=== PATIENT | male | born 1940 | race Caucasian/White ===

== ENCOUNTER → 2016-07-21 | Day surgery (SDC) | payer OTHER ==
[2016-07-19 13:34] VITALS: BMI 29.0
[~2016-07-21] VITALS: Ht 172.7 cm; Wt 88.6 kg
[~2016-07-21] MED LIST: AMLO-110 PO; ASPCH81X PO; ATOR10TA88 PO; CANA1TAB PO; CANA1TAB3 PO; CHOL100041 PO; CLIN300C2 PO; CYAN100T PO; DILT180C48 PO; FISHOIL PO; GLIM4TAB PO; LCTX PO; LIDOCAINE HCL 2% 2 ML VIAL (20MG/ML) ONE; METF-384 PO; NATE120T PO; ONDANSETRON INJ 2 MG/ML 2 ML VIAL IV PRN; PANT40TA PO; PROPOFOL IV EMULSION 10 MG/ML 20 ML VIAL IV ONE; RXC5 PO
[2016-07-21 10:26] VITALS: Ht 172.7 cm; Wt 88.6 kg
--- NOTE | 2016-07-21 11:12 | Endo History and Physical ---
History & Physical Date of Service: Jul 21, 2016. Chief Complaint: SCREENING ONE YEAR FOLLOW-UP Referring Physician: DR. TODD FANG History of Present Illness Evaluation for colon polyps, no symptoms todya. Past Medical History Atrial Fibrillation, Diabetes, Arthritis, Male Genitourinary Prob., Reflux, Cancer, High Cholesterol, Sleep Apnea, Heart Disease, Hypertension Past Surgical History Hx Cardiac Surgery: Yes (HEART CATH, NO STENT 2012 - [facility]) Hx Internal Defibrillator: No Hx Pacemaker: No Hx Abdominal Surgery: Yes ([facility]) Hx Post-Op Nausea and Vomiting: No Hx Cancer Surgery: Yes (BCC AND MELANOMA CANCER REMOVAL FROM RT FOREARM AND FACE) Hx Thoracic Surgery: No Hx Orthopedic: No Hx Urinary Tract Surgery: No Family History None Social History Smoking Status: Never Smoker Hx Substance Use: No Hx Alcohol Use: Yes (OCCASIONAL) Allergies Coded Allergies: Lisinopril (Unverified Allergy, Severe, edema/airway, 07/21/16) Simvastatin (Unverified Allergy, Mild, MUSCLE PAIN, 07/21/16) Adhesives (Verified Adverse Reaction, Unknown, TAPE, 07/21/16) Current Medications Reported Home Medications Medications Dose Route/Sig Max Daily Dose Days Date Category Dose Instructions Invokana (Canagliflozin) 300 Mg Tab 0.5 Tab PO QAM 07/19/16 Reported Protonix (Pantoprazole Sodium) 40 Mg Tab 40 Mg PO QAM 07/10/15 Reported Vitamin B-12 (Cyanocobalamin) 100 Mcg Tab 100 Mcg PO QAM 07/10/15 Reported D 1000 (Cholecalciferol) 1,000 Unit Cap 1,000 Units PO HS 03/27/15 Reported Amaryl (Glimepiride) 4 Mg Tab 8 Mg PO QAM 03/27/15 Reported Take 8 mg by mouth daily with first main meal of day Dilt-Xr (Diltiazem Hcl) 180 Mg Cap 180 Mg PO QAM 03/27/15 Reported Starlix (Nateglinide) 120 Mg Tab 1 Tab PO UD 02/05/14 Reported Take 120 mg by mouth before supper and before bedtime. Lipitor (Atorvastatin Calcium) 10 Mg Tab 10 Mg PO 1-2X/WEEK 02/05/14 Reported [place]-3 (Fish Oil) Oil 2,000 Mg PO HS 05/10/12 Reported Aspirin Chewable (Aspirin) 81 Mg Chew 81 Mg PO HS 05/10/12 Reported Glucophage (Metformin Hcl) 1,000 Mg Tab 1,000 Mg PO HS 05/10/12 Reported Vital Signs Weight (Kilograms): 88.64 Height (Feet): 5 Height (Inches): 8 Date Time Temp Pulse Resp B/P Pulse Ox O2 Delivery O2 Flow Rate FiO2 07/21/16 10:53 36.7 70 20 126/72 95 Room Air Physical Exam General Appearance: no apparent distress Respiratory/Chest: Respiratory effort: no dyspnea Auscultation: breath sounds normal Cardiovascular: Heart Auscultation: RRR Abdomen: Inspection & Palpation: soft Assessment and Plan Colonoscoopy for colon cancer screening
--- NOTE | 2016-07-21 11:54 | Discharge Instructions ---
Endoscopy Patient Instructions Date / Procedure(s) Performed Jul 21, 2016. Colonoscopy Allergy Information Coded Allergies: Lisinopril (Unverified Allergy, Severe, edema/airway, 07/21/16) Simvastatin (Unverified Allergy, Mild, MUSCLE PAIN, 07/21/16) Adhesives (Verified Adverse Reaction, Unknown, TAPE, 07/21/16) Discharge Date / Findings Jul 21, 2016. Internal hemorrhoids Diverticulosis of the colon 3 colon polyps Medication Instructions Stopped Medication(s): TOLD TO STOP MEDICATIONS BUT COULDN'T REMEMBER SO STOPPED ALL TOOK CARDIZEM YESTERDAY Reported Home Medications Medications Dose Route/Sig Max Daily Dose Days Date Category Dose Instructions Invokana (Canagliflozin) 300 Mg Tab 0.5 Tab PO QAM 07/19/16 Reported Protonix (Pantoprazole Sodium) 40 Mg Tab 40 Mg PO QAM 07/10/15 Reported Vitamin B-12 (Cyanocobalamin) 100 Mcg Tab 100 Mcg PO QAM 07/10/15 Reported D 1000 (Cholecalciferol) 1,000 Unit Cap 1,000 Units PO HS 03/27/15 Reported Amaryl (Glimepiride) 4 Mg Tab 8 Mg PO QAM 03/27/15 Reported Take 8 mg by mouth daily with first main meal of day Dilt-Xr (Diltiazem Hcl) 180 Mg Cap 180 Mg PO QAM 03/27/15 Reported Starlix (Nateglinide) 120 Mg Tab 1 Tab PO UD 02/05/14 Reported Take 120 mg by mouth before supper and before bedtime. Lipitor (Atorvastatin Calcium) 10 Mg Tab 10 Mg PO 1-2X/WEEK 02/05/14 Reported [place]-3 (Fish Oil) Oil 2,000 Mg PO HS 05/10/12 Reported Aspirin Chewable (Aspirin) 81 Mg Chew 81 Mg PO HS 05/10/12 Reported Glucophage (Metformin Hcl) 1,000 Mg Tab 1,000 Mg PO HS 05/10/12 Reported Provider Instructions Activity Restrictions - No exercising or heavy lifting for 24 hours. - Do not drink alcohol the day of the procedure. - Do not drive a car or operate machinery until the day after the procedure. - Do not make any important decisions or sign important papers in 24 hours after the procedure. Following Day: - Return to full activity which may include returning to work/school. Diet Start your diet with liquids and light foods (jello, soup, juice, toast). Then eat your usual diet if not nauseated. Treatment For Common After Affects For mild abdominal pain, bloating, or excessive gas: - Rest - Eat lightly - Lie on right side Follow-Up Information Several colon polyps removed today (3) Repeat colonoscopy in 5 years depending on overall health at that time. Anesthesia Information What You Should Know You have had a procedure that required some medicine to reduce anxiety and discomfort. This treatment is called moderate sedation. After receiving the treatment, you may be sleepy, but you will be able to breathe on your own. The effects of the treatment may last for several hours. Follow these instructions along with Activity/Diet recommendations noted above: * Do NOT do anything where dizziness or clumsiness would be dangerous. * Rest quietly at home today, then you can be up and about tomorrow. * Have a responsible person stay with you the rest of today. * You may have had an I.V. today. If so, you may take the dressing off later today. Recommendations Call your doctor if: * Trouble breathing * Continuous vomiting for more than 24 hours * Temperature above 101 degrees * Severe abdominal pain or bloating * Pain not relieved by pain medicine ordered * There is increased drainage or redness from any incision * A large amount of rectal bleeding greater than 2-3 tablespoons. (If you had a polyp/s removed or have hemorrhoids, a small amount of blood - from the rectum is to be expected.) * You have any unanswered questions or concerns. IN THE EVENT OF A SERIOUS EMERGENCY, GO TO THE NEAREST EMERGENCY ROOM Your discharge instructions were prepared by provider Sallie Gardner. Patient Instructions Signature Page Higinio Mayers Patient (or Guardian) Signature/Date: I have read and understand the instructions given to me by my caregivers. Caregiver/RN/Doctor Signature/Date: The above-named patient and/or guardian has received patient instructions on this date. + Original Patient Signature Page (only) stays with chart. Please make copy for patient.
--- NOTE | 2016-07-21 12:01 | GI REPORT ---
Procedure Date: 07/21/2016 11:30 AM Procedure: Colonoscopy Indications: Screening for colorectal malignant neoplasm Medicines: Monitored Anesthesia Care Complications: No immediate complications. Estimated blood loss: Minimal. Estimated Blood Loss: Estimated blood loss was minimal. Procedure: Pre-Anesthesia Assessment: - Prior to the procedure, a History and Physical was performed, and patient medications, allergies and sensitivities were reviewed. The patient's tolerance of previous anesthesia was reviewed. - The risks and benefits of the procedure and the sedation options and risks were discussed with the patient. All questions were answered and informed consent was obtained. - Patient identification and proposed procedure were verified prior to the procedure by the physician, the nurse and the senior business development manager. The procedure was verified in the procedure room. - Pre-procedure physical examination revealed no contraindications to sedation. - ASA Grade Assessment: III - A patient with severe systemic disease. - After reviewing the risks and benefits, the patient was deemed in satisfactory condition to undergo the procedure. - The anesthesia plan was to use monitored anesthesia care (MAC). - Immediately prior to administration of medications, the patient was re-assessed for adequacy to receive sedatives. - The heart rate, respiratory rate, oxygen saturations, blood pressure, adequacy of pulmonary ventilation, and response to care were monitored throughout the procedure. - The physical status of the patient was re-assessed after the procedure. After I obtained informed consent, the scope was passed under direct vision. Throughout the procedure, the patient's blood pressure, pulse, and oxygen saturations were monitored continuously. The scope was introduced through the anus and advanced to the terminal ileum. The colonoscopy was performed without difficulty. The patient tolerated the procedure well. The quality of the bowel preparation was good. Findings: The perianal and digital rectal examinations were normal. Pertinent negatives include normal sphincter tone. The terminal ileum appeared normal. Three sessile polyps were found in the transverse colon. The polyps were 4 to 6 mm in size. These polyps were removed with a cold snare. Resection and retrieval were complete. Estimated blood loss was minimal. Multiple small and large-mouthed diverticula were found in the entire colon. Internal hemorrhoids were found during retroflexion. The hemorrhoids were moderate. The exam was otherwise without abnormality. Impression: - The examined portion of the ileum was normal. - Three 4 to 6 mm polyps in the transverse colon, removed with a cold snare. Resected and retrieved. - Moderate diverticulosis in the entire examined colon. - Internal hemorrhoids. - The examination was otherwise normal. Recommendation: - Discharge patient to home (ambulatory). - Advance diet as tolerated today. - Await pathology results. - Repeat colonoscopy in 5 years for surveillance based on pathology results. Sallie Gardner D.O. Sallie Gardner, 07/21/2016 11:59:57 AM This report has been signed electronically. Note Initiated On: 07/21/2016 11:30 AM I attest to the content of the Intraoperative Record and orders documented therein, exceptions below
[2016-07-21 12:26] VITALS: BP 151/89; PULSE 58; O2SAT 96
--- NOTE | 2016-07-21 12:35 | Anesthesiology Progress Note ---
Anesthesia Post Op Note Date & Time Jul 21, 2016 at 12:34 Vital Signs Pain Intensity: 0 Vital Signs Past 12 Hours Date Time Temp Pulse Resp B/P Pulse Ox O2 Delivery O2 Flow Rate FiO2 07/21/16 12:26 58 20 151/89 96 Room Air 07/21/16 12:07 56 20 140/70 95 Room Air 07/21/16 11:52 69 20 102/62 95 Room Air 07/21/16 10:53 36.7 70 20 126/72 95 Room Air Notes Mental Status: alert / awake / arousable Nausea / Vomiting: adequately controlled Pain: adequately controlled Airway Patency, RR, SpO2: stable & adequate BP & HR: stable & adequate Hydration State: stable & adequate Anesthetic Complications: no major complications apparent
== END | disposition home or self-care (01) ==
LOC: C.GI 10:02
PROVIDERS: ATTEND Internal Medicine Gastroenterology
DX: Z12.11 Encounter for screening for malignant neoplasm of colon (principal); D12.3 Benign neoplasm of transverse colon; K57.30 Diverticulosis of large intestine without perforation or abscess without bleeding; K64.8 Other hemorrhoids; I48.91 Unspecified atrial fibrillation; E11.9 Type 2 diabetes mellitus without complications; I10 Essential (primary) hypertension; K21.9 Gastro-esophageal reflux disease without esophagitis; E78.00 Pure hypercholesterolemia, unspecified; M19.90 Unspecified osteoarthritis, unspecified site; Z98.890 Other specified postprocedural states; Z90.49 Acquired absence of other specified parts of digestive tract

== ENCOUNTER 2016-08-23 17:04 | Inpatient (IN) | payer OTHER ==
[~2016-08-23] VITALS: Ht 172.7 cm; Wt 86.0 kg
[~2016-08-23 17:04] MED LIST changes: -AMLO-110 PO; +ATOR10TA82 PO; -ATOR10TA88 PO; -CANA1TAB PO; -CANA1TAB3 PO; -CLIN300C2 PO; -LCTX PO; -LIDOCAINE HCL 2% 2 ML VIAL (20MG/ML) ONE; -ONDANSETRON INJ 2 MG/ML 2 ML VIAL IV PRN; -PROPOFOL IV EMULSION 10 MG/ML 20 ML VIAL IV ONE; -RXC5 PO
[2016-08-23 17:31] LABS: BASO % 0.3 %; BASO ABS # 0.03 K/uL (0-0.2); COMPLETE YES; HEMATOCRIT 40.2 % (42-52); IG% 0.6 %; LYMPH % 30.1 %; MEAN CELL VOLUME 83.2 fL (80-100); MEAN CORPUSCULAR HEMOGLOBIN 29.2 pg (25-34); MEAN CORPUSCULAR HGB CONC 35.1 g/dl (32-36); MEAN PLATELET VOLUME 9.4 fL (7.4-10.4); MONO % 12.2 %; NEUT % 55.8 %; PLATELET COUNT 308 K/uL (130-400); RED BLOOD COUNT 4.83 M/uL (4.7-6.1); WHITE BLOOD COUNT 11.98 K/uL (4.8-10.8)
[2016-08-23 17:34] LABS: ISTAT CREATININE 0.9 mg/dl (0.6-1.3); ISTAT HEMOGLOBIN 13.9 g/dl (14.0-18.0); ISTAT IONIZED CALCIUM 1.18 mmol/l (1.12-1.32)
[2016-08-23 17:45] LABS: INR 0.9 (0.9-1.1); PROTHROMBIN TIME (PATIENT) 10.1 SECONDS (9.0-12.0)
--- NOTE | 2016-08-23 17:46 | DIAGNOSTIC IMAGING REPORT ---
CHEST ONE VIEW PORTABLE CLINICAL HISTORY: Shortness of breath. COMPARISON STUDY: Chest radiograph July 28, 2016. FINDINGS: Bibasilar opacities have developed. Lung volumes are diminished. Mild cardiomegaly is unchanged. There is no evidence of pulmonary edema. IMPRESSION: Interval development of bibasilar opacities. Pneumonia is favored although atelectasis could appear similar. Radiographic follow-up to ensure resolution is recommended. Electronically signed by: Duran Ferraro M.D. 08/23/2016 5:44 PM Dictated Date/Time: 08/23/2016 5:43 PM
[2016-08-23 17:49] LABS: ALT/SGPT 17 U/L (12-78); BLOOD UREA NITROGEN 19 mg/dl (7-18); BUN/CREATININE RATIO 15.8 (10-20); CALCIUM 8.6 mg/dl (8.5-10.1); CARBON DIOXIDE 25 mmol/L (21-32); CHLORIDE 105 mmol/L (98-107); GLUCOSE 193 mg/dl (70-99); POTASSIUM 3.8 mmol/L (3.5-5.1); SODIUM 140 mmol/L (136-145)
[2016-08-23 17:52] LABS: ALKALINE PHOSPHATASE 71 U/L (45-117); AST/SGOT 12 U/L (15-37)
--- NOTE | 2016-08-23 17:57 | DIAGNOSTIC IMAGING REPORT ---
CT OF THE HEAD WITHOUT CONTRAST CLINICAL HISTORY: Headache. Evaluate for bleed. COMPARISON STUDY: No previous studies for comparison. CT DOSE: 537.48 mGy.cm TECHNIQUE: Helical axial images of the head were obtained without IV contrast. Automated exposure control was utilized for the study. FINDINGS: No acute intracranial hemorrhage, midline shift or mass effect is present. Ventricular system is normal. Basilar cisterns are patent. There are no extra-axial collections. White matter hypodensities suggest moderate small vessel disease. There are no findings to suggest acute dural sinus thrombosis or acute territorial infarct. There are no significant calvarial abnormalities. Visualized portions of the sinuses and mastoid air cells are clear. IMPRESSION: No acute intracranial findings. Electronically signed by: Duran Ferraro M.D. 08/23/2016 5:55 PM Dictated Date/Time: 08/23/2016 5:53 PM
[2016-08-23] MEDS ORDERED: OPTIRAY 320 IV PRN (18:30)
--- NOTE | 2016-08-23 18:31 | DIAGNOSTIC IMAGING REPORT ---
CT ANGIOGRAPHY OF THE CHEST, PULMONARY EMBOLUS PROTOCOL CLINICAL HISTORY: Nausea, vomiting and shortness of breath. COMPARISON STUDY: Chest radiograph July 28, 2016 and August 23, 2016. TECHNIQUE: Following IV administration of 116 mL of [id number]-320, helical axial images of the chest were obtained utilizing the pulmonary embolus protocol. Maximal intensity projections and sagittal and coronal reformats were viewed on an independent 3D workstation. IV contrast was administered without complication. CT DOSE: 466.29 mGy.cm FINDINGS: No pulmonary emboli are identified although the lower lobe segmental and subsegmental vessels are suboptimally assessed due to respiratory motion. The heart is moderately enlarged. There is no pericardial effusion. There is no evidence of thoracic aortic dissection. There is no thoracic lymphadenopathy. Dependent airspace opacities within the lungs are noted. Central airways are patent. There is no pneumothorax or pleural effusion. Bony thorax is unremarkable. Colonic diverticulosis is noted. There is no evidence for acute diverticulitis within visualized portions of the colon. The gallbladder surgically absent. IMPRESSION: 1. No pulmonary emboli identified although the segmental and subsegmental pulmonary arteries within the lower lungs are suboptimally assessed due to respiratory motion. 2. Moderate cardiomegaly. 3. Dependent airspace opacities. Atelectasis is favored over pneumonia. Electronically signed by: Duran Ferraro M.D. 08/23/2016 6:30 PM Dictated Date/Time: 08/23/2016 6:24 PM
[2016-08-23 18:53] LABS: URINE APPEARANCE CLEAR (CLEAR); URINE BILIRUBIN NEG (NEG); URINE COLOR YELLOW; URINE EPITHELIAL CELL AUTO 0-5 /lpf (0-5); URINE NITRITE NEG (NEG); URINE SPECIFIC GRAVITY 1.024 (1.000-1.030); UROBILINOGEN NEG (NEG)
[2016-08-23] MEDS ORDERED: PIPERACILLIN/TAZOBACTAM 4.5 GM/100ML D5W IV STA (18:59)
[2016-08-23 19:02] LABS: MANUAL MICROSCOPIC REQUIRED? NO; REVIEW REQ? NO
[2016-08-23 19:10] LABS: BENZODIAZEPINE, URINE NEG (NEG); COCAINE,URINE NEG (NEG); PHENCYCLIDINE, URINE NEG (NEG)
[2016-08-23] MEDS ORDERED: CANA1TAB PO (19:37)
[2016-08-23] MEDS ORDERED: ACETAMINOPHEN 325 MG TAB PO PRN (19:45)
[2016-08-23] MEDS ORDERED: GLUCOSE 40% GEL 15 GM TUBE PO PRN (19:45)
[2016-08-23] MEDS ORDERED: DEXTROSE 50% 50 ML SYR IV PRN (19:45)
[2016-08-23] MEDS ORDERED: NITROGLYCERIN 0.4 MG SL PER TAB CHARGE SL PRN (19:45)
[2016-08-23] MEDS ORDERED: GLUCAGON FOR INJ 1 MG VIAL SQ PRN (19:45)
[2016-08-23] MEDS ORDERED: ONDANSETRON INJ 2 MG/ML 2 ML VIAL IV PRN (19:45)
[2016-08-23] MEDS ORDERED: GLUCOSE 10 TABS/TUBE PO PRN (19:45)
[2016-08-23] MEDS ORDERED: PHARMACY GLYCEMIC MGMT CONSULT PRN (19:49)
--- NOTE | 2016-08-23 20:09 | EMERGENCY ROOM VISIT NOTE ---
History Report prepared by Michael: Tamika Thompson Under the Supervision of: Dr. Xavier Duggan M.D. First contact with patient: 17:10 Chief Complaint: POISONING Stated Complaint: NAUSEA, VOMITING, POISONING History of Present Illness The patient is a 76 year old male who presents to the Emergency Room with complaints of multiple episodes of vomiting beginning just prior to arrival. The patient states that he was outside in his yard spraying Bullseye, which is a weed killer for about 15 minutes before he started to experience symptoms. The patient states that his symptoms began with blurred vision, nausea and vomiting. He also experienced mild chest pain that he described as tightness which has since resolved upon arrival to the ED. Currently the patient is experiencing a headache and fatigue. He is short of breath but notes that is typical for him. The patient denies a history of heat attacks, diaphoresis, urinary symptoms, numbness, weakness or abdominal pain. The patient does have an irregular heart beat which he takes a baby Aspirin for. He denies any other blood thinners. The patient is also a diabetic and has hypertension. He describes his headache as a muscular pain in the back of his head. Source of History: patient Onset: just [employer] Position: other (global) Symptom Intensity: multiple Quality: other (vomiting) Timing: other (episodes) Associated Symptoms: + SOB, + chest pain (mild tightness), + nausea, No abdominal pain, No diaphoresis, No numbness, No urinary symptoms, No weakness Note: The patient experienced blurred vision. Review of Systems See HPI for pertinent positives & negatives. A total of 10 systems reviewed and were otherwise negative. Past Medical & Surgical Medical Problems: (1) GRISELDA inhibitor-aggravated angioedema (2) CKD (chronic kidney disease), stage III (3) Diverticulosis of colon (4) DM type 2 (diabetes mellitus, type 2) (5) Dyslipidemia (6) GERD (gastroesophageal reflux disease) (7) GI bleed (8) H/O hemorrhoids (9) Hiatal hernia (10) History of basal cell carcinoma (11) History of Helicobacter pylori infection (12) History of right bundle branch block (RBBB) (13) Hypertension (14) Hypoxia (15) Iliac artery aneurysm (16) Paroxysmal atrial fibrillation (17) Pneumonia (18) Pneumonia Surgical Problems: (1) H/O arthroscopic knee surgery (2) H/O colonoscopy (3) H/O nasal polypectomy (4) S/p ERCP with stone removal (5) S/P laparoscopic cholecystectomy (6) S/P tonsillectomy (7) S/p upper endoscopy (8) Status post Mohs surgery Family History Cancer Diabetes mellitus Heart disease Hypertension Lung disease Social History Smoking Status: Never Smoker Alcohol Use: occasionally Drug Use: none Marital Status: single Occupation Status: retired Current/Historical Medications Scheduled Aspirin (Aspirin Chewable), 81 MG PO HS Atorvastatin (Lipitor), 10 MG PO 1-2X/WEEK Canagliflozin (Invokana), 50 MG PO DAILY Cholecalciferol (D 1000), 1,000 UNITS PO HS Cyanocobalamin (Vitamin B-12), 100 MCG PO QAM Diltiazem Hcl (Dilt-Xr), 180 MG PO QAM Glimepiride (Amaryl), 8 MG PO QAM Metformin Hcl (Glucophage), 1,000 MG PO HS Nateglinide (Starlix ), 1 TAB PO UD Pantoprazole (Protonix), 40 MG PO QAM Allergies Coded Allergies: Lisinopril (Verified Allergy, Severe, edema/airway, 08/23/16) Simvastatin (Verified Allergy, Mild, MUSCLE PAIN, 08/23/16) Adhesives (Verified Adverse Reaction, Unknown, RASH, 08/23/16) Mushroom (Verified Adverse Reaction, Unknown, NAUSEATED, 08/23/16) Physical Exam Vital Signs Date Time Temp Pulse Resp B/P Pulse Ox O2 Delivery O2 Flow Rate FiO2 08/23/16 19:35 74 21 168/90 94 Nasal Cannula 2.0 08/23/16 18:24 70 21 181/89 97 08/23/16 17:16 36.8 60 18 164/91 89 Room Air 08/23/16 17:16 65 08/23/16 17:10 62 20 164/91 90 Physical Exam Constitutional: Vital signs reviewed. Eyes: Pupils are equal round reactive to light. Conjunctiva are noninjected. ENT: Pharynx is clear without erythema or exudate. Mucous membranes are moist. Neck supple without meningeal signs. Respiratory: Clear to auscultation bilaterally. Breath sounds are equal bilaterally. Cardiovascular: Regular rate and rhythm. No rubs or gallops. GI: Soft, nondistended and nontender. Bowel sounds are present. Musculoskeletal: No peripheral edema. No lower extremity tenderness. Integumentary: No cyanosis. Neurological: The patient is awake and alert. Cranial nerves II-XII are intact. Motor is 5 out of 5 all extremities. Sensation is intact to light touch all extremities. Normal speech. No pronator drift. Psychiatric: Normal affect. Medical Decision & Procedures ER Provider Diagnostic Interpretation: Radiology results as stated below per my review and the radiologist's interpretation: CT OF THE HEAD WITHOUT CONTRAST CLINICAL HISTORY: Headache. Evaluate for bleed. COMPARISON STUDY: No previous studies for comparison. CT DOSE: 537.48 mGy.cm TECHNIQUE: Helical axial images of the head were obtained without IV contrast. Automated exposure control was utilized for the study. FINDINGS: No acute intracranial hemorrhage, midline shift or mass effect is present. Ventricular system is normal. Basilar cisterns are patent. There are no extra-axial collections. White matter hypodensities suggest moderate small vessel disease. There are no findings to suggest acute dural sinus thrombosis or acute territorial infarct. There are no significant calvarial abnormalities. Visualized portions of the sinuses and mastoid air cells are clear. IMPRESSION: No acute intracranial findings. Electronically signed by: Duran Ferraro M.D. 08/23/2016 5:55 PM Dictated Date/Time: 08/23/2016 5:53 PM CHEST ONE VIEW PORTABLE CLINICAL HISTORY: Shortness of breath. COMPARISON STUDY: Chest radiograph July 28, 2016. FINDINGS: Bibasilar opacities have developed. Lung volumes are diminished. Mild cardiomegaly is unchanged. There is no evidence of pulmonary edema. IMPRESSION: Interval development of bibasilar opacities. Pneumonia is favored although atelectasis could appear similar. Radiographic follow-up to ensure resolution is recommended. Electronically signed by: Duran Ferraro M.D. 08/23/2016 5:44 PM Dictated Date/Time: 08/23/2016 5:[address] ANGIOGRAPHY OF THE CHEST, PULMONARY EMBOLUS PROTOCOL CLINICAL HISTORY: Nausea, vomiting and shortness of breath. COMPARISON STUDY: Chest radiograph July 28, 2016 and August 23, 2016. TECHNIQUE: Following IV administration of 116 mL of [id number]-320, helical axial images of the chest were obtained utilizing the pulmonary embolus protocol. Maximal intensity projections and sagittal and coronal reformats were viewed on an independent 3D workstation. IV contrast was administered without complication. CT DOSE: 466.29 mGy.cm FINDINGS: No pulmonary emboli are identified although the lower lobe segmental and subsegmental vessels are suboptimally assessed due to respiratory motion. The heart is moderately enlarged. There is no pericardial effusion. There is no evidence of thoracic aortic dissection. There is no thoracic lymphadenopathy. Dependent airspace opacities within the lungs are noted. Central airways are patent. There is no pneumothorax or pleural effusion. Bony thorax is unremarkable. Colonic diverticulosis is noted. There is no evidence for acute diverticulitis within visualized portions of the colon. The gallbladder surgically absent. IMPRESSION: 1. No pulmonary emboli identified although the segmental and subsegmental pulmonary arteries within the lower lungs are suboptimally assessed due to respiratory motion. 2. Moderate cardiomegaly. 3. Dependent airspace opacities. Atelectasis is favored over pneumonia. Electronically signed by: Duran Ferraro M.D. 08/23/2016 6:30 PM Dictated Date/Time: 08/23/2016 6:24 PM Laboratory Results 08/23/16 16:32 Red Blood Count 4.83, Mean Corpuscular Volume 83.2, Mean Corpuscular Hemoglobin 29.2, Mean Corpuscular Hemoglobin Concent 35.1, Mean Platelet Volume 9.4, Neutrophils (%) (Auto) 55.8, Lymphocytes (%) (Auto) 30.1, Monocytes (%) (Auto) 12.2, Eosinophils (%) (Auto) 1.0, Basophils (%) (Auto) 0.3, Neutrophils # (Auto ) 6.70, Lymphocytes # (Auto) 3.60, Monocytes # (Auto) 1.46, Eosinophils # (Auto ) 0.12, Basophils # (Auto) 0.03 08/23/16 16:32 Test 08/23/16 16:32 08/23/16 17:22 08/23/16 18:38 White Blood Count 11.98 K/uL (4.8-10.8) Red Blood Count 4.83 M/uL (4.7-6.1) Hemoglobin 14.1 g/dL (14.0-18.0) Hematocrit 40.2 % (42-52) Mean Corpuscular Volume 83.2 fL (80-100) Mean Corpuscular Hemoglobin 29.2 pg (25-34) Mean Corpuscular Hemoglobin Concent 35.1 g/dl (32-36) Platelet Count 308 K/uL (130-400) Mean Platelet Volume 9.4 fL (7.4-10.4) Neutrophils (%) (Auto) 55.8 % Lymphocytes (%) (Auto) 30.1 % Monocytes (%) (Auto) 12.2 % Eosinophils (%) (Auto) 1.0 % Basophils (%) (Auto) 0.3 % Neutrophils # (Auto) 6.70 K/uL (1.4-6.5) Lymphocytes # (Auto) 3.60 K/uL (1.2-3.4) Monocytes # (Auto) 1.46 K/uL (0.11-0.59) Eosinophils # (Auto) 0.12 K/uL (0-0.5) Basophils # (Auto) 0.03 K/uL (0-0.2) RDW Standard Deviation 44.8 fL (36.4-46.3) RDW Coefficient of Variation 14.6 % (11.5-14.5) Immature Granulocyte % (Auto) 0.6 % Immature Granulocyte # (Auto) 0.07 K/uL (0.00-0.02) Prothrombin Time 10.1 SECONDS (9.0-12.0) Prothromb Time International Ratio 0.9 (0.9-1.1) Activated Partial Thromboplast Time 25.8 SECONDS (21.0-31.0) Partial Thromboplastin Ratio 1.0 Est Creatinine Clear Calc Drug Dose 55.4 ml/min Estimated GFR () 66.7 Estimated GFR (Non- 57.6 BUN/Creatinine Ratio 15.8 (10-20) Calcium Level 8.6 mg/dl (8.5-10.1) Magnesium Level 1.6 mg/dl (1.8-2.4) Total Bilirubin 0.4 mg/dl (0.2-1) Direct Bilirubin < 0.1 mg/dl (0-0.2) Aspartate Amino Transf (AST/SGOT) 12 U/L (15-37) Alanine Aminotransferase (ALT/SGPT) 17 U/L (12-78) Alkaline Phosphatase 71 U/L (45-117) Total Protein 7.8 gm/dl (6.4-8.2) Albumin 3.7 gm/dl (3.4-5.0) Lipase 201 U/L (73-393) Bedside Hemoglobin 13.9 g/dl (14.0-18.0) Bedside Hematocrit 41 % (42-52) Bedside Sodium 141 mEq/L (135-144) Bedside Potassium 3.8 mEq/L (3.3-5.0) Bedside Chloride 102 mEq/L (101-112) Bedside Total CO2 24 mEq/l (24-31) Anion Gap 20.0 mmol/L (16-25) Bedside Blood Urea Nitrogen 19 mg/dl (7-18) Bedside Creatinine 0.9 mg/dl (0.6-1.3) Bedside Glucose (other) 195 mg/dl (70-99) Bedside Ionized Calcium (Lesley) 1.18 mmol/l (1.12-1.32) Bedside Troponin I 0.000 ng/ml (0-0.045) Urine Color YELLOW Urine Appearance CLEAR (CLEAR) Urine pH 5.0 (4.5-7.5) Urine Specific [place] 1.024 (1.000-1.030) Urine Protein 2+ (NEG) Urine Glucose (UA) 1+ (NEG) Urine Ketones NEG (NEG) Urine Occult Blood NEG (NEG) Urine Nitrite NEG (NEG) Urine Bilirubin NEG (NEG) Urine Urobilinogen NEG (NEG) Urine Leukocyte Esterase NEG (NEG) Urine WBC (Auto) 1-5 /hpf (0-5) Urine RBC (Auto) 0-4 /hpf (0-4) Urine Hyaline Casts (Auto) 1-5 /lpf (0-5) Urine Epithelial Cells (Auto) 0-5 /lpf (0-5) Urine Bacteria (Auto) NEG (NEG) Urine Opiates Screen NEG (NEG) Urine Methadone, Qualitative NEG (NEG) Urine Barbiturates NEG (NEG) Urine Phencyclidine (PCP) Level NEG (NEG) Ur Amphetamine/Methamphetamine NEG (NEG) MDMA (Ecstasy) Screen NEG (NEG) Urine Benzodiazepines Screen NEG (NEG) Urine Cocaine Metabolite NEG (NEG) Urine Marijuana (THC) NEG (NEG) Laboratory results as reviewed by me. Medications Administered Medications (Trade) Dose Ordered Sig/Emmie Route Start Time Stop Time Status Last Admin Dose Admin Piperacillin Sod/ Tazobactam Sod (Zosyn Iv) 4.5 gm NOW STAT IV 08/23/16 18:59 08/23/16 19:00 DC 08/23/16 19:31 4.5 GM ECG Indication: vomiting Rate (beats per minute): 62 Rhythm: sinus with SA Findings: 1st degree AV block, RBBB Comparison ECG Date: RBBB present 03/27/15 ED Course 171: The patient was evaluated in room A2. A complete history and physical exam was performed. 1800: Patient feels tired at the moment. He complains of an occasional musculoskeletal headache on the right side. I informed him he will have a CT scan done. 1805: I spoke with Poison Control. They feel the spraying of the weed killer is not likely the cause of the patient's symptoms. Ogseye is not an organic phosphate. 1858: Zosyn IV 4.5 gm IV. 1902: I spoke with the patient and his family about the test results. 1908: I spoke with CARLOS Hernandez of [employer]. We discussed the patient and his results. The patient will be further evaluated by Alan Hernandez. Medical Decision This is a 76-year-old male who presents with chest pain, shortness of breath, headache and vomiting. Differential diagnosis includes intracranial hemorrhage , intracranial mass, CVA, metabolic derangement, [place], pneumonia. I did perform a limited focused review of portions of the patient's old chart on the electronic medical record. The patient had a colonoscopy last month that showed polyps in his colon. I did provide prehospital medical command from patient. I did speak to the Poison Control Center at [place] who stated that the weed killer was not likely to have given him his symptoms. I did evaluate the patient as noted above. The patient was placed on a continuous laboratory monitor. I did order and personally review the patient's 12-lead EKG and chest x-ray as described above. His chest x-ray demonstrates bibasilar infiltrates. I did order and review the patient's blood work as noted in the electronic medical record. Because of his headache and was concerned about intracranial hemorrhage. Because of his hypoxia I was concerned about possible PE. I did order a CT of the head and chest. I did review the images myself as well as the radiology report as described above. There is no evidence of bleed or pulmonary embolism. He does have bibasilar infiltrates on CT scan. I did reassess the patient multiple times. He is satting 96% on 2 L oxygen. I did treat the patient with Zosyn IV. I did discuss the test results with the patient and his family. I did recommend hospitalization and discuss case with the hospitalist and case management manager. Consults Time Called: 1803 Consulting Physician: Poison Control Returned Call: 1805 I spoke with Poison Control. They feel the spraying of the weed killer is not likely the cause of the patient's symptoms. Ogseye is not an organic phosphate. Additional Consults: Time Called: 1906 Consulted Physician: Alan Hernandez Returned Call: 1908 Additional Comments: I spoke with CARLOS Hernandez of [employer]. We discussed the patient and his results. The patient will be further evaluated by Alan Hernandez. Impression Primary Impression: Bilateral pneumonia Additional Impressions: Headache Hypoxia Departure Information Dispostion Home / Self-Care Referrals Aiyana Albarran DBelaOBela (PCP) Problem Qualifiers Primary Impression: Bilateral pneumonia Pneumonia type: due to unspecified organism Lung location: lower lobe of lung Qualified Codes: J18.9 - Pneumonia, unspecified organism Additional Impressions: Headache Headache type: unspecified Headache chronicity pattern: acute headache
--- NOTE | 2016-08-23 20:12 | History and Physical ---
History & Physical Date & Time of Service: Aug 23, 2016 at 19:39 Chief Complaint: Nausea, Vomiting, Poisoning Primary Care Physician: Aiyana Albarran D.O. History of Present Illness Source: patient, family, clinic records, hospital records Patient seen and examined. 76 year old male presents to the ED complaining of acute onset of dizziness, nausea, and chest tightness prior to arrival. Patient reports he was spraying a weed killer (roundup) when he acutely felt dizzy and like his vision was blurry. He states he also had some chest tightness at this time and had severe nausea. His family reports that he seemed wobbly on his feet so he came to the ED for further evaluation. Prior to working in the yard the patient states he was feeling well. He denies fevers, chills, URI symptoms, cough, sputum production, SOB, vomiting, diarrhea, dysuria, calf pain and edema. He denies history of COPD/Asthma. In the ED patient is hypoxic on RA, WBC count is 11K, CT is negative for PE but shows BL infiltrates. CT head was negative. Patient was placed on supplemental oxygen and received Zosyn for possible pneumonia. ED spoke with poison control who did not think symptoms were secondary to [place] use. When he walked to bathroom in the ED the patient was still wobbly per family. He will be admitted for further workup and treatment. Past Medical/Surgical History Medical Problems: (1) GRISELDA inhibitor-aggravated angioedema Status: Chronic (2) CKD (chronic kidney disease), stage III Status: Chronic (3) Diverticulosis of colon Status: Chronic (4) DM type 2 (diabetes mellitus, type 2) Status: Chronic (5) Dyslipidemia Status: Chronic (6) GERD (gastroesophageal reflux disease) Status: Chronic (7) H/O hemorrhoids Status: Chronic (8) Hiatal hernia Status: Chronic (9) History of basal cell carcinoma Status: Chronic (10) History of Helicobacter pylori infection Status: Chronic (11) History of right bundle branch block (RBBB) Status: Chronic (12) Hypertension Status: Chronic (13) Iliac artery aneurysm Status: Chronic (14) Paroxysmal atrial fibrillation Status: Chronic (15) Pneumonia Status: Resolved Surgical Problems: (1) H/O arthroscopic knee surgery Status: Chronic (2) H/O colonoscopy Permanent Comment: 04/2005-diverticulae Status: Chronic (3) H/O nasal polypectomy Status: Chronic (4) S/p ERCP with stone removal Permanent Comment: 05/12/2012 Status: Chronic (5) S/P laparoscopic cholecystectomy Status: Chronic (6) S/P tonsillectomy Status: Chronic (7) S/p upper endoscopy Permanent Comment: 04/2005- mild antritis, positive H pylori Status: Chronic (8) Status post Mohs surgery Status: Chronic Family History Cancer Diabetes mellitus Heart disease Hypertension Lung disease Social History Smoking Status: Never Smoker Drug Use: none Marital Status: single Housing status: lives with significant other Occupational Status: retired Immunizations History of Influenza Vaccine: Yes History of Tetanus Vaccine?: Yes History of Pneumococcal: Yes History of Hepatitis B Vaccine: No Multi-Drug Resistant Organisms History of MDRO: No Allergies Coded Allergies: Lisinopril (Verified Allergy, Severe, edema/airway, 08/23/16) Simvastatin (Verified Allergy, Mild, MUSCLE PAIN, 08/23/16) Adhesives (Verified Adverse Reaction, Unknown, RASH, 08/23/16) Mushroom (Verified Adverse Reaction, Unknown, NAUSEATED, 08/23/16) Home Medications Scheduled Aspirin (Aspirin Chewable), 81 MG PO HS Atorvastatin (Lipitor), 10 MG PO 1-2X/WEEK Canagliflozin (Invokana), 50 MG PO DAILY Cholecalciferol (D 1000), 1,000 UNITS PO HS Cyanocobalamin (Vitamin B-12), 100 MCG PO QAM Diltiazem Hcl (Dilt-Xr), 180 MG PO QAM Glimepiride (Amaryl), 8 MG PO QAM Metformin Hcl (Glucophage), 1,000 MG PO HS Nateglinide (Starlix ), 1 TAB PO UD Pantoprazole (Protonix), 40 MG PO QAM Review of Systems See above for pertinent positives & negatives. A total of 10 systems reviewed and were otherwise negative. Physical Exam Vital Signs Date Time Temp Pulse Resp B/P Pulse Ox O2 Delivery O2 Flow Rate FiO2 08/23/16 19:35 74 21 168/90 94 Nasal Cannula 2.0 08/23/16 18:24 70 21 181/89 97 08/23/16 17:16 36.8 60 18 164/91 89 Room Air 08/23/16 17:16 65 08/23/16 17:10 62 20 164/91 90 General Appearance: + pertinent finding (WD/WN 76 year old male lying in bed in NAD with family at bedside ) Head: normocephalic, atraumatic Eyes: PERRL, EOMI, sclerae normal ENT: hearing grossly normal, pharynx normal Neck: supple, no JVD Respiratory/Chest: chest non-tender, lungs clear, normal breath sounds, no respiratory distress, no accessory muscle use Cardiovascular: regular rate, rhythm, no edema, no gallop, no JVD, no murmur, normal peripheral pulses Abdomen/GI: normal bowel sounds, non tender, soft Back: normal inspection, no muscle spasm Extremities/Musculoskelatal: no calf tenderness, normal capillary refill, no pedal edema Neurologic/Psych: alert, oriented x 3, + pertinent finding (No focal deficits ) Skin: normal color, warm/dry, no rash Lymphatic: no adenopathy Diagnostics Laboratory Results Results Past 24 Hours Test 08/23/16 16:32 08/23/16 17:22 08/23/16 18:38 Range/Units White Blood Count 11.98 4.8-10.8 K/uL Red Blood Count 4.83 4.7-6.1 M/uL Hemoglobin 14.1 14.0-18.0 g/dL Hematocrit 40.2 42-52 % Mean Corpuscular Volume 83.2 80-100 fL Mean Corpuscular Hemoglobin 29.2 25-34 pg Mean Corpuscular Hemoglobin Concent 35.1 32-36 g/dl Platelet Count 308 130-400 K/uL Mean Platelet Volume 9.4 7.4-10.4 fL Neutrophils (%) (Auto) 55.8 % Lymphocytes (%) (Auto) 30.1 % Monocytes (%) (Auto) 12.2 % Eosinophils (%) (Auto) 1.0 % Basophils (%) (Auto) 0.3 % Neutrophils # (Auto) 6.70 1.4-6.5 K/uL Lymphocytes # (Auto) 3.60 1.2-3.4 K/uL Monocytes # (Auto) 1.46 0.11-0.59 K/uL Eosinophils # (Auto) 0.12 0-0.5 K/uL Basophils # (Auto) 0.03 0-0.2 K/uL RDW Standard Deviation 44.8 36.4-46.3 fL RDW Coefficient of Variation 14.6 11.5-14.5 % Immature Granulocyte % (Auto) 0.6 % Immature Granulocyte # (Auto) 0.07 0.00-0.02 K/uL Prothrombin Time 10.1 9.0-12.0 SECONDS Prothromb Time International Ratio 0.9 0.9-1.1 Activated Partial Thromboplast Time 25.8 21.0-31.0 SECONDS Partial Thromboplastin Ratio 1.0 Sodium Level 140 136-145 mmol/L Potassium Level 3.8 3.5-5.1 mmol/L Chloride Level 105 98-107 mmol/L Carbon Dioxide Level 25 21-32 mmol/L Anion Gap 10.0 20.0 16-25 mmol/L Blood Urea Nitrogen 19 7-18 mg/dl Creatinine 1.20 0.60-1.40 mg/dl Est Creatinine Clear Calc Drug Dose 55.4 ml/min Estimated GFR () 66.7 Estimated GFR (Non- 57.6 BUN/Creatinine Ratio 15.8 10-20 Random Glucose 193 70-99 mg/dl Calcium Level 8.6 8.5-10.1 mg/dl Total Bilirubin 0.4 0.2-1 mg/dl Direct Bilirubin < 0.1 0-0.2 mg/dl Aspartate Amino Transf (AST/SGOT) 12 15-37 U/L Alanine Aminotransferase (ALT/SGPT) 17 12-78 U/L Alkaline Phosphatase 71 45-117 U/L Total Protein 7.8 6.4-8.2 gm/dl Albumin 3.7 3.4-5.0 gm/dl Lipase 201 73-393 U/L Bedside Hemoglobin 13.9 14.0-18.0 g/dl Bedside Hematocrit 41 42-52 % Bedside Sodium 141 135-144 mEq/L Bedside Potassium 3.8 3.3-5.0 mEq/L Bedside Chloride 102 101-112 mEq/L Bedside Total CO2 24 24-31 mEq/l Bedside Blood Urea Nitrogen 19 7-18 mg/dl Bedside Creatinine 0.9 0.6-1.3 mg/dl Bedside Glucose (other) 195 70-99 mg/dl Bedside Ionized Calcium (Lesley) 1.18 1.12-1.32 mmol/l Bedside Troponin I 0.000 0-0.045 ng/ml Urine Color YELLOW Urine Appearance CLEAR CLEAR Urine pH 5.0 4.5-7.5 Urine Specific [place] 1.024 1.000-1.030 Urine Protein 2+ NEG Urine Glucose (UA) 1+ NEG Urine Ketones NEG NEG Urine Occult Blood NEG NEG Urine Nitrite NEG NEG Urine Bilirubin NEG NEG Urine Urobilinogen NEG NEG Urine Leukocyte Esterase NEG NEG Urine WBC (Auto) 1-5 0-5 /hpf Urine RBC (Auto) 0-4 0-4 /hpf Urine Hyaline Casts (Auto) 1-5 0-5 /lpf Urine Epithelial Cells (Auto) 0-5 0-5 /lpf Urine Bacteria (Auto) NEG NEG Urine Opiates Screen NEG NEG Urine Methadone, Qualitative NEG NEG Urine Barbiturates NEG NEG Urine Phencyclidine (PCP) Level NEG NEG Ur Amphetamine/Methamphetamine NEG NEG MDMA (Ecstasy) Screen NEG NEG Urine Benzodiazepines Screen NEG NEG Urine Cocaine Metabolite NEG NEG Urine Marijuana (THC) NEG NEG Diagnostic Radiology CT A/P Per radiologist read: IMPRESSION: 1. No pulmonary emboli identified although the segmental and subsegmental pulmonary arteries within the lower lungs are suboptimally assessed due to respiratory motion. 2. Moderate cardiomegaly. 3. Dependent airspace opacities. Atelectasis is favored over pneumonia. CXR Per radiologist read: IMPRESSION: Interval development of bibasilar opacities. Pneumonia is favored although atelectasis could appear similar. Radiographic follow-up to ensure resolution is recommended. CT HEAD Per radiologist read: IMPRESSION: No acute intracranial findings. 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 Workup reveals, hypoxia, possible pneumonia ACUTE HYPOXIA -admit to tele -? cause, CTA chest negative for PE, does show significant atelectasis versus pneumonia -no history of lung disease -empirically treat for infection with clindamycin -continue supplemental oxygen prn -r/o ACS as outlined below -CBC, PRP, Mg in AM LEUKOCYTOSIS -? underlying pneumonia, CT with atelectasis versus pneumonia possible aspiration -will empirically treat with clindamycin -repeat CXR in AM -incentive Spirometry Speech therapy consult CHEST TIGHTNESS/DIZZINESS/NAUSEA -acutely while using pesticides -? cause, Poison Control does not believe symptoms are related to pesticides use -CVA ruled out by CT head -PE ruled out by CT chest -consider afib with RVR, ACS, Hypertensive urgency and other causes -monitor in tele for arrhythmia -serial Juice, EKGs -update Echo -continue Aspirin, Statin, Diltiazem HYPERTENSION- uncontrolled -systolically >160 -add amlodipine prn -monitor in tele PAROXYSMAL ATRIAL FIBRILLATION -in Sinus Rhythm -continue Diltiazem -continue Aspirin -monitor in tele DM2 -hold po meds -SSI coverage -update A1c -BSG AC HS -consistent carb diet HLD -takes statin only 2-3 times a week CKD STAGE 3 -crea stable -follow PRP -avoid nephrotoxic agents as able GERD -continue PPI DVT PROPHYLAXIS: SCDs RE: h/o GI bleed CODE STATUS: FULL CODE DISPO:In my clinical judgment this beneficiary meets acute admission criteria, established by [facility], that includes being hospitalized through two midnights. Patient seen in collaboration with Dr. Arambula ATTENDING ADDENDUM care coordinated with CARLOS Lundberg please refer to her notes for full details, I agree with her notes patient seen and examined, records reviewed by myself as well on exam, patient seen resting in bed, alert, pleasant states he is starting to feel better while spraying weed, had sudden onset of blurred vision dizziness, then when he went home had nausea, vomiting, left sided chest tightness at the time of my exam, no symptoms except being tired admits dysphagia, coughing while eating occasionally no other symptoms VS noted and reviewed oriented x 3 , not in distress, speaks in sentences with no effort nor accessory muscle use normal rate, regular rhythm, no murmurs clear breath sounds bilaterally non distended, soft, nontender no bipedal edema, erythema, warmth no neuro deficits WBC 11.[address] angio: no PE, possible dependent atelectasis vs/ pneumonia ASSESSMENT/PLAN> CHEST DISCOMFORT r/o ACS - associated with nausea/vomiting, dizziness, blurred vision - cardiac markers x 3 echo HYPOXIA - possible Aspiration pneumonia vs. Atelectasis - Clindamycin IV Incentive Spirometry - Speech therapy ELEVATED BP no HTN in the past monitor BP patient also has been working at the [employer] for the past few weeks not getting enough sleep, confirms patient seems to be getting tired lately symptoms may ultimately be related to exhaustion other diagnoses and plan of care as per CARLOS Arambula MD VTE Prophylaxis VTE Risk Assessment Done? Y/N: Yes Risk Level: Low
[2016-08-23] MEDS ORDERED: AMLODIPINE BESYLATE 5 MG TAB PO PRN (20:15)
[2016-08-23] MEDS ORDERED: SODIUM CHLORIDE 0.9% 1000ML 1,000 ML IV ONE (20:15)
--- NOTE | 2016-08-23 20:22 | Pharmacy Progress Note ---
Glycemic Control Intl Consult Date of Service Aug 23, 2016. Scope Glycemic Pharmacist consulted by Emelia Lundberg PA-C on 08/23/16 for glycemic control and to write orders per [facility] inpatient glycemic control protocol Objective Weight (Kilograms): 90.300 Accuchecks BSG (last 24hrs): Test 08/23/16 16:32 Random Glucose 193 mg/dl (70-99) HbA1c Item Value Date Time Hemoglobin A1c 7.6 % H 05/29/15 0530 Recent Pertinent Medications Outpatient Anti-diabetic Regimen: * Invokana 50mg PO daily * Amaryl 8mg PO QAM * Metformin 1,000mg PO HS * Starlix 120mg OP daily with dinner and at bedtime The patient is currently receiving: * Basal insulin: None ordered * Correctional Insulin: Novolog Correction per scale ACHS Goal Range: Low 110 mg/dL - High 140 mg/dL Correction Factor: 50 mg/dL/unit * Prandial insulin: Per carb ratio of 1 unit per 25 grams CHO consumed * Oral Agents: On hold for admission Risk Factors for Insulin Resistance: * Infection * Diet Assessment & Plan ASSESSMENT: * 76yo T2DM male with adequately controlled diabetes per recent A1c * Pt is maintained on oral antidiabetic agents as an outpatient * Oral agents are not recommended for inpatient use d/t drug interactions, changing PO intake, and difficulty titrating for acute hyper/hypoglycemia. ADA recommends re-initiating outpatient oral agents 1-2 days prior to discharge if/ when appropriate if they were held on admission. * Will hold oral agents for admission and utilize SQ basal bolus insulin regimen which is the recommended regimen for inpatient glycemic control. * Will initiate weight based insulin dosing for insulin evans patient and titrate based on BSG trends. * Start basal insulin for sustained hyperglycemia (BSG > 180). Basal insulin needs not determined as pt is not on insulin as an outpatient. Will use range based dosing per BSG to prevent under/over dosing Lantus * Current orders are conservative (not adjusted for stress), will tighten bolus insulin parameters but keep low end of goal range high to help subtract off CHO coverage if BSG below goal range * ADA & AACE recommend a goal blood sugar range 140-180 mg/dl for the majority of critically ill & non-critically ill patients. However, more stringent targets may be selected in individual cases. PLAN FOR INPATIENT GLYCEMIC CONTROL: * Hold outpatient oral diabetes medications - may resume at discharge per recent A1c and well controlled diabetes * Start basal insulin with Lantus SQ BID if BSG > 180mg/dl * If BSG < 180mg/dl --> Do not give Lantus * If BSG 181-249mg/dl --> Give Lantus 10 units * If BSG 250mg/dl + --> Give Lantus 15 units * Tighten NOVOLOG per scale ACHS or Q6hrs while NPO * Goal Range: Low 110 mg/dL - High 140 mg/dL * Correction Factor: 30 mg/dL/unit * Nutritional / Prandial insulin per carb ratio of 1 unit per 10 grams CHO consumed * Please note that the plan above was derived based on current level of insulin resistance and hospital stress. These recommendations are appropriate for inpatient admission only. Plan of care upon discharge will need to be reassessed to avoid potential outpatient hypo/hyperglycemia. Thank you.
[2016-08-23 20:30] VITALS: BP 163/80; PULSE 61; TEMP 36.7; O2SAT 92; BMI 30.3
[2016-08-23] MEDS ORDERED: MAGNESIUM SULFATE 1GM / D5W 1 GM in PREMIXED IN D5W 100 ML IV ONE (21:00)
[2016-08-23] MEDS ORDERED: DOXYCYCLINE HYCLATE 100 MG CAP PO SCH (21:00)
[2016-08-23] MEDS ORDERED: INSULIN GLARGINE SOLOSTAR 100 UNITS/ML 3 ML PEN SC SCH (21:00)
[2016-08-23] MEDS: CLINDAMYCIN IV 600 MG in DEXTROSE 5% ADD-VANTAGE 50ML 50 ML IV SCH (21:25)
[2016-08-23] MEDS: INSULIN ASPART 100 UNITS/ML 3 ML PEN SC SCH (21:43)
[2016-08-23] MEDS: ASPIRIN 81 MG CHEW PO SCH (21:48)
[2016-08-23] MEDS: CHOLECALCIFEROL 1000 INTER.UNIT TAB PO SCH (21:48)
[2016-08-23 22:33] LABS: CKMB/CK RATIO 2.3 (0-3.0)
[2016-08-23 23:50] VITALS: BP 134/64; PULSE 74; TEMP 36.7; O2SAT 93
[2016-08-24] VITALS (9 sets, daily range): BP systolic 139–163; BP diastolic 71–85; PULSE 51–70; TEMP 36.6–37.1; O2SAT 91–93; Ht 172.7 cm; Wt 86.0 kg
[2016-08-24 04:27] LABS: HEMATOCRIT 36.9 % (42-52); MEAN CELL VOLUME 83.1 fL (80-100); MEAN CORPUSCULAR HEMOGLOBIN 28.8 pg (25-34); MEAN CORPUSCULAR HGB CONC 34.7 g/dl (32-36); MEAN PLATELET VOLUME 8.8 fL (7.4-10.4); PLATELET COUNT 257 K/uL (130-400); RED BLOOD COUNT 4.44 M/uL (4.7-6.1); WHITE BLOOD COUNT 12.24 K/uL (4.8-10.8)
[2016-08-24 04:46] LABS: BLOOD UREA NITROGEN 16 mg/dl (7-18); BUN/CREATININE RATIO 15.6 (10-20); CALCIUM 8.3 mg/dl (8.5-10.1); CARBON DIOXIDE 30 mmol/L (21-32); CHLORIDE 105 mmol/L (98-107); GLUCOSE 127 mg/dl (70-99); POTASSIUM 3.7 mmol/L (3.5-5.1); SODIUM 141 mmol/L (136-145)
[2016-08-24 04:51] LABS: CHOLESTEROL 144 mg/dl (0-200); CHOLESTEROL/HDL RATIO 3.8; HDL CHOLESTEROL 38 mg/dl; LDL CHOLESTEROL CALCULATED 83 mg/dl; TRIGLYCERIDES 117 mg/dl (0-150); VERY LOW DENSITY LIPOPROT CALC 23 mg/dl
[2016-08-24] MEDS: CLINDAMYCIN IV 600 MG in DEXTROSE 5% ADD-VANTAGE 50ML 50 ML IV SCH ×3 (05:21→21:23)
[2016-08-24 05:51] LABS: ESTIMATED AVERAGE GLUCOSE 197 mg/dl; HA1C FLAG Normal (Normal)
[2016-08-24] MEDS: CYANOCOBALAMIN 100 MCG TAB (VIT B-12) PO SCH (08:26)
[2016-08-24] MEDS: ATORVASTATIN 10 MG TAB PO SCH (08:26)
[2016-08-24] MEDS: DILTIAZEM HCL 180 MG ER CAP PO SCH (08:26)
[2016-08-24] MEDS: PANTOprazole SOD 40 MG TAB PO SCH (08:26)
[2016-08-24] MEDS: INSULIN ASPART 100 UNITS/ML 3 ML PEN SC SCH ×4 (08:31→21:33)
[2016-08-24] MEDS: INSULIN GLARGINE SOLOSTAR 100 UNITS/ML 3 ML PEN SC SCH ×2 (08:32→21:26)
--- NOTE | 2016-08-24 10:36 | Pharmacy Progress Note ---
Glycemic Control: Progress Nt Date of Service Aug 24, 2016. Scope Glycemic Pharmacist consulted by Emelia Lundberg PA-C on 08/23/16 for glycemic control and to write orders per [facility] inpatient glycemic control protocol. Objective Accuchecks BSG (last 24hrs): Test 08/23/16 16:32 08/23/16 21:38 08/24/16 04:20 08/24/16 07:45 Random Glucose 193 mg/dl (70-99) 127 mg/dl (70-99) Bedside Glucose 190 mg/dl (70-99) 128 mg/dl (70-99) HbA1c: Test 08/24/16 04:20 Hemoglobin A1c 8.5 % (4.5-5.6) H Recent Pertinent Medications Outpatient Anti-diabetic Regimen: * Invokana 50mg PO daily * Amaryl 8mg PO QAM * Metformin 1,000mg PO HS * Starlix 120mg OP daily with dinner and at bedtime The patient is currently receiving: * Basal insulin: Lantus SQ BID - dosing based on BSG for insulin naive patient If BSG < 180 --> Do not give Lantus BSG 181-249 --> Give 10 units Lantus BSG 250+ --> Give Lantus 15 units * Correctional Insulin: Novolog Correction per scale ACHS Goal Range: Low 110 mg/dL - High 140 mg/dL Correction Factor: 50 mg/dL/unit * Prandial insulin: Per carb ratio of 1 unit per 25 grams CHO consumed * Oral Agents: On hold for admission Risk Factors for Insulin Resistance: * Infection * Diet Assessment & Plan ASSESSMENT: * 76yo T2DM male with deteriorating glycemic control over the past year * A1c 7.6% (05/29/2015) --> 8.5% (08/24/16) * Pt may need adjustment in outpatient regimen at discharge as he is on multiple oral agents. * Pt is maintained on oral antidiabetic agents as an outpatient * Oral agents held on admission and pt ordered SQ basal bolus insulin regimen which is the recommended regimen for inpatient glycemic control. * Weight based dosing for insulin evans patient initiated. Will continue to titrate based on BSG trends. * Basal insulin started for for sustained hyperglycemia (BSG > 180). * Patient has received Lantus 10 units SQ BID x 2 doses, will continue this dosing. * BSGs ranging 127-195mg/dl over the past 24hr --> No changes needed to regimen at this time. * ADA & AACE recommend a goal blood sugar range 140-180 mg/dl for the majority of critically ill & non-critically ill patients. However, more stringent targets may be selected in individual cases. Will utilize more stringent goal of 110-140mg/dl to facilitate wound/infection healing. PLAN FOR INPATIENT GLYCEMIC CONTROL: * Hold outpatient oral diabetes medications * Change basal insulin with Lantus to fixed dosing --> Lantus 10 units SQ BID * HOLD if BSG < 110mg/dl for insulin naive patient * Continue NOVOLOG per scale ACHS or Q6hrs while NPO * Goal Range: Low 110 mg/dL - High 140 mg/dL * Correction Factor: 30 mg/dL/unit * Nutritional / Prandial insulin per carb ratio of 1 unit per 10 grams CHO consumed * Please note that the plan above was derived based on current level of insulin resistance and hospital stress. These recommendations are appropriate for inpatient admission only. Plan of care upon discharge will need to be reassessed to avoid potential outpatient hypo/hyperglycemia. Thank you.
[2016-08-24 15:04] LABS: HEMATOCRIT 36.8 % (42-52); MEAN CELL VOLUME 82.9 fL (80-100); MEAN CORPUSCULAR HEMOGLOBIN 29.1 pg (25-34); MEAN CORPUSCULAR HGB CONC 35.1 g/dl (32-36); MEAN PLATELET VOLUME 8.8 fL (7.4-10.4); PLATELET COUNT 265 K/uL (130-400); RED BLOOD COUNT 4.44 M/uL (4.7-6.1); WHITE BLOOD COUNT 10.33 K/uL (4.8-10.8)
--- NOTE | 2016-08-24 15:17 | DIAGNOSTIC IMAGING REPORT ---
CHEST 2 VIEWS ROUTINE HISTORY: f/u atelectasis versus pneumonia COMPARISON: Chest 08/23/2016. FINDINGS: No pneumothorax. Cardiac silhouette remains top normal in size. There are low lung volumes. Cholecystectomy. Bibasilar linear densities persist. The upper lung zones are clear. No pleural effusions. IMPRESSION: No change in the low lung volumes and bibasilar linear densities which favor subsegmental atelectasis. Electronically signed by: Andrew Hillman M.D. 08/24/2016 3:16 PM Dictated Date/Time: 08/24/2016 3:15 PM
--- NOTE | 2016-08-24 16:36 | ECHOCARDIOGRAM REPORT ---
*NOTICE TO RECEIVING REPUBLICAN AGENCY This information is strictly Confidential and protected under [place] law. [place] law prohibits you from making any further disclosure of this information unless further disclosure is expressly permitted by the written consent of the person to whom it pertains or is authorized by law. A general authorization for the release of medical or other information is not sufficient for this purpose. Hospital accepts no responsibility if the information is made available to any other person, INCLUDING THE PATIENT. Interpretation Summary * The study was technically adequate. * Compared to prior study, there is no significant change. * -- Conclusions -- * Left ventricular systolic function is normal. * Ejection Fraction = 55-60%. * The left ventricular wall motion is normal. * Grade I diastolic dysfunction, (abnormal relaxation pattern). * Mild aortic regurgitation. * There is mild mitral regurgitation. Procedure Details * A complete two-dimensional transthoracic echocardiogram was performed (2D, M-mode, Doppler and color flow Doppler). Left Ventricle * The left ventricle is normal in size. * There is no thrombus. * There is normal left ventricular wall thickness. * Ejection Fraction = 55-60%. * Left ventricular systolic function is normal. * The left ventricular wall motion is normal. Right Ventricle * The right ventricle is normal size. * The right ventricular systolic function is normal as assessed by tricuspid annular plane systolic excursion (TAPSE) (normal >1.5 cm). Atria * The left atrium is mildly dilated. * Right atrial size is normal. * There is no evidence of atrial septal defect, but resolution does not allow assessment for a patent foramen ovale. Mitral Valve * The mitral valve is normal. * There is no mitral valve stenosis. * There is mild mitral regurgitation. Tricuspid Valve * The tricuspid valve is normal. * There is no tricuspid stenosis. * Significant tricuspid regurgitation is absent. Aortic Valve * The aortic valve is trileaflet. * Aortic stenosis is absent. * Mild aortic regurgitation. Pulmonic Valve * The pulmonary valve is not well seen, but the Doppler examination is normal without significant regurgitation or stenosis. * There is no pulmonic valvular stenosis. * Mild pulmonic valvular regurgitation. Great Vessels * The aortic root and proximal ascending aorta are normal sized. Pericardium/Pleural * There is no pericardial effusion. Great Vessels * Normal inferior vena cava diameter and respiratory variation suggests normal central venous pressure. Left Ventricular Diastolic Function * Grade I diastolic dysfunction, (abnormal relaxation pattern). MMode 2D Measurements and Calculations IVSd 10 cm IVSs 1.3 cm LVIDd 5.0 cm LVIDs 3.6 cm LVPWd 1.0 cm LVPWs 1.4 cm IVS/LVPW 0.95 FS 27.8 % EDV(Teich) 120.6 ml ESV(Teich) 55.9 ml EF(Teich) 53.7 % EDV(cubed) 128.2 ml ESV(cubed) 48.2 ml EF(cubed) 62.4 % % IVS thick 31.1 % % LVPW thick 28.9 % LV mass(C)d 190.3 grams LV mass(C)dI 93.3 grams/m\S\2 LV mass(C)s 168.4 grams LV mass(C)sI 82.6 grams/m\S\2 CO(Teich) 3.4 l/min CI(Teich) 1.6 l/min/m\S\2 SV(Teich) 64.7 ml SI(Teich) 31.7 ml/m\S\2 CO(cubed) 4.2 l/min CI(cubed) 2.0 l/min/m\S\2 SV(cubed) 80.0 ml SI(cubed) 39.2 ml/m\S\2 Ao root diam 3.8 cm Ao root area 11.5 cm\S\2 ACS 2.2 cm LA dimension 4.5 cm LA/Ao 1.2 LVAd ap4 45.3 cm\S\2 LVLd ap4 9.7 cm EDV(MOD-sp4) 177.0 ml LVAs ap4 26.1 cm\S\2 LVLs ap4 7.6 cm ESV(MOD-sp4) 78.6 ml EF(MOD-sp4) 55.6 % LVAd ap2 40.9 cm\S\2 LVLd ap2 9.7 cm EDV(MOD-sp2) 145.0 ml LVAs ap2 23.9 cm\S\2 LVLs ap2 7.9 cm ESV(MOD-sp2) 63.0 ml EF(MOD-sp2) 56.6 % CO(MOD-sp4) 5.1 l/min CI(MOD-sp4) 2.5 l/min/m\S\2 SV(MOD-sp4) 98.4 ml SI(MOD-sp4) 48.2 ml/m\S\2 CO(MOD-sp2) 4.3 l/min CI(MOD-sp2) 2.1 l/min/m\S\2 SV(MOD-sp2) 82.0 ml SI(MOD-sp2) 40.2 ml/m\S\2 Doppler Measurements and Calculations MV E max sheri 67.1 cm/sec MV A max sheri 70.2 cm/sec MV E/A 0.96 MV P1/2t max sheri 72.4 cm/sec MV P1/2t 76.7 msec MVA(P1/2t) 2.9 cm\S\2 MV dec slope 276.4 cm/sec\S\2 MV dec time 0.23 sec Ao V2 max 135.1 cm/sec Ao max PG 7.3 mmHg Ao max PG (full) 3.7 mmHg AI max sheri 397.4 cm/sec AI max PG 63.2 mmHg AI dec slope 161.8 cm/sec\S\2 AI P1/2t 719.4 msec LV V1 max PG 3.7 mmHg LV V1 max 95.6 cm/sec PA V2 max 81.9 cm/sec PA max PG 2.7 mmHg PI max sheri 173.6 cm/sec PI max PG 12.1 mmHg PI dec slope 61.9 cm/sec\S\2 PI P1/2t 821.0 msec TR max sheri 260.6 cm/sec
[2016-08-24] MEDS: ASPIRIN 81 MG CHEW PO SCH (21:23)
[2016-08-24] MEDS: CHOLECALCIFEROL 1000 INTER.UNIT TAB PO SCH (21:23)
[2016-08-25] VITALS (12 sets, daily range): BP systolic 136–201; BP diastolic 72–88; PULSE 56–64; TEMP 36.6–37; O2SAT 90–94
[2016-08-25] MEDS: CLINDAMYCIN IV 600 MG in DEXTROSE 5% ADD-VANTAGE 50ML 50 ML IV SCH ×2 (04:44→13:04)
[2016-08-25 07:44] LABS: BUN/CREATININE RATIO 16.8 (10-20); CALCIUM 8.3 mg/dl (8.5-10.1); CREATININE 1.1 mg/dl (0.60-1.40); MAGNESIUM 1.9 mg/dl (1.8-2.4); PHOSPHORUS 2.8 mg/dl (2.5-4.9); POTASSIUM 3.9 mmol/L (3.5-5.1)
--- NOTE | 2016-08-25 08:21 | Progress Note ---
Internal Med Progress Note Date of Service: Aug 25, 2016. Provider Documentation: This is a bill for 08/24/16 SUBJECTIVE: The patient was seen and examined A little better today Chest tightness is better OBJECTIVE: Vital Signs-as noted below Exam: General-No acute distress at rest Eyes-Normal ENT-normal Neck-supple Lungs-Decreased breath sound bilaterally Heart-Regular,no murmur appreciated Abdomen-Benign,no masses Extremities-No edema Neuro-AAOx3 Lab data as noted below. ASSESSMENT & PLAN: ACUTE HYPOXIA -improved -CTA chest negative for PE, does show significant atelectasis versus pneumonia -empirically treat for infection with clindamycin -continue supplemental oxygen prn CHEST TIGHTNESS with Dizziness -acutely while using pesticides - Poison Control does not believe symptoms are related to pesticides use -CVA ruled out by CT head -PE ruled out by CT chest -no arrhythmia -serial Juice, EKGs-negative for any ACS -update Echo -continue Aspirin, Statin, Diltiazem LEUKOCYTOSIS -underlying pneumonia, CT with atelectasis versus pneumonia- - possible aspiration -will empirically treat with clindamycin HYPERTENSION- uncontrolled -systolically >160 -add amlodipine prn -monitor in tele PAROXYSMAL ATRIAL FIBRILLATION -in Sinus Rhythm -continue Diltiazem -continue Aspirin -monitor in tele DM2 -hold po meds -SSI coverage -update A1c -BSG AC HS -consistent carb diet CKD STAGE 3 -crea stable -follow PRP -avoid nephrotoxic agents as able GERD -continue PPI DVT PROPHYLAXIS: SCDs RE: h/o GI bleed CODE STATUS: FULL CODE DISPO Awaited Vital Signs: Date Time Temp Pulse Resp B/P Pulse Ox O2 Delivery O2 Flow Rate FiO2 08/25/16 07:15 36.7 61 18 158/87 91 Room Air 08/25/16 04:28 36.8 64 18 152/76 92 Room Air 08/25/16 04:00 Room Air 08/25/16 04:00 Room Air 08/25/16 00:01 92 Room Air 08/24/16 23:07 36.8 57 16 149/80 91 Room Air 08/24/16 20:00 92 Room Air 2.0 Nasal Cannula 08/24/16 19:14 36.6 57 18 154/71 92 Room Air 57 08/24/16 16:00 92 Room Air 2.0 Nasal Cannula 08/24/16 14:56 36.6 51 18 139/75 92 Room Air 08/24/16 12:00 Nasal Cannula 2.0 08/24/16 11:22 36.7 56 18 144/85 91 Room Air Lab Results: Results Past 24 Hours Test 08/24/16 11:31 08/24/16 14:55 08/24/16 16:26 08/24/16 20:03 Range/Units Bedside Glucose 153 109 153 70-99 mg/dl White Blood Count 10.33 4.8-10.8 K/uL Red Blood Count 4.44 4.7-6.1 M/uL Hemoglobin 12.9 14.0-18.0 g/dL Hematocrit 36.8 42-52 % Mean Corpuscular Volume 82.9 80-100 fL Mean Corpuscular Hemoglobin 29.1 25-34 pg Mean Corpuscular Hemoglobin Concent 35.1 32-36 g/dl RDW Standard Deviation 44.2 36.4-46.3 fL RDW Coefficient of Variation 14.5 11.5-14.5 % Platelet Count 265 130-400 K/uL Mean Platelet Volume 8.8 7.4-10.4 fL Test 08/25/16 06:55 08/25/16 07:13 Range/Units Sodium Level 139 136-145 mmol/L Potassium Level 3.9 3.5-5.1 mmol/L Chloride Level 105 98-107 mmol/L Carbon Dioxide Level 27 21-32 mmol/L Anion Gap 7.0 3-11 mmol/L Blood Urea Nitrogen 19 7-18 mg/dl Creatinine 1.10 0.60-1.40 mg/dl Est Creatinine Clear Calc Drug Dose 59.5 ml/min Estimated GFR () 74.1 Estimated GFR (Non- 64.0 BUN/Creatinine Ratio 16.8 10-20 Random Glucose 141 70-99 mg/dl Calcium Level 8.3 8.5-10.1 mg/dl Phosphorus Level 2.8 2.5-4.9 mg/dl Magnesium Level 1.9 1.8-2.4 mg/dl Bedside Glucose 136 70-99 mg/dl
[2016-08-25] MEDS: INSULIN GLARGINE SOLOSTAR 100 UNITS/ML 3 ML PEN SC SCH ×2 (09:51→21:04)
[2016-08-25] MEDS: INSULIN ASPART 100 UNITS/ML 3 ML PEN SC SCH ×4 (09:51→21:05)
[2016-08-25] MEDS: CYANOCOBALAMIN 100 MCG TAB (VIT B-12) PO SCH (09:52)
[2016-08-25] MEDS: DILTIAZEM HCL 180 MG ER CAP PO SCH (09:52)
[2016-08-25] MEDS: PANTOprazole SOD 40 MG TAB PO SCH (09:53)
[2016-08-25] MEDS: ATORVASTATIN 10 MG TAB PO SCH (09:53)
--- NOTE | 2016-08-25 10:59 | Clinical Documentation Query ---
[facility] CLINICAL DOCUMENT[facility] QUERY Patient is a 76 year old male admitted for evaluation and treatment of acute hypoxia. H&P attending documentation included: "HYPOXIA - possible Aspiration pneumonia vs. Atelectasis - Clindamycin IV Incentive Spirometry - Speech therapy" Subsequent documentation has included: "ACUTE HYPOXIA -improved -CTA chest negative for PE, does show significant atelectasis versus pneumonia -empirically treat for infection with clindamycin -continue supplemental oxygen prn" Patient maintained on Clindamycin, speech therapist recommended aspiration precautions. In your clinical opinion is this patient being managed for: ( ) Possible aspiration pneumonia ( + ) Possible pneumonia, aspiration component ruled out. ( ) Other explanation of clinical findings (Please Explain) ( ) Unable to determine (Please Define) ( ) Need to Discuss ( ) Not Agree The medical record reflects the following clinical findings, treatment, and risk factors. Clinical Indicators: As above Treatment: Clindamycin, speech evaluation Risk Factors: Age, GERD Please clarify and document your clinical opinion in the progress notes and discharge summary. Terms such as "probable", "suspected", "likely", "questionable", "possible", or "still to be ruled out" are acceptable. IF IN AGREEMENT, YOU MUST DOCUMENT ABOVE DIAGNOSTIC STATEMENT IN DAILY PROGRESS NOTES AND DISCHARGE SUMMARY. This document is not part of the patient's record. Thank You, Keith Lamar, CAMERON [phone]
--- NOTE | 2016-08-25 11:51 | Pharmacy Progress Note ---
Glycemic Control: Progress Nt Date of Service Aug 25, 2016. Scope Glycemic Pharmacist consulted by Emelia Lundberg PA-C on 08/23/16 for glycemic control and to write orders per [facility] inpatient glycemic control protocol. Objective Accuchecks BSG (last 24hrs): Test 08/24/16 16:26 08/24/16 20:03 08/25/16 06:55 08/25/16 07:13 Bedside Glucose 109 mg/dl (70-99) 153 mg/dl (70-99) 136 mg/dl (70-99) Random Glucose 141 mg/dl (70-99) Test 08/25/16 11:17 Bedside Glucose 85 mg/dl (70-99) Laboratory Data (last 24hrs) HbA1c: Test 08/24/16 04:20 Hemoglobin A1c 8.5 % (4.5-5.6) H Recent Pertinent Medications Outpatient Anti-diabetic Regimen: * Invokana 50mg PO daily * Amaryl 8mg PO QAM * Metformin 1,000mg PO HS * Starlix 120mg OP daily with dinner and at bedtime The patient is currently receiving: * Basal insulin: Lantus 10 units SQ BID * Correctional Insulin: Novolog Correction per scale ACHS Goal Range: Low 110 mg/dL - High 140 mg/dL Correction Factor: 30 mg/dL/unit * Prandial insulin: Per carb ratio of 1 unit per 10 grams CHO consumed * Oral Agents: On hold for admission Risk Factors for Insulin Resistance: * Infection * Diet Assessment & Plan ASSESSMENT: * 76yo T2DM male with deteriorating glycemic control over the past year * A1c 7.6% (05/29/2015) --> 8.5% (08/24/16) * Pt may need adjustment in outpatient regimen at discharge as he is on multiple oral agents. * Pt is maintained on oral antidiabetic agents as an outpatient * Oral agents held on admission and pt ordered SQ basal bolus insulin regimen which is the recommended regimen for inpatient glycemic control. * Weight based dosing for insulin evans patient initiated. Will continue to titrate based on BSG trends. * Basal insulin started for for sustained hyperglycemia (BSG > 180) * Patient has been receiving Lantus 10 units SQ BID --> AM fasting BSGs are in range and not trending downwards to indicate possible hypo in the next day or so (128, 136mg/dl today). No change needed at this time. * Pre-lunch BSG is slightly below goal range today after receiving relatively large NovoLog bolus for breakfast coverage * CR may be too aggressive. Will slightly loosen bolus insulin parameters. * ADA & AACE recommend a goal blood sugar range 140-180 mg/dl for the majority of critically ill & non-critically ill patients. However, more stringent targets may be selected in individual cases. Will utilize more stringent goal of 110-140mg/dl to facilitate wound/infection healing. PLAN FOR INPATIENT GLYCEMIC CONTROL: * Continue to hold outpatient oral diabetes medications * Continue Lantus 10 units SQ BID * HOLD if BSG < 110mg/dl for insulin naive patient * Loosen NOVOLOG per scale ACHS or Q6hrs while NPO * Goal Range: Low 110 mg/dL - High 140 mg/dL * Correction Factor: 40 mg/dL/unit (was 30) * Nutritional / Prandial insulin per carb ratio of 1 unit per 13 grams CHO consumed (was 10) * Please note that the plan above was derived based on current level of insulin resistance and hospital stress. These recommendations are appropriate for inpatient admission only. Plan of care upon discharge will need to be reassessed to avoid potential outpatient hypo/hyperglycemia. Thank you.
--- NOTE | 2016-08-25 13:26 | Progress Note ---
Internal Med Progress Note Date of Service: Aug 25, 2016. Provider Documentation: SUBJECTIVE: The patient was seen and examined A little better today Chest tightness is better Complains of Neck pain going up to the occipital area Denies any numbness and or tingling OBJECTIVE: Vital Signs-as noted below Exam: General-No acute distress at rest Eyes-Normal ENT-normal Neck-supple Lungs-Decreased breath sound bilaterally No whezing and or crackles Heart-Regular,no murmur appreciated Abdomen-Benign,no masses Extremities-No edema Neuro-AAOx3 Lab data as noted below. ASSESSMENT & PLAN: Acute Neck Pain Likely secondary to Arthritis Will get Cervical X-rays ACUTE HYPOXIA -improved -Possible pneumonia, aspiration component ruled out. -CTA chest negative for PE, does show significant atelectasis versus pneumonia -empirically treat for infection with clindamycin -continue supplemental oxygen prn -clinically better but not yet ready to be discharged CHEST TIGHTNESS with Dizziness -acutely while using pesticides - Poison Control does not believe symptoms are related to pesticides use -CVA ruled out by CT head -PE ruled out by CT chest -no arrhythmia -serial Juice, EKGs-negative for any ACS -ECHO:: * Left ventricular systolic function is normal. * Ejection Fraction = 55-60%. * The left ventricular wall motion is normal. * Grade I diastolic dysfunction, (abnormal relaxation pattern). * Mild aortic regurgitation. * There is mild mitral regurgitation. -continue Aspirin, Statin, Diltiazem LEUKOCYTOSIS -underlying pneumonia, CT with atelectasis versus pneumonia- - possible aspiration -will empirically treat with clindamycin -Resolved HYPERTENSION- uncontrolled -systolically >160 -add amlodipine prn -monitor in tele PAROXYSMAL ATRIAL FIBRILLATION -in Sinus Rhythm -continue Diltiazem -continue Aspirin -monitor in tele DM2 -hold po meds -SSI coverage -update A1c-8.5 -BSG AC HS -consistent carb diet CKD STAGE 3 -crea stable -follow PRP -avoid nephrotoxic agents as able GERD -continue PPI DVT PROPHYLAXIS: SCDs RE: h/o GI bleed CODE STATUS: FULL CODE DISPO Awaited Vital Signs: Date Time Temp Pulse Resp B/P Pulse Ox O2 Delivery O2 Flow Rate FiO2 08/25/16 12:00 Room Air 2.0 Nasal Cannula 08/25/16 11:31 36.6 59 18 141/80 92 Room Air 08/25/16 08:00 91 Room Air 2.0 Nasal Cannula 08/25/16 07:15 36.7 61 18 158/87 91 Room Air 08/25/16 04:28 36.8 64 18 152/76 92 Room Air 08/25/16 04:00 Room Air 08/25/16 04:00 Room Air 08/25/16 00:01 92 Room Air 08/24/16 23:07 36.8 57 16 149/80 91 Room Air 08/24/16 20:00 92 Room Air 2.0 Nasal Cannula 08/24/16 19:14 36.6 57 18 154/71 92 Room Air 57 08/24/16 16:00 92 Room Air 2.0 Nasal Cannula 08/24/16 14:56 36.6 51 18 139/75 92 Room Air Lab Results: Results Past 24 Hours Test 08/24/16 14:55 08/24/16 16:26 08/24/16 20:03 08/25/16 06:55 Range/Units White Blood Count 10.33 4.8-10.8 K/uL Red Blood Count 4.44 4.7-6.1 M/uL Hemoglobin 12.9 14.0-18.0 g/dL Hematocrit 36.8 42-52 % Mean Corpuscular Volume 82.9 80-100 fL Mean Corpuscular Hemoglobin 29.1 25-34 pg Mean Corpuscular Hemoglobin Concent 35.1 32-36 g/dl RDW Standard Deviation 44.2 36.4-46.3 fL RDW Coefficient of Variation 14.5 11.5-14.5 % Platelet Count 265 130-400 K/uL Mean Platelet Volume 8.8 7.4-10.4 fL Bedside Glucose 109 153 70-99 mg/dl Sodium Level 139 136-145 mmol/L Potassium Level 3.9 3.5-5.1 mmol/L Chloride Level 105 98-107 mmol/L Carbon Dioxide Level 27 21-32 mmol/L Anion Gap 7.0 3-11 mmol/L Blood Urea Nitrogen 19 7-18 mg/dl Creatinine 1.10 0.60-1.40 mg/dl Est Creatinine Clear Calc Drug Dose 59.5 ml/min Estimated GFR () 74.1 Estimated GFR (Non- 64.0 BUN/Creatinine Ratio 16.8 10-20 Random Glucose 141 70-99 mg/dl Calcium Level 8.3 8.5-10.1 mg/dl Phosphorus Level 2.8 2.5-4.9 mg/dl Magnesium Level 1.9 1.8-2.4 mg/dl Test 08/25/16 07:13 08/25/16 11:17 Range/Units Bedside Glucose 136 85 70-99 mg/dl
[2016-08-25] MEDS: CLINDAMYCIN HCL 150 MG CAP PO SCH ×2 (17:48→23:27)
[2016-08-25] MEDS ORDERED: HydrALAZINE HCL 20 MG/ML VIAL IV. STA (20:51)
[2016-08-25] MEDS: CHOLECALCIFEROL 1000 INTER.UNIT TAB PO SCH (21:01)
[2016-08-25] MEDS: ASPIRIN 81 MG CHEW PO SCH (21:02)
[2016-08-26 04:08] VITALS: BP 152/81; PULSE 76; TEMP 37; O2SAT 93
[2016-08-26] MEDS: CLINDAMYCIN HCL 150 MG CAP PO SCH ×2 (05:34→12:05)
[2016-08-26 07:33] VITALS: BP 150/76; PULSE 67; TEMP 36.9; O2SAT 93
[2016-08-26] MEDS: CYANOCOBALAMIN 100 MCG TAB (VIT B-12) PO SCH (08:03)
[2016-08-26] MEDS: ATORVASTATIN 10 MG TAB PO SCH (08:03)
[2016-08-26] MEDS: PANTOprazole SOD 40 MG TAB PO SCH (08:03)
[2016-08-26] MEDS: DILTIAZEM HCL 180 MG ER CAP PO SCH (08:04)
[2016-08-26] MEDS: INSULIN ASPART 100 UNITS/ML 3 ML PEN SC SCH ×2 (08:11→12:05)
--- NOTE | 2016-08-26 08:54 | DIAGNOSTIC IMAGING REPORT ---
CERVICAL SPINE 5 VIEWS HISTORY: Cervicalgia,Neck pain COMPARISON: None. FINDINGS: The cervical spine is visualized from C1 through the superior endplate of T1. There is no fracture. No subluxation. Disc spaces are preserved. Prevertebral soft tissues and the atlantodens interval are intact. IMPRESSION: No fracture or subluxation within the cervical spine. Electronically signed by: Mitch Kwon M.D. 08/26/2016 8:52 AM Dictated Date/Time: 08/26/2016 8:51 AM
[2016-08-26] MEDS: INSULIN GLARGINE SOLOSTAR 100 UNITS/ML 3 ML PEN SC SCH (09:08)
--- NOTE | 2016-08-26 11:00 | Progress Note ---
Internal Med Progress Note Date of Service: Aug 26, 2016. Provider Documentation: SUBJECTIVE: The patient was seen and examined Neck pain is better today Denies any SOB ,cough or chest pain OBJECTIVE: Vital Signs-as noted below Exam: General-No acute distress at rest Eyes-Normal ENT-normal Neck-supple,minimal tenderness right lower occipital area Neck movement is not painful Lungs-Decreased breath sound bilaterally No wheezing and or crackles Heart-Regular,no murmur appreciated Abdomen-Benign,no masses Extremities-No edema Neuro-AAOx3 Lab data as noted below. ASSESSMENT & PLAN: Acute Neck Pain Likely secondary to Arthritis Will get Cervical [id number] Pain is much improved ACUTE HYPOXIA -improved -Possible pneumonia, aspiration component ruled out. -CTA chest negative for PE, does show significant atelectasis versus pneumonia -empirically treat for infection with clindamycin -continue supplemental oxygen prn -clinically better and ready to be discharged today CHEST TIGHTNESS with Dizziness -acutely while using pesticides - Poison Control does not believe symptoms are related to pesticides use -CVA ruled out by CT head -PE ruled out by CT chest -no arrhythmia -serial Juice, EKGs-negative for any ACS -ECHO:: * Left ventricular systolic function is normal. * Ejection Fraction = 55-60%. * The left ventricular wall motion is normal. * Grade I diastolic dysfunction, (abnormal relaxation pattern). * Mild aortic regurgitation. * There is mild mitral regurgitation. -continue Aspirin, Statin, Diltiazem -no more episode LEUKOCYTOSIS -underlying pneumonia, CT with atelectasis versus pneumonia- - possible aspiration -will empirically treat with clindamycin -Resolved HYPERTENSION- uncontrolled -systolically >160 -add amlodipine prn -monitor in tele PAROXYSMAL ATRIAL FIBRILLATION -in Sinus Rhythm -continue Diltiazem -continue Aspirin -monitor in tele DM2 -hold po meds -SSI coverage -update A1c-8.5 -BSG AC HS -consistent carb diet CKD STAGE 3 -crea stable -follow PRP -avoid nephrotoxic agents as able GERD -continue PPI DVT PROPHYLAXIS: SCDs RE: h/o GI bleed CODE STATUS: FULL CODE DISPO Discharge home today Vital Signs: Date Time Temp Pulse Resp B/P Pulse Ox O2 Delivery O2 Flow Rate FiO2 08/26/16 08:00 Room Air 08/26/16 07:33 36.9 67 16 150/76 93 Room Air 67 08/26/16 04:08 37.0 76 18 152/81 93 Room Air 08/26/16 04:00 Room Air 08/26/16 00:00 Room Air 08/25/16 23:43 36.6 57 18 161/72 92 Room Air 08/25/16 21:57 152/75 08/25/16 20:50 189/88 08/25/16 20:50 201/85 08/25/16 20:00 Room Air 08/25/16 19:58 171/79 08/25/16 19:16 36.9 56 18 94 Room Air 08/25/16 19:06 163/75 08/25/16 16:00 Room Air 08/25/16 15:25 37.0 59 18 136/74 90 Room Air 08/25/16 12:00 Room Air 2.0 Nasal Cannula 08/25/16 11:31 36.6 59 18 141/80 92 Room Air Lab Results: Results Past 24 Hours Test 08/25/16 11:17 08/25/16 15:59 08/25/16 16:57 08/25/16 20:12 Range/Units Bedside Glucose 85 116 140 162 70-99 mg/dl Test 08/26/16 07:34 Range/Units Bedside Glucose 130 70-99 mg/dl
[2016-08-26] MEDS ORDERED: CLIN300C2 PO (11:04)
[2016-08-26] MEDS ORDERED: LCTX PO (11:04)
[2016-08-26] MEDS ORDERED: AMLO-110 PO (11:10)
--- NOTE | 2016-08-26 11:11 | Discharge Instructions ---
Discharge Instructions Date of Service Aug 26, 2016. Admission Reason for Admission: Hypoxia, Pneumonia Discharge Discharge Diagnosis / Problem: Acute Hypoxemia-resolved,Possible Aspiration-no pneumonia Discharge Goals Goal(s): Prevent Disease Progression Activity Recommendations Activity Limitations: resume your previous activity . Instructions / Follow-Up Instructions / Follow-Up Dr Albarran on 08/31/16 at 12:45PM Current Hospital Diet Patient's current hospital diet: Diabetes Type 2 Diet, AHA Diet (Heart Healthy) Discharge Diet Recommended Diet: Regular Diet, Low Sodium Diet (2gm Na) Pending Studies Studies pending at discharge: no Laboratory Results Hemoglobin A1c Test 08/24/16 04:20 Range/Units Estimated Average Glucose 197 mg/dl Hemoglobin A1c 8.5 H 4.5-5.6 % Lipid Panel Test 08/24/16 04:20 Range/Units Triglycerides Level 117 0-150 mg/dl Cholesterol Level 144 0-200 mg/dl HDL Cholesterol 38 mg/dl Cholesterol/HDL Ratio 3.8 LDL Cholesterol, Calculated 83 mg/dl Medical Emergencies . Who to Call and When: Medical Emergencies: If at any time you feel your situation is an emergency, please call 911 immediately. . Non-Emergent Contact Non-Emergency issues call your: Primary Care Provider . Past History Medical & Surgical History: (1) Hypoxia (2) Hypothyroid (3) DM type 2 (diabetes mellitus, type 2) (4) Paroxysmal atrial fibrillation (5) Dyslipidemia (6) History of right bundle branch block (RBBB) (7) Hypertension (8) S/P laparoscopic cholecystectomy (9) S/P tonsillectomy (10) S/p ERCP with stone removal (11) H/O arthroscopic knee surgery (12) H/O nasal polypectomy (13) Status post Mohs surgery (14) S/p upper endoscopy (15) H/O colonoscopy . "Provider Documentation" section prepared by Fito Garcia. VTE Core Measure Inpt VTE Proph given/why not?: SCD's
[2016-08-26 11:13] VITALS: BP 150/76; PULSE 67; TEMP 36.9; O2SAT 93
[2016-08-26 11:36] VITALS: BP 159/85; PULSE 75; TEMP 36.5; O2SAT 92
--- NOTE | 2016-09-07 09:13 | Discharge Summary ---
Discharge Summary Date of Service Sep 07, 2016. Discharge Summary Admission Date: Aug 23, 2016 at 19:35 Discharge Date: Aug 26, 2016 Discharge Disposition: Home Principal Diagnosis: Acute Hypoxemia-resolved,Possible Aspiration-no pneumonia Secondary Diagnoses/Problems: Please see H&P and Hospital Progress note Medication Reconciliation New Medications: Amlodipine (Norvasc) 5 Mg Tab 2.5 MG PO DAILY, #30 TAB Continued Medications: Aspirin (Aspirin Chewable) 81 Mg Chew 81 MG PO HS, TAB Atorvastatin (Lipitor) 10 Mg Tab 10 MG PO 1-2X/WEEK, TAB USUALLY TAKES AT NIGHT TIME Canagliflozin (Invokana) 100 Mg Tab 50 MG PO DAILY Cholecalciferol (D 1000) 1,000 Unit Cap 1000 UNITS PO HS Cyanocobalamin (Vitamin B-12) 100 Mcg Tab 100 MCG PO QAM, TAB Diltiazem Hcl (Dilt-Xr) 180 Mg Cap 180 MG PO QAM Glimepiride (Amaryl) 4 Mg Tab 8 MG PO QAM Take 8 mg by mouth daily with first main meal of day Metformin Hcl (Glucophage) 1,000 Mg Tab 1000 MG PO HS, TAB Nateglinide (Starlix ) 120 Mg Tab 1 TAB PO UD, TAB Take 120 mg by mouth before supper and before bedtime. Pantoprazole (Protonix) 40 Mg Tab 40 MG PO QAM, TAB Admission Information HPI (per Admitting provider): Patient seen and examined. 76 year old male presents to the ED complaining of acute onset of dizziness, nausea, and chest tightness prior to arrival. Patient reports he was spraying a weed killer (roundup) when he acutely felt dizzy and like his vision was blurry. He states he also had some chest tightness at this time and had severe nausea. His family reports that he seemed wobbly on his feet so he came to the ED for further evaluation. Prior to working in the yard the patient states he was feeling well. He denies fevers, chills, URI symptoms, cough, sputum production, SOB, vomiting, diarrhea, dysuria, calf pain and edema. He denies history of COPD/Asthma. In the ED patient is hypoxic on RA, WBC count is 11K, CT is negative for PE but shows BL infiltrates. CT head was negative. Patient was placed on supplemental oxygen and received Zosyn for possible pneumonia. ED spoke with poison control who did not think symptoms were secondary to [place] use. When he walked to bathroom in the ED the patient was still wobbly per family. He will be admitted for further workup and treatment. Past Medical/Surgical History Medical Problems: (1) GRISELDA inhibitor-aggravated angioedema Status: Chronic (2) CKD (chronic kidney disease), stage III Status: Chronic (3) Diverticulosis of colon Status: Chronic (4) DM type 2 (diabetes mellitus, type 2) Status: Chronic (5) Dyslipidemia Status: Chronic (6) GERD (gastroesophageal reflux disease) Status: Chronic (7) H/O hemorrhoids Status: Chronic (8) Hiatal hernia Status: Chronic (9) History of basal cell carcinoma Status: Chronic (10) History of Helicobacter pylori infection Status: Chronic (11) History of right bundle branch block (RBBB) Status: Chronic (12) Hypertension Status: Chronic (13) Iliac artery aneurysm Status: Chronic (14) Paroxysmal atrial fibrillation Status: Chronic (15) Pneumonia Status: Resolved Surgical Problems: (1) H/O arthroscopic knee surgery Status: Chronic (2) H/O colonoscopy Permanent Comment: 04/2005-diverticulae Status: Chronic (3) H/O nasal polypectomy Status: Chronic (4) S/p ERCP with stone removal Permanent Comment: 05/12/2012 Status: Chronic (5) S/P laparoscopic cholecystectomy Status: Chronic (6) S/P tonsillectomy Status: Chronic (7) S/p upper endoscopy Permanent Comment: 04/2005- mild antritis, positive H pylori Status: Chronic (8) Status post Mohs surgery Status: Chronic Family History Cancer Diabetes mellitus Heart disease Hypertension Lung disease Social History Smoking Status: Never Smoker Drug Use: none Marital Status: single Housing status: lives with significant other Occupational Status: retired Immunizations History of Influenza Vaccine: Yes History of Tetanus Vaccine?: Yes History of Pneumococcal: Yes History of Hepatitis B Vaccine: No Multi-Drug Resistant Organisms History of MDRO: No Allergies Coded Allergies: Lisinopril (Verified Allergy, Severe, edema/airway, 08/23/16) Simvastatin (Verified Allergy, Mild, MUSCLE PAIN, 08/23/16) Adhesives (Verified Adverse Reaction, Unknown, RASH, 08/23/16) Mushroom (Verified Adverse Reaction, Unknown, NAUSEATED, 08/23/16) Home Medications Scheduled Aspirin (Aspirin Chewable), 81 MG PO HS Atorvastatin (Lipitor), 10 MG PO 1-2X/WEEK Canagliflozin (Invokana), 50 MG PO DAILY Cholecalciferol (D 1000), 1,000 UNITS PO HS Cyanocobalamin (Vitamin B-12), 100 MCG PO QAM Diltiazem Hcl (Dilt-Xr), 180 MG PO QAM Glimepiride (Amaryl), 8 MG PO QAM Metformin Hcl (Glucophage), 1,000 MG PO HS Nateglinide (Starlix ), 1 TAB PO UD Pantoprazole (Protonix), 40 MG PO QAM Review of Systems See above for pertinent positives & negatives. A total of 10 systems reviewed and were otherwise negative. Physical Exam Vital Signs Date Time Temp Pulse Resp B/P Pulse Ox O2 Delivery O2 Flow Rate FiO2 08/23/16 19:35 74 21 168/90 94 Nasal Cannula 2.0 08/23/16 18:24 70 21 181/89 97 08/23/16 17:16 36.8 60 18 164/91 89 Room Air 08/23/16 17:16 65 08/23/16 17:10 62 20 164/91 90 General Appearance: + pertinent finding (WD/WN 76 year old male lying in bed in NAD with family at bedside ) Head: normocephalic, atraumatic Eyes: PERRL, EOMI, sclerae normal ENT: hearing grossly normal, pharynx normal Neck: supple, no JVD Respiratory/Chest: chest non-tender, lungs clear, normal breath sounds, no respiratory distress, no accessory muscle use Cardiovascular: regular rate, rhythm, no edema, no gallop, no JVD, no murmur, normal peripheral pulses Abdomen/GI: normal bowel sounds, non tender, soft Back: normal inspection, no muscle spasm Extremities/Musculoskelatal: no calf tenderness, normal capillary refill, no pedal edema Neurologic/Psych: alert, oriented x 3, + pertinent finding (No focal deficits ) Skin: normal color, warm/dry, no rash Lymphatic: no adenopathy Diagnostics Laboratory Results Results Past 24 Hours Test 08/23/16 16:32 08/23/16 17:22 08/23/16 18:38 Range/Units White Blood Count 11.98 4.8-10.8 K/uL Red Blood Count 4.83 4.7-6.1 M/uL Hemoglobin 14.1 14.0-18.0 g/dL Hematocrit 40.2 42-52 % Mean Corpuscular Volume 83.2 80-100 fL Mean Corpuscular Hemoglobin 29.2 25-34 pg Mean Corpuscular Hemoglobin Concent 35.1 32-36 g/dl Platelet Count 308 130-400 K/uL Mean Platelet Volume 9.4 7.4-10.4 fL Neutrophils (%) (Auto) 55.8 % Lymphocytes (%) (Auto) 30.1 % Monocytes (%) (Auto) 12.2 % Eosinophils (%) (Auto) 1.0 % Basophils (%) (Auto) 0.3 % Neutrophils # (Auto) 6.70 1.4-6.5 K/uL Lymphocytes # (Auto) 3.60 1.2-3.4 K/uL Monocytes # (Auto) 1.46 0.11-0.59 K/uL Eosinophils # (Auto) 0.12 0-0.5 K/uL Basophils # (Auto) 0.03 0-0.2 K/uL RDW Standard Deviation 44.8 36.4-46.3 fL RDW Coefficient of Variation 14.6 11.5-14.5 % Immature Granulocyte % (Auto) 0.6 % Immature Granulocyte # (Auto) 0.07 0.00-0.02 K/uL Prothrombin Time 10.1 9.0-12.0 SECONDS Prothromb Time International Ratio 0.9 0.9-1.1 Activated Partial Thromboplast Time 25.8 21.0-31.0 SECONDS Partial Thromboplastin Ratio 1.0 Sodium Level 140 136-145 mmol/L Potassium Level 3.8 3.5-5.1 mmol/L Chloride Level 105 98-107 mmol/L Carbon Dioxide Level 25 21-32 mmol/L Anion Gap 10.0 20.0 16-25 mmol/L Blood Urea Nitrogen 19 7-18 mg/dl Creatinine 1.20 0.60-1.40 mg/dl Est Creatinine Clear Calc Drug Dose 55.4 ml/min Estimated GFR () 66.7 Estimated GFR (Non- 57.6 BUN/Creatinine Ratio 15.8 10-20 Random Glucose 193 70-99 mg/dl Calcium Level 8.6 8.5-10.1 mg/dl Total Bilirubin 0.4 0.2-1 mg/dl Direct Bilirubin < 0.1 0-0.2 mg/dl Aspartate Amino Transf (AST/SGOT) 12 15-37 U/L Alanine Aminotransferase (ALT/SGPT) 17 12-78 U/L Alkaline Phosphatase 71 45-117 U/L Total Protein 7.8 6.4-8.2 gm/dl Albumin 3.7 3.4-5.0 gm/dl Lipase 201 73-393 U/L Bedside Hemoglobin 13.9 14.0-18.0 g/dl Bedside Hematocrit 41 42-52 % Bedside Sodium 141 135-144 mEq/L Bedside Potassium 3.8 3.3-5.0 mEq/L Bedside Chloride 102 101-112 mEq/L Bedside Total CO2 24 24-31 mEq/l Bedside Blood Urea Nitrogen 19 7-18 mg/dl Bedside Creatinine 0.9 0.6-1.3 mg/dl Bedside Glucose (other) 195 70-99 mg/dl Bedside Ionized Calcium (Lesley) 1.18 1.12-1.32 mmol/l Bedside Troponin I 0.000 0-0.045 ng/ml Urine Color YELLOW Urine Appearance CLEAR CLEAR Urine pH 5.0 4.5-7.5 Urine Specific [place] 1.024 1.000-1.030 Urine Protein 2+ NEG Urine Glucose (UA) 1+ NEG Urine Ketones NEG NEG Urine Occult Blood NEG NEG Urine Nitrite NEG NEG Urine Bilirubin NEG NEG Urine Urobilinogen NEG NEG Urine Leukocyte Esterase NEG NEG Urine WBC (Auto) 1-5 0-5 /hpf Urine RBC (Auto) 0-4 0-4 /hpf Urine Hyaline Casts (Auto) 1-5 0-5 /lpf Urine Epithelial Cells (Auto) 0-5 0-5 /lpf Urine Bacteria (Auto) NEG NEG Urine Opiates Screen NEG NEG Urine Methadone, Qualitative NEG NEG Urine Barbiturates NEG NEG Urine Phencyclidine (PCP) Level NEG NEG Ur Amphetamine/Methamphetamine NEG NEG MDMA (Ecstasy) Screen NEG NEG Urine Benzodiazepines Screen NEG NEG Urine Cocaine Metabolite NEG NEG Urine Marijuana (THC) NEG NEG Diagnostic Radiology CT A/P Per radiologist read: IMPRESSION: 1. No pulmonary emboli identified although the segmental and subsegmental pulmonary arteries within the lower lungs are suboptimally assessed due to respiratory motion. 2. Moderate cardiomegaly. 3. Dependent airspace opacities. Atelectasis is favored over pneumonia. CXR Per radiologist read: IMPRESSION: Interval development of bibasilar opacities. Pneumonia is favored although atelectasis could appear similar. Radiographic follow-up to ensure resolution is recommended. CT HEAD Per radiologist read: IMPRESSION: No acute intracranial findings. 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 Workup reveals, hypoxia, possible pneumonia ACUTE HYPOXIA -admit to tele -? cause, CTA chest negative for PE, does show significant atelectasis versus pneumonia -no history of lung disease -empirically treat for infection with clindamycin -continue supplemental oxygen prn -r/o ACS as outlined below -CBC, PRP, Mg in AM LEUKOCYTOSIS -? underlying pneumonia, CT with atelectasis versus pneumonia possible aspiration -will empirically treat with clindamycin -repeat CXR in AM -incentive Spirometry Speech therapy consult CHEST TIGHTNESS/DIZZINESS/NAUSEA -acutely while using pesticides -? cause, Poison Control does not believe symptoms are related to pesticides use -CVA ruled out by CT head -PE ruled out by CT chest -consider afib with RVR, ACS, Hypertensive urgency and other causes -monitor in tele for arrhythmia -serial Juice, EKGs -update Echo -continue Aspirin, Statin, Diltiazem HYPERTENSION- uncontrolled -systolically >160 -add amlodipine prn -monitor in tele PAROXYSMAL ATRIAL FIBRILLATION -in Sinus Rhythm -continue Diltiazem -continue Aspirin -monitor in tele DM2 -hold po meds -SSI coverage -update A1c -BSG AC HS -consistent carb diet HLD -takes statin only 2-3 times a week CKD STAGE 3 -crea stable -follow PRP -avoid nephrotoxic agents as able GERD -continue PPI DVT PROPHYLAXIS: SCDs RE: h/o GI bleed CODE STATUS: FULL CODE DISPO:In my clinical judgment this beneficiary meets acute admission criteria, established by CMS, that includes being hospitalized through two midnights. Patient seen in collaboration with Dr. Arambula ATTENDING ADDENDUM care coordinated with CARLOS Lundberg please refer to her notes for full details, I agree with her notes patient seen and examined, records reviewed by myself as well on exam, patient seen resting in bed, alert, pleasant states he is starting to feel better while spraying weed, had sudden onset of blurred vision dizziness, then when he went home had nausea, vomiting, left sided chest tightness at the time of my exam, no symptoms except being tired admits dysphagia, coughing while eating occasionally no other symptoms VS noted and reviewed oriented x 3 , not in distress, speaks in sentences with no effort nor accessory muscle use normal rate, regular rhythm, no murmurs clear breath sounds bilaterally non distended, soft, nontender no bipedal edema, erythema, warmth no neuro deficits WBC 11.[address] angio: no PE, possible dependent atelectasis vs/ pneumonia ASSESSMENT/PLAN> CHEST DISCOMFORT r/o ACS - associated with nausea/vomiting, dizziness, blurred vision - cardiac markers x 3 echo HYPOXIA - possible Aspiration pneumonia vs. Atelectasis - Clindamycin IV Incentive Spirometry - Speech therapy ELEVATED BP no HTN in the past monitor BP patient also has been working at the [email or web address] for the past few weeks not getting enough sleep, confirms patient seems to be getting tired lately symptoms may ultimately be related to exhaustion other diagnoses and plan of care as per CARLOS Arambula MD VTE Prophylaxis VTE Risk Assessment Done? Y/N: Yes Risk Level: Low Physical Exam (per Admitting): General Appearance: + pertinent finding (WD/WN 76 year old male lying in bed in NAD with family at bedside ) Head: normocephalic, atraumatic Eyes: PERRL, EOMI, sclerae normal ENT: hearing grossly normal, pharynx normal Neck: supple, no JVD Respiratory/Chest: chest non-tender, lungs clear, normal breath sounds, no respiratory distress, no accessory muscle use Cardiovascular: regular rate, rhythm, no edema, no gallop, no JVD, no murmur , normal peripheral pulses Abdomen/GI: normal bowel sounds, non tender, soft Back: normal inspection, no muscle spasm Extremities/Musculoskelatal: no calf tenderness, normal capillary refill, no pedal edema Neurologic/Psych: alert, oriented x 3, + pertinent finding (No focal deficits ) Skin: normal color, warm/dry, no rash Lymphatic: no adenopathy Hospital Course Acute Neck Pain Likely secondary to Arthritis Will get Cervical [id number] Pain is much improved ACUTE HYPOXIA -improved -Possible pneumonia, aspiration component ruled out. -CTA chest negative for PE, does show significant atelectasis versus pneumonia -empirically treat for infection with clindamycin -continue supplemental oxygen prn -clinically better and ready to be discharged today CHEST TIGHTNESS with Dizziness -acutely while using pesticides - Poison Control does not believe symptoms are related to pesticides use -CVA ruled out by CT head -PE ruled out by CT chest -no arrhythmia -serial Juice, EKGs-negative for any ACS -ECHO:: * Left ventricular systolic function is normal. * Ejection Fraction = 55-60%. * The left ventricular wall motion is normal. * Grade I diastolic dysfunction, (abnormal relaxation pattern). * Mild aortic regurgitation. * There is mild mitral regurgitation. -continue Aspirin, Statin, Diltiazem -no more episode LEUKOCYTOSIS -underlying pneumonia, CT with atelectasis versus pneumonia- - possible aspiration -will empirically treat with clindamycin -Resolved HYPERTENSION- uncontrolled -systolically >160 -add amlodipine prn -monitor in tele PAROXYSMAL ATRIAL FIBRILLATION -in Sinus Rhythm -continue Diltiazem -continue Aspirin -monitor in tele DM2 -hold po meds -SSI coverage -update A1c-8.5 -BSG AC HS -consistent carb diet CKD STAGE 3 -crea stable -follow PRP -avoid nephrotoxic agents as able GERD -continue PPI DVT PROPHYLAXIS: SCDs RE: h/o GI bleed CODE STATUS: FULL CODE DISPO Discharge home today Total time spent on discharge = 35 minutes This includes examination of the patient, discharge planning, medication reconciliation, and communication with other providers. Discharge Instructions Date of Service Aug 26, 2016. Admission Reason for Admission: Hypoxia, Pneumonia Discharge Discharge Diagnosis / Problem: Acute Hypoxemia-resolved,Possible Aspiration-no pneumonia Discharge Goals Goal(s): Prevent Disease Progression Activity Recommendations Activity Limitations: resume your previous activity . Instructions / Follow-Up Instructions / Follow-Up Dr Albarran on 08/31/16 at 12:45PM Current Hospital Diet Patient's current hospital diet: Diabetes Type 2 Diet, AHA Diet (Heart Healthy) Discharge Diet Recommended Diet: Regular Diet, Low Sodium Diet (2gm Na) Pending Studies Studies pending at discharge: no Laboratory Results Hemoglobin A1c Test 08/24/16 04:20 Range/Units Estimated Average Glucose 197 mg/dl Hemoglobin A1c 8.5 H 4.5-5.6 % Lipid Panel Test 08/24/16 04:20 Range/Units Triglycerides Level 117 0-150 mg/dl Cholesterol Level 144 0-200 mg/dl HDL Cholesterol 38 mg/dl Cholesterol/HDL Ratio 3.8 LDL Cholesterol, Calculated 83 mg/dl Medical Emergencies . Who to Call and When: Medical Emergencies: If at any time you feel your situation is an emergency, please call 911 immediately. . Non-Emergent Contact Non-Emergency issues call your: Primary Care Provider . Past History Medical & Surgical History: (1) Hypoxia (2) Hypothyroid (3) DM type 2 (diabetes mellitus, type 2) (4) Paroxysmal atrial fibrillation (5) Dyslipidemia (6) History of right bundle branch block (RBBB) (7) Hypertension (8) S/P laparoscopic cholecystectomy (9) S/P tonsillectomy (10) S/p ERCP with stone removal (11) H/O arthroscopic knee surgery (12) H/O nasal polypectomy (13) Status post Mohs surgery (14) S/p upper endoscopy (15) H/O colonoscopy . "Provider Documentation" section prepared by Fito Garcia. VTE Core Measure Inpt VTE Proph given/why not?: SCD's Additional Copies To Aiyana Albarran D.O.
[2016-11-07] MEDS ORDERED: RXC5 PO (08:30)
== END 2016-08-26 12:28 | disposition home or self-care (01) | DRG 195 ==
LOC: ENRESERVDT → ENRESERVTM → EDBD 17:04 → C.EDA 17:05 → C.MED 19:35
PROVIDERS: ADMIT Internal Medicine; ATTEND Internal Medicine
DX: J18.9 Pneumonia, unspecified organism (principal); M54.2 Cervicalgia; R09.02 Hypoxemia; R07.9 Chest pain, unspecified; R42 Dizziness and giddiness; R11.0 Nausea; I12.9 Hypertensive chronic kidney disease with stage 1 through stage 4 chronic kidney disease, or unspecified chronic kidney disease; E11.22 Type 2 diabetes mellitus with diabetic chronic kidney disease; N18.3 Chronic kidney disease, stage 3 (moderate); I48.0 Paroxysmal atrial fibrillation; I34.0 Nonrheumatic mitral (valve) insufficiency; E78.5 Hyperlipidemia, unspecified; K21.9 Gastro-esophageal reflux disease without esophagitis; Z79.82 Long term (current) use of aspirin; Z79.84 Long term (current) use of oral hypoglycemic drugs

== ENCOUNTER 2016-11-05 05:08 | Inpatient (IN) | payer OTHER ==
--- NOTE | 2016-07-28 12:04 | PAT Medication Instructions ---
Service Date Jul 28, 2016. Current Home Medication List Aspirin (Aspirin Chewable), 81 MG PO HS Atorvastatin (Lipitor), 10 MG PO 1-2X/WEEK Cholecalciferol (D 1000), 1,000 UNITS PO HS Cyanocobalamin (Vitamin B-12), 100 MCG PO QAM Diltiazem Hcl (Dilt-Xr), 180 MG PO QAM Fish Oil ([place]-3), 2,000 MG PO HS Glimepiride (Amaryl), 8 MG PO QAM Metformin Hcl (Glucophage), 1,000 MG PO HS Nateglinide (Starlix ), 1 TAB PO UD Pantoprazole (Protonix), 40 MG PO QAM Medication Instructions For Your Scheduled Surgery - Hold the following medications 2 weeks prior to surgery: Fish Oil ([place]-3), 2,000 MG PO HS - Hold the following medications 48 hours prior to surgery: Metformin Hcl (Glucophage), 1,000 MG PO HS - Hold the following medications the morning of surgery: Glimepiride (Amaryl), 8 MG PO QAM Nateglinide (Starlix ), 1 TAB PO UD Cyanocobalamin (Vitamin B-12), 100 MCG PO QAM - Take the following medications the morning of surgery with a sip of water: Pantoprazole (Protonix), 40 MG PO QAM Diltiazem Hcl (Dilt-Xr), 180 MG PO QAM Atorvastatin (Lipitor), 10 MG PO 1-2X/WEEK - Take the following medications as scheduled the night before surgery: Cholecalciferol (D 1000), 1,000 UNITS PO HS Aspirin (Aspirin Chewable), 81 MG PO HS If you have any questions please call us at [phone] (Sulma Poe PA-C) or [phone] or [phone]
--- NOTE | 2016-07-28 12:45 | DIAGNOSTIC IMAGING REPORT ---
CHEST 2 VIEWS ROUTINE CLINICAL HISTORY: Preoperative chest COMPARISON STUDY: 03/27/2015 FINDINGS: The heart is borderline enlarged. There is no failure. There is no focal pulmonary consolidation. No pleural effusions are visualized. There is a linear area of atelectasis/scarring within left midlung zone.[ IMPRESSION: No active disease in the chest. Electronically signed by: Gerald Florence M.D. 07/28/2016 12:44 PM Dictated Date/Time: 07/28/2016 12:43 PM
[2016-07-28 12:47] LABS: URINE APPEARANCE CLEAR (CLEAR); URINE BILIRUBIN NEG (NEG); URINE COLOR YELLOW; URINE EPITHELIAL CELL AUTO 0-5 /lpf (0-5); URINE NITRITE NEG (NEG); UROBILINOGEN NEG (NEG)
[2016-07-28 12:52] LABS: MANUAL MICROSCOPIC REQUIRED? NO; REVIEW REQ? NO
[2016-07-28 12:54] LABS: PARTIAL THROMBOPLASTIN RATIO 1.1; PROTHROMBIN TIME (PATIENT) 10.4 SECONDS (9.0-12.0)
--- NOTE | 2016-11-04 14:02 | HISTORY & PHYSICAL EXAMINATION ---
DATE OF ADMISSION: 11/05/2016 CHIEF COMPLAINT: Primary osteoarthritis of the right knee. HISTORY OF PRESENT ILLNESS: Higinio is a pleasant 76-year-old male who has been having bilateral knee pain, right greater than left for several years. X-rays and clinical examination have been diagnostic for osteoarthritis of the knees. After failing extensive conservative treatment including multiple injections, he has elected to proceed with a right total knee arthroplasty. PAST MEDICAL HISTORY: Significant for heart disease, dij-nwlseab-ywngyhqey diabetes, hyperlipidemia, hypertension, skin cancer. PAST SURGICAL HISTORY: Significant for cholecystectomy and cataract. ALLERGIES: LISINOPRIL AND ANY GRISELDA INHIBITORS. MEDICATIONS: Protonix 40 mg daily, Amaryl 4 mg 2 tabs with first meal of the day, Glucophage 1000 mg twice a day, Starlix 120 mg 1 before supper and 1 before bed, Lipitor 10 mg daily, prednisone 40 mg at onset of swelling and aspirin 81 mg daily. FAMILY HISTORY: Noncontributory. SOCIAL HISTORY: He is . He has a domestic partner. He has 1-2 drinks a week and does use chewing tobacco. He remains active. REVIEW OF SYSTEMS: He complains of bilateral knee pain, right worse than left. All other pertinent review of systems is negative. PHYSICAL EXAMINATION: GENERAL: He is awake, alert and oriented x3. He is in no apparent distress. He is very pleasant. HEENT: Pupils equal and reactive to light. Extraocular motions intact. Oral mucosa is pink, moist. HEART: Regular rate per radial pulse. LUNGS: Harper symmetrically bilaterally with no audible breath sounds. ABDOMEN: Soft, nontender, nondistended. MUSCULOSKELETAL: On physical examination of his right knee, he ambulates independently. He does have a slight varus alignment. He has range of motion from 0-125 degrees. No swelling or effusion. He does have significant tenderness to palpation over the medial joint line and over the distal medial femoral condyle. IMAGING DATA: X-rays of the knee does show advanced osteoarthritis mostly involving the medial compartment. There is joint space collapse and osteophyte formation. IMPRESSION: Primary osteoarthritis of the right knee. PLAN: Will proceed with a [employer] V[employer] right total knee arthroplasty. Postoperatively, he will be started on aspirin for DVT prophylaxis and kept in the hospital likely for 2 midnights for postoperative medical management.
[2016-11-05] VITALS (9 sets, daily range): BP systolic 108–178; BP diastolic 61–87; PULSE 52–63; TEMP 34.6–36.6; O2SAT 92–97; Ht 172.7 cm; Wt 89.9 kg
[~2016-11-05] VITALS: Ht 172.7 cm; Wt 89.9 kg
[~2016-11-05 05:08] MED LIST changes: +ACETAMINOPHEN 500 MG TAB PO SCH; +AMLO-110 PO; +CANA1TAB PO; +CEFAZOLIN 2000 MG/60 ML D5W 60 ML IV SCH; +FAMOTIDINE 20 MG TAB PO SCH; -FISHOIL PO; +GABAPENTIN 300 MG CAP PO SCH; +LACTATED RINGER'S 1000ML 1,000 ML IV SCH; +LACTATED RINGER'S 1000ML 500 ML IV ONE; +LACTATED RINGER'S 1000ML IV SCH; +ROPIVACAINE 5MG/ML 30 ML 150 MG, BUPIVACAINE/EPINEPHR 0.5% MPF 30 ML, KETOROLAC TROMETH... INFIL SCH
[2016-11-05] MEDS ORDERED: CEFAZOLIN 2000 MG/60 ML D5W 60 ML IV SCH (06:00)
[2016-11-05] MEDS ORDERED: FAMOTIDINE 20 MG TAB PO SCH (06:00)
[2016-11-05] MEDS ORDERED: LACTATED RINGER'S 1000ML 500 ML IV ONE (06:00)
[2016-11-05] MEDS ORDERED: ACETAMINOPHEN 500 MG TAB PO SCH (06:00)
[2016-11-05] MEDS ORDERED: GABAPENTIN 300 MG CAP PO SCH (06:00)
[2016-11-05] MEDS ORDERED: LACTATED RINGER'S 1000ML 1,000 ML IV SCH ×2 (06:00→16:00)
[2016-11-05] MEDS ORDERED: ROPIVACAINE 5MG/ML 30 ML 150 MG, BUPIVACAINE/EPINEPHR 0.5% MPF 30 ML, KETOROLAC TROMETH... INFIL SCH ×7 (06:00)
[2016-11-05] MEDS ORDERED: BUPIVACAINE 0.25% 30 ML VIAL ONE (06:32)
[2016-11-05] MEDS ORDERED: BUPIVACAINE 0.5 % 5 MG/1 ML PF 10ML VIAL ONE (06:32)
--- NOTE | 2016-11-05 06:35 | History & Physical Bridge Note ---
H&P Re-Evaluation Bridge Note: I have examined the patient, reviewed the History & Physical and in the interval since the performance of the History & Physical I have noted the following changes of clinical significance: No changes noted
[2016-11-05] MEDS ORDERED: MIDAZOLAM HCL 1 MG/ML 2ML VIAL ONE (06:43)
[2016-11-05] MEDS ORDERED: ONDANSETRON INJ 2 MG/ML 2 ML VIAL ONE (06:43)
[2016-11-05] MEDS ORDERED: FENTANYL CITRATE INJ 50 MCG/1 ML 2 ML VIAL ONE (06:43)
[2016-11-05] MEDS ORDERED: PROPOFOL IV EMULSION 10 MG/ML 20 ML VIAL IV ONE (06:43)
[2016-11-05] MEDS ORDERED: DEXAMETHASONE SOD INJ 4 MG/ML VIAL ONE (06:43)
[2016-11-05] MEDS ORDERED: LIDOCAINE HCL 2% 2 ML VIAL (20MG/ML) ONE (06:43)
[2016-11-05] MEDS ORDERED: ORTHO JOINT ANESTHETIC ONE (06:50)
[2016-11-05] MEDS ORDERED: BACITRACIN 50000 UNIT VIAL ONE (06:51)
[2016-11-05] MEDS ORDERED: NURSING VERBAL MED ORDER ONE (07:30)
[2016-11-05] MEDS ORDERED: EpHEDrine SULFATE INJ 50 MG/ML AMP IV PRN (07:45)
[2016-11-05] MEDS ORDERED: ONDANSETRON INJ 2 MG/ML 2 ML VIAL IV PRN ×2 (07:45→08:45)
[2016-11-05] MEDS ORDERED: ATROPINE SULFATE 0.1 MG/ML 5ML SYR IV PRN (07:45)
[2016-11-05] MEDS ORDERED: FENTANYL CITRATE INJ 50 MCG/1 ML 2 ML VIAL IV PRN (07:45)
[2016-11-05] MEDS: TRANEXAMIC ACID AMP 1,000 MG in NSS 100ML IV SCH ×2 (08:15→08:45)
[2016-11-05] MEDS: SODIUM CHLORIDE 0.9% 1000ML 1,000 ML IV SCH ×3 (08:37→17:27)
--- NOTE | 2016-11-05 08:37 | [facility] Post Operative Brief Note ---
Immediate Operative Summary Operative Date Nov 05, 2016. Pre-Operative Diagnosis Primary Osteoarthritis of Right Knee Post-Operative Diagnosis Primary Osteoarthritis of Right Knee Procedure(s) Performed Right Total Knee Arthroplasty Surgeon Dr. Keith Mitchell Pit Hoist Operator Surgeon(s) Josué Mcallister PA-C Estimated Blood Loss 20ml Findings as above Specimens A. Right Knee Bone and Tissue Complication(s) None Disposition Recovery Room / PACU
[2016-11-05] MEDS ORDERED: METOCLOPRAMIDE HCL INJ 5 MG/ML 2 ML VIAL IV PRN (08:45)
[2016-11-05] MEDS ORDERED: MAGNESIUM HYDROXIDE SUSP 30 ML UDC PO PRN (08:45)
[2016-11-05] MEDS ORDERED: MoRPHine SULFATE 2 MG/ML CARP IV PRN (08:45)
[2016-11-05] MEDS ORDERED: GLUCOSE 10 TABS/TUBE PO PRN (08:45)
[2016-11-05] MEDS ORDERED: DEXTROSE 50% 50 ML SYR IV PRN (08:45)
[2016-11-05] MEDS ORDERED: SILVER SULFADIAZINE 1% CR 50 GM JAR EXT PRN (08:45)
[2016-11-05] MEDS ORDERED: SOD PHOSPHATE/SOD BIPHOSPHATE ENEMA 132 ML BTL PR PRN (08:45)
[2016-11-05] MEDS ORDERED: GLUCOSE 40% GEL 15 GM TUBE PO PRN (08:45)
[2016-11-05] MEDS ORDERED: GLUCAGON FOR INJ 1 MG VIAL SQ PRN (08:45)
[2016-11-05] MEDS ORDERED: BISACODYL 10 MG SUPP PR PRN (08:45)
[2016-11-05] MEDS: DILTIAZEM HCL 180 MG ER CAP PO SCH (09:00)
[2016-11-05] MEDS: PANTOprazole SOD 40 MG TAB PO SCH (09:00)
[2016-11-05] MEDS ORDERED: PANTOprazole SOD 40 MG TAB PO SCH (09:00)
[2016-11-05] MEDS: ASPIRIN 325 MG ECTAB PO SCH ×2 (09:00→21:43)
--- NOTE | 2016-11-05 09:06 | OPERATIVE REPORT ---
DATE OF OPERATION: 11/05/2016 PREOPERATIVE DIAGNOSIS: Primary osteoarthritis of the right knee. POSTOPERATIVE DIAGNOSIS: Same. PROCEDURE: Right total knee arthroplasty. SURGEON: Dr. Keith Mitchell. PUBLIC SERVICE DIRECTOR: Deshawn Mcallister PA-C, whose assistance was necessary for positioning of the leg and helping with instrumentation. ANESTHESIA: Spinal with a right adductor nerve block. COMPLICATIONS: None. CONDITION: Stable to PACU. IMPLANTS USED: I used a [employer]omet Vanguard right total knee arthroplasty with a 67.5 right femur, 79 tibia, 31 x 8 patella, and a size 12 posterior stabilized bearing. All complements were cemented with Palacos-G cement. INDICATIONS: Higinio is a pleasant 76-year-old male who presented to my office with chronic bilateral knee pain, right worse than left. X-rays and clinical examination were diagnostic for primary osteoarthritis of the knee. After failing extensive conservative treatment, he elected to undergo a right total knee arthroplasty. DESCRIPTION OF PROCEDURE: On 11/05/2016, he arrived at [facility] for the above procedure. He was seen in the preoperative holding area and the operative extremity was identified and signed. He was given a preoperative antibiotic and a spinal anesthetic and a right adductor nerve block. He was taken back to the operating room, laid on the table in supine position and put under basic sedation. The right knee was then prepped and draped in sterile fashion. Time-out was done and the patient and operative extremity was properly identified. A longitudinal incision was made directly over the patella. Dissection was taken down to the extensor mechanism and a medial parapatellar approach was used. The fat pad was removed and the medial retinaculum was released and the knee was then flexed. A drill was sent down the center of the femoral canal. This was followed by an intramedullary almita. Off that almita, a distal femoral cutting block was placed and 12 mm was resected off the distal femur at 5 degrees of valgus. A posterior referencing guide was used to measure the size of the femur and it measured to be a size 67.5. Two drill holes were placed in 3 degrees of external rotation and 3-in-1 cutting block was impacted into place. The anterior, posterior and chamfer cuts were then made. A 3-in-1 cutting block was then impacted into place and the box was resected for the posterior stabilizing component. The proximal tibia was then exposed. A drill was sent down the center of the tibial canal followed by an intramedullary almita. Off that almita, a proximal tibial resection guide was placed. A 2 mm was resected off the low tibial side. The tibia measured to be a size 79. A tibial plate was set in the appropriate rotation and the tibia was then drilled and punched. Time was then spent removing any remnants of soft tissue from the posterior aspect of the femur. Trial components were placed. The knee was brought through a full range of motion and felt to be stable. The patella was then everted and 8 mm was resected off the posterior aspect of the patella. The patella measured to be a size 31 and 3 peg holes were then drilled. Trials were then removed. The knee was then irrigated with pulse lavage. The surrounding soft tissues were injected with 100 mL of orthopedic pain control cocktail. The complements were then cemented in place with Palacos-G cement. Once cement had hardened, several different polyethylene trials were used and a size 12 seemed to be the best fit. The final size 12 polyethylene insert was then snapped into place and the anterior bar was locked. The knee was then irrigated with 3 liters of normal saline solution with pulse lavage. Two drains were placed. The extensor mechanism was closed with FiberWire suture in the superior medial aspect and then #1 Vicryl suture for the remainder. Skin was closed with 2-0 Vicryl, V-Loc suture and caroline. He was then placed in a soft dressing and taken to the postanesthesia care unit in stable condition. He tolerated the procedure well. I attest to the content of the Intraoperative Record and any orders documented therein. Any exception s are noted below.
--- NOTE | 2016-11-05 09:22 | Anesthesiology Progress Note ---
Anesthesia Post Op Note Date & Time Nov 05, 2016 at 09:20 Vital Signs Pain Intensity: 0 Vital Signs Past 12 Hours Date Time Temp Pulse Resp B/P (MAP) Pulse Ox O2 Delivery O2 Flow Rate FiO2 11/05/16 09:12 53 18 11/05/16 09:12 56 18 96 11/05/16 09:11 121/63 11/05/16 09:07 63 21 95 11/05/16 09:07 61 21 11/05/16 09:06 120/59 11/05/16 09:02 60 16 97 11/05/16 09:02 59 16 11/05/16 09:01 123/68 11/05/16 08:58 117/64 11/05/16 08:57 61 17 92 11/05/16 08:57 36.5 62 20 117/64 97 Mask 10 11/05/16 08:57 61 17 11/05/16 05:42 36.6 60 20 178/87 96 Room Air Notes Mental Status: alert / awake / arousable, participated in evaluation Pt Amnestic to Procedure: Yes Nausea / Vomiting: adequately controlled Pain: adequately controlled Airway Patency, RR, SpO2: stable & adequate BP & HR: stable & adequate Hydration State: stable & adequate Neuraxial Anesthesia: was administered, sensory block is resolving Anesthetic Complications: no major complications apparent Not mild pupil asymmetry on exam but patient stated he has had eye surgery on both eyes and pupils normally asymmetric. No other facial asymmetry noted and patient has b/l intact UE strength. He is awake and conversant without issue. Ok for transfer to floor.
[2016-11-05] MEDS ORDERED: PHARMACY GLYCEMIC MGMT CONSULT PRN (09:23)
--- NOTE | 2016-11-05 10:44 | Pharmacy Progress Note ---
Glycemic Control Intl Consult Date of Service Nov 05, 2016. Scope Glycemic Pharmacist consulted by Dr Mitchell on 11/05/16 for glycemic control and to write orders per [facility] inpatient glycemic control protocol Objective Weight (Kilograms): 89.90 Accuchecks BSG (last 24hrs): Test 11/05/16 05:31 11/05/16 09:01 Bedside Glucose 190 mg/dl (70-99) 187 mg/dl (70-99) Recent Pertinent Medications Outpatient Anti-diabetic Regimen: * Amaryl 8 mg PO daily + metformin 1 gm PO HS * A1c = 8.5 % 08/24/2016 Risk Factors for Insulin Resistance: * Steroids: dexamethasone 4 mg IV intraoperatively and dexamethasone 4 mg topically * Recent Surgery: R TKA POD 0 * Diet: type 2 diabetic diet Assessment & Plan ASSESSMENT: * ADA & AACE recommend a goal blood sugar range 140-180 mg/dl for the majority of critically ill & non-critically ill patients. However, more stringent targets may be selected in individual cases. Will utilize more stringent goal of 110-140mg/dl based on patient age & comorbidities. Additionally, tighter glycemic control is warranted to facilitate wound/infection healing. * Mr Mayers is a 76 y/o M admitted 11/05/16 for a R TKA. He has a PMH of HTN, hyperlipidemia, and skin CA. He is on oral medications with an A1C of 8.5% whihc is uncontrolled. * He received steroids while intraop so he will have some insulin resistance. I have scheduled a dose of Lantus that is between weight based stress of 2 and 3 for today due to the steroids use. To ensure adequate 24 hour coverage overnight accuchecks will be utilized for the first night. He does not have ongoing steroids so I utilized weight based stress of 2 dosing for POD1. I will also restart his metformin POD1 to ensure quick discharge. PLAN FOR INPATIENT GLYCEMIC CONTROL: * Holding outpatient oral diabetes medications until POD 1 * Basal insulin with LANTUS 20 units SQ x 1 then 15 units twice daily * Correctional Insulin with NOVOLOG per scale ACHS * Goal Range: Low 110 mg/dL - High 140 mg/dL * Correction Factor: 25 mg/dL/unit * Nutritional / Prandial insulin per carb ratio of 1 unit per 9 grams CHO consumed PLANS FOR DISCHARGE * Mr Maeyrs's A1C is elevated above his goal range (6.6-7.5). Since he is already on three oral medications, it may be frazier to add Lantus. I would then recommend discontinuing the Amaryl as it may cause hypoglycemia with insulin. * Please note that the plan above was derived based on current level of insulin resistance and hospital stress. These recommendations are appropriate for inpatient admission only. Plan of care upon discharge will need to be reassessed to avoid potential outpatient hypo/hyperglycemia. Thank you.
--- NOTE | 2016-11-05 10:55 | DIAGNOSTIC IMAGING REPORT ---
RIGHT KNEE 1 OR 2 VIEWS ROUTINE CLINICAL HISTORY: AP/LATERAL IN PACU RIGHT KNEE Right joint replacement COMPARISON: None. DISCUSSION: Total right knee arthroplasty. Good contact between prosthetic and underlying bone. Surgical drains are in position. Expected soft tissue postoperative change IMPRESSION: Anatomic alignment status post right knee arthroplasty. Electronically signed by: Mitch Kwon M.D. 11/05/2016 10:53 AM Dictated Date/Time: 11/05/2016 10:53 AM
[2016-11-05] MEDS: CYANOCOBALAMIN 100 MCG TAB (VIT B-12) PO SCH (11:31)
[2016-11-05] MEDS: DOCUSATE SODIUM 100 MG CAP PO SCH ×2 (11:31→21:43)
[2016-11-05] MEDS: AMLODIPINE BESYLATE 5 MG TAB PO SCH (11:31)
[2016-11-05] MEDS: MULTIVITAMIN TAB PO SCH (11:31)
[2016-11-05] MEDS: KETOROLAC TROMETHAMINE 15 MG/ML VIAL IV. SCH ×2 (11:38→17:27)
[2016-11-05] MEDS: INSULIN ASPART 100 UNITS/ML 3 ML PEN SC SCH ×3 (13:34→21:54)
[2016-11-05] MEDS: CEFAZOLIN IV 2,000 MG in DEXTROSE 5% 50ML 50 ML IV SCH ×2 (13:38→21:44)
[2016-11-05] MEDS: ACETAMINOPHEN IV 1,000 MG in EMPTY BAG 0 ML IV SCH ×2 (15:08→21:58)
[2016-11-05] MEDS ORDERED: INSULIN GLARGINE SOLOSTAR 100 UNITS/ML 3 ML PEN SC ONE (17:00)
[2016-11-05] MEDS: SENNA 8.6 MG TAB PO SCH (21:43)
[2016-11-05] MEDS: CHOLECALCIFEROL 1000 INTER.UNIT TAB PO SCH (21:44)
[2016-11-05] MEDS: OXYCODONE HCL IR 5 MG TAB (IMMEDIATE RELEASE) PO PRN (23:02)
[2016-11-06] VITALS (7 sets, daily range): BP systolic 110–147; BP diastolic 58–74; PULSE 55–62; TEMP 36.6–39.7; O2SAT 91–95
[2016-11-06] MEDS: KETOROLAC TROMETHAMINE 15 MG/ML VIAL IV. SCH ×5 (00:06→23:22)
[2016-11-06] MEDS: INSULIN ASPART 100 UNITS/ML 3 ML PEN SC SCH ×6 (00:11→21:31)
[2016-11-06] MEDS: SODIUM CHLORIDE 0.9% 1000ML 1,000 ML IV SCH (04:04)
[2016-11-06] MEDS: ACETAMINOPHEN IV 1,000 MG in EMPTY BAG 0 ML IV SCH ×3 (05:35→21:36)
[2016-11-06 05:36] LABS: HEMATOCRIT 32.1 % (42-52); MEAN CELL VOLUME 82.9 fL (80-100); MEAN CORPUSCULAR HEMOGLOBIN 27.6 pg (25-34); MEAN CORPUSCULAR HGB CONC 33.3 g/dl (32-36); MEAN PLATELET VOLUME 9.1 fL (7.4-10.4); PLATELET COUNT 218 K/uL (130-400); RED BLOOD COUNT 3.87 M/uL (4.7-6.1); WHITE BLOOD COUNT 16.88 K/uL (4.8-10.8)
[2016-11-06 06:09] LABS: BUN/CREATININE RATIO 19.5 (10-20); CALCIUM 7.4 mg/dl (8.5-10.1); CREATININE 1.3 mg/dl (0.60-1.40); POTASSIUM 4.3 mmol/L (3.5-5.1)
--- NOTE | 2016-11-06 06:23 | PROGRESS NOTE ---
DATE: 11/06/2016 CHIEF COMPLAINT: Status post right total knee arthroplasty postop day #1. PROGRESS: Higinio was seen and examined at bedside today. Overall, he is doing very well. He says he has very little pain in his right knee. He has been up and ambulating out near the nurses' station. He has no complaints. PHYSICAL EXAMINATION: RIGHT KNEE: The dressing is clean and dry and the drain is to suction. His knee is out in full extension. He has active dorsiflexion and plantarflexion of his right ankle. Sensation is intact throughout. LABORATORY DATA: He has an H&H of 10.7 and 32.1. His glucose is 184. His vital signs are stable on room air. He is voiding on his own and Hemovac put out 225. IMAGING DATA: X-rays postoperatively of the knee showed the prosthesis to be in anatomic alignment without any complication. IMPRESSION: Status post right total knee arthroplasty postop day #1. PLAN: At this point, he is doing as well as expected. He is on aspirin 325 mg twice a day for DVT prophylaxis. He will be seen by physical therapy today. Tomorrow morning, the nursing staff can change the dressing and pull the drain and likely discharge him to home with [facility].
[2016-11-06] MEDS ORDERED: INSULIN GLARGINE SOLOSTAR 100 UNITS/ML 3 ML PEN SC SCH ×3 (09:00→21:00)
[2016-11-06] MEDS: DILTIAZEM HCL 180 MG ER CAP PO SCH (09:34)
[2016-11-06] MEDS: PANTOprazole SOD 40 MG TAB PO SCH (09:34)
[2016-11-06] MEDS: ASPIRIN 325 MG ECTAB PO SCH ×2 (09:34→21:27)
[2016-11-06] MEDS: MULTIVITAMIN TAB PO SCH (09:35)
[2016-11-06] MEDS: DOCUSATE SODIUM 100 MG CAP PO SCH ×2 (09:35→21:27)
[2016-11-06] MEDS: CYANOCOBALAMIN 100 MCG TAB (VIT B-12) PO SCH (09:35)
[2016-11-06] MEDS: AMLODIPINE BESYLATE 5 MG TAB PO SCH (09:36)
[2016-11-06] MEDS: OXYCODONE HCL IR 5 MG TAB (IMMEDIATE RELEASE) PO PRN (13:12)
--- NOTE | 2016-11-06 14:19 | Pharmacy Progress Note ---
Glycemic Control: Progress Nt Date of Service Nov 06, 2016. Scope Glycemic Pharmacist consulted by Dr Bela Mitchell on 11/05/16 for glycemic control and to write orders per [facility] inpatient glycemic control protocol. Objective Accuchecks BSG (last 24hrs): Test 11/05/16 17:11 11/05/16 20:40 11/06/16 00:01 11/06/16 04:04 Bedside Glucose 253 mg/dl (70-99) 280 mg/dl (70-99) 216 mg/dl (70-99) 184 mg/dl (70-99) Test 11/06/16 05:20 11/06/16 08:06 11/06/16 12:03 Random Glucose 186 mg/dl (70-99) Bedside Glucose 190 mg/dl (70-99) 177 mg/dl (70-99) Laboratory Data (last 24hrs) Test 11/06/16 05:20 Anion Gap 9.0 mmol/L BUN/Creatinine Ratio 19.5 Blood Urea Nitrogen 25 mg/dl Creatinine 1.30 mg/dl Potassium Level 4.3 mmol/L Sodium Level 140 mmol/L White Blood Count 16.88 K/uL Recent Pertinent Medications Outpatient Anti-diabetic Regimen: * Amaryl 8 mg PO daily + metformin 1 gm PO HS * A1c = 8.5 % 08/24/2016 Risk Factors for Insulin Resistance: * Steroids: dexamethasone 4 mg IV intraoperatively and dexamethasone 4 mg topically * Recent Surgery: R TKA POD 1 * Diet: type 2 diabetic diet Assessment & Plan ASSESSMENT: * ADA & AACE recommend a goal blood sugar range 140-180 mg/dl for the majority of critically ill & non-critically ill patients. However, more stringent targets may be selected in individual cases. * BSGs ranging 177 - 280 mg/dl during the past 24 hours indicating improved glycemic control is needed. * Steroid effect should be weaning from yesterday. * Novolog parameters tightened for improved prandial control. Will consider loosening parameters tomorrow after start of Metformin. * Restart Metformin tonight. * Continue Lantus, however, will decrease dose slightly since steroid effect will be decreasing and Metformin will be resumed. * Add an 02 Novolog check for improved control overnight. PLAN FOR INPATIENT GLYCEMIC CONTROL: * Decrease Lantus 10 units SQ BID * Novolog ACHS + 02 * Tighten correction factor to 20 mg/dl/unit * Tighten carb ratio to 1 unit per 6 grams CHO consumed * Continue goal range Low 110 mg/dL - High 140 mg/dL RECOMMENDATIONS FOR DISCHARGE: * * Please note that the plan above was derived based on current level of insulin resistance and hospital stress. These recommendations are appropriate for inpatient admission only. Plan of care upon discharge will need to be reassessed to avoid potential outpatient hypo/hyperglycemia. Thank you.
[2016-11-06] MEDS ORDERED: METFORMIN HCL 500 MG TAB PO SCH (21:00)
[2016-11-06] MEDS: SENNA 8.6 MG TAB PO SCH (21:28)
[2016-11-06] MEDS: CHOLECALCIFEROL 1000 INTER.UNIT TAB PO SCH (21:28)
[2016-11-07] MEDS ORDERED: INSULIN ASPART 100 UNITS/ML 3 ML PEN SC ONE (02:00)
[2016-11-07] MEDS: KETOROLAC TROMETHAMINE 15 MG/ML VIAL IV. SCH (05:20)
[2016-11-07] MEDS: ACETAMINOPHEN IV 1,000 MG in EMPTY BAG 0 ML IV SCH (05:21)
[2016-11-07 07:46] VITALS: BP 153/75; PULSE 59; TEMP 36.7; O2SAT 94
[2016-11-07] MEDS ORDERED: INSULIN ASPART 100 UNITS/ML 3 ML PEN SC SCH (08:00)
[2016-11-07] MEDS ORDERED: RXC5 PO (08:30)
--- NOTE | 2016-11-07 08:31 | Discharge Instructions ---
Discharge Instructions Date of Service Nov 07, 2016. Admission Reason for Admission: Right Knee Osteoarthritis Discharge Discharge Diagnosis / Problem: Right Total Knee Discharge Goals Goal(s): Decrease discomfort, Improve function Activity Recommendations Activity Limitations: as noted below . Instructions / Follow-Up Instructions / Follow-Up Activity and Therapy Recommendations: * If you are using [facility] then Physical Therapy will be provided until they feel you are ready to start Outpatient Physical Therapy. If you are not using a Home Health agency then Outpatient Physical Therapy should start about 3-5 days from your day of surgery. Therapy will last about 6-10 weeks * It is important not to put a pillow under your knee when you are relaxing or sleeping. It is just as important to make sure you are getting your knee perfectly straight as it is to regain your knee bend. * You were shown a series of exercises in the hospital. Do these exercises three times each day including the exercises you were shown in physical therapy. * Get up and walk several times each day. For the first four weeks, try not to stand or walk for more than one hour at a time. If you do stand or walk for more than one hour, you will not hurt anything, but your leg will likely swell. * As you feel comfortable, you may change from the walker or crutches to a cane and then to independent walking. Medications: * Narcotic You will likely be sent home from the hospital with a prescription for the narcotic pain medication that worked best throughout your stay. * Aspirin Most patients will be required to take Aspirin 325mg twice a day for 6 weeks after surgery. This is obtained [id number] and a prescription is not necessary. * Other medications may be prescribed for specific circumstances. If you have any questions, please call the office at . * Resume previous home medications unless otherwise instructed TEDs/Elastic Stockings: The white elastic stockings help limit swelling and prevent blood clots from forming in your legs.~ The more you wear them, the more they work. Wear them for six weeks. Dressing Care: You will likely have a Prineo dressing covering your incision. This looks like a glued on clear mesh dressing. Do not remove this dressing until you follow- up in my office in 2-3 weeks. Its pretty hard to peel it off. You may leave the Prineo dressing uncovered or cover it if it is draining a little bit. No further dressing care is required Showering: You may shower 3 days from the day of surgery. Leave the Prineo dressing intact and let the soapy shower water run over it. Do not scrub or soak the dressing or the incision. Things To Watch For: * Drainage from the incision site that occurs more than one week after your surgery. * Increased redness at the incision site. * Fever above 102 degrees Fahrenheit. * Unusual chest pain or shortness of breath. * Call [facility] at with any of the above problems Follow-Up Visit: Follow-up with Dr. Mitchell 2-3 weeks after your day of surgery. An appointment was probably scheduled when you signed-up for surgery in the office. If you have any questions call Office Instructions: More detailed instructions as well as Frequently Asked Questions were provided in a folder by our office when you signed-up for surgery. Please review these instructions when you get home. If you have any further questions or concerns, please feel free to call the office at [phone] Current Hospital Diet Patient's current hospital diet: Diabetes Type 2 Diet Discharge Diet Recommended Diet: Diabetes Type 2 Diet Procedures Procedures Performed: Right Total Knee Arthroplasty Pending Studies Studies pending at discharge: no Laboratory Results Hemoglobin A1c Test 08/24/16 04:20 Range/Units Estimated Average Glucose 197 mg/dl Hemoglobin A1c 8.5 H 4.5-5.6 % Lipid Panel Test 08/24/16 04:20 Range/Units Triglycerides Level 117 0-150 mg/dl Cholesterol Level 144 0-200 mg/dl HDL Cholesterol 38 mg/dl Cholesterol/HDL Ratio 3.8 LDL Cholesterol, Calculated 83 mg/dl Medical Emergencies . Who to Call and When: Medical Emergencies: If at any time you feel your situation is an emergency, please call [phone] immediately. . Non-Emergent Contact Non-Emergency issues call your: Surgeon Call Non-Emergent contact if: wound has increased drainage, wound has increased redness . "Provider Documentation" section prepared by Keith Mitchell. . VTE Core Measure Inpt VTE Proph given/why not?: Other Anticoagulation (Aspirin 325 twice a day for 6 weeks)
[2016-11-07] MEDS: ASPIRIN 325 MG ECTAB PO SCH (08:47)
[2016-11-07] MEDS: DOCUSATE SODIUM 100 MG CAP PO SCH (08:47)
[2016-11-07] MEDS: CYANOCOBALAMIN 100 MCG TAB (VIT B-12) PO SCH (08:48)
[2016-11-07] MEDS: AMLODIPINE BESYLATE 5 MG TAB PO SCH (08:48)
[2016-11-07] MEDS: MULTIVITAMIN TAB PO SCH (08:48)
[2016-11-07] MEDS: DILTIAZEM HCL 180 MG ER CAP PO SCH (08:48)
[2016-11-07] MEDS: OXYCODONE HCL IR 5 MG TAB (IMMEDIATE RELEASE) PO PRN (08:56)
[2016-11-07] MEDS ORDERED: INSULIN GLARGINE SOLOSTAR 100 UNITS/ML 3 ML PEN SC SCH (09:00)
[2016-11-07 09:01] VITALS: PULSE 67
[2016-11-07 10:01] VITALS: BP 153/75; PULSE 67; TEMP 36.7; O2SAT 94
[2016-11-07] MEDS: PANTOprazole SOD 40 MG TAB PO SCH (10:28)
--- NOTE | 2016-11-07 10:46 | PROGRESS NOTE ---
DATE: 11/07/2016 CHIEF COMPLAINT: Status post right total knee arthroplasty postop day #2. PROGRESS: Higinio was seen and examined at bedside today. Overall, he is doing very well. He has been up and ambulating. His knee is sore, but it is not too painful. He has no complaints. PHYSICAL EXAMINATION: Of the right knee, the dressing has been changed, the drain has been pulled. There is no excessive drainage. He is neurovascularly intact. IMPRESSION: Status post right total knee arthroplasty postop day #2. PLAN: At this point, he is doing very well. We will give him some oxycodone to go home with. He will be seen by physical therapy today and likely discharged to home later this morning.
--- NOTE | 2016-11-07 18:57 | DISCHARGE SUMMARY ---
DISCHARGE DIAGNOSIS: Primary osteoarthritis of the right knee. PROCEDURE: Right total knee arthroplasty on 11/05/[address] Keith Mitchell. DISCHARGE INSTRUCTIONS: 1. Oxycodone 5 mg every four hours as needed for pain. 2. Aspirin 325 mg twice a day for deep venous thrombosis prophylaxis for six weeks. 3. Norvasc 2.5 mg daily. 4. Lipitor 10 mg one to two times a week. 5. Vitamin B12 100 mcg daily. 6. Diltiazem 180 mg daily. 7. Amaryl 8 mg daily. 8. Glucophage 1000 mg at night. 9. Starlix 120 mg every other day. 10. Protonix 40 mg daily. 11. Weightbear as tolerated. 12. Follow up with Dr. Mitchell in two weeks. 13. Call the office of Dr. Mitchell with any questions or concerns. HOSPITAL COURSE: Higinio is a pleasant 76-year-old male, who presented to my office with complaints of chronic right knee pain. X-rays and clinical examination were diagnostic for primary osteoarthritis of the right knee. After failing extensive conservative treatment, he elected to undergo a right total knee arthroplasty. On 11/05/2016, he arrived at [facility] and underwent a right knee replacement without complications. He had a spinal anesthetic and a right adductor nerve block. Postoperatively, he was discharged to general orthopedic floor. His hospital course was uneventful. On postoperative day #1, his H&H was stable at 10.7 and 32.1. He was able to ambulate well with physical therapy and his pain was well-controlled. On postoperative day #2, the dressing was changed and the drain was pulled. He continued to do well and was subsequently discharged to home on oral pain medications and the above instructions.
== END 2016-11-07 11:34 | disposition home health service (06) | DRG 470 ==
LOC: C.ACU 05:08 → C.3E 06:30 → ENRESERV 09:24
PROVIDERS: ADMIT Orthopaedic Surgery; ATTEND Orthopaedic Surgery
PROC: 0SRC0J9 Replacement of Right Knee Joint with Synthetic Substitute, Cemented, Open Approach (ICD-10-PCS; principal; 2016-11-05 07:00)
DX: M17.11 Unilateral primary osteoarthritis, right knee (principal); M21.161 Varus deformity, not elsewhere classified, right knee; I45.10 Unspecified right bundle-branch block; I48.0 Paroxysmal atrial fibrillation; I12.9 Hypertensive chronic kidney disease with stage 1 through stage 4 chronic kidney disease, or unspecified chronic kidney disease; E11.22 Type 2 diabetes mellitus with diabetic chronic kidney disease; N18.3 Chronic kidney disease, stage 3 (moderate); K21.9 Gastro-esophageal reflux disease without esophagitis; E78.5 Hyperlipidemia, unspecified; D64.9 Anemia, unspecified; N40.0 Benign prostatic hyperplasia without lower urinary tract symptoms; G47.33 Obstructive sleep apnea (adult) (pediatric); Z72.0 Tobacco use; Z79.82 Long term (current) use of aspirin; Z79.84 Long term (current) use of oral hypoglycemic drugs; Z79.899 Other long term (current) drug therapy

== ENCOUNTER 2020-10-12 14:31 | Observation (INO) ==
[2020-10-12] MEDS ORDERED: SODIUM CHLORIDE 0.9% 1000ML 1,000 ML IV SCH (15:30)
[2020-10-12 15:42] LABS: Basophils # (auto) 0.04 K/uL (0-0.2); Basophils % (auto) 0.4 %; Eosinophils # (auto) 0.08 K/uL (0-0.5); Eosinophils % (auto) 0.7 %; Hematocrit (blood only) 36.3 % (42-52); Hemoglobin 12.5 g/dL (14.0-18.0); Immature Granulocytes # (auto) 0.11 K/uL (0.00-0.02); Lymphocytes # (auto) 1.25 K/uL (1.2-3.4); Lymphocytes % (auto) 11.2 %; Mean Corpuscular Hemoglobin 28.8 pg (25-34); Mean Corpuscular Hgb Conc 34.4 g/dL (32-36); Mean Corpuscular Volume 83.6 fL (80-100); Mean Platelet Volume 8.9 fL (7.4-10.4); Monocytes # (auto) 1.17 K/uL (0.11-0.59); Monocytes % (auto) 10.4 %; Neutrophils # (auto) 8.55 K/uL (1.4-6.5); Neutrophils % (auto) 76.3 %; Platelet Count 262 K/uL (130-400); RDW Coefficient of Variation 15.2 % (11.5-14.5); RDW Standard Deviation 46.8 fL (36.4-46.3); Red Blood Count 4.34 M/uL (4.7-6.1)
[2020-10-12 15:50] LABS: Partial Thromboplastin Time 26.3 Seconds (21.0-31.0); Prothrombin Time 10.2 Seconds (9.0-12.0)
[2020-10-12 15:59] LABS: Alanine Aminotransferase 14 U/L (12-78); Albumin Level 3.3 gm/dl (3.4-5.0); Aspartate Aminotransferase 11 U/L (15-37); BUN Creatinine Ratio 17.2 (10-20); Blood Urea Nitrogen 28 mg/dl (7-18); Calcium 8.9 mg/dl (8.5-10.1); Carbon Dioxide 20 mmol/L (21-32); Chloride 108 mmol/L (98-107); Creatinine Clr Calc Pharmacy 37.3 ml/min; Est GFR (African American) 45.5 ml/min; Est GFR (Non-African American) 39.2 ml/min; Glucose 117 mg/dl (70-99); Magnesium 1.6 mg/dl (1.8-2.4); Sodium 138 mmol/L (136-145)
[2020-10-12 16:03] LABS: Albumin Globulin Ratio 0.8 (0.9-2); Alkaline Phosphatase 53 U/L (45-117); Bilirubin,Total 0.7 mg/dl (0.2-1); Total Protein 7.3 gm/dl (6.4-8.2); Troponin I < 0.015 ng/ml (0-0.045)
[2020-10-12] MEDS ORDERED: OPTIRAY 350 500ml IV ONE (16:14)
[2020-10-12] MEDS ORDERED: SODIUM CHLORIDE 0.9% 1000ML 500 ML IV ONE (17:12)
--- NOTE | 2020-10-12 17:17 | CT Scan Report ---
HEAD & NECK CTA HISTORY: Stroke symptoms. TECHNIQUE: Multiaxial CT images of the head were performed both before and after the intravenous admi nistration of contrast to evaluate the major cerebral vessels. Multiaxial CT images of the neck were also performed following the intravenous administration of contrast to evaluate the major cervical ve ssels. Maximum intensity projection images were also obtained. A dose lowering technique was utilized adhering to the principles of ALARA. COMPARISON: Head CT 12/28/2018. FINDINGS: There is no mass, hematoma, midline shift, or acute infarct. Visualized distal vertebral arteries and basilar artery are widely patent. There is no significant stenosis, occlusion, or aneurysm seen with in the bilateral ACAs,, trimming press operator, or right MCA. The paranasal sinuses and mastoid air cells are clear. Th e calvarium and skull base are intact. 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 Mild atrophy and microvascular ischemic changes are noted. Moderate calcified plaque within th e bilateral carotid siphons. This results in up to 50% stenosis within the bilateral supraclinoid ICA s. There is a 3 mm segment of stenosis within the mid left M1 segment best seen on image 113. This de monstrates up to 50% stenosis. The major dural venous sinuses appear patent. The aortic arch and proximal great vessels are widely patent. There is no significant stenosis, occ lusion, or dissection identified within the bilateral common carotid, internal carotid, or vertebral arteries. Mild calcified plaque within the bilateral carotid bifurcations. There appears to be a 2 mm saccular aneurysm extending from the distal left vertebral artery at the level of C2. This is best s een on image 257. IMPRESSION: 1. No acute intracranial abnormality. 2. 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 No evidence for occlusion within the cerebral arteries. 3. 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 4. No significant stenosis, occlusion, or dissection identified within the carotid or vertebral arter ies. ACT 112: Negative or not required by law. Electronically signed by: Andrew Hillman M.D. 10/12/2020 5:15 PM
[2020-10-12] MEDS: MAGNESIUM SULFATE / D5W 1 GM/100 ML BAG IV SCH ×2 (17:37→18:41)
[2020-10-12 17:42] LABS: Appearance Urine Clear (Clear); Bacteria Urine Automated Negative (Negative); Bilirubin Urine Negative (Negative); Blood Urine Negative (Negative); Color Urine Yellow; Glucose Urine UA Negative (Negative); Ketones Urine Negative (Negative); Leukocyte Esterase Urine Negative (Negative); Nitrite Urine Negative (Negative); Protein Urine 2+ (Negative); RBC Urine Automated 0-4 /hpf (0-4); Specific Gravity Urine > 1.045 (1.000-1.030); Urobilinogen Urine Negative (Negative)
--- NOTE | 2020-10-12 19:58 | History & Physical Report ---
Date of Service October 12, 2020 Assessment & Plan (1) Lower extremity weakness: Acute lower extremity weakness, with confusion Most likely secondary to heat exhaustion Rule out TIA versus acute CVA History of CVA with residual left-sided weakness CT head no acute CVA Check brain MRI Echocardiogram Increase aspirin 262 mg p.o. twice daily Continue Plavix Increase Crestor to 10 mg p.o. daily Stroke protocol Neurology consultation DM type II consult pharmacy for symptom control Hypertension Hold losartan and Imdur for tonight In light of possible acute CVA Paroxysmal atrial tachycardia Continue diltiazem Acute kidney injury on CKD stage III likely secondary to dehydration creatinine 1.6 IV NSS DVT prophylaxis SCDs for now CODE STATUS full code per patient Disposition PT and OT evaluation Anticipated discharge home medically stable plan of care discussed with patient and his in detail and at length all questions answered They are understanding, agreeable, comfortable with the plan of care History of Present Illness 80-year-old male with history of diabetes, hypertension, CVA with left-sided weakness, other problems noted below presenting with generalized weakness and confusional episode this afternoon. Patient was working in the garden under the sun for about 2 hours, when patient son noticed that he was getting weak to the point of not being able to walk properly. When he tried to talk to his father, the patient was noted to be somewhat confused and with slurred speech. Then brought to the car, given water, and after a few minutes, the patient seemed to have returned back to his baseline. Patient brought to the ER. CAT scan did not show signs of any acute CVA. Hospice consulted for possible heat exhaustion versus TIA. On exam patient is seen sitting up in bed, just had dinner, at the bedside, states patient is back to his baseline. Patient denies having any active symptoms, including focal neurologic deficits. Denies headache, dizziness, chest pain, shortness of breath abdominal pain, fevers or chills. No other symptoms Primary Care Provider: Jimena Aguirre DO Allergies Allergy/AdvReac Type Severity Reaction Status Date / Time lisinopril Allergy Severe edema/airwa Verified 10/12/20 15:59 y simvastatin Allergy Mild MUSCLE PAIN Verified 10/12/20 15:59 canagliflozin Allergy Unknown vertigo Verified 10/12/20 15:59 adhesive AdvReac Unknown RASH Verified 10/12/20 15:59 mushroom AdvReac Unknown NAUSEATED Verified 10/12/20 15:59 Home Medications Medication Instructions Recorded Confirmed Type aspirin 81 mg PO QAM 12/28/18 10/12/20 History cholecalciferol (vitamin D3) 1,000 unit PO PM 12/28/18 10/12/20 History clopidogrel 75 mg PO QAM 12/28/18 10/12/20 History coenzyme Q10 [Co Q-10] 100 mg PO PM 12/28/18 10/12/20 History cyanocobalamin (vitamin B-12) 1,000 mcg PO QAM 12/28/18 10/12/20 History [Vitamin B-12] diltiazem HCl 180 mg PO PM 12/28/18 10/12/20 History epinephrine [EpiPen] 0.3 mg IM UD PRN 12/28/18 10/12/20 History insulin glargine [Basaglar KwikPen 50 unit SUBCUT QAM 12/28/18 10/12/20 History U-100 Insulin] losartan 25 mg PO QAM 12/28/18 10/12/20 History metformin 1,000 mg PO BID 12/28/18 10/12/20 History omega 1-mhf-rpn-fish oil [Fish Oil] 1 cap PO PM 12/28/18 10/12/20 History pantoprazole 40 mg PO QAM 12/28/18 10/12/20 History solifenacin [Vesicare] 5 mg PO QAM 12/28/18 10/12/20 History tamsulosin 0.4 mg PO PM 12/28/18 10/12/20 History rosuvastatin 5 mg PO 2XWK 10/12/20 10/12/20 History semaglutide [Ozempic] 0.25 mg SUBCUT WK 10/12/20 10/12/20 History Past Med/Surg History Medical History GRISELDA inhibitor-aggravated angioedema PAUL (acute kidney injury) CKD (chronic kidney disease), stage III Diverticulosis of colon DM type 2 (diabetes mellitus, type 2) Dyslipidemia GERD (gastroesophageal reflux disease) GI bleed H/O hemorrhoids Hiatal hernia History of basal cell carcinoma History of Helicobacter pylori infection History of right bundle branch block (RBBB) Hypertension Hypothyroid Hypoxia Iliac artery aneurysm Localized osteoarthritis of right knee Paroxysmal atrial fibrillation Pharyngeal edema Pneumonia Pneumonia Surgical History H/O arthroscopic knee surgery H/O colonoscopy "04/2005-diverticulae" H/O nasal polypectomy S/P laparoscopic cholecystectomy S/P tonsillectomy Status post Mohs surgery Family History Other Family history non-contributory Social History Smoking Status: Never smoker Feels Safe at Home: Yes Review of Systems Review of Systems: All systems reviewed & are unremarkable except as noted in Subjective Physical Exam Physical Exam: General- oriented x 3, not in distress, speaks in sentences with no effort or accessory muscle use Head- atraumatic Eyes- PERRL, EOMI, anicteric ENT- oropharynx clear Neck- supple, no JVD, no adenopathy, no thyromegaly; carotids +2/2, no bruits appreciated Lungs- clear to auscultation bilaterally, no rales/wheezes Heart- normal rate, regular rhythm; no murmur, no gallop, no rub appreciated Abdomen- normal bowel sounds, nondistended, soft, nontender, no masses or hepatosplenomegaly Extremities- no pretibial edema, no calf tenderness; peripheral pulses intact Neuro- alert, oriented x 3; CN 2-12 grossly intact except for mild left facial droop which is chronic; motor 5/5 bilaterally except for mild left sided weakness;sensation 100% on all extremities; no other gross focal neurologic deficits Skin- warm & dry Results & Data Results & Data ([facility]) Vital Signs (Past 12 Hours) Vital Signs Temp Pulse Resp BP Pulse Ox 10/12/20 18:31 71 24 165/81 H 10/12/20 18:30 68 19 10/12/20 18:01 61 22 96 10/12/20 18:00 63 17 161/84 H 97 10/12/20 17:41 58 L 24 155/74 H 96 10/12/20 17:33 63 18 10/12/20 17:01 64 19 95 10/12/20 17:00 63 22 156/86 H 95 10/12/20 16:30 65 25 H 146/79 H 95 10/12/20 16:01 67 19 95 10/12/20 16:00 67 23 138/87 95 10/12/20 15:43 94 H 22 115/73 10/12/20 15:40 69 24 139/83 94 10/12/20 15:39 74 22 149/71 H 93 10/12/20 15:30 70 18 132/83 10/12/20 15:12 72 20 10/12/20 15:07 70 22 124/72 10/12/20 14:49 36.5 C 78 20 113/69 95 all noted and reviewed including below Laboratory Results Laboratory Results - last 24 hr 10/12/20 10/12/20 10/12/20 15:15 15:15 15:15 WBC 11.20 H RBC 4.34 L Hgb 12.5 L Hct 36.3 L MCV 83.6 MCH 28.8 MCHC 34.4 RDW Std Deviation 46.8 H RDW Coeff of Mariya 15.2 H Plt Count 262 MPV 8.9 Immature Gran % (Auto) 1.0 Neut % (Auto) 76.3 Lymph % (Auto) 11.2 [place] % (Auto) 10.4 Eos % (Auto) 0.7 Baso % (Auto) 0.4 Neut # (Auto) 8.55 H Lymph # (Auto) 1.25 [place] # (Auto) 1.17 H Eos # (Auto) 0.08 Baso # (Auto) 0.04 Immature Gran # (Auto) 0.11 H PT 10.2 INR 1.0 APTT 26.3 PTT Ratio 1.0 Sodium 138 Potassium 4.0 Chloride 108 H Carbon Dioxide 20 L Anion Gap 10.0 BUN 28 H Creatinine 1.61 H Est Cr Clr Drug Dosing 37.3 Est GFR ( Amer) 45.5 Est GFR (Non-Af Amer) 39.2 BUN/Creatinine Ratio 17.2 Glucose 117 H Estimat Average Glucose Hemoglobin A1c Calcium 8.9 Magnesium 1.6 L Total Bilirubin 0.7 AST 11 L ALT 14 Alkaline Phosphatase 53 Troponin I < 0.015 Total Protein 7.3 Albumin 3.3 L Globulin 4.0 Albumin/Globulin Ratio 0.8 L Urine Color Urine Appearance Urine pH Ur Specific [place] Urine Protein Urine Glucose (UA) Urine Ketones Urine Blood Urine Nitrite Urine Bilirubin Urine Urobilinogen Ur Leukocyte Esterase Urine WBC (Auto) Urine RBC (Auto) U Hyaline Cast (Auto) U Epithel Cells (Auto) Urine Bacteria (Auto) COVID-19 Eval Order SARS-CoV-2 (PCR) Blood Type Antibody Screen 10/12/20 10/12/20 10/12/20 15:15 15:51 15:59 WBC RBC Hgb Hct MCV MCH MCHC RDW Std Deviation RDW Coeff of Mariya Plt Count MPV Immature Gran % (Auto) Neut % (Auto) Lymph % (Auto) [place] % (Auto) Eos % (Auto) Baso % (Auto) Neut # (Auto) Lymph # (Auto) [place] # (Auto) Eos # (Auto) Baso # (Auto) Immature Gran # (Auto) PT INR APTT PTT Ratio Sodium Potassium Chloride Carbon Dioxide Anion Gap BUN Creatinine Est Cr Clr Drug Dosing Est GFR ( Amer) Est GFR (Non-Af Amer) BUN/Creatinine Ratio Glucose Estimat Average Glucose Pending Hemoglobin A1c Pending Calcium Magnesium Total Bilirubin AST ALT Alkaline Phosphatase Troponin I Total Protein Albumin Globulin Albumin/Globulin Ratio Urine Color Urine Appearance Urine pH Ur Specific [place] Urine Protein Urine Glucose (UA) Urine Ketones Urine Blood Urine Nitrite Urine Bilirubin Urine Urobilinogen Ur Leukocyte Esterase Urine WBC (Auto) Urine RBC (Auto) U Hyaline Cast (Auto) U Epithel Cells (Auto) Urine Bacteria (Auto) COVID-19 Eval Order Covid[address] [facility] SARS-CoV-2 (PCR) Blood Type A Positive Antibody Screen NEGATIVE 10/12/20 10/12/20 15:59 17:30 WBC RBC Hgb Hct MCV MCH MCHC RDW Std Deviation RDW Coeff of Mariya Plt Count MPV Immature Gran % (Auto) Neut % (Auto) Lymph % (Auto) [place] % (Auto) Eos % (Auto) Baso % (Auto) Neut # (Auto) Lymph # (Auto) [place] # (Auto) Eos # (Auto) Baso # (Auto) Immature Gran # (Auto) PT INR APTT PTT Ratio Sodium Potassium Chloride Carbon Dioxide Anion Gap BUN Creatinine Est Cr Clr Drug Dosing Est GFR ( Amer) Est GFR (Non-Af Amer) BUN/Creatinine Ratio Glucose Estimat Average Glucose Hemoglobin A1c Calcium Magnesium Total Bilirubin AST ALT Alkaline Phosphatase Troponin I Total Protein Albumin Globulin Albumin/Globulin Ratio Urine Color Yellow Urine Appearance Clear Urine pH 5.0 Ur Specific [place] > 1.045 H Urine Protein 2+ H Urine Glucose (UA) Negative Urine Ketones Negative Urine Blood Negative Urine Nitrite Negative Urine Bilirubin Negative Urine Urobilinogen Negative Ur Leukocyte Esterase Negative Urine WBC (Auto) 1-5 Urine RBC (Auto) 0-4 U Hyaline Cast (Auto) 1-5 U Epithel Cells (Auto) 5-10 H Urine Bacteria (Auto) Negative COVID-19 Eval Order SARS-CoV-2 (PCR) NEGATIVE Blood Type Antibody Screen Code Status & VTE Plan VTE Prophylaxis Plan VTE Prophylaxis will be ordered: Yes
--- NOTE | 2020-10-12 20:17 | Emergency Department Note ---
History of Present Illness General Chief complaint: Dizziness Stated complaint: WAS IN THE HEAT/COULD NOT MOVE/TALK Source: patient and RN notes reviewed Mode of arrival: ambulatory Limitations: no limitations History of Present Illness Provider complaint: Episode of confusion, unable to speak Maximum Pain Intensity: 6 This patient is an 80-year-old male who was gardening today out in the heat when his grandson noticed him to be confused. The patient was not able to respond appropriately upon further questioning. Grandson noticed that his words "did not come out right." He states the patient could not walk and he had to carry him to the truck. He had the patient sit in the air conditioning to cool down. He was able to take several sips of water and after 10 minutes or so began to speak. Patient does have a history several years ago of a stroke and was hospitalized at that time. He states he has not been doing much and is fairly inactive. Patient states he is "worn out." Patient states he had a very small breakfast and has not had much to eat or drink today. His blood sugar was 179 this morning but it has not been checked since this occurred. He denies any recent fevers, chills, chest pain or shortness of breath. He denies any vomiting or diarrhea. He states he does have at least 1 loose stool daily due to his Metformin. He denies any blood in his stools. Home Medications Medication Instructions Recorded Confirmed Type aspirin 81 mg PO QAM 12/28/18 10/12/20 History cholecalciferol (vitamin D3) 1,000 unit PO PM 12/28/18 10/12/20 History clopidogrel 75 mg PO QAM 12/28/18 10/12/20 History coenzyme Q10 [Co Q-10] 100 mg PO PM 12/28/18 10/12/20 History cyanocobalamin (vitamin B-12) 1,000 mcg PO QAM 12/28/18 10/12/20 History [Vitamin B-12] diltiazem HCl 180 mg PO PM 12/28/18 10/12/20 History epinephrine [EpiPen] 0.3 mg IM UD PRN 12/28/18 10/12/20 History insulin glargine [Basaglar KwikPen 50 unit SUBCUT QAM 12/28/18 10/12/20 History U-100 Insulin] losartan 25 mg PO QAM 12/28/18 10/12/20 History metformin 1,000 mg PO BID 12/28/18 10/12/20 History omega 9-nny-idc-fish oil [Fish Oil] 1 cap PO PM 12/28/18 10/12/20 History pantoprazole 40 mg PO QAM 12/28/18 10/12/20 History solifenacin [Vesicare] 5 mg PO QAM 12/28/18 10/12/20 History tamsulosin 0.4 mg PO PM 12/28/18 10/12/20 History rosuvastatin 5 mg PO 2XWK 10/12/20 10/12/20 History semaglutide [Ozempic] 0.25 mg SUBCUT WK 10/12/20 10/12/20 History Allergies Allergy/AdvReac Type Severity Reaction Status Date / Time lisinopril Allergy Severe edema/airwa Verified 10/12/20 15:59 y simvastatin Allergy Mild MUSCLE PAIN Verified 10/12/20 15:59 canagliflozin Allergy Unknown vertigo Verified 10/12/20 15:59 adhesive AdvReac Unknown RASH Verified 10/12/20 15:59 mushroom AdvReac Unknown NAUSEATED Verified 10/12/20 15:59 Past Med/Surg History Medical History (Updated 10/12/20 @ 21:32 by Katherine Connolly MD) GRISELDA inhibitor-aggravated angioedema PAUL (acute kidney injury) CKD (chronic kidney disease), stage III Diverticulosis of colon DM type 2 (diabetes mellitus, type 2) Dyslipidemia GERD (gastroesophageal reflux disease) GI bleed H/O hemorrhoids Hiatal hernia History of basal cell carcinoma History of Helicobacter pylori infection History of right bundle branch block (RBBB) Hypertension Hypothyroid Hypoxia Iliac artery aneurysm Localized osteoarthritis of right knee Paroxysmal atrial fibrillation Pharyngeal edema Pneumonia Pneumonia Surgical History H/O arthroscopic knee surgery H/O colonoscopy "04/2005-diverticulae" H/O nasal polypectomy S/P laparoscopic cholecystectomy S/P tonsillectomy Status post Mohs surgery Family History Other Family history non-contributory Social History Smoking Status: Never smoker Feels Safe at Home: Yes Review of Systems See HPI for pertinent positives & negatives. and A total of 10 systems reviewed and were otherwise negative Physical Exam Vital Signs Vital Signs - 24 hr 10/12/20 14:49 10/12/20 15:07 10/12/20 15:12 Temperature 36.5 C Temperature Source Oral Pulse Rate - Lying Pulse Rate - Sitting Pulse Rate - Standing Pulse Rate 78 70 72 Pulse Rate from SpO2 Sensor Pulse Rhythm Regular Pulse Strength Normal Respiratory Rate 20 22 20 Respiratory Effort / Characteristics Non-Labored Spontaneous Respiratory Depth Normal Respiratory Pattern Regular Blood Pressure - Lying Blood Pressure - Sitting Blood Pressure- Standing Blood Pressure 113/69 124/72 Blood Pressure Mean 83 89 Blood Pressure Position Sitting Pulse Oximetry 95 Oxygen Delivery Method Room Air Sepsis Recent Fever Within 48 Hours No Sepsis New/Unexplained Change in Mental Status No Sepsis Action Taken by Nursing No Action Required 10/12/20 15:30 10/12/20 15:39 10/12/20 15:40 Temperature Temperature Source Pulse Rate - Lying 76 Pulse Rate - Sitting 76 Pulse Rate - Standing 94 H Pulse Rate 70 74 69 Pulse Rate from SpO2 Sensor 72 69 Pulse Rhythm Pulse Strength Respiratory Rate 18 22 24 Respiratory Effort / Characteristics Respiratory Depth Respiratory Pattern Blood Pressure - Lying 132/83 Blood Pressure - Sitting 139/83 Blood Pressure- Standing 115/73 Blood Pressure 132/83 149/71 H 139/83 Blood Pressure Mean 99 97 101 Blood Pressure Position Pulse Oximetry 93 94 Oxygen Delivery Method Sepsis Recent Fever Within 48 Hours Sepsis New/Unexplained Change in Mental Status Sepsis Action Taken by Nursing 10/12/20 15:43 10/12/20 16:00 10/12/20 16:01 Temperature Temperature Source Pulse Rate - Lying Pulse Rate - Sitting Pulse Rate - Standing Pulse Rate 94 H 67 67 Pulse Rate from SpO2 Sensor 69 68 Pulse Rhythm Pulse Strength Respiratory Rate 22 23 19 Respiratory Effort / Characteristics Respiratory Depth Respiratory Pattern Blood Pressure - Lying Blood Pressure - Sitting Blood Pressure- Standing Blood Pressure 115/73 138/87 Blood Pressure Mean 87 104 Blood Pressure Position Pulse Oximetry 95 95 Oxygen Delivery Method Sepsis Recent Fever Within 48 Hours Sepsis New/Unexplained Change in Mental Status Sepsis Action Taken by Nursing 10/12/20 16:30 10/12/20 17:00 10/12/20 17:01 Temperature Temperature Source Pulse Rate - Lying Pulse Rate - Sitting Pulse Rate - Standing Pulse Rate 65 63 64 Pulse Rate from SpO2 Sensor 66 63 63 Pulse Rhythm Pulse Strength Respiratory Rate 25 H 22 19 Respiratory Effort / Characteristics Respiratory Depth Respiratory Pattern Blood Pressure - Lying Blood Pressure - Sitting Blood Pressure- Standing Blood Pressure 146/79 H 156/86 H Blood Pressure Mean 101 109 Blood Pressure Position Pulse Oximetry 95 95 95 Oxygen Delivery Method Room Air Sepsis Recent Fever Within 48 Hours Sepsis New/Unexplained Change in Mental Status Sepsis Action Taken by Nursing 10/12/20 17:33 10/12/20 17:41 10/12/20 18:00 Temperature Temperature Source Pulse Rate - Lying Pulse Rate - Sitting Pulse Rate - Standing Pulse Rate 63 58 L 63 Pulse Rate from SpO2 Sensor 61 62 Pulse Rhythm Pulse Strength Respiratory Rate 18 24 17 Respiratory Effort / Characteristics Respiratory Depth Respiratory Pattern Blood Pressure - Lying Blood Pressure - Sitting Blood Pressure- Standing Blood Pressure 155/74 H 161/84 H Blood Pressure Mean 101 109 Blood Pressure Position Pulse Oximetry 96 97 Oxygen Delivery Method Sepsis Recent Fever Within 48 Hours Sepsis New/Unexplained Change in Mental Status Sepsis Action Taken by Nursing 10/12/20 18:01 Temperature Temperature Source Pulse Rate - Lying Pulse Rate - Sitting Pulse Rate - Standing Pulse Rate 61 Pulse Rate from SpO2 Sensor 62 Pulse Rhythm Pulse Strength Respiratory Rate 22 Respiratory Effort / Characteristics Respiratory Depth Respiratory Pattern Blood Pressure - Lying Blood Pressure - Sitting Blood Pressure- Standing Blood Pressure Blood Pressure Mean Blood Pressure Position Pulse Oximetry 96 Oxygen Delivery Method Sepsis Recent Fever Within 48 Hours Sepsis New/Unexplained Change in Mental Status Sepsis Action Taken by Nursing Vital signs reviewed. General: Chronically ill-appearing 80 yo male, in no significant distress. HEENT: No scleral icterus, PERRLA, neck supple. Atraumatic. Cardiovascular: Regular rate and rhythm, no extra sounds. Pulmonary: Clear to auscultation bilaterally, normal work of breathing. Abdomen: Soft, nontender, nondistended, positive bowel sounds. Musculoskeletal: Atraumatic, no peripheral edema. Neurologic: Patient awake alert and oriented x 3 Skin: Warm, dry, no rash Course Administered Medications Sodium Chloride (Nss 1000ml) 1,000 mls @ 125 mls/hr IV .Q8H [facility] Stop: 11/11/20 15:29 Last Admin: 10/12/20 16:42 Dose: 125 mls/hr Documented by: [id number] Sodium Chloride (Nss 1000ml) 1,000 mls @ 100 mls/hr IV .Q10H [facility] Stop: 11/11/20 20:33 Last Admin: 10/12/20 21:18 Dose: 100 mls/hr Documented by: [id number] Insulin Aspart (Insulin Aspart 100 Units/Ml 3 Ml Pen) 0 units SC ACHS RICHARD Stop: 11/11/20 20:59 Last Admin: 10/12/20 21:13 Dose: Not Given Documented by: [id number] Discontinued Medications Aspirin (Aspirin 81 Mg Ectab) 81 mg PO ONE ONE Stop: 10/12/20 21:01 Last Admin: 10/12/20 21:17 Dose: 81 mg Documented by: [id number] Sodium Chloride (Nss 1000ml) 500 mls @ 999 mls/hr IV .Q31M ONE Stop: 10/12/20 17:42 Last Infusion: 10/12/20 18:11 Dose: 0 mls/hr Documented by: [id number] Admin: 10/12/20 17:37 Dose: 999 mls/hr Documented by: [id number] Magnesium Sulfate/Dextrose (Magnesium Sulfate / D5w) 1 gm in 100 mls @ 100 mls/hr IV Q1H [facility] Stop: 10/12/20 19:12 Last Infusion: 10/12/20 19:45 Dose: 0 mls/hr Documented by: [id number] Admin: 10/12/20 18:41 Dose: 100 mls/hr Documented by: [id number] Infusion: 10/12/20 18:37 Dose: 100 mls/hr Documented by: [id number] Admin: 10/12/20 17:37 Dose: 100 mls/hr Documented by: [id number] Ioversol (Optiray 350 500ml) 120 ml IV ONCE ONE Stop: 10/12/20 16:15 Last Admin: 10/12/20 16:14 Dose: 120 ml Documented by: [id number] Medical Decision Making Differential Diagnosis Benign positional vertigo, dehydration, hypovolemia, anemia, tumor, infection, hypoglycemia, electrolyte abnormalities, cardiac sources, intracerebral event, toxicologic, neurologic, as well as other pathologies. Medical Records Attestation: I reviewed the patient's medical records. Home Medications Current Medication List: was personally reviewed by me Laboratory Data Attestation: I reviewed the patient's lab results. Result diagrams: 10/12/20 15:15 10/12/20 15:15 Lab Results 10/12/20 10/12/20 10/12/20 Range/Units 15:15 15:15 15:15 WBC 11.20 H (4.8-10.8) K/uL RBC 4.34 L (4.7-6.1) M/uL Hgb 12.5 L (14.0-18.0) g/dL Hct 36.3 L (42-52) % MCV 83.6 (80-100) fL MCH 28.8 (25-34) pg MCHC 34.4 (32-36) g/dL RDW Std Deviation 46.8 H (36.4-46.3) fL RDW Coeff of Mariya 15.2 H (11.5-14.5) % Plt Count 262 (130-400) K/uL MPV 8.9 (7.4-10.4) fL Immature Gran % (Auto) 1.0 % Neut % (Auto) 76.3 % Lymph % (Auto) 11.2 % [place] % (Auto) 10.4 % Eos % (Auto) 0.7 % Baso % (Auto) 0.4 % Neut # (Auto) 8.55 H (1.4-6.5) K/uL Lymph # (Auto) 1.25 (1.2-3.4) K/uL [place] # (Auto) 1.17 H (0.11-0.59) K/uL Eos # (Auto) 0.08 (0-0.5) K/uL Baso # (Auto) 0.04 (0-0.2) K/uL Immature Gran # (Auto) 0.11 H (0.00-0.02) K/uL PT 10.2 (9.0-12.0) Seconds INR 1.0 (0.9-1.1) APTT 26.3 (21.0-31.0) Seconds PTT Ratio 1.0 Sodium 138 (136-145) mmol/L Potassium 4.0 (3.5-5.1) mmol/L Chloride 108 H (98-107) mmol/L Carbon Dioxide 20 L (21-32) mmol/L Anion Gap 10.0 (3-11) BUN 28 H (7-18) mg/dl Creatinine 1.61 H (0.6-1.4) mg/dl Est Cr Clr Drug Dosing 37.3 ml/min Est GFR ( Amer) 45.5 ml/min Est GFR (Non-Af Amer) 39.2 ml/min BUN/Creatinine Ratio 17.2 (10-20) Glucose 117 H (70-99) mg/dl Calcium 8.9 (8.5-10.1) mg/dl Magnesium 1.6 L (1.8-2.4) mg/dl Total Bilirubin 0.7 (0.2-1) mg/dl AST 11 L (15-37) U/L ALT 14 (12-78) U/L Alkaline Phosphatase 53 (45-117) U/L Troponin I < 0.015 (0-0.045) ng/ml Total Protein 7.3 (6.4-8.2) gm/dl Albumin 3.3 L (3.4-5.0) gm/dl Globulin 4.0 (2.5-4.0) gm/dl Albumin/Globulin Ratio 0.8 L (0.9-2) Urine Color Urine Appearance (Clear) Urine pH (4.5-7.5) Ur Specific [place] (1.000-1.030) Urine Protein (Negative) Urine Glucose (UA) (Negative) Urine Ketones (Negative) Urine Blood (Negative) Urine Nitrite (Negative) Urine Bilirubin (Negative) Urine Urobilinogen (Negative) Ur Leukocyte Esterase (Negative) Urine WBC (Auto) (0-5) /hpf Urine RBC (Auto) (0-4) /hpf U Hyaline Cast (Auto) (0-5) /lpf U Epithel Cells (Auto) (0-5) /lpf Urine Bacteria (Auto) (Negative) COVID-19 Eval Order SARS-CoV-2 (PCR) (Negative) Blood Type Antibody Screen 10/12/20 10/12/20 10/12/20 Range/Units 15:51 15:59 15:59 WBC (4.8-10.8) K/uL RBC (4.7-6.1) M/uL Hgb (14.0-18.0) g/dL Hct (42-52) % MCV (80-100) fL MCH (25-34) pg MCHC (32-36) g/dL RDW Std Deviation (36.4-46.3) fL RDW Coeff of Mariya (11.5-14.5) % Plt Count (130-400) K/uL MPV (7.4-10.4) fL Immature Gran % (Auto) % Neut % (Auto) % Lymph % (Auto) % [place] % (Auto) % Eos % (Auto) % Baso % (Auto) % Neut # (Auto) (1.4-6.5) K/uL Lymph # (Auto) (1.2-3.4) K/uL [place] # (Auto) (0.11-0.59) K/uL Eos # (Auto) (0-0.5) K/uL Baso # (Auto) (0-0.2) K/uL Immature Gran # (Auto) (0.00-0.02) K/uL PT (9.0-12.0) Seconds INR (0.9-1.1) APTT (21.0-31.0) Seconds PTT Ratio Sodium (136-145) mmol/L Potassium (3.5-5.1) mmol/L Chloride (98-107) mmol/L Carbon Dioxide (21-32) mmol/L Anion Gap (3-11) BUN (7-18) mg/dl Creatinine (0.6-1.4) mg/dl Est Cr Clr Drug Dosing ml/min Est GFR ( Amer) ml/min Est GFR (Non-Af Amer) ml/min BUN/Creatinine Ratio (10-20) Glucose (70-99) mg/dl Calcium (8.5-10.1) mg/dl Magnesium (1.8-2.4) mg/dl Total Bilirubin (0.2-1) mg/dl AST (15-37) U/L ALT (12-78) U/L Alkaline Phosphatase (45-117) U/L Troponin I (0-0.045) ng/ml Total Protein (6.4-8.2) gm/dl Albumin (3.4-5.0) gm/dl Globulin (2.5-4.0) gm/dl Albumin/Globulin Ratio (0.9-2) Urine Color Urine Appearance (Clear) Urine pH (4.5-7.5) Ur Specific [place] (1.000-1.030) Urine Protein (Negative) Urine Glucose (UA) (Negative) Urine Ketones (Negative) Urine Blood (Negative) Urine Nitrite (Negative) Urine Bilirubin (Negative) Urine Urobilinogen (Negative) Ur Leukocyte Esterase (Negative) Urine WBC (Auto) (0-5) /hpf Urine RBC (Auto) (0-4) /hpf U Hyaline Cast (Auto) (0-5) /lpf U Epithel Cells (Auto) (0-5) /lpf Urine Bacteria (Auto) (Negative) COVID-19 Eval Order Covid19 at [facility] SARS-CoV-2 (PCR) NEGATIVE (Negative) Blood Type A Positive Antibody Screen NEGATIVE 10/12/20 Range/Units 17:30 WBC (4.8-10.8) K/uL RBC (4.7-6.1) M/uL Hgb (14.0-18.0) g/dL Hct (42-52) % MCV (80-100) fL MCH (25-34) pg MCHC (32-36) g/dL RDW Std Deviation (36.4-46.3) fL RDW Coeff of Mariya (11.5-14.5) % Plt Count (130-400) K/uL MPV (7.4-10.4) fL Immature Gran % (Auto) % Neut % (Auto) % Lymph % (Auto) % [place] % (Auto) % Eos % (Auto) % Baso % (Auto) % Neut # (Auto) (1.4-6.5) K/uL Lymph # (Auto) (1.2-3.4) K/uL [place] # (Auto) (0.11-0.59) K/uL Eos # (Auto) (0-0.5) K/uL Baso # (Auto) (0-0.2) K/uL Immature Gran # (Auto) (0.00-0.02) K/uL PT (9.0-12.0) Seconds INR (0.9-1.1) APTT (21.0-31.0) Seconds PTT Ratio Sodium (136-145) mmol/L Potassium (3.5-5.1) mmol/L Chloride (98-107) mmol/L Carbon Dioxide (21-32) mmol/L Anion Gap (3-11) BUN (7-18) mg/dl Creatinine (0.6-1.4) mg/dl Est Cr Clr Drug Dosing ml/min Est GFR ( Amer) ml/min Est GFR (Non-Af Amer) ml/min BUN/Creatinine Ratio (10-20) Glucose (70-99) mg/dl Calcium (8.5-10.1) mg/dl Magnesium (1.8-2.4) mg/dl Total Bilirubin (0.2-1) mg/dl AST (15-37) U/L ALT (12-78) U/L Alkaline Phosphatase (45-117) U/L Troponin I (0-0.045) ng/ml Total Protein (6.4-8.2) gm/dl Albumin (3.4-5.0) gm/dl Globulin (2.5-4.0) gm/dl Albumin/Globulin Ratio (0.9-2) Urine Color Yellow Urine Appearance Clear (Clear) Urine pH 5.0 (4.5-7.5) Ur Specific [place] > 1.045 H (1.000-1.030) Urine Protein 2+ H (Negative) Urine Glucose (UA) Negative (Negative) Urine Ketones Negative (Negative) Urine Blood Negative (Negative) Urine Nitrite Negative (Negative) Urine Bilirubin Negative (Negative) Urine Urobilinogen Negative (Negative) Ur Leukocyte Esterase Negative (Negative) Urine WBC (Auto) 1-5 (0-5) /hpf Urine RBC (Auto) 0-4 (0-4) /hpf U Hyaline Cast (Auto) 1-5 (0-5) /lpf U Epithel Cells (Auto) 5-10 H (0-5) /lpf Urine Bacteria (Auto) Negative (Negative) COVID-19 Eval Order SARS-CoV-2 (PCR) (Negative) Blood Type Antibody Screen Imaging Data Radiologist's Impression: Head CTA 10/12/20 15:23 HEAD & NECK CTA HISTORY: Stroke symptoms. TECHNIQUE: Multiaxial CT images of the head were performed both before and after the intravenous administration of contrast to evaluate the major cerebral vessels. Multiaxial CT images of the neck were also performed following the intravenous administration of contrast to evaluate the major cervical vessels. Maximum intensity projection images were also obtained. A dose lowering technique was utilized adhering to the principles of ALARA. COMPARISON: Head CT 12/28/2018. FINDINGS: There is no mass, hematoma, midline shift, or acute infarct. Visualized distal vertebral arteries and basilar artery are widely patent. There is no significant stenosis, occlusion, or aneurysm seen within the bilateral ACAs,, bridal stylist sales consultant, or right MCA. The paranasal sinuses and mastoid air cells are clear. The calvarium and skull base are intact. Old punctate lacunar infarct within the right cerebellar hemisphere. Mild atrophy and microvascular ischemic changes are note d. Moderate calcified plaque within the bilateral carotid siphons. This results in up to 50% stenosis within the bilateral supraclinoid ICAs. There is a 3 mm segment of stenosis within the mid left M1 segment best seen on image 113. This demonstrates up to 50% stenosis. The major dural venous sinuses appear patent. The aortic arch and proximal great vessels are widely patent. There is no significant stenosis, occlusion, or dissection identified within the bilateral common carotid, internal carotid, or vertebral arteries. Mild calcified plaque within the bilateral carotid bifurcations. There appears to be a 2 mm saccular aneurysm extending from the distal left vertebral artery at the level of C2. This is best seen on image 257. IMPRESSION: 1. No acute intracranial abnormality. 2. 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 No evidence for occlusion within the cerebral arteries. 3. 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 4. No significant stenosis, occlusion, or dissection identified within the carotid or vertebral arteries. ACT 112: Negative or not required by law. Electronically signed by: Andrew Hillman M.D. 10/12/2020 5:15 PM Neck CTA 10/12/20 15:23 HEAD & NECK CTA HISTORY: Stroke symptoms. TECHNIQUE: Multiaxial CT images of the head were performed both before and after the intravenous administration of contrast to evaluate the major cerebral vessels. Multiaxial CT images of the neck were also performed following the intravenous administration of contrast to evaluate the major cervical vessels. Maximum intensity projection images were also obtained. A dose lowering tech nique was utilized adhering to the principles of ALARA. COMPARISON: Head CT 12/28/2018. FINDINGS: There is no mass, hematoma, midline shift, or acute infarct. Visualized distal vertebral arteries and basilar artery are widely patent. There is no significant stenosis, occlusion, or aneurysm seen within the bilateral ACAs,, bridal stylist sales consultant, or right MCA. The paranasal sinuses and mastoid air cells are clear. The calvarium and skull base are intact. Old punctate lacunar infarct within the right cerebellar hemisphere. Mild atrophy and microvascular ischemic changes are noted. Moderate calcified plaque within the bilateral carotid siphons. This results in up to 50% stenosis within the bilateral supraclinoid ICAs. There is a 3 mm segment of stenosis within the mid left M1 segment best seen on image 113. This demonstrates up to 50% stenosis. The major dural venous sinuses appear patent. The aortic arch and proximal great vessels are widely patent. There is no significant stenosis, occlusion, or dissection identified within the bilateral common carotid, internal carotid, or vertebral arteries. Mild calcified plaque within the bilateral carotid bifurcations. There appears to be a 2 mm saccular aneurysm extending from the distal left vertebral artery at the level of C2. This is best seen on image 257. IMPRESSION: 1. No acute intracranial abnormality. 2. 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 No evidence for occlusion within the cerebral arteries. 3. 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 4. No significant stenosis, occlusion, or dissection identified within the carotid or vertebral arteries. ACT 112: Negative or not required by law. Electronically signed by: Andrew Hillman M.D. 10/12/2020 5:15 PM ECG Data Attestation: I personally reviewed and interpreted this ECG as follows: Indication: + weakness Rate (beats per minute): 71 Rhythm: + sinus with SA ECG Intervals/blocks: + Right Bundle branch block and + Prolonged QT (489) ECG [place]: + Normal ECG ST segments: + repolarization abnormalities ECG Findings: + Q waves (Inferior, lateral); no PACs and no PVCs Blood Pressure Blood Pressure Findings: Elevated blood pressure Blood Pressure Disposition: further management by hospitalist PANCHO Gomez This is patient is evaluated and appeared to be in no significant distress. IV access was obtained and laboratory work was drawn. An order for cardiac monitoring was placed and the patient is noted to be in a sinus rhythm with sinus arrhythmia at 72 bpm. Orthostatic vital signs were performed and the patient is noted to be markedly orthostatic. He was given a normal saline solution bolus of 500 cc. Urinalysis reveals no evidence of infection but is concentrated. EKG reveals no evidence of acute ischemia but does reveal a right bundle branch block with repolarization abnormality. Patient is hypomagnesemic and was repleted with [address]/CT angiogram of the head and neck reveals 50 %stenosis of the bilateral ICAs and left M1 segment. There is no evidence of occlusion in the cerebral arteries. There is a 2 mm saccular rhythm noted in the distal left vertebral artery. Given the patient's presentation and need for IV hydration and further evaluation of his TIA, patient's case was discussed with the hospitalist service who will evaluate the patient for further management. A meal tray was ordered for the patient. He had his expressed an understanding of the plan and agree. Impression & Plan TIA (transient ischemic attack), Hypomagnesemia, Orthostatic hypotension Discharge Plan Visit Data Chief Complaint: Dizziness Stated Complaint: WAS IN THE HEAT/COULD NOT MOVE/TALK ED Provider: Katherine Connolly Discharge Problem: TIA (transient ischemic attack), Hypomagnesemia, Orthostatic hypotension Patient Disposition: Admitted As Inpatient Discharge Instructions Interventions: ED Discharge Assessment Last Done: 10/12/20 20:00
[2020-10-12] MEDS ORDERED: DEXTROSE 50% 50 ML SYRINGE IV PRN (20:34)
[2020-10-12] MEDS ORDERED: GLUCOSE 40% GEL 15 GM TUBE PO PRN (20:34)
[2020-10-12] MEDS ORDERED: ACETAMINOPHEN 325 MG TAB PO PRN (20:34)
[2020-10-12] MEDS ORDERED: GLUCAGON FOR INJ 1 MG VIAL SQ PRN (20:34)
[2020-10-12] MEDS ORDERED: CARBOHYDRATES FOR HYPOGLYCEMIA PO PRN (20:34)
[2020-10-12] MEDS ORDERED: ONDANSETRON INJ 2 MG/ML 2 ML VIAL IV PRN (20:34)
[2020-10-12] MEDS ORDERED: PHARMACIST DISCHARGE MED REC CONSULT PRN (20:34)
[2020-10-12] MEDS ORDERED: GLUCOSE 10 TABS/TUBE PO PRN (20:34)
[2020-10-12] MEDS ORDERED: PHARMACY GLYCEMIC MGMT CONSULT PRN (20:41)
[2020-10-12] MEDS ORDERED: dilTIAZem HCL 180 MG CAPCR PO SCH (21:00)
[2020-10-12] MEDS ORDERED: TAMSULOSIN HCL 0.4 MG CAP PO SCH (21:00)
[2020-10-12] MEDS ORDERED: ASPIRIN 81 MG ECTAB PO ONE (21:00)
[2020-10-12] MEDS: INSULIN ASPART 100 UNITS/ML 3 ML PEN SC SCH (21:13)
[2020-10-12] MEDS: SODIUM CHLORIDE 0.9% 1000ML 1,000 ML IV SCH (21:18)
--- NOTE | 2020-10-12 23:54 | Electrocardiogram Report ---
Test Reason : Blood Pressure : / mmHG Vent. Rate : 071 BPM Atrial Rate : 071 BPM P-R Int : 208 ms QRS Dur : 156 ms QT Int : 450 ms P-R-T Axes : 008 000 007 degrees QTc Int : 489 ms Sinus rhythm with 1st degree A-V block Premature supraventricular complexes Right bundle branch block Inferior infarct (cited on or before 15-AUG-2017) Abnormal ECG When compared with ECG of 28-DEC-2018 16:42, Premature supraventricular complexes are now Present Confirmed by Ronan Cantu ([id number]) on 10/12/2020 11:53:53 PM Referred By: REFERRED SELF Confirmed By:Ronan Cantu
[2020-10-13] MEDS: VESICARE: ORDER AWAITING ACTION SCH ×2 (00:01→08:33)
[2020-10-13] MEDS ORDERED: PANTOprazole 40 MG TAB PO SCH (06:30)
[2020-10-13 07:19] LABS: Estimated Average Glucose 157 mg/dl; Hemoglobin A1C 7.1 % (4.5-5.6)
[2020-10-13 07:45] LABS: Basophils # (auto) 0.04 K/uL (0-0.2); Basophils % (auto) 0.4 %; Eosinophils # (auto) 0.17 K/uL (0-0.5); Eosinophils % (auto) 1.8 %; Hemoglobin 11.7 g/dL (14.0-18.0); Immature Granulocytes # (auto) 0.05 K/uL (0.00-0.02); Immature Granulocytes % (auto) 0.5 %; Lymphocytes # (auto) 1.66 K/uL (1.2-3.4); Lymphocytes % (auto) 17.8 %; Mean Corpuscular Hemoglobin 28.7 pg (25-34); Mean Corpuscular Hgb Conc 34.4 g/dL (32-36); Mean Corpuscular Volume 83.3 fL (80-100); Mean Platelet Volume 8.4 fL (7.4-10.4); Monocytes # (auto) 1.01 K/uL (0.11-0.59); Monocytes % (auto) 10.8 %; Neutrophils # (auto) 6.38 K/uL (1.4-6.5); Neutrophils % (auto) 68.7 %; Platelet Count 232 K/uL (130-400); RDW Coefficient of Variation 15.2 % (11.5-14.5); RDW Standard Deviation 46.6 fL (36.4-46.3); Red Blood Count 4.08 M/uL (4.7-6.1); White Blood Count 9.31 K/uL (4.8-10.8)
[2020-10-13 08:06] LABS: BUN Creatinine Ratio 17.3 (10-20); Creatinine Clr Calc Pharmacy 50.4 ml/min; Est GFR (African American) 66.2 ml/min; Est GFR (Non-African American) 57.1 ml/min; Potassium 3.8 mmol/L (3.5-5.1)
[2020-10-13] MEDS ORDERED: INSULIN GLARGINE SOLOSTAR 100 UNITS/ML 3 ML PEN SC ONE (08:30)
[2020-10-13] MEDS: INSULIN ASPART 100 UNITS/ML 3 ML PEN SC SCH ×2 (08:34→12:45)
[2020-10-13] MEDS ORDERED: ROSUVASTATIN CALCIUM 5 MG TAB PO SCH (09:00)
[2020-10-13] MEDS ORDERED: ROSUVASTATIN CALCIUM 10 MG TAB PO SCH (09:00)
[2020-10-13] MEDS ORDERED: CLOPIDOGREL BISULFATE 75 MG TAB PO SCH (09:00)
[2020-10-13] MEDS: SODIUM CHLORIDE 0.9% 1000ML 1,000 ML IV SCH (09:12)
[2020-10-13] MEDS ORDERED: ASPIRIN 81 MG ECTAB PO SCH (09:15)
--- NOTE | 2020-10-13 09:22 | Magnetic Resonance Report ---
MRI OF THE BRAIN WITHOUT CONTRAST CLINICAL HISTORY: episode of confusion, possible acute stroke COMPARISON STUDY: MRI dated 08/15/2017, head CT dated 10/12/2020 FINDINGS: Sagittal T1, axial diffusion, proton density and T2 weighted axial, coronal FLAIR, and axial T1-weigh darek images were acquired. No intra or extra-axial mass lesions are visualized Axial diffusion-weighted images reveal no evidence of acute or subacute infarction. There is no evidence of ventricular dilatation. Proton density T2-weighted and FLAIR images reveal moderate foci of increased T2 signal within the wh ite matter, likely on a small vessel basis. There is an old small infarct in the region the right ant erior pontomedullary junction. There are tiny scattered cerebellar lacunar infarcts. There are old ti ny basal ganglia lacunar infarcts. There are tiny foci of susceptibility artifact within the basal ga nglia, likely secondary to mineralization. There are no abnormal flow voids. IMPRESSION: 1. No acute intracranial findings 2. No evidence of acute or subacute infarction 3. No evidence of intracranial mass 4. White matter disease, likely on a small vessel basis. Old small lacunar infarcts. ACT 112: Negative or not required by law. Electronically signed by: Gerald Florence M.D. 10/13/2020 9:21 AM
[2020-10-13 09:33] LABS: Estimated Average Glucose 154 mg/dl
--- NOTE | 2020-10-13 10:13 | Pharmacy Report ---
Pharmacy Glycemic Short Note 2 - Date of Service October 13, 2020 - Glycemic Short BSG Results (Last 24 hours): 10/12/20 10/12/20 10/13/20 15:15 20:23 07:33 Glucose 117 H 103 H POC Glucose 113 H 10/13/20 07:54 Glucose POC Glucose 103 H OUTPATIENT ANTIDIABETIC REGIMEN: * Basaglar 50 units SC qAM * Metformin * Semaglutide qwk * HbA1c 7.1% 10/12/20 ASSESSMENT: * 80 yo M with T2DM and good outpatient control per HbA1c admitted with possible CVA/TIA * BSG's good thus far as an inpatient * Will transition to basal/bolus as an inpatient * Outpatient basal insulin dose rather high for weight-based estimate and also may cover some prandial needs as an outpatient. Will reduce slightly as an inpatient, but also add in a scale for this evening * Novolog was initiated at a rather loose weight-based estimate - OK for now, but will require tightening if BSG's increase significantly at lunch PLAN FOR INPATIENT GLYCEMIC CONTROL: * Hold outpatient oral diabetes medications * Basal insulin * Lantus 40 units SQ x1 this AM, with additional 10 units tonight if BSG >140 mg/dL * Bolus insulin * NovoLog per scale ACHS or Q6hrs while NPO * Goal Range: Low 110 mg/dL - High 150 mg/dL * Correction Factor: 30 mg/dL/unit * Nutritional / Prandial insulin per carb ratio of 1 unit per 10 grams CHO consumed
--- NOTE | 2020-10-13 11:30 | Consultation Report ---
DATE OF CONSULTATION: 10/13/2020 NEUROLOGY CONSULTATION NOTE CHIEF COMPLAINT: Dysarthria, confusion. HISTORY OF PRESENT ILLNESS: An 80-year-old male admitted from the Emergency Department yesterday for confusion, dizziness, and garbled speech. The patient was gardening outside in the sun yesterday. His grandson noted that he was confused. His speech did not seem right. His words were not coming out correctly. The grandson had to carry the patient to the truck. He sat down in the air conditioning for a bit of time to cool down. After having some water, he was able to speak again. Symptoms lasted about 10 minutes. He does have a prior history of a stroke and was hospitalized at that time. He is fairly inactive. In the Emergency Department yesterday, he reported feeling worn out. He had a very small breakfast. He did not drink much. His blood glucose was 179 in the morning. He is on aspirin as well as Plavix. The patient was admitted to the hospitalist team for concern of lower extremity weakness and confusion. The differential at that time included a heat exhaustion. Neurology was consulted upon admission. ALLERGIES: LISINOPRIL, SIMVASTATIN, ADHESIVE TAPE, MUSHROOMS, CANAGLIFLOZIN. HOME MEDICATIONS: Aspirin, vitamin D, Plavix, Coenzyme Q10, vitamin B12, diltiazem 180 mg, epinephrine, insulin, losartan, metformin, pantoprazole, tamsulosin, Crestor, Ozempic. PAST MEDICAL HISTORY: Acute kidney injury, chronic kidney disease, diverticulosis, type 2 diabetes, dyslipidemia, gastroesophageal reflux disease, history of a GI bleed, hemorrhoids, hiatal hernia, history of basal cell carcinoma, history of H. pylori, hypertension, hypothyroidism, iliac artery aneurysm, osteoarthritis, paroxysmal atrial fibrillation, pneumonia. PAST SURGICAL HISTORY: Arthroscopic knee surgery, colonoscopy, nasal polypectomy, cholecystectomy, tonsillectomy, Mohs surgery. FAMILY HISTORY: Reviewed. There is no pertinent or contributory family history. SOCIAL HISTORY: He is a nonsmoker, denies any illicit drug use. He is retired. REVIEW OF SYSTEMS: Unremarkable except as noted above including weakness, confusion, speech difficulty. PHYSICAL EXAMINATION: VITAL SIGNS: Blood pressure 158/74, pulse is 59, respiratory rate 16, temperature is 36.9 degrees Celsius. GENERAL: The patient appears normally developed and appears stated age, he is in no distress. HEENT: Head is normocephalic and atraumatic. Left eye ptosis, normal conjunctivae. NECK: Supple. LUNGS: Respiratory effort is normal. CARDIOVASCULAR: Shows normal pulses. ABDOMEN: Nondistended. SKIN: No skin rash. PSYCHIATRIC: Normal mood and affect in terms of psychological examination. NEUROLOGIC: He is awake, alert and oriented to person, place and time. His attention is normal. Knowledge is appropriate. Comprehension is intact and he is able to repeat. Patient has mild dysarthria with left facial droop. Extraocular muscles are intact. Eyes are midline. Pupils are symmetric. Facial sensation is intact. No facial asymmetry. Hearing is intact. Palate is symmetric. Shoulder shrug is normal. Tongue is midline with no fasciculations. Ataxic gait using david. No tremor or myoclonic jerks, no ataxia with [id number] testing. Intact to light touch in terms of sensation. Muscle tone is normal. Muscle examination shows restricted range of motion in left shoulder with left foot drop. Reflexes show a negative Gerald sign and no ankle clonus. DIAGNOSTIC TESTING AND LABORATORY VALUES: WBC 11.20, hemoglobin 12.5, platelet count 262. INR is 1.0. Sodium 138, potassium 4.0, chloride 108, carbon dioxide 20, BUN 28, creatinine 1.61, glucose 117. Hemoglobin A1c 7.1, calcium is 8.9, magnesium 1.6, AST is 11, ALT is 14. Troponin is negative. LDL is 82. Lipase is 130. Urinalysis shows 2+ protein, 5-10 epithelial cells, negative bacteria. COVID-19 is negative. MRI of the brain shows no acute intracranial findings. No evidence of acute or subacute infarction. No evidence of intracranial mass. White matter disease, likely on a small vessel basis, old small lacunar infarcts. Head and neck CTA showed no acute intracranial abnormality. Approximately 50% stenosis within the bilateral supraclinoid internal carotid arteries and left M1 segment. No evidence of occlusion within the cerebral arteries. 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 No significant stenosis, occlusion, or dissection identified within the carotid or vertebral arteries. ASSESSMENT AND PLAN: An 80-year-old male with multiple medical comorbidities including prior stroke with residual dysarthria and left facial droop, insulin- dependent diabetes, chronic kidney disease, hypertension, hyperlipidemia, admitted yesterday with intermittent confusion, weakness, and speech difficulty, likely related to dehydration versus heat exhaustion Vs decompensation of previous stroke. This is supported by his recent imaging, which included an MRI of the brain without any evidence of an acute or subacute ischemic stroke. Urinalysis showed no signs of a urinary tract infection. Laboratory testing confirmed an acute kidney injury. The patient is currently on aspirin and Plavix for secondary stroke prevention. Blood pressures have been slightly elevated since admission. Recommend normotension. At this point, I do not believe clinically the patient had a transient ischemic attack or stroke. I do believe this is likely a heat exhaustion Vs decompensation of previous stroke. At this point, I would recommend continuing current medications including the aspirin and Plavix as well as his home statin medication. I did review his head and neck CTA and these are consistent with known peripheral vascular disease. I do not believe any surveillance or follow up imaging is required. The patient can follow up with his PCP after discharge. No additional neurological workup necessary. Please contact me with any additional questions or concerns. JOSE ROBERTO
[2020-10-13] MEDS ORDERED: LOSARTAN POTASSIUM 25 MG TAB PO SCH (14:15)
[2020-10-13] MEDS ORDERED: STROKE PATIENT DISCHARGE STA (15:30)
--- NOTE | 2020-10-13 16:12 | Communication Note ---
Date of Service: October 13, 2020 By CMS guidelines, a determination that the admission or continued stay is not medically necessary has been made by a member of the UR committee and a physic ruben for this hospital stay, therefore a Code 44 will be completed and the Inpatient admission will be changed to outpatient.
--- NOTE | 2020-10-13 16:22 | Hospitalist Progress Note ---
Date of Service October 13, 2020 Assessment & Plan (1) Lower extremity weakness: Acute lower extremity weakness, with confusion Most likely secondary to heat exhaustion TIA unlikely, Acute CVA ruled out History of CVA with residual left-sided weakness CT head: no acute CVA Brain MRI: 1. No acute intracranial findings 2. No evidence of acute or subacute infarction 3. No evidence of intracranial mass 4. White matter disease, likely on a small vessel basis. Old small lacunar infarcts. Echocardiogram: Moderate concentric LVH, EF 60 to 65%, no segmental left ventricular wall motion abnormalities Grade 1 diastolic dysfunction Bubble study on previous echo in performed 2017 demonstrated intact interatrial septum Neurologist Dr. Kendall consulted Does not think episode is secondary to TIA or acute CVA Continue aspirin and Plavix, Crestor Patient counseled regarding prevention of heat exhaustion and dehydration DM type II Continue usual medications Hypertension Continue usual medications Paroxysmal atrial tachycardia Continue diltiazem Acute kidney injury on CKD stage III likely secondary to dehydration creatinine 1.6 Back to baseline after being given IV NSS Disposition Discharge to home Follow-up with PCP in 1 week plan of care discussed with patient all questions answered he is understanding, agreeable, comfortable with the plan of care Admission and Anticipated Discharge Date Admission Date: October 12, 2020 Subjective ff up for heat exhaustion, r/o TIA seen resting in bed, comfortable not in distress states he feels much better overall denies headache, dizziness, chest pain, dyspnea, palpitations, abdominal pain, nausea no new focal weakness or numbness states he is ready and would like to be discharged today Review of Systems Review of Systems: All systems reviewed & are unremarkable except as noted in Subjective Physical Exam Physical Exam: General- oriented x 3, not in distress, speaks in sentences with no effort or accessory muscle use Eyes- anicteric Neck- no JVD Lungs- clear breath sounds bilaterally, no rales/wheezes Heart- normal rate, regular rhythm; no murmurs Abdomen- normal bowel sounds, nondistended, soft, nontender Extremities- no pretibial edema, no calf tenderness Neuro- alert, oriented x 3; no new gross focal neurologic deficits Skin- warm & dry Results & Data Results & Data ([facility]) Vital Signs (Past 12 Hours) Vital Signs Temp Pulse Pulse Resp BP Pulse Ox 10/13/20 15:45 36.5 C 52 L 16 150/65 H 92 10/13/20 15:25 36.5 C 52 L 16 150/65 H 92 10/13/20 15:07 53 L 10/13/20 11:50 36.9 C 577 H 16 141/77 H 96 10/13/20 07:47 36.9 C 59 L 16 158/74 H 92 10/13/20 07:09 51 L all noted and reviewed including below Laboratory Results Laboratory Results - last 24 hr 10/12/20 10/12/20 10/12/20 15:15 15:51 15:59 WBC RBC Hgb Hct MCV MCH MCHC RDW Std Deviation RDW Coeff of Mariya Plt Count MPV Immature Gran % (Auto) Neut % (Auto) Lymph % (Auto) Bent % (Auto) Eos % (Auto) Baso % (Auto) Neut # (Auto) Lymph # (Auto) Bent # (Auto) Eos # (Auto) Baso # (Auto) Immature Gran # (Auto) Sodium Potassium Chloride Carbon Dioxide Anion Gap BUN Creatinine Est Cr Clr Drug Dosing Est GFR ( Amer) Est GFR (Non-Af Amer) BUN/Creatinine Ratio Glucose POC Glucose Estimat Average Glucose 157 Hemoglobin A1c 7.1 H Calcium Triglycerides Cholesterol LDL Cholesterol, Calc VLDL Cholesterol, Calc HDL Cholesterol Cholesterol/HDL Ratio Urine Color Urine Appearance Urine pH Ur Specific [place] Urine Protein Urine Glucose (UA) Urine Ketones Urine Blood Urine Nitrite Urine Bilirubin Urine Urobilinogen Ur Leukocyte Esterase Urine WBC (Auto) Urine RBC (Auto) U Hyaline Cast (Auto) U Epithel Cells (Auto) Urine Bacteria (Auto) SARS-CoV-2 (PCR) NEGATIVE Blood Type A Positive Antibody Screen NEGATIVE 10/12/20 10/12/20 10/13/20 17:30 20:23 07:33 WBC 9.31 RBC 4.08 L Hgb 11.7 L Hct 34.0 L MCV 83.3 MCH 28.7 MCHC 34.4 RDW Std Deviation 46.6 H RDW Coeff of Mariya 15.2 H Plt Count 232 MPV 8.4 Immature Gran % (Auto) 0.5 Neut % (Auto) 68.7 Lymph % (Auto) 17.8 Bent % (Auto) 10.8 Eos % (Auto) 1.8 Baso % (Auto) 0.4 Neut # (Auto) 6.38 Lymph # (Auto) 1.66 Bent # (Auto) 1.01 H Eos # (Auto) 0.17 Baso # (Auto) 0.04 Immature Gran # (Auto) 0.05 H Sodium Potassium Chloride Carbon Dioxide Anion Gap BUN Creatinine Est Cr Clr Drug Dosing Est GFR ( Amer) Est GFR (Non-Af Amer) BUN/Creatinine Ratio Glucose POC Glucose 113 H Estimat Average Glucose Hemoglobin A1c Calcium Triglycerides Cholesterol LDL Cholesterol, Calc VLDL Cholesterol, Calc HDL Cholesterol Cholesterol/HDL Ratio Urine Color Yellow Urine Appearance Clear Urine pH 5.0 Ur Specific [place] > 1.045 H Urine Protein 2+ H Urine Glucose (UA) Negative Urine Ketones Negative Urine Blood Negative Urine Nitrite Negative Urine Bilirubin Negative Urine Urobilinogen Negative Ur Leukocyte Esterase Negative Urine WBC (Auto) 1-5 Urine RBC (Auto) 0-4 U Hyaline Cast (Auto) 1-5 U Epithel Cells (Auto) 5-10 H Urine Bacteria (Auto) Negative SARS-CoV-2 (PCR) Blood Type Antibody Screen 10/13/20 10/13/20 10/13/20 07:33 07:33 07:54 WBC RBC Hgb Hct MCV MCH MCHC RDW Std Deviation RDW Coeff of Mariya Plt Count MPV Immature Gran % (Auto) Neut % (Auto) Lymph % (Auto) Bent % (Auto) Eos % (Auto) Baso % (Auto) Neut # (Auto) Lymph # (Auto) Bent # (Auto) Eos # (Auto) Baso # (Auto) Immature Gran # (Auto) Sodium 139 Potassium 3.8 Chloride 111 H Carbon Dioxide 23 Anion Gap 6.0 BUN 20 H Creatinine 1.18 D Est Cr Clr Drug Dosing 50.4 Est GFR ( Amer) 66.2 Est GFR (Non-Af Amer) 57.1 BUN/Creatinine Ratio 17.3 Glucose 103 H POC Glucose 103 H Estimat Average Glucose 154 Hemoglobin A1c 7.0 H Calcium 8.0 L Triglycerides 109 Cholesterol 137 LDL Cholesterol, Calc 82 VLDL Cholesterol, Calc 22 HDL Cholesterol 33 Cholesterol/HDL Ratio 4 Urine Color Urine Appearance Urine pH Ur Specific [place] Urine Protein Urine Glucose (UA) Urine Ketones Urine Blood Urine Nitrite Urine Bilirubin Urine Urobilinogen Ur Leukocyte Esterase Urine WBC (Auto) Urine RBC (Auto) U Hyaline Cast (Auto) U Epithel Cells (Auto) Urine Bacteria (Auto) SARS-CoV-2 (PCR) Blood Type Antibody Screen 10/13/20 11:55 WBC RBC Hgb Hct MCV MCH MCHC RDW Std Deviation RDW Coeff of Mariya Plt Count MPV Immature Gran % (Auto) Neut % (Auto) Lymph % (Auto) Bent % (Auto) Eos % (Auto) Baso % (Auto) Neut # (Auto) Lymph # (Auto) Bent # (Auto) Eos # (Auto) Baso # (Auto) Immature Gran # (Auto) Sodium Potassium Chloride Carbon Dioxide Anion Gap BUN Creatinine Est Cr Clr Drug Dosing Est GFR ( Amer) Est GFR (Non-Af Amer) BUN/Creatinine Ratio Glucose POC Glucose 116 H Estimat Average Glucose Hemoglobin A1c Calcium Triglycerides Cholesterol LDL Cholesterol, Calc VLDL Cholesterol, Calc HDL Cholesterol Cholesterol/HDL Ratio Urine Color Urine Appearance Urine pH Ur Specific [place] Urine Protein Urine Glucose (UA) Urine Ketones Urine Blood Urine Nitrite Urine Bilirubin Urine Urobilinogen Ur Leukocyte Esterase Urine WBC (Auto) Urine RBC (Auto) U Hyaline Cast (Auto) U Epithel Cells (Auto) Urine Bacteria (Auto) SARS-CoV-2 (PCR) Blood Type Antibody Screen
[2020-10-13] MEDS ORDERED: INSULIN GLARGINE SOLOSTAR 100 UNITS/ML 3 ML PEN SC SCH (21:00)
--- NOTE | 2020-10-14 18:51 | Discharge Summary ---
Date of Service October 14, 2020 Admission HPI Per Admitting Provider 80-year-old male with history of diabetes, hypertension, CVA with left-sided weakness, other problems noted below presenting with generalized weakness and confusional episode this afternoon. Patient was working in the garden under the sun for about 2 hours, when patient son noticed that he was getting weak to the point of not being able to walk properly. When he tried to talk to his father, the patient was noted to be somewhat confused and with slurred speech. Then brought to the car, given water, and after a few minutes, the patient seemed to have returned back to his baseline. Patient brought to the ER. CAT scan did not show signs of any acute CVA. Hospice consulted for possible heat exhaustion versus TIA. On exam patient is seen sitting up in bed, just had dinner, at the bedside, states patient is back to his baseline. Patient denies having any active symptoms, including focal neurologic deficits. Denies headache, dizziness, chest pain, shortness of breath abdominal pain, fevers or chills. No other symptoms Admission Exam Per Admitting Provider Physical Exam: General- oriented x 3, not in distress, speaks in sentences with no effort or accessory muscle use Head- atraumatic Eyes- PERRL, EOMI, anicteric ENT- oropharynx clear Neck- supple, no JVD, no adenopathy, no thyromegaly; carotids +2/2, no bruits appreciated Lungs- clear to auscultation bilaterally, no rales/wheezes Heart- normal rate, regular rhythm; no murmur, no gallop, no rub appreciated Abdomen- normal bowel sounds, nondistended, soft, nontender, no masses or hepatosplenomegaly Extremities- no pretibial edema, no calf tenderness; peripheral pulses intact Neuro- alert, oriented x 3; CN 2-12 grossly intact except for mild left facial droop which is chronic; motor 5/5 bilaterally except for mild left sided weakness;sensation 100% on all extremities; no other gross focal neurologic deficits Skin- warm & dry Principal Diagnosis HEAT EXHAUSTION, DEHYDRATION TIA AND ACUTE CVA RULED OUT Discharge Exam Physical Exam: General- oriented x 3, not in distress, speaks in sentences with no effort or accessory muscle use Eyes- anicteric Neck- no JVD Lungs- clear breath sounds bilaterally, no rales/wheezes Heart- normal rate, regular rhythm; no murmurs Abdomen- normal bowel sounds, nondistended, soft, nontender Extremities- no pretibial edema, no calf tenderness Neuro- alert, oriented x 3; no new gross focal neurologic deficits Skin- warm & dry Discharge Data Allergies Allergy/AdvReac Type Severity Reaction Status Date / Time lisinopril Allergy Severe edema/airwa Verified 10/12/20 15:59 y simvastatin Allergy Mild MUSCLE PAIN Verified 10/12/20 15:59 canagliflozin Allergy Unknown vertigo Verified 10/12/20 15:59 adhesive AdvReac Unknown RASH Verified 10/12/20 15:59 mushroom AdvReac Unknown NAUSEATED Verified 10/12/20 15:59 Consultations 10/12/20 18:04 ED Decision to Admit Stat 10/12/20 20:34 Consult Neurology Routine Ordered Studies 10/12/20 15:23 CT angio head wo/w Stat CT angio neck with con Stat FINDINGS: There is no mass, hematoma, midline shift, or acute infarct. Visualized distal vertebral arteries and basilar artery are widely patent. There is no significant stenosis, occlusion, or aneurysm seen within the bilateral ACAs,, affiliate marketing coordinator, or right MCA. The paranasal sinuses and mastoid air cells are clear. The calvarium and skull base are intact. Old punctate lacunar infarct within the right cerebellar hemisphere. Mild atrophy and microvascular ischemic changes are noted. Moderate calcified plaque within the bilateral carotid siphons. This results in up to 50% stenosis within the bilateral supraclinoid ICAs. There is a 3 mm segment of stenosis within the mid left M1 segment best seen on image 113. This demonstrates up to 50% stenosis. The major dural venous sinuses appear patent. The aortic arch and proximal great vessels are widely patent. There is no significant stenosis, occlusion, or dissection identified within the bilateral common carotid, internal carotid, or vertebral arteries. Mild calcified plaque within the bilateral carotid bifurcations. There appears to be a 2 mm saccular aneurysm extending from the distal left vertebral artery at the level of C2. This is best seen on image 257. IMPRESSION: 1. No acute intracranial abnormality. 2. 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 No evidence for occlusion within the cerebral arteries. 3. 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 4. No significant stenosis, occlusion, or dissection identified within the carotid or vertebral arteries. 10/12/20 20:34 MR brain wo con Routine FINDINGS: Sagittal T1, axial diffusion, proton density and T2 weighted axial, coronal FLAIR, and axial T1-weighted images were acquired. No intra or extra-axial mass lesions are visualized Axial diffusion-weighted images reveal no evidence of acute or subacute infarction. There is no evidence of ventricular dilatation. Proton density T2-weighted and FLAIR images reveal moderate foci of increased T2 signal within the white matter, likely on a small vessel basis. There is an old small infarct in the region the right anterior pontomedullary junction. There are tiny scattered cerebellar lacunar infarcts. There are old tiny basal ganglia lacunar infarcts. There are tiny foci of susceptibility artifact within the basal ganglia, likely secondary to mineralization. There are no abnormal flow voids. IMPRESSION: 1. No acute intracranial findings 2. No evidence of acute or subacute infarction 3. No evidence of intracranial mass 4. White matter disease, likely on a small vessel basis. Old small lacunar infarcts. Hospital Course (1) Lower extremity weakness: Acute Lower Extremity Weakness, with Confusion Most likely secondary to Heat exhaustion TIA unlikely, Acute CVA ruled out History of CVA with residual left-sided weakness CT head: no acute CVA Brain MRI: 1. No acute intracranial findings 2. No evidence of acute or subacute infarction 3. No evidence of intracranial mass 4. White matter disease, likely on a small vessel basis. Old small lacunar infarcts. Echocardiogram: Moderate concentric LVH, EF 60 to 65%, no segmental left ventricular wall motion abnormalities Grade 1 diastolic dysfunction Bubble study on previous echo in performed 2017 demonstrated intact interatrial septum Neurologist Dr. Kendall consulted Does not think episode is secondary to TIA or acute CVA All symptoms resolved during admission Continue aspirin and Plavix, Crestor Patient counseled regarding prevention of heat exhaustion and dehydration DM type II Continue usual medications Hypertension Continue usual medications Paroxysmal atrial tachycardia Continue diltiazem Acute kidney injury on CKD stage III likely secondary to dehydration creatinine 1.6 Back to baseline after being given IV NSS Disposition Discharge to home Follow-up with PCP in 1 week plan of care discussed with patient all questions answered he is understanding, agreeable, comfortable with the plan of care Total Time Total Time Spent Total Time Spent (In Minutes): >30 minutes Discharge Plan Discharge Items Patient Disposition: Home - Self-Care Reason For Visit: POSSIBLE TIA Discharge Diagnosis: HEAT EXHAUSTION, DEHYDRATION Activity: As commented below Activity Comment: RESUME GRADUALLY TOLERATED, NO HEAVY EXERTION FOR AT LEAST 2 DAYS Lifting: Wait until after follow-up appointment Exercise/Sports: Wait until after follow-up appointment Driving/Machine Use: NO DRIVING Non-emergency contact: Primary Care Provider Call non-emergency contact if: you have any medication questions, your symptoms worsen and you have a fever Follow-up/Referrals: Hieu Nation MD [Outside Practitioners] - (Date & Time 10/21/2020 11:00 AM Provider Hieu Nation MD [facility] ) Diet: Heart Healthy Addtl Attending Provider Instructions: YOU HAVE RECEIVED INTRAVENOUS CONTRAST DYE FOR YOUR CT SCAN OF THE HEAD YESTERDAY. TO PREVENT KIDNEY INJURY, YOU NEED TO STOP TAKING YOUR METFORMIN TEMPORARILY FOR TODAY AND TOMORROW. RESUME TAKING METFORMIN ON THURSDAY OCTOBER 15, 2020. AVOID WORKING OUTSIDE WHEN TEMPERATURES ARE ABOVE 90 DEGREES. ALWAYS STAY WELL HYDRATED ESPECIALLY WHEN WORKING UNDER THE SUN. ALWAYS EAT 3 MEALS PER DAY. NEVER SKIP BREAKFAST. RETURN TO THE ER IMMEDIATELY IF WITH RECURRENCE OF SYMPTOMS. FOLLOW UP WITH YOUR PRIMARY CARE PHYSICIAN OUTLINED ABOVE. Pending Studies at Discharge: No Stand-Alone Forms: My [facility] [employer], Smoking Cessation Medications and DC Order Prescriptions: Continued diltiazem HCl 180 mg capsule,extended release 24hr 180 mg PO PM RF: 0 cyanocobalamin (vitamin B-12) [Vitamin B-12] 1,000 mcg Tablet 1,000 mcg PO QAM RF: 0 clopidogrel 75 mg tablet 75 mg PO QAM RF: 0 aspirin 81 mg Tablet,Delayed Release (Dr/Ec) 81 mg PO QAM RF: 0 tamsulosin 0.4 mg capsule 0.4 mg PO PM RF: 0 pantoprazole 40 mg tablet,delayed release (DR/EC) 40 mg PO QAM RF: 0 losartan 25 mg tablet 25 mg PO QAM RF: 0 epinephrine [EpiPen] 0.3 mg/0.3 mL Auto-Injector 0.3 mg IM UD PRN (Reason: Allergic Reaction) RF: 0 metformin 500 mg tablet extended release 24 hr 1,000 mg PO BID RF: 0 cholecalciferol (vitamin D3) 1,000 unit Capsule 1,000 unit PO PM RF: 0 coenzyme Q10 [Co Q-10] 100 mg Capsule 100 mg PO PM RF: 0 solifenacin [Vesicare] 5 mg tablet 5 mg PO QAM RF: 0 Basaglar KwikPen U-100 Insulin 100 unit/mL (3 mL) insulin pen 50 unit subcut QAM RF: 0 omega [id number]-fish oil [Fish Oil] 1,000 mg (120 mg-180 mg) Capsule 1 cap PO PM RF: 0 Ozempic 0.25 mg or 0.5 mg(2 mg/1.5 mL) pen injector 0.25 mg SUBCUT WK RF: 0 rosuvastatin 5 mg tablet 5 mg PO 2XWK RF: 0 Discharge Orders: Discharge Order (Routine); Ordered 10/13/20 Ordered By: Zach Rowland/Other Patient Handouts: Managing Type 2 Diabetes, A1C Admission Data Admit Date/Time: 10/12/20 18:27 Attending Provider: Zach Arambula Admit Provider: Zach Arambula Primary Care Provider: Jimena Aguirre Other Providers: Isma Kendall ; Zach Arambula Other Interventions: Discharge Summary Assessment (RN) Last Done: 10/13/20 15:45
== END 2020-10-13 16:37 | disposition home or self-care (01) | DRG 923 ==
LOC: ED 14:31 → 2N 18:27 → INTOOBSV 18:27 → 2N 20:00

== ENCOUNTER 2021-04-03 10:06 | Inpatient (IN) ==
[2021-04-03] MEDS ORDERED: SODIUM CHLORIDE 0.9% 1000ML 500 ML IV ONE ×2 (10:33→11:30)
--- NOTE | 2021-04-03 10:42 | Emergency Department Note ---
Impression & Plan Weakness, PAUL (acute kidney injury), Slurred speech, Leukocytosis, Acute hyponatremia ED Provider Note NAME: JERE BOOKER AGE: 81 SEX: M : 1940 ARRIVES VIA: Walk-In INFORMANT: [Patient][] ED PROVIDER(S): [Shane Reyna MD] CHIEF COMPLAINT: Stroke symptoms HISTORY OF PRESENT ILLNESS: The patient is an 81-year-old male presents to the ER with weakness and s trokelike symptoms for 3 days. He fell on Tuesday after complaining of a headache. The headache is an 8/10 and posterior. Ever since the fall and the headache, he has been weak. He is having a very difficult time getting around as per his . He did vomit one time a few days ago, not since. He may have had a slight fever 2 days ago. He currently denies any cough or congestion or shortness of breath. No urinary complaints. He is vaccinated against COVID-19. His has noticed a left facial droop and some slurred speech. She thinks his left side is weaker than baseline. REVIEW OF SYSTEMS: See HPI for pertinent positives and negatives. A total of ten systems were reviewed and were otherwise negative. PMHx/PSHx: See Below SOCIAL HISTORY: See Below. PHYSICAL EXAM: GENERAL: Patient is in no acute distress. HEENT: Mucous membranes dry, no nasal congestion, no scleral icterus. No obvious facial trauma. NECK: No stridor, no adenopathy, no meningismus, trachea is midline. Nontender C-spine. LUNGS: Clear to auscultation bilaterally, no wheeze, no rhonchi, breath sounds equal. HEART: Without murmurs gallops or rubs, regular rate and rhythm. ABDOMEN: Soft, nontender, bowel sounds positive, no hernias, no peritonitis. EXTREMITIES: No cyanosis, mild bilateral pedal edema, full range of motion of all the joints without pain or difficulty, no signs for acute trauma. NEUROLOGIC: Oriented x 3. He does have a left facial droop with some slight speech slur. He has difficulty performing tasks with the left upper extremity but does have a chronic left shoulder issue. His left lower extremity is difficult to raise off the bed, no difficulty with raising the right leg. SKIN: No rash, no jaundice, no diaphoresis. DIFFERENTIAL DIAGNOSIS: Infection, dehydration, metabolic abnormality, hypo/hyperglycemia, UTI, COVID- 19, electrolyte disturbance, anemia, hypoxia, cardiac sources, intracerebral event, toxicologic issues, stroke, TIA, as well as other pathologies. EMERGENCY DEPARTMENT COURSE/PROCEDURES: ECG: Indication was possible stroke. The ECG shows a normal sinus rhythm with a rate of 68. There is a right bundle branch block. There is no ST elevation, no PVCs. The QTc is 489. Continuous Cardiac Monitoring: An order was placed for continuous cardiac monitoring. The monitor shows a rate of 85 with normal sinus rhythm. Critical Care Note: I have personally spent 44 minutes of critical care time in the direct management of this patient. This includes bedside care, interpretation of diagnostic studies, and testing, discussion with consultants, patient, and family members, and other required patient management activities. This 44 minutes is in excess of all separately billable procedures. MEDICAL DECISION MAKING: There is a mild leukocytosis which could certainly be consistent with infection. The patient did have a mild anemia with a hemoglobin of 12.8. The anemia appears baseline looking back at previous testing. There is no coagulopathy. Sodium is low at 131. There is some acute kidney injury with a creatinine of 1.77. Magnesium was somewhat low at 1.6. Lactic acid level is not elevated making severe sepsis less likely. No worrisome liver enzyme elevation. ECG shows a sinus rhythm, no acute ischemia. Cardiac enzyme testing x1 is not consistent with acute cardiac injury. Urinalysis shows some contamination, no infection. Covid testing returned negative. Chest film did not show pneumonia or CHF. Brain CT showed no acute bleed or mass-effect. CT angio of the head an d neck were performed, some findings were seen but they were felt chronic, no acute clot found. On exam, the patient had a left facial droop and some speech slur. He appeared dehydrated clinically. The patient received IV saline, 1 L. He was given IV magnesium and IV cefepime. The patient presents with some weakness, speech slur and facial droop. He appears dehydrated. He does have a white count elevation, acute kidney injury and hyponatremia I do think hospitalization is warranted. At this point, I am not sure if this is a primary neurologic event or secondary to other issues Further work-up is warranted. I spoke with the patient, I talked with the vocational case manager, the on-call [facility] talist was consulted. Of note, the patient is not a TPA candidate as his symptoms have been ongoing for days. Past Med/Surg History Medical History (Updated 04/03/21 @ 15:41 by Shane Reyna MD) GRISELDA inhibitor-aggravated angioedema PAUL (acute kidney injury) CKD (chronic kidney disease), stage III Diverticulosis of colon DM type 2 (diabetes mellitus, type 2) Dyslipidemia GERD (gastroesophageal reflux disease) GI bleed H/O hemorrhoids Hiatal hernia History of basal cell carcinoma History of Helicobacter pylori infection History of right bundle branch block (RBBB) Hypertension Hypothyroid Hypoxia Iliac artery aneurysm Localized osteoarthritis of right knee Paroxysmal atrial fibrillation Pharyngeal edema Pneumonia Pneumonia Surgical History H/O arthroscopic knee surgery H/O colonoscopy "04/2005-diverticulae" H/O nasal polypectomy S/P laparoscopic cholecystectomy S/P tonsillectomy Status post Mohs surgery Family History Other Family history non-contributory Social History Smoking Status: Never smoker Hx Alcohol Use: No Hx Substance Use: No Preferred Language: Portuguese Beliefs That Will Affect Care: None Current Living Situation: Significant Other Feels Safe at Home: Yes Allergies Allergies Allergy/AdvReac Type Severity Reaction Status Date / Time lisinopril Allergy Severe edema/airwa Verified 04/03/21 11:43 y simvastatin Allergy Mild MUSCLE PAIN Verified 04/03/21 11:43 canagliflozin Allergy Unknown vertigo Verified 04/03/21 11:43 adhesive AdvReac Unknown RASH Verified 04/03/21 11:43 mushroom AdvReac Unknown NAUSEATED Verified 04/03/21 11:43 Home Meds Home Medications Medication Instructions Recorded Confirmed aspirin 81 mg tablet,delayed 81 mg PO QAM 12/28/18 04/03/21 release cholecalciferol (vitamin D3) 25 1,000 unit PO PM 12/28/18 04/03/21 mcg (1,000 unit) capsule clopidogrel 75 mg tablet 75 mg PO QAM 12/28/18 04/03/21 coenzyme Q10 100 mg capsule (Co 100 mg PO PM 08/08/19 11/12/21 Q-10) cyanocobalamin (vitamin B-12) 1,000 mcg PO QAM 12/28/18 04/03/21 1,000 mcg tablet (Vitamin B-12) diltiazem HCl 180 mg 180 mg PO PM 12/28/18 04/03/21 capsule,extended release 24 hr epinephrine 0.3 mg/0.3 mL 0.3 mg IM UD PRN 12/28/18 04/03/21 injection, auto-injector (EpiPen) losartan 25 mg tablet 25 mg PO QAM 12/28/18 04/03/21 metformin 500 mg tablet,extended 500 mg PO UD 12/28/18 04/03/21 release 24 hr omega [id number] oil 1,000 mg 1 cap PO PM 12/28/18 04/03/21 (120 mg-180 mg) capsule (Fish Oil) pantoprazole 40 mg tablet,delayed 40 mg PO QAM 12/28/18 04/03/21 release solifenacin 5 mg tablet (Vesicare) 5 mg PO QAM 12/28/18 04/03/21 tamsulosin 0.4 mg capsule 0.4 mg PO PM 12/28/18 04/03/21 rosuvastatin 5 mg tablet 5 mg PO [id number] 10/12/20 04/03/21 semaglutide (Ozempic) 0.25 mg SUBCUT WK 10/12/20 04/03/21 fluorouracil 5 % topical cream 1 applic TOPICAL UD 04/03/21 04/03/21 isosorbide mononitrate 30 mg 30 mg PO DAILY 04/03/21 04/03/21 tablet,extended release 24 hr ketorolac 0.4 % eye drops 1 drp OPL BID 04/03/21 04/03/21 Results & Data (ED) Vital Signs Vital Signs - 24 hr 04/03/21 10:13 04/03/21 10:33 04/03/21 11:00 Temperature 36.8 C Temperature Source Temporal Artery Scan Pulse Rate 85 65 60 Pulse Rate [Apical] Pulse Rate from SpO2 Sensor 61 Respiratory Rate 16 22 21 Blood Pressure 112/72 133/81 Blood Pressure [Right Arm] Blood Pressure Mean 85 98 Blood Pressure Mean [Right Arm] Blood Pressure Position [Right Arm] Pulse Oximetry 94 93 Oxygen Delivery Method Room Air Room Air Sepsis Recent Fever Within 48 Hours No Sepsis New/Unexplained Change in Mental Status No Sepsis Action Taken by Nursing No Action Required 04/03/21 11:30 04/03/21 12:09 04/03/21 12:30 Temperature Temperature Source Pulse Rate 65 60 Pulse Rate [Apical] Pulse Rate from SpO2 Sensor 65 63 61 Respiratory Rate 19 17 Blood Pressure 138/80 Blood Pressure [Right Arm] Blood Pressure Mean 99 Blood Pressure Mean [Right Arm] Blood Pressure Position [Right Arm] Pulse Oximetry 92 94 92 Oxygen Delivery Method Room Air Room Air Room Air Sepsis Recent Fever Within 48 Hours Sepsis New/Unexplained Change in Mental Status Sepsis Action Taken by Nursing 04/03/21 13:00 04/03/21 13:30 04/03/21 14:00 Temperature Temperature Source Pulse Rate 63 61 64 Pulse Rate [Apical] 62 Pulse Rate from SpO2 Sensor Respiratory Rate 24 17 21 Blood Pressure 158/79 H 161/79 H 149/71 H Blood Pressure [Right Arm] 158/79 H Blood Pressure Mean 105 106 97 Blood Pressure Mean [Right Arm] 105 Blood Pressure Position [Right Arm] Lying Pulse Oximetry 93 Oxygen Delivery Method Room Air Sepsis Recent Fever Within 48 Hours Sepsis New/Unexplained Change in Mental Status Sepsis Action Taken by Custodial Medications Current Medication List: was personally reviewed by me Laboratory Data Attestation: I reviewed the patient's lab results. Result diagrams: 04/03/21 10:50 04/03/21 10:50 Lab Results 04/03/21 04/03/21 04/03/21 Range/Units 10:50 10:50 10:50 WBC 12.77 H (4.8-10.8) K/uL RBC 4.35 L (4.7-6.1) M/uL Hgb 12.8 L (14.0-18.0) g/dL Hct 36.9 L (42-52) % MCV 84.8 (80-100) fL MCH 29.4 (25-34) pg MCHC 34.7 (32-36) g/dL RDW Std Deviation 45.3 (36.4-46.3) fL RDW Coeff of Mariya 14.4 (11.5-14.5) % Plt Count 315 (130-400) K/uL MPV 8.8 (7.4-10.4) fL Immature Gran % (Auto) 0.6 % Neut % (Auto) 69.6 % Lymph % (Auto) 16.3 % [place] % (Auto) 12.8 % Eos % (Auto) 0.6 % Baso % (Auto) 0.1 % Neut # (Auto) 8.88 H (1.4-6.5) K/uL Lymph # (Auto) 2.08 (1.2-3.4) K/uL [place] # (Auto) 1.64 H (0.11-0.59) K/uL Eos # (Auto) 0.08 (0-0.5) K/uL Baso # (Auto) 0.01 (0-0.2) K/uL Immature Gran # (Auto) 0.08 H (0.00-0.02) K/uL PT 10.2 (9.0-12.0) Seconds INR 1.0 (0.9-1.1) APTT 29.6 (21.0-31.0) Seconds PTT Ratio 1.1 Sodium (136-145) mmol/L Potassium (3.5-5.1) mmol/L Chloride (98-107) mmol/L Carbon Dioxide (21-32) mmol/L Anion Gap (3-11) BUN (7-18) mg/dl Creatinine (0.6-1.4) mg/dl Est Cr Clr Drug Dosing ml/min Est GFR ( Amer) ml/min Est GFR (Non-Af Amer) ml/min BUN/Creatinine Ratio (10-20) Glucose (70-99) mg/dl Lactate (0.4-2.0) mmol/L Calcium (8.5-10.1) mg/dl Magnesium (1.8-2.4) mg/dl Total Bilirubin (0.2-1) mg/dl AST (15-37) U/L ALT (12-78) U/L Alkaline Phosphatase (45-117) U/L Troponin I (0-0.045) ng/ml Total Protein (6.4-8.2) gm/dl Albumin (3.4-5.0) gm/dl Globulin (2.5-4.0) gm/dl Albumin/Globulin Ratio (0.9-2) Urine Color Urine Appearance (Clear) Urine pH (4.5-7.5) Ur Specific [place] (1.000-1.030) Urine Protein (Negative) Urine Glucose (UA) (Negative) Urine Ketones (Negative) Urine Blood (Negative) Urine Nitrite (Negative) Urine Bilirubin (Negative) Urine Urobilinogen (Negative) Ur Leukocyte Esterase (Negative) Urine WBC (Auto) (0-5) /hpf Urine RBC (Auto) (0-4) /hpf U Hyaline Cast (Auto) (0-5) /lpf U Epithel Cells (Auto) (0-5) /lpf Urine Bacteria (Auto) (Negative) Urine Mucus (None Prsent) COVID-19 Eval Order SARS-CoV-2 (PCR) (Negative) Blood Type A Positive Antibody Screen NEGATIVE 04/03/21 04/03/21 04/03/21 Range/Units 10:50 10:50 10:55 WBC (4.8-10.8) K/uL RBC (4.7-6.1) M/uL Hgb (14.0-18.0) g/dL Hct (42-52) % MCV (80-100) fL MCH (25-34) pg MCHC (32-36) g/dL RDW Std Deviation (36.4-46.3) fL RDW Coeff of Mariya (11.5-14.5) % Plt Count (130-400) K/uL MPV (7.4-10.4) fL Immature Gran % (Auto) % Neut % (Auto) % Lymph % (Auto) % [place] % (Auto) % Eos % (Auto) % Baso % (Auto) % Neut # (Auto) (1.4-6.5) K/uL Lymph # (Auto) (1.2-3.4) K/uL [place] # (Auto) (0.11-0.59) K/uL Eos # (Auto) (0-0.5) K/uL Baso # (Auto) (0-0.2) K/uL Immature Gran # (Auto) (0.00-0.02) K/uL PT (9.0-12.0) Seconds INR (0.9-1.1) APTT (21.0-31.0) Seconds PTT Ratio Sodium 131 L (136-145) mmol/L Potassium 3.9 (3.5-5.1) mmol/L Chloride 99 (98-107) mmol/L Carbon Dioxide 24 (21-32) mmol/L Anion Gap 8.0 (3-11) BUN 25 H (7-18) mg/dl Creatinine 1.77 H (0.6-1.4) mg/dl Est Cr Clr Drug Dosing 32.3 ml/min Est GFR ( Amer) 40.3 ml/min Est GFR (Non-Af Amer) 34.7 ml/min BUN/Creatinine Ratio 14.0 (10-20) Glucose 169 H (70-99) mg/dl Lactate 1.6 (0.4-2.0) mmol/L Calcium 8.9 (8.5-10.1) mg/dl Magnesium 1.6 L (1.8-2.4) mg/dl Total Bilirubin 1.4 H (0.2-1) mg/dl AST 11 L (15-37) U/L ALT 16 (12-78) U/L Alkaline Phosphatase 67 (45-117) U/L Troponin I < 0.015 (0-0.045) ng/ml Total Protein 7.5 (6.4-8.2) gm/dl Albumin 3.1 L (3.4-5.0) gm/dl Globulin 4.4 H (2.5-4.0) gm/dl Albumin/Globulin Ratio 0.7 L (0.9-2) Urine Color Urine Appearance (Clear) Urine pH (4.5-7.5) Ur Specific [place] (1.000-1.030) Urine Protein (Negative) Urine Glucose (UA) (Negative) Urine Ketones (Negative) Urine Blood (Negative) Urine Nitrite (Negative) Urine Bilirubin (Negative) Urine Urobilinogen (Negative) Ur Leukocyte Esterase (Negative) Urine WBC (Auto) (0-5) /hpf Urine RBC (Auto) (0-4) /hpf U Hyaline Cast (Auto) (0-5) /lpf U Epithel Cells (Auto) (0-5) /lpf Urine Bacteria (Auto) (Negative) Urine Mucus (None Prsent) COVID-19 Eval Order Covid19 at [facility] SARS-CoV-2 (PCR) (Negative) Blood Type Antibody Screen 04/03/21 04/03/21 Range/Units 10:55 13:00 WBC (4.8-10.8) K/uL RBC (4.7-6.1) M/uL Hgb (14.0-18.0) g/dL Hct (42-52) % MCV (80-100) fL MCH (25-34) pg MCHC (32-36) g/dL RDW Std Deviation (36.4-46.3) fL RDW Coeff of Mariya (11.5-14.5) % Plt Count (130-400) K/uL MPV (7.4-10.4) fL Immature Gran % (Auto) % Neut % (Auto) % Lymph % (Auto) % [place] % (Auto) % Eos % (Auto) % Baso % (Auto) % Neut # (Auto) (1.4-6.5) K/uL Lymph # (Auto) (1.2-3.4) K/uL [place] # (Auto) (0.11-0.59) K/uL Eos # (Auto) (0-0.5) K/uL Baso # (Auto) (0-0.2) K/uL Immature Gran # (Auto) (0.00-0.02) K/uL PT (9.0-12.0) Seconds INR (0.9-1.1) APTT (21.0-31.0) Seconds PTT Ratio Sodium (136-145) mmol/L Potassium (3.5-5.1) mmol/L Chloride (98-107) mmol/L Carbon Dioxide (21-32) mmol/L Anion Gap (3-11) BUN (7-18) mg/dl Creatinine (0.6-1.4) mg/dl Est Cr Clr Drug Dosing ml/min Est GFR ( Amer) ml/min Est GFR (Non-Af Amer) ml/min BUN/Creatinine Ratio (10-20) Glucose (70-99) mg/dl Lactate (0.4-2.0) mmol/L Calcium (8.5-10.1) mg/dl Magnesium (1.8-2.4) mg/dl Total Bilirubin (0.2-1) mg/dl AST (15-37) U/L ALT (12-78) U/L Alkaline Phosphatase (45-117) U/L Troponin I (0-0.045) ng/ml Total Protein (6.4-8.2) gm/dl Albumin (3.4-5.0) gm/dl Globulin (2.5-4.0) gm/dl Albumin/Globulin Ratio (0.9-2) Urine Color Yellow Urine Appearance Clear (Clear) Urine pH 5.0 (4.5-7.5) Ur Specific [place] > 1.045 H (1.000-1.030) Urine Protein 2+ H (Negative) Urine Glucose (UA) Negative (Negative) Urine Ketones Trace H (Negative) Urine Blood Negative (Negative) Urine Nitrite Negative (Negative) Urine Bilirubin Negative (Negative) Urine Urobilinogen Negative (Negative) Ur Leukocyte Esterase Negative (Negative) Urine WBC (Auto) 1-5 (0-5) /hpf Urine RBC (Auto) 0-4 (0-4) /hpf U Hyaline Cast (Auto) 1-5 (0-5) /lpf U Epithel Cells (Auto) 10-20 H (0-5) /lpf Urine Bacteria (Auto) Negative (Negative) Urine Mucus Present A (None Prsent) COVID-19 Eval Order SARS-CoV-2 (PCR) NEGATIVE (Negative) Blood Type Antibody Screen Administered Medications Discontinued Medications Sodium Chloride (Nss 1000ml) 500 mls @ 999 mls/hr IV .Q31M ONE Stop: 04/03/21 11:03 Last Infusion: 04/03/21 11:35 Dose: 0 mls/hr Documented by: [id number] Admin: 04/03/21 11:02 Dose: 999 mls/hr Documented by: [id number] Magnesium Sulfate/Dextrose (Magnesium Sulfate / D5w) 1 gm in 100 mls @ 100 mls/hr IV NOW STA Stop: 04/03/21 12:29 Last Infusion: 04/03/21 13:43 Dose: 0 mls/hr Documented by: [id number] Admin: 04/03/21 12:38 Dose: 100 mls/hr Documented by: [id number] Sodium Chloride (Nss 1000ml) 500 mls @ 999 mls/hr IV .Q31M ONE Stop: 04/03/21 12:00 Last Infusion: 04/03/21 13:09 Dose: 0 mls/hr Documented by: [id number] Admin: 04/03/21 12:38 Dose: 999 mls/hr Documented by: [id number] Cefepime HCl (Maxipime) 2,000 mg in 20 mls @ 5 mls/min IV NOW STA; Protocol Stop: 04/03/21 12:21 Last Admin: 04/03/21 12:38 Dose: 5 mls/min Documented by: [id number] Ioversol (Optiray 320 125ml) 120 ml IV ONCE ONE Stop: 04/03/21 12:09 Last Admin: 04/03/21 12:08 Dose: 120 ml Documented by: [id number] Imaging Data Radiologist's Impression: Chest X-Ray 04/03/21 10:33 XR chest 1V portable CLINICAL HISTORY: Stroke Like Symptoms. Evaluate cardiopulmonary status COMPARISON STUDY: 12/28/2018 TECHNIQUE: 1 view of the chest FINDINGS: Single frontal view of the chest demonstrates the cardiomediastinal silhouette to be within normal limits. The lungs are clear of alveolar opacities. There is no evidence for pleural effusion. There is no evidence for vascular congestion. There is no acute osseous pathology. IMPRESSION: No acute cardiopulmonary disease. ACT 112: Negative or not required by law. Electronically signed by: Carson Bourne M.D. 04/03/2021 11:[address] 04/03/21 10:33 CT head/brain wo con CLINICAL HISTORY: Stroke Like Symptoms . Weakness COMPARISON STUDY: No previous studies for comparison. TECHNIQUE: Standard CT of the Brain was performed without IV contrast. A dose lowering technique was utilized adhering to the principles of ALARA. FINDINGS: Extraaxial space: There is no evidence for subdural hematoma. There are no extra-axial fluid collections. Ventricles and cisterns: The ventricles are mildly dilated bilaterally. There is no evidence for midline shift or mass effect. Parenchyma: There is no subarachnoid or intraparenchymal hemorrhage. There is no evidence for an acute infarct or cerebral edema. There is mild cerebral cortical atrophy and decreased attenuation in the periventricular white matter representing remote small vessel disease. There are no gross mass lesions. Osseous structures: There is no evidence for an acute fracture. The visualized paranasal sinuses are clear. The mastoid air cells are clear bilaterally. Soft tissues: There is no evidence for focal soft tissue swelling. IMPRESSION: No acute intracerebral pathology. Mild cerebral cortical atrophy and remote small vessel disease. ACT 112: Negative or not required by law. Electronically signed by: Carson Bourne M.D. 04/03/2021 12:16 PM Head CTA 04/03/21 10:33 CT ANGIOGRAM OF THE BRAIN; CT ANGIOGRAM OF THE NECK CLINICAL HISTORY: Strokelike symptoms. COMPARISON STUDY: Unenhanced CT of the brain performed concurrently on 04/03/2021. CT angiogram of the head and neck dated 10/12/2020. TECHNIQUE: Following the IV administration of 120 of Optiray 320, CT angiogram of the head and neck was performed from the aortic arch to the vertex. Images are reviewed in the axial, sagittal, and coronal planes. 3-D MIPS images are created and assessed. IV contrast was administered without complication. All measurements were calculated based on NASCET criteria. A dose lowering technique was utilized adhering to the principles of ALARA. CT DOSE: 1077.57 mGy.cm FINDINGS: Brain parenchyma: There is age-related involutional change noting moderate subcortical and periventricular microangiopathic disease. There is no evidence of hemorrhage, mass effect, or acute territorial ischemia noting angiographic phase technique. There is no evidence of enhancing mass lesion on the angiogram phase images. The ventricles, sulci, and cisterns are prominent secondary to involutional change. Jefferson-white matter differentiation is preserved. No extra- axial fluid collection is seen. Thoracic aorta: There is atherosclerotic calcification of the thoracic aorta. Visualized portions of the thoracic aorta are normal in caliber. The aortic arch demonstrates standard 3-vessel anatomy. Right carotid arterial system: The right common carotid artery is widely patent, as are the right internal and external carotid arteries. Calcified plaque is noted in the carotid bulb. There is tortuosity of the mid internal carotid artery. Left carotid arterial system: The left common carotid artery is widely patent, as are the left internal and external carotid arteries. Calcified plaque is n oted in the carotid bulb. Vertebral arteries: The vertebral arteries are widely patent bilaterally and codominant. 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 This measures up to 2.5 mm and is located at the level of C2. Subclavian arteries: Widely patent bilaterally. Intracranial vasculature: There is evidence carotid calcification of the cavernous carotid and vertebral arteries. The internal carotid arteries are patent at the skull base, as are the anterior and middle cerebral arteries bilaterally. There is stenosis of the supraclinoid internal carotid arteries, moderate on the right and mild on the left. Atherosclerotic irregularity seen throughout the middle cerebral arteries. There is focal high-grade stenosis of the M2 segment of the left middle cerebral artery, best seen on coronal image #29. The vertebrobasilar system and posterior cerebral arteries are widely patent. The vertebral arteries are codominant. There is no aneurysm or focal vessel cut off seen throughout the intracranial circulation. Jugular veins: Patent bilaterally. Dural sinuses: Patent. Lung apices: Partially visualized upper lobe lung parenchyma appears clear. Soft tissues: The visualized pharyngeal soft tissues are normal in appearance noting angiographic phase technique. The oropharyngeal airway appears widely patent. The thyroid gland is normal in size and heterogeneous in attenuation. The salivary glands are normal in appearance. No cervical lymphadenopathy is seen. Skeletal structures: The skeletal structures are osteopenic. The calvarium joslyn ears intact. The cervical spine is maintained noting multilevel spondylosis. No lytic or blastic lesion is seen. Orbits: The bony orbits are intact. Orbital contents are normal as visualized noting bilateral ocular lens implants. Sinuses and mastoids: The paranasal sinuses are clear. The mastoid air cells are well pneumatized. IMPRESSION: 1. There is no evidence of hemorrhage, mass effect, or acute territorial ischemia noting angiographic phase technique. 2. 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 This is unchanged from previous. 3. Otherwise unremarkable CT angiogram of the neck. 4. There is stenosis of the supraclinoid internal carotid arteries, unchanged from previous. 5. There is focal high-grade stenosis of the M2 segment of the left middle cerebral artery, also likely unchanged. 6. The remaining intracranial vessels are patent. ACT 112: Negative or not required by law. Electronically signed by: Shane Trevizo M.D. 04/03/2021 12:34 PM Neck CTA 04/03/21 10:33 CT ANGIOGRAM OF THE BRAIN; CT ANGIOGRAM OF THE NECK CLINICAL HISTORY: Strokelike symptoms. COMPARISON STUDY: Unenhanced CT of the brain performed concurrently on 04/03/2021. CT angiogram of the head and neck dated 10/12/2020. TECHNIQUE: Following the IV administration of 120 of Optiray 320, CT angiogram of the head and neck was performed from the aortic arch to the vertex. Images are reviewed in the axial, sagittal, and coronal planes. 3-D MIPS images are created and assessed. IV contrast was administered without complication. All measurements were calculated based on NASCET criteria. A dose lowering technique was utilized adhering to the principles of ALARA. CT DOSE: 1077.57 mGy.cm FINDINGS: Brain parenchyma: There is age-related involutional change noting moderate subcortical and periventricular microangiopathic disease. There is no evidence of hemorrhage, mass effect, or acute territorial ischemia noting angiographic phase technique. There is no evidence of enhancing mass lesion on the angiogram phase images. The ventricles, sulci, and cisterns are prominent secondary to involutional change. Jefferson-white matter differentiation is preserved. No extra- axial fluid collection is seen. Thoracic aorta: There is atherosclerotic calcification of the thoracic aorta. Visualized portions of the thoracic aorta are normal in caliber. The aortic arch demonstrates standard 3-vessel anatomy. Right carotid arterial system: The right common carotid artery is widely patent, as are the right internal and external carotid arteries. Calcified plaque is noted in the carotid bulb. There is tortuosity of the mid internal carotid artery. Left carotid arterial system: The left common carotid artery is widely patent, as are the left internal and external carotid arteries. Calcified plaque is noted in the carotid bulb. Vertebral arteries: The vertebral arteries are widely patent bilaterally and codominant. 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 This measures up to 2.5 mm and is located at the level of C2. Subclavian arteries: Widely patent bilaterally. Intracranial vasculature: There is evidence carotid calcification of the cavernous carotid and vertebral arteries. The internal carotid arteries are patent at the skull base, as are the anterior and middle cerebral arteries bilaterally. There is stenosis of the supraclinoid internal carotid arteries, moderate on the right and mild on the left. Atherosclerotic irregularity seen th roughout the middle cerebral arteries. There is focal high-grade stenosis of the M2 segment of the left middle cerebral artery, best seen on coronal image #29. The vertebrobasilar system and posterior cerebral arteries are widely patent. The vertebral arteries are codominant. There is no aneurysm or focal vessel cut off seen throughout the intracranial circulation. Jugular veins: Patent bilaterally. Dural sinuses: Patent. Lung apices: Partially visualized upper lobe lung parenchyma appears clear. Soft tissues: The visualized pharyngeal soft tissues are normal in appearance noting angiographic phase technique. The oropharyngeal airway appears widely patent. The thyroid gland is normal in size and heterogeneous in attenuation. The salivary glands are normal in appearance. No cervical lymphadenopathy is seen. Skeletal structures: The skeletal structures are osteopenic. The calvarium appears intact. The cervical spine is maintained noting multilevel spondylosis. No lytic or blastic lesion is seen. Orbits: The bony orbits are intact. Orbital contents are normal as visualized noting bilateral ocular lens implants. Sinuses and mastoids: The paranasal sinuses are clear. The mastoid air cells are well pneumatized. IMPRESSION: 1. There is no evidence of hemorrhage, mass effect, or acute territorial ischemia noting angiographic phase technique. 2. 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 This is unchanged from previous. 3. Otherwise unremarkable CT angiogram of the neck. 4. There is stenosis of the supraclinoid internal carotid arteries, unchanged from previous. 5. There is focal high-grade stenosis of the M2 segment of the left middle cerebral artery, also likely unchanged. 6. The remaining intracranial vessels are patent. ACT 112: Negative or not required by law. Electronically signed by: Shane Trevizo M.D. 04/03/2021 12:34 PM Discharge Plan Visit Data Chief Complaint: Stroke/CVA Symptoms Stated Complaint: HX OF STROKE, CONFUSION, TINGLING IN HEAD, BLURRED ED Provider: Shane Reyna Discharge Problem: Weakness, PAUL (acute kidney injury), Slurred speech, Leukocytosis, Acute hyponatremia Patient Disposition: Admitted As Inpatient Condition: Fair Discharge Instructions Interventions: ED Discharge Assessment Last Done: 04/03/21 15:30
[2021-04-03 11:04] LABS: Basophils # (auto) 0.01 K/uL (0-0.2); Basophils % (auto) 0.1 %; Eosinophils # (auto) 0.08 K/uL (0-0.5); Eosinophils % (auto) 0.6 %; Hematocrit (blood only) 36.9 % (42-52); Hemoglobin 12.8 g/dL (14.0-18.0); Immature Granulocytes # (auto) 0.08 K/uL (0.00-0.02); Immature Granulocytes % (auto) 0.6 %; Lymphocytes # (auto) 2.08 K/uL (1.2-3.4); Lymphocytes % (auto) 16.3 %; Mean Corpuscular Hemoglobin 29.4 pg (25-34); Mean Corpuscular Hgb Conc 34.7 g/dL (32-36); Mean Corpuscular Volume 84.8 fL (80-100); Mean Platelet Volume 8.8 fL (7.4-10.4); Monocytes # (auto) 1.64 K/uL (0.11-0.59); Monocytes % (auto) 12.8 %; Neutrophils # (auto) 8.88 K/uL (1.4-6.5); Neutrophils % (auto) 69.6 %; Platelet Count 315 K/uL (130-400); RDW Coefficient of Variation 14.4 % (11.5-14.5); RDW Standard Deviation 45.3 fL (36.4-46.3); Red Blood Count 4.35 M/uL (4.7-6.1); White Blood Count 12.77 K/uL (4.8-10.8)
--- NOTE | 2021-04-03 11:07 | XRay Report ---
XR chest 1V portable CLINICAL HISTORY: Stroke Like Symptoms. Evaluate cardiopulmonary status COMPARISON STUDY: 12/28/2018 TECHNIQUE: 1 view of the chest FINDINGS: Single frontal view of the chest demonstrates the cardiomediastinal silhouette to be within normal li mits. The lungs are clear of alveolar opacities. There is no evidence for pleural effusion. There is no evidence for vascular congestion. There is no acute osseous pathology. IMPRESSION: No acute cardiopulmonary disease. ACT 112: Negative or not required by law. Electronically signed by: Carson Bourne M.D. 04/03/2021 11:06 AM
[2021-04-03 11:23] LABS: Alanine Aminotransferase 16 U/L (12-78); Albumin Level 3.1 gm/dl (3.4-5.0); Aspartate Aminotransferase 11 U/L (15-37); Blood Urea Nitrogen 25 mg/dl (7-18); Calcium 8.9 mg/dl (8.5-10.1); Carbon Dioxide 24 mmol/L (21-32); Chloride 99 mmol/L (98-107); Creatinine Clr Calc Pharmacy 32.3 ml/min; Est GFR (African American) 40.3 ml/min; Est GFR (Non-African American) 34.7 ml/min; Glucose 169 mg/dl (70-99); Magnesium 1.6 mg/dl (1.8-2.4); Potassium 3.9 mmol/L (3.5-5.1); Sodium 131 mmol/L (136-145)
[2021-04-03 11:28] LABS: Albumin Globulin Ratio 0.7 (0.9-2); Alkaline Phosphatase 67 U/L (45-117); Bilirubin,Total 1.4 mg/dl (0.2-1); Globulin 4.4 gm/dl (2.5-4.0); Total Protein 7.5 gm/dl (6.4-8.2); Troponin I < 0.015 ng/ml (0-0.045)
[2021-04-03] MEDS ORDERED: MAGNESIUM SULFATE / D5W 1 GM/100 ML BAG IV STA (11:30)
[2021-04-03 11:36] LABS: Partial Thromboplastin Ratio 1.1; Partial Thromboplastin Time 29.6 Seconds (21.0-31.0); Prothrombin Time 10.2 Seconds (9.0-12.0)
[2021-04-03] MEDS ORDERED: OPTIRAY 320 125ml IV ONE (12:08)
--- NOTE | 2021-04-03 12:17 | CT Scan Report ---
CT head/brain wo con CLINICAL HISTORY: Stroke Like Symptoms . Weakness COMPARISON STUDY: No previous studies for comparison. TECHNIQUE: Standard CT of the Brain was performed without IV contrast. A dose lowering technique was utilized adhering to the principles of ALARA. FINDINGS: Extraaxial space: There is no evidence for subdural hematoma. There are no extra-axial fluid collecti ons. Ventricles and cisterns: The ventricles are mildly dilated bilaterally. There is no evidence for mid line shift or mass effect. Parenchyma: There is no subarachnoid or intraparenchymal hemorrhage. There is no evidence for an acu te infarct or cerebral edema. There is mild cerebral cortical atrophy and decreased attenuation in th e periventricular white matter representing remote small vessel disease. There are no gross mass lesi ons. Osseous structures: There is no evidence for an acute fracture. The visualized paranasal sinuses are clear. The mastoid air cells are clear bilaterally. Soft tissues: There is no evidence for focal soft tissue swelling. IMPRESSION: No acute intracerebral pathology. Mild cerebral cortical atrophy and remote small vessel disease. ACT 112: Negative or not required by law. Electronically signed by: Carson Bourne M.D. 04/03/2021 12:16 PM
[2021-04-03] MEDS ORDERED: CEFEPIME 2,000 MG/20 ML VIAL IV STA (12:18)
--- NOTE | 2021-04-03 12:35 | CT Scan Report ---
CT ANGIOGRAM OF THE BRAIN; CT ANGIOGRAM OF THE NECK CLINICAL HISTORY: Strokelike symptoms. COMPARISON STUDY: Unenhanced CT of the brain performed concurrently on 04/03/2021. CT angiogram of t jayme head and neck dated 10/12/2020. TECHNIQUE: Following the IV administration of 120 of Optiray 320, CT angiogram of the head and neck w as performed from the aortic arch to the vertex. Images are reviewed in the axial, sagittal, and osbaldo nal planes. 3-D MIPS images are created and assessed. IV contrast was administered without complicati on. All measurements were calculated based on NASCET criteria. A dose lowering technique was utilize d adhering to the principles of ALARA. CT DOSE: 1077.57 mGy.cm FINDINGS: Brain parenchyma: There is age-related involutional change noting moderate subcortical and periventri cular microangiopathic disease. There is no evidence of hemorrhage, mass effect, or acute territorial ischemia noting angiographic phase technique. There is no evidence of enhancing mass lesion on the a ngiogram phase images. The ventricles, sulci, and cisterns are prominent secondary to involutional ch steven. Jefferson-white matter differentiation is preserved. No extra-axial fluid collection is seen. Thoracic aorta: There is atherosclerotic calcification of the thoracic aorta. Visualized portions of the thoracic aorta are normal in caliber. The aortic arch demonstrates standard 3-vessel anatomy. Right carotid arterial system: The right common carotid artery is widely patent, as are the right int ernal and external carotid arteries. Calcified plaque is noted in the carotid bulb. There is tortuosi ty of the mid internal carotid artery. Left carotid arterial system: The left common carotid artery is widely patent, as are the left internal communications writer al and external carotid arteries. Calcified plaque is noted in the carotid bulb. Vertebral arteries: The vertebral arteries are widely patent bilaterally and codominant. A saccular a neurysm of the distal left vertebral artery is again seen on image were 263. This measures up to 2.5 mm and is located at the level of C2. Subclavian arteries: Widely patent bilaterally. Intracranial vasculature: There is evidence carotid calcification of the cavernous carotid and verteb ral arteries. The internal carotid arteries are patent at the skull base, as are the anterior and mid dle cerebral arteries bilaterally. There is stenosis of the supraclinoid internal carotid arteries, m oderate on the right and mild on the left. Atherosclerotic irregularity seen throughout the middle ce rebral arteries. There is focal high-grade stenosis of the M2 segment of the left middle cerebral art tamika, best seen on coronal image #29. The vertebrobasilar system and posterior cerebral arteries are w idely patent. The vertebral arteries are codominant. There is no aneurysm or focal vessel cut off see n throughout the intracranial circulation. Jugular veins: Patent bilaterally. Dural sinuses: Patent. Lung apices: Partially visualized upper lobe lung parenchyma appears clear. Soft tissues: The visualized pharyngeal soft tissues are normal in appearance noting angiographic pha se technique. The oropharyngeal airway appears widely patent. The thyroid gland is normal in size and heterogeneous in attenuation. The salivary glands are normal in appearance. No cervical lymphadenopa thy is seen. Skeletal structures: The skeletal structures are osteopenic. The calvarium appears intact. The cervic al spine is maintained noting multilevel spondylosis. No lytic or blastic lesion is seen. Orbits: The bony orbits are intact. Orbital contents are normal as visualized noting bilateral ocular lens implants. Sinuses and mastoids: The paranasal sinuses are clear. The mastoid air cells are well pneumatized. IMPRESSION: 1. There is no evidence of hemorrhage, mass effect, or acute territorial ischemia noting angiographic phase technique. 2. 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 This is unchanged from previous. 3. Otherwise unremarkable CT angiogram of the neck. 4. There is stenosis of the supraclinoid internal carotid arteries, unchanged from previous. 5. There is focal high-grade stenosis of the M2 segment of the left middle cerebral artery, also like ly unchanged. 6. The remaining intracranial vessels are patent. ACT 112: Negative or not required by law. Electronically signed by: Shane Trevizo M.D. 04/03/2021 12:34 PM
[2021-04-03 13:21] LABS: Appearance Urine Clear (Clear); Bacteria Urine Automated Negative (Negative); Bilirubin Urine Negative (Negative); Blood Urine Negative (Negative); Color Urine Yellow; Glucose Urine UA Negative (Negative); Ketones Urine Trace (Negative); Leukocyte Esterase Urine Negative (Negative); Nitrite Urine Negative (Negative); Protein Urine 2+ (Negative); RBC Urine Automated 0-4 /hpf (0-4); Specific Gravity Urine > 1.045 (1.000-1.030); Urobilinogen Urine Negative (Negative)
[2021-04-03 13:34] LABS: Mucus Urine Present (None Prsent)
--- NOTE | 2021-04-03 13:49 | Electrocardiogram Report ---
Test Reason : Blood Pressure : / mmHG Vent. 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
--- NOTE | 2021-04-03 15:18 | History & Physical Report ---
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 In ER patient afebrile, vitals stable. WBC: 12, lactate WNL, negative troponin History of CVA with residual left-sided weakness R/O TIA vs acute CVA CTA head and neck: No acute findings. 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 Focal high-grade stenosis of M2 segment of the left middle cerebral artery also likely unchanged. MRI brain Echo Continue aspirin, Plavix, Crestor May need to consider increasing crestor Neurology consult (2) Leukocytosis: Plan: Reported temperature of 100.3 F 3 days ago. No recurrent fever. Is afebrile in ER. WBC: 12. Lactate WNL. Chest x-ray without signs of pneumonia. UA unremarkable. Did complain of posterior headache however reports is improving today. 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 History obtained from patient and patient's significant other. Significant other reports middle the night Tuesday heard patient fall and she found him laying in [place]. Was unable to get patient up for several hours. Patient reports he does not remember fall. He states the past couple days he has been having trouble thinking and remembering things. He also complains of posterior headache and has been feeling dizzy. He is unsure if he has been having any visual disturbance. Also reports some slurred speech. Significant other reports sometimes patient seems like he has slurred speech and sometimes he does not. She does not feel slurred speech is his baseline. Also noted some drooping of the left side of mouth. Patient had temperature of 100.3F 3 days ago and has not had any further fever. Patient reports cough at baseline and denies any increased cough. Denies shortness of breath, chest pain. Reports vomited once Tuesday no further vomiting. He denies any nausea or diarrhea or abdominal pain. Patient feels more weak than his baseline. He reports he has chronic drooping of left eyelid and has been following with ophthalmology. Denies diaphoresis, neck stiffness, CP, SOB, orthopnea, palpitations, sore throat, choking, otalgia, rhinorrhea, abdominal pain, paresthesias, extremity edema, rashes, urinary symptoms. In ER patient afebrile, vitals stable. WBC: 12, lactate NL, negative troponin CTA head and neck: No acute findings. 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 Focal high-grade stenosis of M2 segment of the left middle cerebral artery also likely unchanged. Allergies Allergy/AdvReac Type Severity Reaction Status Date / Time lisinopril Allergy Severe edema/airwa Verified 04/03/21 11:43 y simvastatin Allergy Mild MUSCLE PAIN Verified 04/03/21 11:43 canagliflozin Allergy Unknown vertigo Verified 04/03/21 11:43 adhesive AdvReac Unknown RASH Verified 04/03/21 11:43 mushroom AdvReac Unknown NAUSEATED Verified 04/03/21 11:43 Home Medications Medication Instructions Recorded Confirmed Type aspirin 81 mg tablet,delayed 81 mg PO QAM 12/28/18 04/03/21 History release cholecalciferol (vitamin D3) 25 1,000 unit PO PM 12/28/18 04/03/21 History mcg (1,000 unit) capsule clopidogrel 75 mg tablet 75 mg PO QAM 12/28/18 04/03/21 History coenzyme Q10 100 mg capsule (Co 100 mg PO PM 12/28/18 04/03/21 History Q-10) cyanocobalamin (vitamin B-12) 1,000 mcg PO QAM 12/28/18 04/03/21 History 1,000 mcg tablet (Vitamin B-12) diltiazem HCl 180 mg 180 mg PO PM 12/28/18 04/03/21 History capsule,extended release 24 hr epinephrine 0.3 mg/0.3 mL 0.3 mg IM UD PRN 12/28/18 04/03/21 History injection, auto-injector (EpiPen) losartan 25 mg tablet 25 mg PO QAM 12/28/18 04/03/21 History metformin 500 mg tablet,extended 500 mg PO UD 12/28/18 04/03/21 History release 24 hr omega 6-edh-dlx-fish oil 1,000 mg 1 cap PO PM 12/28/18 04/03/21 History (120 mg-180 mg) capsule (Fish Oil) pantoprazole 40 mg tablet,delayed 40 mg PO QAM 12/28/18 04/03/21 History release solifenacin 5 mg tablet (Vesicare) 5 mg PO QAM 12/28/18 04/03/21 History tamsulosin 0.4 mg capsule 0.4 mg PO PM 12/28/18 04/03/21 History rosuvastatin 5 mg tablet 5 mg PO 2XWK 10/12/20 04/03/21 History semaglutide (Ozempic) 0.25 mg SUBCUT WK 10/12/20 04/03/21 History fluorouracil 5 % topical cream 1 applic TOPICAL UD 04/03/21 04/03/21 History isosorbide mononitrate 30 mg 30 mg PO DAILY 04/03/21 04/03/21 History tablet,extended release 24 hr ketorolac 0.4 % eye drops 1 drp OPL BID 04/03/21 04/03/21 History Past Med/Surg History Medical History (Updated 04/05/21 @ 13:14 by Zach Arambula MD) GRISELDA inhibitor-aggravated angioedema PAUL (acute kidney injury) CKD (chronic kidney disease), stage III Diverticulosis of colon DM type 2 (diabetes mellitus, type 2) Dyslipidemia GERD (gastroesophageal reflux disease) GI bleed H/O hemorrhoids Hiatal hernia History of basal cell carcinoma History of Helicobacter pylori infection History of right bundle branch block (RBBB) Hypertension Hypothyroid Hypoxia Iliac artery aneurysm Localized osteoarthritis of right knee Paroxysmal atrial fibrillation Pharyngeal edema Pneumonia Pneumonia Surgical History H/O arthroscopic knee surgery H/O colonoscopy "04/2005-diverticulae" H/O nasal polypectomy S/P laparoscopic cholecystectomy S/P tonsillectomy Status post Mohs surgery Family History (Updated 04/03/21 @ 20:09 by Deidra Bain PA-C) Other Diabetes Heart disease Hypertension Social History Smoking Status: Former smoker Do You Dip or Chew Tobacco: Yes; Hx Alcohol Use: Yes Alcohol type: beer and wine Hx Substance Use: No Preferred Language: Macedonian Communication Ability: Effective Paint Tinter Required: No Beliefs That Will Affect Care: None Current Living Situation: Significant Other Current Living Situation Comment: Lives with friend Ericka Other Information That Helps Us Care for You: No Feels Safe at Home: Yes Safety Concerns: Feels Safe At This Time Assistive Devices: Cane Review of Systems Review of Systems: All systems reviewed & are unremarkable except as noted in HPI & below Physical Exam Physical Exam: General: no acute distress, WDWN Head: normocephalic, atraumatic Eyes: left pupil 4mm, right pupil 3mm, reactive to light, EOM's intact, left eyelid noted to be closed most of exam, conjunctiva non-injected, anicteric ENT: hard of hearing, normal inspection external ears, nose, mucous membranes moist Neck: supple, trachea midline, non-tender Lungs: clear, no respiratory distress, no wheezing/rhonchi/rales CV: RRR, no murmur, no JVD, no pretibial edema Abd: normal BS, soft, non-tender Ext: no cyanosis, no calf tenderness Neuro: A&O x 3, normal affect. No nystagmus.Facial sensation is intact and symmetric. +slight drooping left side of mouth, soft palate elevates symmetrically, +mild slurred speech, shoulder shrug intact, tongue is midline, normal movement, no fasciculations. Left arm and leg 4/5 strength compared to 5/5 right arm and leg Skin: warm, dry Results & Data Results & Data ([facility]) Vital Signs (Past 12 Hours) Vital Signs Temp Pulse Pulse Resp BP BP Pulse Ox 04/03/21 14:00 64 21 149/71 H 04/03/21 13:30 61 17 161/79 H 04/03/21 13:00 63 62 24 158/79 H 158/79 H 93 04/03/21 12:30 60 17 138/80 92 04/03/21 12:09 94 04/03/21 11:30 65 19 92 04/03/21 11:00 60 21 133/81 93 04/03/21 10:33 65 22 04/03/21 10:13 36.8 C 85 16 112/72 94 Laboratory Results Short CBC 04/03/21 Range/Units 10:50 WBC 12.77 H (4.8-10.8) K/uL Hgb 12.8 L (14.0-18.0) g/dL Hct 36.9 L (42-52) % Plt Count 315 (130-400) K/uL BMP 04/03/21 10:50 Sodium 131 L Potassium 3.9 Chloride 99 Carbon Dioxide 24 BUN 25 H Creatinine 1.77 H Glucose 169 H Calcium 8.9 Cardiac Enzymes 04/03/21 Range/Units 10:50 Troponin I < 0.015 (0-0.045) ng/ml Liver Function 04/03/21 Range/Units 10:50 Total Bilirubin 1.4 H (0.2-1) mg/dl AST 11 L (15-37) U/L ALT 16 (12-78) U/L Alkaline Phosphatase 67 (45-117) U/L Albumin 3.1 L (3.4-5.0) gm/dl Urine 04/03/21 Range/Units 13:00 Urine Color Yellow Urine Appearance Clear (Clear) Urine pH 5.0 (4.5-7.5) Ur Specific Sterling > 1.045 H (1.000-1.030) Urine Protein 2+ H (Negative) Urine Glucose (UA) Negative (Negative) Diagnostic Findings Chest X-Ray 04/03/21 10:33 XR chest 1V portable CLINICAL HISTORY: Stroke Like Symptoms. Evaluate cardiopulmonary status COMPARISON STUDY: 12/28/2018 TECHNIQUE: 1 view of the chest FINDINGS: Single frontal view of the chest demonstrates the cardiomediastinal silhouette to be within normal limits. The lungs are clear of alveolar opacities. There is no evidence for pleural effusion. There is no evidence for vascular congestion. There is no acute osseous pathology. IMPRESSION: No acute cardiopulmonary disease. ACT 112: Negative or not required by law. Electronically signed by: Carson Bourne M.D. 04/03/2021 11:[address] 04/03/21 10:33 CT head/brain wo con CLINICAL HISTORY: Stroke Like Symptoms . Weakness COMPARISON STUDY: No previous studies for comparison. TECHNIQUE: Standard CT of the Brain was performed without IV contrast. A dose lowering technique was utilized adhering to the principles of ALARA. FINDINGS: Extraaxial space: There is no evidence for subdural hematoma. There are no extra-axial fluid collections. Ventricles and cisterns: The ventricles are mildly dilated bilaterally. There is no evidence for midline shift or mass effect. Parenchyma: There is no subarachnoid or intraparenchymal hemorrhage. There is no evidence for an acute infarct or cerebral edema. There is mild cerebral cortical atrophy and decreased attenuation in the periventricular white matter representing remote small vessel disease. There are no gross mass lesions. Osseous structures: There is no evidence for an acute fracture. The visualized paranasal sinuses are clear. The mastoid air cells are clear bilaterally. Soft tissues: There is no evidence for focal soft tissue swelling. IMPRESSION: No acute intracerebral pathology. Mild cerebral cortical atrophy and remote small vessel disease. ACT 112: Negative or not required by law. Electronically signed by: Carson Bourne M.D. 04/03/2021 12:16 PM Head CTA 04/03/21 10:33 CT ANGIOGRAM OF THE BRAIN; CT ANGIOGRAM OF THE NECK CLINICAL HISTORY: Strokelike symptoms. COMPARISON STUDY: Unenhanced CT of the brain performed concurrently on 04/03/2021. CT angiogram of the head and neck dated 10/12/2020. TECHNIQUE: Following the IV administration of 120 of Optiray 320, CT angiogram of the head and neck was performed from the aortic arch to the vertex. Images are reviewed in the axial, sagittal, and coronal planes. 3-D MIPS images are created and assessed. IV contrast was administered without complication. All measurements were calculated based on NASCET criteria. A dose lowering technique was utilized adhering to the principles of ALARA. CT DOSE: 1077.57 mGy.cm FINDINGS: Brain parenchyma: There is age-related involutional change noting moderate subcortical and periventricular microangiopathic disease. There is no evidence of hemorrhage, mass effect, or acute territorial ischemia noting angiographic phase technique. There is no evidence of enhancing mass lesion on the angiogram phase images. The ventricles, sulci, and cisterns are prominent secondary to involutional change. Jefferson-white matter differentiation is preserved. No extra-axial fluid collection is seen. Thoracic aorta: There is atherosclerotic calcification of the thoracic aorta. Visualized portions of the thoracic aorta are normal in caliber. The aortic arch demonstrates standard 3-vessel anatomy. Right carotid arterial system: The right common carotid artery is widely patent, as are the right internal and external carotid arteries. Calcified plaque is noted in the carotid bulb. There is tortuosity of the mid internal carotid artery. Left carotid arterial system: The left common carotid artery is widely patent, as are the left internal and external carotid arteries. Calcified plaque is noted in the carotid bulb. Vertebral arteries: The vertebral arteries are widely patent bilaterally and codominant. 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 This measures up to 2.5 mm and is located at the level of C2. Subclavian arteries: Widely patent bilaterally. Intracranial vasculature: There is evidence carotid calcification of the cavernous carotid and vertebral arteries. The internal carotid arteries are patent at the skull base, as are the anterior and middle cerebral arteries bilaterally. There is stenosis of the supraclinoid internal carotid arteries, moderate on the right and mild on the left. Atherosclerotic irregularity seen throughout the middle cerebral arteries. There is focal high-grade stenosis of the M2 segment of the left middle cerebral artery, best seen on coronal image #29. The vertebrobasilar system and posterior cerebral arteries are widely patent. The vertebral arteries are codominant. There is no aneurysm or focal vessel cut off seen throughout the intracranial circulation. Jugular veins: Patent bilaterally. Dural sinuses: Patent. Lung apices: Partially visualized upper lobe lung parenchyma appears clear. Soft tissues: The visualized pharyngeal soft tissues are normal in appearance noting angiographic phase technique. The oropharyngeal airway appears widely patent. The thyroid gland is normal in size and heterogeneous in attenuation. The salivary glands are normal in appearance. No cervical lymphadenopathy is seen. Skeletal structures: The skeletal structures are osteopenic. The calvarium appears intact. The cervical spine is maintained noting multilevel spondylosis. No lytic or blastic lesion is seen. Orbits: The bony orbits are intact. Orbital contents are normal as visualized noting bilateral ocular lens implants. Sinuses and mastoids: The paranasal sinuses are clear. The mastoid air cells are well pneumatized. IMPRESSION: 1. There is no evidence of hemorrhage, mass effect, or acute territorial ischemia noting angiographic phase technique. 2. 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 This is unchanged from previous. 3. Otherwise unremarkable CT angiogram of the neck. 4. There is stenosis of the supraclinoid internal carotid arteries, unchanged from previous. 5. There is focal high-grade stenosis of the M2 segment of the left middle cerebral artery, also likely unchanged. 6. The remaining intracranial vessels are patent. ACT 112: Negative or not required by law. Electronically signed by: Shane Trevizo M.D. 04/03/2021 12:34 PM Neck CTA 04/03/21 10:33 CT ANGIOGRAM OF THE BRAIN; CT ANGIOGRAM OF THE NECK CLINICAL HISTORY: Strokelike symptoms. COMPARISON STUDY: Unenhanced CT of the brain performed concurrently on 04/03/2021. CT angiogram of the head and neck dated 10/12/2020. TECHNIQUE: Following the IV administration of 120 of Optiray 320, CT angiogram of the head and neck was performed from the aortic arch to the vertex. Images are reviewed in the axial, sagittal, and coronal planes. 3-D MIPS images are created and assessed. IV contrast was administered without complication. All measurements were calculated based on NASCET criteria. A dose lowering technique was utilized adhering to the principles of ALARA. CT DOSE: 1077.57 mGy.cm FINDINGS: Brain parenchyma: There is age-related involutional change noting moderate subcortical and periventricular microangiopathic disease. There is no evidence of hemorrhage, mass effect, or acute territorial ischemia noting angiographic phase technique. There is no evidence of enhancing mass lesion on the angiogram phase images. The ventricles, sulci, and cisterns are prominent secondary to involutional change. Jefferson-white matter differentiation is preserved. No extra- axial fluid collection is seen. Thoracic aorta: There is atherosclerotic calcification of the thoracic aorta. Visualized portions of the thoracic aorta are normal in caliber. The aortic arch demonstrates standard 3-vessel anatomy. Right carotid arterial system: The right common carotid artery is widely patent, as are the right internal and external carotid arteries. Calcified plaque is noted in the carotid bulb. There is tortuosity of the mid internal carotid ar maxine. Left carotid arterial system: The left common carotid artery is widely patent, as are the left internal and external carotid arteries. Calcified plaque is noted in the carotid bulb. Vertebral arteries: The vertebral arteries are widely patent bilaterally and codominant. 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 This measures up to 2.5 mm and is located at the level of C2. Subclavian arteries: Widely patent bilaterally. Intracranial vasculature: There is evidence carotid calcification of the cavernous carotid and vertebral arteries. The internal carotid arteries are patent at the skull base, as are the anterior and middle cerebral arteries bilaterally. There is stenosis of the supraclinoid internal carotid arteries, moderate on the right and mild on the left. Atherosclerotic irregularity seen throughout the middle cerebral arteries. There is focal high-grade stenosis of the M2 segment of the left middle cerebral artery, best seen on coronal image #29. The vertebrobasilar system and posterior cerebral arteries are widely patent. The vertebral arteries are codominant. There is no aneurysm or focal vessel cut off seen throughout the intracranial circulation. Jugular veins: Patent bilaterally. Dural sinuses: Patent. Lung apices: Partially visualized upper lobe lung parenchyma appears clear. Soft tissues: The visualized pharyngeal soft tissues are normal in appearance noting angiographic phase technique. The oropharyngeal airway appears widely patent. The thyroid gland is normal in size and heterogeneous in attenuation. The salivary glands are normal in appearance. No cervical lymphadenopathy is seen. Skeletal structures: The skeletal structures are osteopenic. The calvarium appears intact. The cervical spine is maintained noting multilevel spondylosis. No lytic or blastic lesion is seen. Orbits: The bony orbits are intact. Orbital contents are normal as visualized noting bilateral ocular lens implants. Sinuses and mastoids: The paranasal sinuses are clear. The mastoid air cells are well pneumatized. IMPRESSION: 1. There is no evidence of hemorrhage, mass effect, or acute territorial isch emia noting angiographic phase technique. 2. 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 This is unchanged from previous. 3. Otherwise unremarkable CT angiogram of the neck. 4. There is stenosis of the supraclinoid internal carotid arteries, unchanged from previous. 5. There is focal high-grade stenosis of the M2 segment of the left middle cerebral artery, also likely unchanged. 6. The remaining intracranial vessels are patent. ACT 112: Negative or not required by law. Electronically signed by: Shane Trevizo M.D. 04/03/2021 12:34 PM Brain MRI 04/03/21 15:32 MR brain wo con CLINICAL HISTORY: stroke symptoms TECHNIQUE: Multiplanar and multisequence MR images of the brain were obtained without intravenous contrast. Comparison: Comparison is made to MRI brain 10/12/2020 FINDINGS: No abnormal restricted diffusion is identified. Foci of T2 and FLAIR hyperintensity are noted in the paraventricular areas consistent with chronic small vessel ischemic disease. Ex vacuo ventriculomegaly and sulcal enlargement is noted compatible with diffuse encephalomalacia. Hemorrhage No extra axial fluid collections are seen. There are no masses, mass effect, or midline shift. The corpus callosum, pituitary gland, and cerebellar tonsils appear grossly unremarkable. Flow voids of the major intracranial arterial vessels are identified. The imaged portions of the paranasal sinuses, mastoid air cells, and orbits are unremarkable. IMPRESSION: No acute abnormalities. ACT 112: Negative or not required by law. Electronically signed by: Skinny Valdes M.D. 04/03/2021 6:06 PM Supervising Physician Co-Signing Physician Notes Attending Addendum: delayed entry date of service noted above care coordinated with ELADIO Farias please refer to her notes for full details, I agree with her notes patient seen and examined, records reviewed by myself as well on exam, patient seen resting in bed, comfortable states his symptoms are slowly improving left UE still on the weak side no chest pain, dyspnea, palpitations, dizziness no other symptoms VS noted and reviewed orientedx 3 , not in distress, speaks in sentences with no effort nor accessory muscle use normal rate, regular rhythm, no murmurs clear breath sounds bilaterally non distended, soft, nontender no bipedal edema, erythema, warmth L UE 3-4/5 motor strength WBC 12.7 Hg 12.8 Crea 1.3 ASSESSMENT AND PLAN STROKE LIKE SYMPTOMS Brain MRI continue ASA, Plavix, Crestor r/o INFECTION ff up cultures empirric ABx as aobve other diagnoses and plan of care as per ELADIO Farias notes Zach Arambula MD (1) Leukocytosis Leukocytosis type: unspecified Qualified Code(s): D72.829 - Elevated white blood cell count, unspecified
[2021-04-03] MEDS ORDERED: ACETAMINOPHEN 325 MG TAB PO PRN (15:32)
[2021-04-03] MEDS ORDERED: POLYETHYLENE (MIRALAX) 17 GM PACK PO PRN (15:32)
[2021-04-03] MEDS ORDERED: GLUCAGON FOR INJ 1 MG VIAL SQ PRN (15:32)
[2021-04-03] MEDS ORDERED: ONDANSETRON INJ 2 MG/ML 2 ML VIAL IV PRN (15:32)
[2021-04-03] MEDS ORDERED: DEXTROSE 50% 50 ML SYRINGE IV PRN (15:32)
[2021-04-03] MEDS ORDERED: PHARMACIST DISCHARGE MED REC CONSULT PRN (15:32)
[2021-04-03] MEDS ORDERED: CARBOHYDRATES FOR HYPOGLYCEMIA PO PRN (15:32)
[2021-04-03] MEDS ORDERED: GLUCOSE 40% GEL 15 GM TUBE PO PRN (15:32)
[2021-04-03] MEDS ORDERED: GLUCOSE 10 TABS/TUBE PO PRN (15:32)
--- NOTE | 2021-04-03 15:48 | Neurology Consultation ---
Date of Consultation April 03, 2021 Assessment & Plan (1) Weakness: 1. MRI brain - r/o stroke 2. PT/OT speech for discharge needs 3. CTA head neck- no new stenosis or occlusion 4. continue plavix 75 mg and aspirin 81 mg daily 5. fall precautions 6. CXR - no acute findings further recommendations once MRI is completed. (2) Slurred speech: 1. may be baseline from previous stroke Supervising Physician Co-Signing Physician Notes I have seen and discussed above patient with Dr Kasia Thomas, neurology Patient seen and examined images labs reviewed patient seen and examined patient patient seen patient seen patient seen and examined MRI labs images rev Patient seen and examined history reviewed CT CTA reviewed as well. This patient has had nausea vomiting and decreased oral intake x2 days. He has had an increase in confusion and unclear if there is increasing dysarthria or left- sided weakness. CT of the head shows no acute infarction CTA shows left M M2 s tenosis and a distal left vert aneurysm measuring 2.5 mm Patient is awake alert speech is dysarthric naming normal orientation x3 normal visual munson no visual extinction flattening of the left nasolabial fold mild dysarthria proximally left upper extremity is 3 distally for left drift and decreased left rapid alternating movements left lower extremity is 4 reflexes symmetric toes downgoing no sensory loss to light touch. Gait was not tested Increased weakness and dysarthria in the setting of dehydration and multiple metabolic abnormalities Agree with MRI brain to evaluate for new infarct. If new infarct will determine whether any additional vascular work-up needs to be fully performed such as echo and cardiac monitoring. Patient gives a history of atrial fibrillation but is currently in a sinus rhythm outpatient monitoring may be appropriate. 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 Kasia Thomas MD History of Present Illness Reason for Consultation: stroke symptoms Requesting Physician: Zach Arambula MD Attending Physician: Zach Arambula MD History of Present Illness Higinio is an 81 year old male presents to [facility] ER 04/03/2021 with weakness and strokelike symptoms for 3 days. He fell on Tuesday after complaining of a headache. The headache is an 8/10 and posterior. Ever since the fall and the headache, he has been weak. He is having a very difficult time getting around as per his . He did vomit one time a few days ago, not since. He may have had a slight fever 2 days ago. His has noticed a left facial droop and so me slurred speech. She thinks his left side is weaker than baseline. He has not eaten for 2 days but now he is hungry. denies CP, SOB, abdominal pain, N, V. Allergies Allergy/AdvReac Type Severity Reaction Status Date / Time lisinopril Allergy Severe edema/airwa Verified 04/03/21 11:43 y simvastatin Allergy Mild MUSCLE PAIN Verified 04/03/21 11:43 canagliflozin Allergy Unknown vertigo Verified 04/03/21 11:43 adhesive AdvReac Unknown RASH Verified 04/03/21 11:43 mushroom AdvReac Unknown NAUSEATED Verified 04/03/21 11:43 Home Medications Medication Instructions Recorded Confirmed Type aspirin 81 mg tablet,delayed 81 mg PO QAM 12/28/18 04/03/21 History release cholecalciferol (vitamin D3) 25 1,000 unit PO PM 12/28/18 04/03/21 History mcg (1,000 unit) capsule clopidogrel 75 mg tablet 75 mg PO QAM 12/28/18 04/03/21 History coenzyme Q10 100 mg capsule (Co 100 mg PO PM 12/28/18 04/03/21 History Q-10) cyanocobalamin (vitamin B-12) 1,000 mcg PO QAM 12/28/18 04/03/21 History 1,000 mcg tablet (Vitamin B-12) diltiazem HCl 180 mg 180 mg PO PM 12/28/18 04/03/21 History capsule,extended release 24 hr epinephrine 0.3 mg/0.3 mL 0.3 mg IM UD PRN 12/28/18 04/03/21 History injection, auto-injector (EpiPen) losartan 25 mg tablet 25 mg PO QAM 12/28/18 04/03/21 History metformin 500 mg tablet,extended 500 mg PO UD 12/28/18 04/03/21 History release 24 hr omega 7-wdo-gcn-fish oil 1,000 mg 1 cap PO PM 12/28/18 04/03/21 History (120 mg-180 mg) capsule (Fish Oil) pantoprazole 40 mg tablet,delayed 40 mg PO QAM 12/28/18 04/03/21 History release solifenacin 5 mg tablet (Vesicare) 5 mg PO QAM 12/28/18 04/03/21 History tamsulosin 0.4 mg capsule 0.4 mg PO PM 12/28/18 04/03/21 History rosuvastatin 5 mg tablet 5 mg PO 2XWK 10/12/20 04/03/21 History semaglutide (Ozempic) 0.25 mg SUBCUT WK 10/12/20 04/03/21 History fluorouracil 5 % topical cream 1 applic TOPICAL UD 04/03/21 04/03/21 History isosorbide mononitrate 30 mg 30 mg PO DAILY 04/03/21 04/03/21 History tablet,extended release 24 hr ketorolac 0.4 % eye drops 1 drp OPL BID 04/03/21 04/03/21 History Patient History Medical History (Updated 04/03/21 @ 15:41 by Shane Reyna MD) GRISELDA inhibitor-aggravated angioedema PAUL (acute kidney injury) CKD (chronic kidney disease), stage III Diverticulosis of colon DM type 2 (diabetes mellitus, type 2) Dyslipidemia GERD (gastroesophageal reflux disease) GI bleed H/O hemorrhoids Hiatal hernia History of basal cell carcinoma History of Helicobacter pylori infection History of right bundle branch block (RBBB) Hypertension Hypothyroid Hypoxia Iliac artery aneurysm Localized osteoarthritis of right knee Paroxysmal atrial fibrillation Pharyngeal edema Pneumonia Pneumonia Surgical History H/O arthroscopic knee surgery H/O colonoscopy "04/2005-diverticulae" H/O nasal polypectomy S/P laparoscopic cholecystectomy S/P tonsillectomy Status post Mohs surgery Family History Other Family history non-contributory Social History Smoking Status: Never smoker Hx Alcohol Use: No Hx Substance Use: No Preferred Language: Iraqi Beliefs That Will Affect Care: None Current Living Situation: Significant Other Feels Safe at Home: Yes Review of Systems Review of Systems: All systems reviewed & are unremarkable except as noted in HPI & below Physical Exam Physical Exam: Physical Exam: Constitutional: appearance nourished, healthy and normal Ears, Nose, Mouth and Throat: mucous membranes moist, no injection and skin normal, eyes normal Cardiovascular: normal S-1 and S-2 and regular rate and rhythm Respiratory: course breath sounds Musculoskeletal: no peripheral edema and good distal pulses Skin: no stigmata of neurocutaneous disease noted and normal and intact Eyes: extraocular muscles intact (EOMI) and pupils equal, round and reactive to light (PERRL) NEUROLOGIC EXAMINATION: Mental status: Alert and interactive Oriented to full date and location Oriented to person Speech subtle aphasia Cranial Nerves smile eye brow raise symmetric, left sided flattening of nasolabial fold Reflexes: Deep tendon reflexes were symmetrical and graded 2/5. Sensory: no sensory deficits, light cool touch, vibration, GT proprioception intact Coordination: finger to nose Gait/Stance: Posture normal. Gait normal: with steady with steps, base, turning, and tandem narrow gait. Motor: Negative for pronator drift of out stretched arms with eyes closed. Strength: hand infection prevention specialist biceps triceps 5/5/ bilaterally, hip flex plantar flex ext Results & Data ([facility]) Vital Signs (Past 12 Hours) Vital Signs Temp Pulse Pulse Resp BP BP Pulse Ox 04/03/21 14:00 64 21 149/71 H 04/03/21 13:30 61 17 161/79 H 04/03/21 13:00 63 62 24 158/79 H 158/79 H 93 04/03/21 12:30 60 17 138/80 92 04/03/21 12:09 94 04/03/21 11:30 65 19 92 04/03/21 11:00 60 21 133/81 93 04/03/21 10:33 65 22 04/03/21 10:13 36.8 C 85 16 112/72 94 Laboratory Results Abnormal lab results 04/03/21 04/03/21 04/03/21 Range/Units 10:50 10:50 13:00 WBC 12.77 H (4.8-10.8) K/uL RBC 4.35 L (4.7-6.1) M/uL Hgb 12.8 L (14.0-18.0) g/dL Hct 36.9 L (42-52) % Neut # (Auto) 8.88 H (1.4-6.5) K/uL Ellis # (Auto) 1.64 H (0.11-0.59) K/uL Immature Gran # (Auto) 0.08 H (0.00-0.02) K/uL Sodium 131 L (136-145) mmol/L BUN 25 H (7-18) mg/dl Creatinine 1.77 H (0.6-1.4) mg/dl Glucose 169 H (70-99) mg/dl Magnesium 1.6 L (1.8-2.4) mg/dl Total Bilirubin 1.4 H (0.2-1) mg/dl AST 11 L (15-37) U/L Albumin 3.1 L (3.4-5.0) gm/dl Globulin 4.4 H (2.5-4.0) gm/dl Albumin/Globulin Ratio 0.7 L (0.9-2) Ur Specific [place] > 1.045 H (1.000-1.030) Urine Protein 2+ H (Negative) Urine Ketones Trace H (Negative) U Epithel Cells (Auto) 10-20 H (0-5) /lpf Urine Mucus Present A (None Prsent) Diagnostic Findings CT head-No acute intracerebral pathology. Mild cerebral cortical atrophy and remote small vessel disease. CTA head/neck-There is no evidence of hemorrhage, mass effect, or acute territorial ischemia noting angiographic phase technique. 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 This is unchanged from previous. Otherwise unremarkable CT angiogram of the neck. There is stenosis of the supraclinoid internal carotid arteries, unchanged from previous. There is focal high-grade stenosis of the M2 segment of the left middle cerebral artery, also likely unchanged. . The remaining intracranial vessels are patent. CXR -No acute cardiopulmonary disease.
--- NOTE | 2021-04-03 18:07 | Magnetic Resonance Report ---
MR brain wo con CLINICAL HISTORY: stroke symptoms TECHNIQUE: Multiplanar and multisequence MR images of the brain were obtained without intravenous con trast. Comparison: Comparison is made to MRI brain 10/12/2020 FINDINGS: No abnormal restricted diffusion is identified. Foci of T2 and FLAIR hyperintensity are noted in the paraventricular areas consistent with chronic small vessel ischemic disease. Ex vacuo ventriculomegal y and sulcal enlargement is noted compatible with diffuse encephalomalacia. Hemorrhage No extra axial fluid collections are seen. There are no masses, mass effect, or midline shift. The corpus callosum , pituitary gland, and cerebellar tonsils appear grossly unremarkable. Flow voids of the major intracranial arterial vessels are identified. The imaged portions of the para nasal sinuses, mastoid air cells, and orbits are unremarkable. IMPRESSION: No acute abnormalities. ACT 112: Negative or not required by law. Electronically signed by: Skinny Valdes M.D. 04/03/2021 6:06 PM
[2021-04-03] MEDS: SODIUM CHLORIDE 0.9% 1000ML 1,000 ML IV SCH (18:37)
[2021-04-03] MEDS: INSULIN ASPART 100 UNITS/ML 3 ML PEN SC SCH ×2 (18:38→21:49)
[2021-04-03] MEDS ORDERED: KETOROLAC LS 0.4% OP SOLN 5 ML BTL OPL SCH (21:00)
[2021-04-03] MEDS: dilTIAZem HCL 180 MG CAPCR PO SCH (21:48)
[2021-04-03] MEDS: CHOLECALCIFEROL 1,000 UNITS 25 MCG TAB PO SCH (21:48)
[2021-04-03] MEDS: CEFEPIME 2,000 MG in SYRINGE 0 ML IV SCH (21:48)
[2021-04-03] MEDS: HEPARIN SOD 5,000 UNIT/0.5 ML VIAL SQ SCH (21:49)
[2021-04-03] MEDS: TAMSULOSIN HCL 0.4 MG CAP PO SCH (21:49)
[2021-04-03] MEDS ORDERED: ZOLPIDEM TARTRATE 5 MG TAB PO PRN (23:24)
[2021-04-04] MEDS: SODIUM CHLORIDE 0.9% 1000ML 1,000 ML IV SCH (05:26)
[2021-04-04] MEDS: INSULIN ASPART 100 UNITS/ML 3 ML PEN SC SCH ×4 (08:00→21:00)
[2021-04-04 08:24] LABS: Basophils # (auto) 0.04 K/uL (0-0.2); Basophils % (auto) 0.4 %; Eosinophils # (auto) 0.22 K/uL (0-0.5); Eosinophils % (auto) 2.2 %; Hematocrit (blood only) 35.9 % (42-52); Hemoglobin 12.5 g/dL (14.0-18.0); Immature Granulocytes # (auto) 0.08 K/uL (0.00-0.02); Immature Granulocytes % (auto) 0.8 %; Lymphocytes # (auto) 1.81 K/uL (1.2-3.4); Lymphocytes % (auto) 18.3 %; Mean Corpuscular Hemoglobin 29.5 pg (25-34); Mean Corpuscular Hgb Conc 34.8 g/dL (32-36); Mean Corpuscular Volume 84.7 fL (80-100); Mean Platelet Volume 8.8 fL (7.4-10.4); Monocytes # (auto) 1.26 K/uL (0.11-0.59); Monocytes % (auto) 12.8 %; Neutrophils # (auto) 6.47 K/uL (1.4-6.5); Neutrophils % (auto) 65.5 %; Platelet Count 327 K/uL (130-400); RDW Coefficient of Variation 14.5 % (11.5-14.5); RDW Standard Deviation 44.8 fL (36.4-46.3); Red Blood Count 4.24 M/uL (4.7-6.1); White Blood Count 9.88 K/uL (4.8-10.8)
[2021-04-04 08:40] LABS: BUN Creatinine Ratio 14.1 (10-20); Calcium 8.5 mg/dl (8.5-10.1); Creatinine Clr Calc Pharmacy 38.5 ml/min; Est GFR (African American) 55.4 ml/min; Est GFR (Non-African American) 47.8 ml/min; Magnesium 1.9 mg/dl (1.8-2.4); Potassium 3.9 mmol/L (3.5-5.1)
[2021-04-04] MEDS: CYANOCOBALAMIN 500 MCG TABLET (VITAMIN B-12) PO SCH (08:44)
[2021-04-04] MEDS: ISOSORBIDE MONO EXTENDED REL 30 MG TABCR PO SCH (08:44)
[2021-04-04] MEDS: ASPIRIN 81 MG ECTAB PO SCH (08:44)
[2021-04-04] MEDS: LOSARTAN POTASSIUM 25 MG TAB PO SCH (08:44)
[2021-04-04] MEDS: CLOPIDOGREL BISULFATE 75 MG TAB PO SCH (08:44)
[2021-04-04] MEDS: PANTOprazole 40 MG TAB PO SCH (08:44)
[2021-04-04] MEDS: HEPARIN SOD 5,000 UNIT/0.5 ML VIAL SQ SCH ×2 (08:48→20:42)
[2021-04-04 10:06] LABS: Estimated Average Glucose 180 mg/dl; Hemoglobin A1C 7.9 % (4.5-5.6)
--- NOTE | 2021-04-04 10:32 | Progress Notes ---
DATE OF SERVICE: 04/04/2021. SUBJECTIVE: I am seeing Mr. Mayers in followup of increased weakness. He is feeling better today. MRI of the brain shows no acute infarction. There is ex vacuo ventriculomegaly and sulcal enlargem ent with this diffuse encephalomalacia. No acute abnormality is noted. The patient feels improved t oswald. OBJECTIVE: On exam, he is awake and alert and oriented x3, no right/left confusion. Blood pressure 135/80, pulse 83, temperature 38, O2 sat 96%. There is mild dysarthria, mild flattening of the left nasolabial fold. Left upper extremity is about 4 distally, 3 proximally secondary to shoulder pathol ogy. Left lower extremity is 4. IMPRESSION AND PLAN: 1. Increased weakness related to dehydration and infection. No evidence of a new central nervous sy stem event. 2. A 2.5-mm saccular aneurysm from the distal cervical portion of the left vertebral artery, unchang ed compared to prior. The patient indicates he is not aware of that finding. Recommend that he be r eferred to Vascular Neurosurgery for one time evaluation as an outpatient. 3. Stenosis of the supraclinoid internal carotid arteries, unchanged from previous. Recommend ongoi ng risk factor modification antiplatelet therapy. 4. M2 segment stenosis of the left MCA as above. We will sign off. Job ID: [id number]
[2021-04-04] MEDS: CEFEPIME 2,000 MG in SYRINGE 0 ML IV SCH ×2 (10:42→20:42)
[2021-04-04] MEDS: [UNRECOGNIZED DRUG - OTHER] SCH ×4 (11:17→23:59)
--- NOTE | 2021-04-04 18:30 | Hospitalist Progress Note ---
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 In ER patient afebrile, vitals stable. WBC: 12, lactate WNL, negative troponin History of CVA with residual left-sided weakness R/O TIA vs acute CVA CTA head and neck: No acute findings. 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 Focal high-grade stenosis of M2 segment of the left middle cerebral artery also likely unchanged. MRI brain Echo Continue aspirin, Plavix, Crestor May need to consider increasing crestor Neurology consult 04/04/2021 Brain MRI: No acute CVA noted Neurologist consulted-acute CVA unlikely Continue aspirin and Plavix, Crestor PT OT evaluation: Recommending 24-hour care (2) Leukocytosis: Plan: Reported temperature of 100.3 F 3 days ago. No recurrent fever. Is afebrile in ER. WBC: 12. Lactate WNL. Chest x-ray without signs of pneumonia. UA unremarkable. Did complain of posterior headache however reports is improving today. No meningitis signs on exam In ER given cefepime We will continue cefepime empirically for now Gentle IVF 04/04/2021 Afebrile, leukocytosis resolved No clear focus of infection at this point Continue cefepime, discontinue if afebrile for the next 24 hours PAUL on CKD stage III creatinine 1.7. Baseline creatinine of 1.3 Gentle IVF--improved to 1.3 Monitor renal functions (3) Hypomagnesemia: Plan: Magnesium: 1.6 Was given magnesium sulfate in ER Resolved Hyponatremia Sodium 131 Improved to 137 DM type II Hold home meds Basal bolus insulin per protocol Hypertension Continue losartan, Imdur, diltiazem Paroxysmal atrial tachycardia Continue diltiazem DVT prophylaxis SQ heparin DNR/DNI as per discussion with pt Follows with Dr Nation for routine care Disposition Anticipate discharge to home when medically stable Admission and Anticipated Discharge Date Admission Date: April 03, 2021 Subjective Follow-up for strokelike symptoms, leukocytosis, elevated creatinine, etc. Seen resting in bed, comfortable, not in distress, awake and alert, oriented x3 States he feels improved today compared to yesterday Thinking more clearly, speech is improving, left-sided weakness improving according to patient No headache, dizziness, chest pain, shortness of breath, palpitations No fevers or chills, abdominal pain, nausea vomiting, problems with urination or bowel movement No other symptoms Review of Systems Review of Systems: all noted and negative except for above Physical Exam Physical Exam: General- oriented x 2, not in distress, speaks in sentences with no effort or accessory muscle use Eyes- anicteric Neck- no JVD Lungs- clear breath sounds bilaterally, no rales/wheezes Heart- normal rate, regular rhythm; no murmurs Abdomen- normal bowel sounds, nondistended, soft, nontender Extremities- no pretibial edema, no calf tenderness Neuro- alert, oriented x 3; 2-12 grossly intact except for mild left-sided facial droop, motor strength 5 5 in the right, 4/5 on left No other gross focal neurologic deficits Skin- warm & dry Results & Data Results & Data ([facility]) Vital Signs (Past 12 Hours) Vital Signs Temp Pulse Pulse Resp BP Pulse Ox 04/04/21 16:12 64 04/04/21 16:02 92 04/04/21 15:34 36.3 C L 60 18 124/68 93 04/04/21 13:13 36.3 C L 93 H 18 100/65 91 04/04/21 08:41 38.0 C H 83 16 135/80 96 all noted and reviewed including below (1) Leukocytosis Leukocytosis type: unspecified Qualified Code(s): D72.829 - Elevated white blood cell count, unspecified
[2021-04-04] MEDS: TAMSULOSIN HCL 0.4 MG CAP PO SCH (20:41)
[2021-04-04] MEDS: dilTIAZem HCL 180 MG CAPCR PO SCH (20:42)
[2021-04-04] MEDS: CHOLECALCIFEROL 1,000 UNITS 25 MCG TAB PO SCH (20:42)
[2021-04-05] MEDS: [UNRECOGNIZED DRUG - OTHER] SCH (08:13)
[2021-04-05] MEDS: CYANOCOBALAMIN 500 MCG TABLET (VITAMIN B-12) PO SCH (08:14)
[2021-04-05] MEDS: ASPIRIN 81 MG ECTAB PO SCH (08:14)
[2021-04-05] MEDS: LOSARTAN POTASSIUM 25 MG TAB PO SCH (08:14)
[2021-04-05] MEDS: ISOSORBIDE MONO EXTENDED REL 30 MG TABCR PO SCH (08:14)
[2021-04-05] MEDS: CLOPIDOGREL BISULFATE 75 MG TAB PO SCH (08:14)
[2021-04-05] MEDS: PANTOprazole 40 MG TAB PO SCH (08:14)
[2021-04-05] MEDS: HEPARIN SOD 5,000 UNIT/0.5 ML VIAL SQ SCH (08:15)
[2021-04-05] MEDS: INSULIN ASPART 100 UNITS/ML 3 ML PEN SC SCH ×2 (08:17→11:55)
[2021-04-05] MEDS: CEFEPIME 2,000 MG in SYRINGE 0 ML IV SCH (10:31)
[2021-04-05] MEDS ORDERED: STROKE PATIENT DISCHARGE STA (12:13)
--- NOTE | 2021-04-05 13:10 | Hospitalist Progress Note ---
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 In ER patient afebrile, vitals stable. WBC: 12, lactate WNL, negative troponin History of CVA with residual left-sided weakness R/O TIA vs acute CVA CTA head and neck: No acute findings. 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 Focal high-grade stenosis of M2 segment of the left middle cerebral artery also likely unchanged. MRI brain Echo Continue aspirin, Plavix, Crestor May need to consider increasing crestor Neurology consult 04/05/2021 Clinically much improved Brain MRI: No acute CVA noted Neurologist consulted-acute CVA unlikely Continue aspirin and Plavix, Crestor PT OT evaluation: Recommending 24-hour care (2) Leukocytosis: Plan: Reported temperature of 100.3 F 3 days ago. No recurrent fever. Is afebrile in ER. WBC: 12. Lactate WNL. Chest x-ray without signs of pneumonia. UA unremarkable. Did complain of posterior headache however reports is improving today. No meningitis signs on exam In ER given cefepime We will continue cefepime empirically for now Gentle IVF 04/05/2021 Remained afebrile, leukocytosis resolved No signs and symptoms of infection at this point Given cefepime IV x2 days PAUL on CKD stage III creatinine 1.7. Baseline creatinine of 1.3 Gentle IVF--improved to 1.3 Advised to stay well-hydrated Repeat BMP as outpatient and follow-up with PCP (3) Hypomagnesemia: Plan: Magnesium: 1.6 Was given magnesium sulfate in ER Resolved Hyponatremia Sodium 131 Improved to 137 DM type II Hold home meds Basal bolus insulin per protocol Hypertension Continue losartan, Imdur, diltiazem Paroxysmal atrial tachycardia Continue diltiazem DVT prophylaxis SQ heparin given DNR/DNI as per discussion with pt Follows with Dr Nation for routine care Disposition Follow-up with PCP in 1 week Admission and Anticipated Discharge Date Admission Date: April 03, 2021 Subjective Follow-up for strokelike symptoms, weakness, dehydration, etc. Seen resting in bedside chair, sitting up, comfortable, in good spirits, bright, alert Answers all questions appropriately States he feels much better overall States he almost back to his normal baseline level Thinking much clearly, speech is back to baseline, left-sided weakness also resolved Ambulating with no problems no chest pain, dyspnea, palpitations, dizziness Denies other symptoms States he is ready and would like to be discharged today Review of Systems Review of Systems: all noted and negative except for above Physical Exam Physical Exam: General- oriented x 3, not in distress, speaks in sentences with no effort or accessory muscle use Eyes- anicteric Neck- no JVD Lungs- clear breath sounds, no crackles or wheezing bilaterally Heart- normal rate, regular rhythm; no murmurs Abdomen- normal bowel sounds, nondistended, soft, nontender Extremities- no pretibial edema, no calf tenderness Neuro- alert, oriented x 3; no new gross focal neurologic deficits Skin- warm & dry Results & Data Results & Data ([facility]) Vital Signs (Past 12 Hours) Vital Signs Temp Pulse Resp BP Pulse Ox 04/05/21 12:53 36.4 C L 94 H 18 107/69 93 04/05/21 12:26 36.3 C L 70 18 168/82 H 94 04/05/21 07:39 36.3 C L 70 18 168/82 H 94 04/05/21 03:33 36.8 C 71 18 122/51 L 95 all noted and reviewed including below
--- NOTE | 2021-04-05 13:20 | Discharge Summary ---
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 History obtained from patient and patient's significant other. Significant other reports middle the night Tuesday heard patient fall and she found him laying in [place]. Was unable to get patient up for several hours. Patient reports he does not remember fall. He states the past couple days he has been having trouble thinking and remembering things. He also complains of posterior headache and has been feeling dizzy. He is unsure if he has been having any visual disturbance. Also reports some slurred speech. Significant other reports sometimes patient seems like he has slurred speech and sometimes he does not. She does not feel slurred speech is his baseline. Also noted some drooping of the left side of mouth. Patient had temperature of 100.3F 3 days ago and has not had any further fever. Patient reports cough at baseline and denies any increased cough. Denies shortness of breath, chest pain. Reports vomited once Tuesday no further vomiting. He denies any nausea or diarrhea or abdominal pain. Patient feels more weak than his baseline. He reports he has chronic drooping of left eyelid and has been following with ophthalmology. Denies diaphoresis, neck stiffness, CP, SOB, orthopnea, palpitations, sore throat, choking, otalgia, rhinorrhea, abdominal pain, paresthesias, extremity edema, rashes, urinary symptoms. In ER patient afebrile, vitals stable. WBC: 12, lactate NL, negative troponin CTA head and neck: No acute findings. 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 Focal high-grade stenosis of M2 segment of the left middle cerebral artery also likely unchanged. Admission Exam (Per Admitting) Constitutional General: no acute distress, WDWN Head: normocephalic, atraumatic Eyes: left pupil 4mm, right pupil 3mm, reactive to light, EOM's intact, left eyelid noted to be closed most of exam, conjunctiva non-injected, anicteric ENT: hard of hearing, normal inspection external ears, nose, mucous membranes moist Neck: supple, trachea midline, non-tender Lungs: clear, no respiratory distress, no wheezing/rhonchi/rales CV: RRR, no murmur, no JVD, no pretibial edema Abd: normal BS, soft, non-tender Ext: no cyanosis, no calf tenderness Neuro: A&O x 3, normal affect. No nystagmus.Facial sensation is intact and symmetric. +slight drooping left side of mouth, soft palate elevates symmetrically, +mild slurred speech, shoulder shrug intact, tongue is midline, normal movement, no fasciculations. Left arm and leg 4/5 strength compared to 5/5 right arm and leg Skin: warm, dry Discharge Data Consultations 04/03/21 13:01 ED Decision to Admit Stat 04/03/21 15:32 Consult Neurology Routine Procedures Performed MR brain wo con CLINICAL HISTORY: stroke symptoms TECHNIQUE: Multiplanar and multisequence MR images of the brain were obtained without intravenous contrast. Comparison: Comparison is made to MRI brain 10/12/2020 FINDINGS: No abnormal restricted diffusion is identified. Foci of T2 and FLAIR hyperintensity are noted in the paraventricular areas consistent with chronic small vessel ischemic disease. Ex vacuo ventriculomegaly and sulcal enlargement is noted compatible with diffuse encephalomalacia. Hemorrhage No extra axial fluid collections are seen. There are no masses, mass effect, or midline shift. The corpus callosum, pituitary gland, and cerebellar tonsils appear grossly unremarkable. Flow voids of the major intracranial arterial vessels are identified. The imaged portions of the paranasal sinuses, mastoid air cells, and orbits are unremarkable. IMPRESSION: No acute abnormalities. ACT 112: Negative or not required by law. Electronically signed by: Skinny Valdes M.D. 04/03/2021 6:[address] ANGIOGRAM OF THE BRAIN; CT ANGIOGRAM OF THE NECK CLINICAL HISTORY: Strokelike symptoms. COMPARISON STUDY: Unenhanced CT of the brain performed concurrently on 04/03/2021. CT angiogram of the head and neck dated 10/12/2020. TECHNIQUE: Following the IV administration of 120 of Optiray 320, CT angiogram of the head and neck was performed from the aortic arch to the vertex. Images are reviewed in the axial, sagittal, and coronal planes. 3-D MIPS images are created and assessed. IV contrast was administered without complication. All measurements were calculated based on NASCET criteria. A dose lowering technique was utilized adhering to the principles of ALARA. CT DOSE: 1077.57 mGy.cm FINDINGS: Brain parenchyma: There is age-related involutional change noting moderate subcortical and periventricular microangiopathic disease. There is no evidence of hemorrhage, mass effect, or acute territorial ischemia noting angiographic phase technique. There is no evidence of enhancing mass lesion on the angiogram phase images. The ventricles, sulci, and cisterns are prominent secondary to involutional change. Jefferson-white matter differentiation is preserved. No extra- axial fluid collection is seen. Thoracic aorta: There is atherosclerotic calcification of the thoracic aorta. Visualized portions of the thoracic aorta are normal in caliber. The aortic arch demonstrates standard 3-vessel anatomy. Right carotid arterial system: The right common carotid artery is widely patent, as are the right internal and external carotid arteries. Calcified plaque is noted in the carotid bulb. There is tortuosity of the mid internal carotid artery. Left carotid arterial system: The left common carotid artery is widely patent, as are the left internal and external carotid arteries. Calcified plaque is noted in the carotid bulb. Vertebral arteries: The vertebral arteries are widely patent bilaterally and codominant. 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 This measures up to 2.5 mm and is located at the level of C2. Subclavian arteries: Widely patent bilaterally. Intracranial vasculature: There is evidence carotid calcification of the cavernous carotid and vertebral arteries. The internal carotid arteries are patent at the skull base, as are the anterior and middle cerebral arteries bilaterally. There is stenosis of the supraclinoid internal carotid arteries, moderate on the right and mild on the left. Atherosclerotic irregularity seen throughout the middle cerebral arteries. There is focal high-grade stenosis of the M2 segment of the left middle cerebral artery, best seen on coronal image #29. The vertebrobasilar system and posterior cerebral arteries are widely patent. The vertebral arteries are codominant. There is no aneurysm or focal vessel cut off seen throughout the intracranial circulation. Jugular veins: Patent bilaterally. Dural sinuses: Patent. Lung apices: Partially visualized upper lobe lung parenchyma appears clear. Soft tissues: The visualized pharyngeal soft tissues are normal in appearance noting angiographic phase technique. The oropharyngeal airway appears widely patent. The thyroid gland is normal in size and heterogeneous in attenuation. The salivary glands are normal in appearance. No cervical lymphadenopathy is seen. Skeletal structures: The skeletal structures are osteopenic. The calvarium appears intact. The cervical spine is maintained noting multilevel spondylosis. No lytic or blastic lesion is seen. Orbits: The bony orbits are intact. Orbital contents are normal as visualized noting bilateral ocular lens implants. Sinuses and mastoids: The paranasal sinuses are clear. The mastoid air cells are well pneumatized. IMPRESSION: 1. There is no evidence of hemorrhage, mass effect, or acute territorial ischemia noting angiographic phase technique. 2. 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 This is unchanged from previous. 3. Otherwise unremarkable CT angiogram of the neck. 4. There is stenosis of the supraclinoid internal carotid arteries, unchanged from previous. 5. There is focal high-grade stenosis of the M2 segment of the left middle cerebral artery, also likely unchanged. 6. The remaining intracranial vessels are patent. ACT 112: Negative or not required by law. Electronically signed by: Shane Trevizo M.D. 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 In ER patient afebrile, vitals stable. WBC: 12, lactate WNL, negative troponin History of CVA with residual left-sided weakness R/O TIA vs acute CVA CTA head and neck: No acute findings. 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 Focal high-grade stenosis of M2 segment of the left middle cerebral artery also likely unchanged. MRI brain Echo Continue aspirin, Plavix, Crestor May need to consider increasing crestor Neurology consult 04/05/2021 Clinically much improved Brain MRI: No acute CVA noted CT Head and Neck; 2.5-mm saccular aneurysm from the distal cervical portion of the left vertebral artery, unchanged compared to prior. The patient indicates he is not aware of that finding. Stenosis of the supraclinoid internal carotid arteries, unchanged from previous. Neurologist consulted Dr. Thomas-acute CVA unlikely Continue aspirin and Plavix, Mallika Neurologist recommendations: Recommend that he be referred to Vascular Neurosurgery for one time evaluation as an outpatient. Recommend ongoing risk factor modification antiplatelet therapy. PT OT evaluation: Recommending 24-hour care (2) Leukocytosis: Plan: Reported temperature of 100.3 F 3 days ago. No recurrent fever. Is afebrile in ER. WBC: 12. Lactate WNL. Chest x-ray without signs of pneumonia. UA unremarkable. Did complain of posterior headache however reports is improving today. No meningitis signs on exam In ER given cefepime We will continue cefepime empirically for now Gentle IVF 04/05/2021 Remained afebrile, leukocytosis resolved No signs and symptoms of infection at this point Given cefepime IV x2 days PAUL on CKD stage III creatinine 1.7. Baseline creatinine of 1.3 Gentle IVF--improved to 1.3 Advised to stay well-hydrated Repeat BMP as outpatient and follow-up with PCP (3) Hypomagnesemia: Plan: Magnesium: 1.6 Was given magnesium sulfate in ER Resolved Hyponatremia Sodium 131 Improved to 137 DM type II Hold home meds Basal bolus insulin per protocol Hypertension Continue losartan, Imdur, diltiazem Paroxysmal atrial tachycardia Continue diltiazem DVT prophylaxis SQ heparin given DNR/DNI as per discussion with pt Follows with Dr Nation for routine care Disposition Follow-up with PCP in 1 week (2) Leukocytosis: Reported temperature of 100.3 F 3 days ago. No recurrent fever. Is afebrile in ER. WBC: 12. Lactate WNL. Chest x-ray without signs of pneumonia. UA unremarkable. Did complain of posterior headache however reports is improving today. No meningitis signs on exam In ER given cefepime We will continue cefepime empirically for now Gentle IVF
[2021-04-06] MEDS ORDERED: ROSUVASTATIN CALCIUM 5 MG TAB PO SCH (09:00)
== END 2021-04-05 14:02 | disposition home or self-care (01) | DRG 92 ==
LOC: ED 10:06 → EDINP 14:01 → 2S 15:30
DX: Z66 Do not resuscitate; Z20.822 Contact with and (suspected) exposure to COVID-19; N18.30 Chronic kidney disease, stage 3 unspecified; Z88.8 Allergy status to other drugs, medicaments and biological substances; Z79.899 Other long term (current) drug therapy; E11.22 Type 2 diabetes mellitus with diabetic chronic kidney disease; I48.91 Unspecified atrial fibrillation; R29.818 Other symptoms and signs involving the nervous system; I72.6 Aneurysm of vertebral artery; D72.829 Elevated white blood cell count, unspecified; I12.9 Hypertensive chronic kidney disease with stage 1 through stage 4 chronic kidney disease, or unspecified chronic kidney disease; E87.1 Hypo-osmolality and hyponatremia; R47.81 Slurred speech; R51.9 Headache, unspecified; Z79.02 Long term (current) use of antithrombotics/antiplatelets; E86.0 Dehydration; Z91.048 Other nonmedicinal substance allergy status; R53.1 Weakness; N17.9 Acute kidney failure, unspecified; Z91.81 History of falling; Z79.84 Long term (current) use of oral hypoglycemic drugs; Z91.018 Allergy to other foods; I66.02 Occlusion and stenosis of left middle cerebral artery; I69.354 Hemiplegia and hemiparesis following cerebral infarction affecting left non-dominant side; E83.42 Hypomagnesemia; I65.29 Occlusion and stenosis of unspecified carotid artery; R29.810 Facial weakness; Z79.82 Long term (current) use of aspirin

== ENCOUNTER 2021-04-27 11:52 | Inpatient (IN) ==
[2021-04-27] MEDS ORDERED: SODIUM CHLORIDE 0.9% 500 ML IV SCH (12:15)
--- NOTE | 2021-04-27 12:25 | Emergency Department Note ---
Impression & Plan Weakness, Slurred speech, Acute dehydration, History of CVA (cerebrovascular accident) ED Provider Note NAME: JERE BOOKER AGE: 81 SEX: M : 1940 ARRIVES VIA: Walk-In INFORMANT: [Patient][family] ED PROVIDER(S): [Shane Reyna MD] CHIEF COMPLAINT: Weakness HISTORY OF PRESENT ILLNESS: The patient has had progressive weakness for the last 3 days. This morning, he was so weak he could not get out of bed. He has a history of previous CVA with some residual left-sided deficits. He always has a bit of a speech slur. His speech has worsened and his weakness in general has worsened. He has had a slight increase in cough. No fever. Some mild shortness of breath. No vomiting or diarrhea, no abdominal pain or chest pain. There has been no fall. He does not have a headache. The patient is vaccinated against COVID-19 and influenza. No recent sick cont acts. The patient did feel some heartburn last night when he was trying to sleep. REVIEW OF SYSTEMS: See HPI for pertinent positives and negatives. A total of ten systems were reviewed and were otherwise negative. PMHx/PSHx: See Below SOCIAL HISTORY: See Below. PHYSICAL EXAM: GENERAL: Patient is in no acute distress. HEENT: No acute trauma, normocephalic atraumatic, mucous membranes dry, no nasal congestion, no scleral icterus. NECK: No stridor, no adenopathy, no meningismus, trachea is midline. LUNGS: Clear to auscultation bilaterally when listening anterior, no wheeze, no rhonchi, breath sounds equal. HEART: Subtle systolic murmur, regular rate and rhythm. ABDOMEN: Soft, nontender, bowel sounds positive, no hernias, no peritonitis. EXTREMITIES: No cyanosis or edema, full range of motion of all the joints without pain or difficulty, no signs for acute trauma. NEUROLOGIC: Oriented x 3. There is some weakness in the left arm and left leg. There is a speech slur noted, no facial droop. SKIN: No rash, no jaundice, no diaphoresis. DIFFERENTIAL DIAGNOSIS: Infection, dehydration, metabolic abnormality, hypo/hyperglycemia, COVID-19, influenza, electrolyte disturbance, anemia, hypoxia, cardiac sources, intracerebral event, toxicologic issues, stroke, TIA, as well as other pathologies. EMERGENCY DEPARTMENT COURSE/PROCEDURES: ECG: Indication was weakness. The ECG shows a sinus bradycardia with a first-degree AV block. The rate is 56. There is a right bundle branch block. There is some baseline artifact. No ST elevation, no PVCs. The QTc is 472. Compared to an ECG from 03 April 2021, I see no significant change. Continuous Cardiac Monitoring: An order was placed for continuous cardiac monitoring. The monitor shows a rate of 68 with sinus rhythm with a first-degree AV block. Critical Care Note: I have personally spent 39 minutes of critical care time in the direct management of this patient. This includes bedside care, interpretation of diagnostic studies, and testing, discussion with consultants, patient, and family members, and other required patient management activities. This 39 minutes is in excess of all separately billable procedures. MEDICAL DECISION MAKING: There is no leukocytosis. A mild anemia was noted. The anemia is baseline when looking back at previous testing. There was a normal platelet count. No kidney failure. Lactic acid level was not elevated making sepsis less likely. Magnesium somewhat low at 1.6. No worrisome liver enzyme elevation. Ammonia level was not elevated. The patient appeared to be in a euthyroid state. ECG showed a sinus bradycardia, no obvious ischemia. Cardiac enzyme testing x1 was not consistent with acute cardiac injury. Urinalysis did not show infection. Covid, influenza and RSV testing was negative. Chest x-ray did not show pneum onia or CHF. Brain CT showed some older changes, no acute bleed or mass-effect. On exam, the patient appeared clinically dehydrated. There was some speech slur and he was clearly weak on the left. Patient received IV saline, 1 L in total. He was given IV magnesium. The patient presents as a potential stroke. He was out of the window for TPA as his symptoms have been ongoing for several days. I do think the patient requires further work-up. He is in no condition for discharge home. Certainly a small CVA not seen on CT scan is a possibility. I spoke with the patient and behavioral health case manager. The on-call hospitalist was consulted. Past Med/Surg History Medical History GRISELDA inhibitor-aggravated angioedema PAUL (acute kidney injury) CKD (chronic kidney disease), stage III Diverticulosis of colon DM type 2 (diabetes mellitus, type 2) Dyslipidemia GERD (gastroesophageal reflux disease) GI bleed H/O hemorrhoids Hiatal hernia History of basal cell carcinoma History of Helicobacter pylori infection History of right bundle branch block (RBBB) Hypertension Hypothyroid Hypoxia Iliac artery aneurysm Localized osteoarthritis of right knee Paroxysmal atrial fibrillation Pharyngeal edema Pneumonia Pneumonia Surgical History H/O arthroscopic knee surgery H/O colonoscopy "04/2005-diverticulae" H/O nasal polypectomy S/P laparoscopic cholecystectomy S/P tonsillectomy Status post Mohs surgery Family History Other Diabetes Heart disease Hypertension Social History Smoking Status: Never smoker Hx Alcohol Use: Yes Alcohol type: beer and wine Hx Substance Use: No Preferred Language: Malian Communication Ability: Effective Home Health Outreach Coordinator Required: No Beliefs That Will Affect Care: None Current Living Situation: Significant Other Current Living Situation Comment: Lives with friend Ericka Feels Safe at Home: Yes Assistive Devices: Cane Allergies Allergies Allergy/AdvReac Type Severity Reaction Status Date / Time lisinopril Allergy Severe edema/airwa Verified 04/27/21 13:07 y simvastatin Allergy Mild MUSCLE PAIN Verified 04/27/21 13:07 canagliflozin Allergy Unknown vertigo Verified 04/27/21 13:07 adhesive AdvReac Unknown RASH Verified 04/27/21 13:07 mushroom AdvReac Unknown NAUSEATED Verified 04/27/21 13:07 Home Meds Home Medications Medication Instructions Recorded Confirmed aspirin 81 mg tablet,delayed 81 mg PO QAM 12/28/18 04/27/21 release cholecalciferol (vitamin D3) 25 1,000 unit PO PM 12/28/18 04/27/21 mcg (1,000 unit) capsule clopidogrel 75 mg tablet 75 mg PO QAM 12/28/18 04/27/21 coenzyme Q10 100 mg capsule (Co 100 mg PO PM 12/28/18 04/27/21 Q-10) cyanocobalamin (vitamin B-12) 1,000 mcg PO QAM 12/28/18 04/27/21 1,000 mcg tablet (Vitamin B-12) diltiazem HCl 180 mg 180 mg PO PM 12/28/18 04/27/21 capsule,extended release 24 hr epinephrine 0.3 mg/0.3 mL 0.3 mg IM UD PRN 12/28/18 04/27/21 injection, auto-injector (EpiPen) losartan 25 mg tablet 25 mg PO QAM 12/28/18 04/27/21 metformin 500 mg tablet,extended 500 mg PO UD 12/28/18 04/27/21 release 24 hr omega 7-ohi-drl-fish oil 1,000 mg 1 cap PO PM 12/28/18 04/27/21 (120 mg-180 mg) capsule (Fish Oil) pantoprazole 40 mg tablet,delayed 40 mg PO QAM 12/28/18 04/27/21 release solifenacin 5 mg tablet (Vesicare) 5 mg PO QAM 12/28/18 04/27/21 tamsulosin 0.4 mg capsule 0.4 mg PO PM 12/28/18 04/27/21 rosuvastatin 5 mg tablet 5 mg PO 2XWK 10/12/20 04/27/21 semaglutide (Ozempic) 0.25 mg SUBCUT WK 10/12/20 04/27/21 fluorouracil 5 % topical cream 1 applic TOPICAL UD 04/03/21 04/27/21 isosorbide mononitrate 30 mg 30 mg PO DAILY 04/03/21 04/27/21 tablet,extended release 24 hr ketorolac 0.4 % eye drops 1 drp OPL BID 04/03/21 04/27/21 Results & Data (ED) Vital Signs Vital Signs - 24 hr 04/27/21 11:56 04/27/21 12:38 04/27/21 13:00 Temperature 36.4 C L Temperature Source Temporal Artery Scan Pulse Rate 68 63 Pulse Rate from SpO2 Sensor 59 L Respiratory Rate 20 19 Respiratory Effort / Characteristics Non-Labored Spontaneous Respiratory Depth Normal Respiratory Pattern Regular Blood Pressure 168/84 H Blood Pressure [Right Arm] Blood Pressure Mean 112 Blood Pressure Mean [Right Arm] Blood Pressure Position [Right Arm] Pulse Oximetry 96 94 97 Oxygen Delivery Method Room Air Room Air Sepsis Recent Fever Within 48 Hours No Sepsis New/Unexplained Change in Mental Status No Sepsis Action Taken by Nursing No Action Required 04/27/21 13:30 04/27/21 13:50 04/27/21 14:00 Temperature Temperature Source Pulse Rate 51 L 62 55 L Pulse Rate from SpO2 Sensor 54 L Respiratory Rate 18 23 16 Respiratory Effort / Characteristics Respiratory Depth Respiratory Pattern Blood Pressure 166/83 H Blood Pressure [Right Arm] Blood Pressure Mean 110 Blood Pressure Mean [Right Arm] Blood Pressure Position [Right Arm] Pulse Oximetry 95 99 97 Oxygen Delivery Method Room Air Room Air Sepsis Recent Fever Within 48 Hours Sepsis New/Unexplained Change in Mental Status Sepsis Action Taken by Nursing 04/27/21 14:10 04/27/21 14:20 04/27/21 14:30 Temperature Temperature Source Pulse Rate 53 L 52 L 50 L Pulse Rate from SpO2 Sensor 53 L 53 L Respiratory Rate 13 16 17 Respiratory Effort / Characteristics Respiratory Depth Respiratory Pattern Blood Pressure Blood Pressure [Right Arm] Blood Pressure Mean Blood Pressure Mean [Right Arm] Blood Pressure Position [Right Arm] Pulse Oximetry 97 94 95 Oxygen Delivery Method Room Air Sepsis Recent Fever Within 48 Hours Sepsis New/Unexplained Change in Mental Status Sepsis Action Taken by Nursing 04/27/21 14:40 04/27/21 14:50 04/27/21 15:00 Temperature Temperature Source Pulse Rate 62 57 L 54 L Pulse Rate from SpO2 Sensor 56 L 52 L 54 L Respiratory Rate 19 22 15 Respiratory Effort / Characteristics Respiratory Depth Respiratory Pattern Blood Pressure Blood Pressure [Right Arm] Blood Pressure Mean Blood Pressure Mean [Right Arm] Blood Pressure Position [Right Arm] Pulse Oximetry 95 96 95 Oxygen Delivery Method Sepsis Recent Fever Within 48 Hours Sepsis New/Unexplained Change in Mental Status Sepsis Action Taken by Nursing 04/27/21 15:10 04/27/21 15:20 04/27/21 15:30 Temperature Temperature Source Pulse Rate 63 Pulse Rate from SpO2 Sensor 48 L 50 L 54 L Respiratory Rate 11 L 15 20 Respiratory Effort / Characteristics Respiratory Depth Respiratory Pattern Blood Pressure Blood Pressure [Right Arm] Blood Pressure Mean Blood Pressure Mean [Right Arm] Blood Pressure Position [Right Arm] Pulse Oximetry 93 95 95 Oxygen Delivery Method Sepsis Recent Fever Within 48 Hours Sepsis New/Unexplained Change in Mental Status Sepsis Action Taken by Nursing 04/27/21 15:40 04/27/21 15:50 04/27/21 16:00 Temperature Temperature Source Pulse Rate 0 L Pulse Rate from SpO2 Sensor 64 Respiratory Rate 27 H 23 16 Respiratory Effort / Characteristics Respiratory Depth Respiratory Pattern Blood Pressure Blood Pressure [Right Arm] Blood Pressure Mean Blood Pressure Mean [Right Arm] Blood Pressure Position [Right Arm] Pulse Oximetry 96 Oxygen Delivery Method Sepsis Recent Fever Within 48 Hours Sepsis New/Unexplained Change in Mental Status Sepsis Action Taken by Nursing 04/27/21 16:10 04/27/21 16:21 Temperature Temperature Source Pulse Rate 63 Pulse Rate from SpO2 Sensor 55 L Respiratory Rate 19 18 Respiratory Effort / Characteristics Non-Labored Respiratory Depth Normal Respiratory Pattern Blood Pressure Blood Pressure [Right Arm] 144/83 H Blood Pressure Mean Blood Pressure Mean [Right Arm] 103 Blood Pressure Position [Right Arm] Lying Pulse Oximetry 95 100 Oxygen Delivery Method Room Air Sepsis Recent Fever Within 48 Hours Sepsis New/Unexplained Change in Mental Status Sepsis Action Taken by Jail Medications Current Medication List: was personally reviewed by me Laboratory Data Attestation: I reviewed the patient's lab results. Result diagrams: 04/27/21 12:24 04/27/21 12:24 Lab Results 04/27/21 04/27/21 04/27/21 Range/Units 12:24 12:24 12:24 WBC 10.19 (4.8-10.8) K/uL RBC 4.29 L (4.7-6.1) M/uL Hgb 12.3 L (14.0-18.0) g/dL Hct 37.2 L (42-52) % MCV 86.7 (80-100) fL MCH 28.7 (25-34) pg MCHC 33.1 (32-36) g/dL RDW Std Deviation 47.0 H (36.4-46.3) fL RDW Coeff of Mariya 15.0 H (11.5-14.5) % Plt Count 308 (130-400) K/uL MPV 9.5 (7.4-10.4) fL Immature Gran % (Auto) 0.9 % Neut % (Auto) 65.9 % Lymph % (Auto) 21.0 % Quay % (Auto) 10.0 % Eos % (Auto) 1.8 % Baso % (Auto) 0.4 % Neut # (Auto) 6.72 H (1.4-6.5) K/uL Lymph # (Auto) 2.14 (1.2-3.4) K/uL Quay # (Auto) 1.02 H (0.11-0.59) K/uL Eos # (Auto) 0.18 (0-0.5) K/uL Baso # (Auto) 0.04 (0-0.2) K/uL Immature Gran # (Auto) 0.09 H (0.00-0.02) K/uL Sodium 137 (136-145) mmol/L Potassium 3.7 (3.5-5.1) mmol/L Chloride 107 (98-107) mmol/L Carbon Dioxide 25 (21-32) mmol/L Anion Gap 5.0 (3-11) BUN 17 (7-18) mg/dl Creatinine 1.11 (0.6-1.4) mg/dl Est Cr Clr Drug Dosing Not Reportable Est GFR ( Amer) 70.8 ml/min Est GFR (Non-Af Amer) 61.1 ml/min BUN/Creatinine Ratio 15.6 (10-20) Glucose 157 H (70-99) mg/dl Lactate 1.3 (0.4-2.0) mmol/L Calcium 8.8 (8.5-10.1) mg/dl Phosphorus (2.5-4.9) mg/dl Magnesium 1.6 L (1.8-2.4) mg/dl Total Bilirubin 0.7 (0.2-1) mg/dl AST 7 L (15-37) U/L ALT 16 (12-78) Alkaline Phosphatase 61 (45-117) U/L Ammonia (11-32) umol/L Troponin I < 0.015 (0-0.045) ng/ml Total Protein 7.3 (6.4-8.2) gm/dl Albumin 3.3 L (3.4-5.0) gm/dl Globulin 4.0 (2.5-4.0) gm/dl Albumin/Globulin Ratio 0.8 L (0.9-2) TSH 4.240 (0.300-4.500) uIu/ml Urine Color Urine Appearance (Clear) Urine pH (4.5-7.5) Ur Specific [place] (1.000-1.030) Urine Protein (Negative) Urine Glucose (UA) (Negative) Urine Ketones (Negative) Urine Blood (Negative) Urine Nitrite (Negative) Urine Bilirubin (Negative) Urine Urobilinogen (Negative) Ur Leukocyte Esterase (Negative) Urine WBC (Auto) (0-5) /hpf Urine RBC (Auto) (0-4) /hpf U Hyaline Cast (Auto) (0-5) /lpf U Epithel Cells (Auto) (0-5) /lpf Urine Bacteria (Auto) (Negative) SARS-CoV-2 (PCR) (Negative) Influenza Type A (PCR) (Neg) Influenza Type B (PCR) (Neg) RSV (RT-PCR) (Neg) 04/27/21 04/27/21 04/27/21 Range/Units 12:24 12:38 12:44 WBC (4.8-10.8) K/uL RBC (4.7-6.1) M/uL Hgb (14.0-18.0) g/dL Hct (42-52) % MCV (80-100) fL MCH (25-34) pg MCHC (32-36) g/dL RDW Std Deviation (36.4-46.3) fL RDW Coeff of Mariya (11.5-14.5) % Plt Count (130-400) K/uL MPV (7.4-10.4) fL Immature Gran % (Auto) % Neut % (Auto) % Lymph % (Auto) % Quay % (Auto) % Eos % (Auto) % Baso % (Auto) % Neut # (Auto) (1.4-6.5) K/uL Lymph # (Auto) (1.2-3.4) K/uL Quay # (Auto) (0.11-0.59) K/uL Eos # (Auto) (0-0.5) K/uL Baso # (Auto) (0-0.2) K/uL Immature Gran # (Auto) (0.00-0.02) K/uL Sodium (136-145) mmol/L Potassium (3.5-5.1) mmol/L Chloride (98-107) mmol/L Carbon Dioxide (21-32) mmol/L Anion Gap (3-11) BUN (7-18) mg/dl Creatinine (0.6-1.4) mg/dl Est Cr Clr Drug Dosing Est GFR ( Amer) ml/min Est GFR (Non-Af Amer) ml/min BUN/Creatinine Ratio (10-20) Glucose (70-99) mg/dl Lactate (0.4-2.0) mmol/L Calcium (8.5-10.1) mg/dl Phosphorus 2.8 (2.5-4.9) mg/dl Magnesium (1.8-2.4) mg/dl Total Bilirubin (0.2-1) mg/dl AST (15-37) U/L ALT (12-78) Alkaline Phosphatase (45-117) U/L Ammonia < 10.0 L (11-32) umol/L Troponin I (0-0.045) ng/ml Total Protein (6.4-8.2) gm/dl Albumin (3.4-5.0) gm/dl Globulin (2.5-4.0) gm/dl Albumin/Globulin Ratio (0.9-2) TSH (0.300-4.500) uIu/ml Urine Color Urine Appearance (Clear) Urine pH (4.5-7.5) Ur Specific [place] (1.000-1.030) Urine Protein (Negative) Urine Glucose (UA) (Negative) Urine Ketones (Negative) Urine Blood (Negative) Urine Nitrite (Negative) Urine Bilirubin (Negative) Urine Urobilinogen (Negative) Ur Leukocyte Esterase (Negative) Urine WBC (Auto) (0-5) /hpf Urine RBC (Auto) (0-4) /hpf U Hyaline Cast (Auto) (0-5) /lpf U Epithel Cells (Auto) (0-5) /lpf Urine Bacteria (Auto) (Negative) SARS-CoV-2 (PCR) NEGATIVE (Negative) Influenza Type A (PCR) Negative (Neg) Influenza Type B (PCR) Negative (Neg) RSV (RT-PCR) Negative (Neg) 04/27/21 Range/Units 14:00 WBC (4.8-10.8) K/uL RBC (4.7-6.1) M/uL Hgb (14.0-18.0) g/dL Hct (42-52) % MCV (80-100) fL MCH (25-34) pg MCHC (32-36) g/dL RDW Std Deviation (36.4-46.3) fL RDW Coeff of Mariya (11.5-14.5) % Plt Count (130-400) K/uL MPV (7.4-10.4) fL Immature Gran % (Auto) % Neut % (Auto) % Lymph % (Auto) % Quay % (Auto) % Eos % (Auto) % Baso % (Auto) % Neut # (Auto) (1.4-6.5) K/uL Lymph # (Auto) (1.2-3.4) K/uL Quay # (Auto) (0.11-0.59) K/uL Eos # (Auto) (0-0.5) K/uL Baso # (Auto) (0-0.2) K/uL Immature Gran # (Auto) (0.00-0.02) K/uL Sodium (136-145) mmol/L Potassium (3.5-5.1) mmol/L Chloride (98-107) mmol/L Carbon Dioxide (21-32) mmol/L Anion Gap (3-11) BUN (7-18) mg/dl Creatinine (0.6-1.4) mg/dl Est Cr Clr Drug Dosing Est GFR ( Amer) ml/min Est GFR (Non-Af Amer) ml/min BUN/Creatinine Ratio (10-20) Glucose (70-99) mg/dl Lactate (0.4-2.0) mmol/L Calcium (8.5-10.1) mg/dl Phosphorus (2.5-4.9) mg/dl Magnesium (1.8-2.4) mg/dl Total Bilirubin (0.2-1) mg/dl AST (15-37) U/L ALT (12-78) Alkaline Phosphatase (45-117) U/L Ammonia (11-32) umol/L Troponin I (0-0.045) ng/ml Total Protein (6.4-8.2) gm/dl Albumin (3.4-5.0) gm/dl Globulin (2.5-4.0) gm/dl Albumin/Globulin Ratio (0.9-2) TSH (0.300-4.500) uIu/ml Urine Color Yellow Urine Appearance Clear (Clear) Urine pH 5.0 (4.5-7.5) Ur Specific [place] 1.015 (1.000-1.030) Urine Protein 2+ H (Negative) Urine Glucose (UA) Negative (Negative) Urine Ketones Negative (Negative) Urine Blood Negative (Negative) Urine Nitrite Negative (Negative) Urine Bilirubin Negative (Negative) Urine Urobilinogen Negative (Negative) Ur Leukocyte Esterase Negative (Negative) Urine WBC (Auto) 1-5 (0-5) /hpf Urine RBC (Auto) 0-4 (0-4) /hpf U Hyaline Cast (Auto) 1-5 (0-5) /lpf U Epithel Cells (Auto) 0-5 (0-5) /lpf Urine Bacteria (Auto) Negative (Negative) SARS-CoV-2 (PCR) (Negative) Influenza Type A (PCR) (Neg) Influenza Type B (PCR) (Neg) RSV (RT-PCR) (Neg) Administered Medications Magnesium Sulfate/Dextrose (Magnesium Sulfate / D5w) 1 gm in 100 mls @ 50 mls/hr IV ONE STA Stop: 04/27/21 17:47 Last Admin: 04/27/21 16:03 Dose: 50 mls/hr Documented by: [id number] Discontinued Medications Sodium Chloride (Nss) 500 mls @ 999 mls/hr IV .Q31M RICHARD Stop: 04/27/21 12:45 Last Infusion: 04/27/21 13:33 Dose: 0 mls/hr Documented by: [id number] Admin: 04/27/21 12:58 Dose: 999 mls/hr Documented by: [id number] Magnesium Sulfate/Dextrose (Magnesium Sulfate / D5w) 1 gm in 100 mls @ 100 mls/hr IV NOW STA Stop: 04/27/21 14:03 Last Infusion: 04/27/21 14:29 Dose: 0 mls/hr Documented by: [id number] Admin: 04/27/21 13:16 Dose: 100 mls/hr Documented by: [id number] Sodium Chloride (Nss 1000ml) 500 mls @ 999 mls/hr IV .Q31M ONE Stop: 04/27/21 14:42 Last Infusion: 04/27/21 15:15 Dose: 0 mls/hr Documented by: [id number] Admin: 04/27/21 14:44 Dose: 999 mls/hr Documented by: [id number] Imaging Data Radiologist's Impression: Head CT 04/27/21 12:05 CT head/brain wo con CLINICAL HISTORY: weakness COMPARISON STUDY: 04/03/2021 CT DOSE: 1400.53 mGy.cm TECHNIQUE: Standard CT of the Brain was performed without IV contrast. A dose lowering technique was utilized adhering to the principles of ALARA. FINDINGS: Extraaxial space: There is no evidence for subdural hematoma. There are no extra-axial fluid collections. Ventricles and cisterns: The ventricles are again mildly dilated bilaterally. There is no evidence for midline shift or mass effect. Parenchyma: There is no subarachnoid or intraparenchymal hemorrhage. There is no evidence for an acute infarct or cerebral edema. There is mild cerebral cortical atrophy and decreased attenuation in the periventricular white matter representing remote small vessel disease. There are no gross mass lesions. Osseous structures: There is no evidence for an acute fracture. The visualized paranasal sinuses are clear. The mastoid air cells are clear bilaterally. Soft tissues: There is no evidence for focal soft tissue swelling. IMPRESSION: No acute intracerebral pathology. There is again mild cerebral cortical atrophy and remote small vessel disease. ACT 112: Negative or not required by law. Electronically signed by: Carson Bourne M.D. 04/27/2021 12:56 PM Chest X-Ray 04/27/21 12:06 XR chest 1V portable CLINICAL HISTORY: weakness. Evaluate cardiopulmonary status COMPARISON STUDY: 04/03/2021 TECHNIQUE: 1 view of the chest FINDINGS: Single frontal view of the chest demonstrates the cardiomediastinal silhouette to be within normal limits. The lungs are clear of alveolar opacities. There is no evidence for pleural effusion. There is no evidence for vascular congestion. There is no acute osseous pathology. IMPRESSION: No acute cardiopulmonary disease. ACT 112: Negative or not required by law. Electronically signed by: Carson Bourne M.D. 04/27/2021 12:46 PM Discharge Plan Visit Data Chief Complaint: Stroke/CVA Symptoms Stated Complaint: CAN'T WALK/TALK ED Provider: Shane Reyna Discharge Problem: Weakness, Slurred speech, Acute dehydration, History of CVA (cerebrovascular accident) Patient Disposition: Admitted As Inpatient Condition: Fair Forms Stand Alone Forms: [facility] Prescriptions Prescriptions: No Action diltiazem HCl 180 mg capsule,extended release 24hr 180 mg PO PM RF: 0 cyanocobalamin (vitamin B-12) [Vitamin B-12] 1,000 mcg Tablet 1,000 mcg PO QAM RF: 0 clopidogrel 75 mg tablet 75 mg PO QAM RF: 0 aspirin 81 mg Tablet,Delayed Release (Dr/Ec) 81 mg PO QAM RF: 0 tamsulosin 0.4 mg capsule 0.4 mg PO PM RF: 0 pantoprazole 40 mg tablet,delayed release (DR/EC) 40 mg PO QAM RF: 0 losartan 25 mg tablet 25 mg PO QAM RF: 0 epinephrine [EpiPen] 0.3 mg/0.3 mL Auto-Injector 0.3 mg IM UD PRN (Reason: Allergic Reaction) RF: 0 metformin 500 mg tablet extended release 24 hr 500 mg PO UD RF: 0 cholecalciferol (vitamin D3) 1,000 unit Capsule 1,000 unit PO PM RF: 0 coenzyme Q10 [Co Q-10] 100 mg Capsule 100 mg PO PM RF: 0 solifenacin [Vesicare] 5 mg tablet 5 mg PO QAM RF: 0 omega 0-okt-ssn-fish oil [Fish Oil] 1,000 mg (120 mg-180 mg) Capsule 1 cap PO PM RF: 0 Ozempic 0.25 mg or 0.5 mg(2 mg/1.5 mL) pen injector 0.25 mg SUBCUT WK RF: 0 rosuvastatin 5 mg tablet 5 mg PO 2XWK RF: 0 isosorbide mononitrate 30 mg tablet extended release 24 hr 30 mg PO DAILY RF: 0 fluorouracil 5 % cream 1 applic TOPICAL UD RF: 0 ketorolac 0.4 % drops 1 drp OPL BID RF: 0 Referrals Referrals: Hieu Nation MD [Primary Care Provider] -
[2021-04-27 12:33] LABS: Basophils # (auto) 0.04 K/uL (0-0.2); Basophils % (auto) 0.4 %; Eosinophils # (auto) 0.18 K/uL (0-0.5); Eosinophils % (auto) 1.8 %; Hematocrit (blood only) 37.2 % (42-52); Hemoglobin 12.3 g/dL (14.0-18.0); Immature Granulocytes # (auto) 0.09 K/uL (0.00-0.02); Immature Granulocytes % (auto) 0.9 %; Lymphocytes # (auto) 2.14 K/uL (1.2-3.4); Mean Corpuscular Hemoglobin 28.7 pg (25-34); Mean Corpuscular Hgb Conc 33.1 g/dL (32-36); Mean Corpuscular Volume 86.7 fL (80-100); Mean Platelet Volume 9.5 fL (7.4-10.4); Monocytes # (auto) 1.02 K/uL (0.11-0.59); Neutrophils # (auto) 6.72 K/uL (1.4-6.5); Neutrophils % (auto) 65.9 %; Platelet Count 308 K/uL (130-400); Red Blood Count 4.29 M/uL (4.7-6.1); White Blood Count 10.19 K/uL (4.8-10.8)
--- NOTE | 2021-04-27 12:48 | XRay Report ---
XR chest 1V portable CLINICAL HISTORY: weakness. Evaluate cardiopulmonary status COMPARISON STUDY: 04/03/2021 TECHNIQUE: 1 view of the chest FINDINGS: Single frontal view of the chest demonstrates the cardiomediastinal silhouette to be within normal li mits. The lungs are clear of alveolar opacities. There is no evidence for pleural effusion. There is no evidence for vascular congestion. There is no acute osseous pathology. IMPRESSION: No acute cardiopulmonary disease. ACT 112: Negative or not required by law. Electronically signed by: Carson Bourne M.D. 04/27/2021 12:46 PM
--- NOTE | 2021-04-27 12:58 | CT Scan Report ---
CT head/brain wo con CLINICAL HISTORY: weakness COMPARISON STUDY: 04/03/2021 CT DOSE: 1400.53 mGy.cm TECHNIQUE: Standard CT of the Brain was performed without IV contrast. A dose lowering technique was utilized adhering to the principles of ALARA. FINDINGS: Extraaxial space: There is no evidence for subdural hematoma. There are no extra-axial fluid collecti ons. Ventricles and cisterns: The ventricles are again mildly dilated bilaterally. There is no evidence f or midline shift or mass effect. Parenchyma: There is no subarachnoid or intraparenchymal hemorrhage. There is no evidence for an acu te infarct or cerebral edema. There is mild cerebral cortical atrophy and decreased attenuation in th e periventricular white matter representing remote small vessel disease. There are no gross mass lesi ons. Osseous structures: There is no evidence for an acute fracture. The visualized paranasal sinuses are clear. The mastoid air cells are clear bilaterally. Soft tissues: There is no evidence for focal soft tissue swelling. IMPRESSION: No acute intracerebral pathology. There is again mild cerebral cortical atrophy and remot e small vessel disease. ACT 112: Negative or not required by law. Electronically signed by: Carson Bourne M.D. 04/27/2021 12:56 PM
[2021-04-27 12:59] LABS: Alanine Aminotransferase 16 (12-78); Albumin Level 3.3 gm/dl (3.4-5.0); Aspartate Aminotransferase 7 U/L (15-37); BUN Creatinine Ratio 15.6 (10-20); Blood Urea Nitrogen 17 mg/dl (7-18); Calcium 8.8 mg/dl (8.5-10.1); Carbon Dioxide 25 mmol/L (21-32); Chloride 107 mmol/L (98-107); Est GFR (African American) 70.8 ml/min; Est GFR (Non-African American) 61.1 ml/min; Glucose 157 mg/dl (70-99); Magnesium 1.6 mg/dl (1.8-2.4); Potassium 3.7 mmol/L (3.5-5.1); Sodium 137 mmol/L (136-145)
[2021-04-27] MEDS ORDERED: MAGNESIUM SULFATE / D5W 1 GM/100 ML BAG IV STA ×2 (13:04→15:48)
[2021-04-27 13:10] LABS: Albumin Globulin Ratio 0.8 (0.9-2); Alkaline Phosphatase 61 U/L (45-117); Bilirubin,Total 0.7 mg/dl (0.2-1); Total Protein 7.3 gm/dl (6.4-8.2); Troponin I < 0.015 ng/ml (0-0.045)
[2021-04-27 13:26] LABS: Influenza A virus by PCR Negative (Neg); Influenza B virus by PCR Negative (Neg); RSV by PCR Negative (Neg)
[2021-04-27] MEDS ORDERED: SODIUM CHLORIDE 0.9% 1000ML 500 ML IV ONE (14:12)
[2021-04-27 14:36] LABS: Appearance Urine Clear (Clear); Bacteria Urine Automated Negative (Negative); Bilirubin Urine Negative (Negative); Blood Urine Negative (Negative); Color Urine Yellow; Epithelial Cell Urine Auto 0-5 /lpf (0-5); Glucose Urine UA Negative (Negative); Ketones Urine Negative (Negative); Leukocyte Esterase Urine Negative (Negative); Nitrite Urine Negative (Negative); Protein Urine 2+ (Negative); RBC Urine Automated 0-4 /hpf (0-4); Specific Gravity Urine 1.015 (1.000-1.030); Urobilinogen Urine Negative (Negative)
--- NOTE | 2021-04-27 16:03 | Electrocardiogram Report ---
Test Reason : Blood Pressure : / mmHG Vent. Rate : 056 BPM Atrial Rate : 056 BPM P-R Int : 242 ms QRS Dur : 152 ms QT Int : 490 ms P-R-T Axes : 035 007 022 degrees QTc Int : 472 ms Sinus bradycardia with 1st degree A-V block Right bundle branch block Abnormal ECG When compared with ECG of 03-APR-2021 10:25, HI interval has increased Criteria for Inferior infarct are no longer Present Confirmed by Yo Aggarwal ([id number]) on 04/27/2021 4:02:37 PM Referred By: REFERRED SELF Confirmed By:Yo Aggarwal
--- NOTE | 2021-04-27 16:09 | History & Physical Report ---
Date of Service April 27, 2021 Assessment & Plan (1) Weakness: (2) Dysarthria: (3) History of CVA (cerebrovascular accident): (4) Hypomagnesemia: (5) DM type 2 (diabetes mellitus, type 2): (6) Paroxysmal atrial fibrillation: (7) CKD (chronic kidney disease), stage III: Plan: This is an 81yo M with a PMH of CVA with residual left arm and left leg weakness and dysarthria, DM II, HTN, paroxysmal atrial tachycardia, CKD III presenting to ED with progressive weakness x week as well as more pronounced slurring of speech. 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 Neuro recommended one time outpatient evaluation by vascular neurosurgery (has not yet seen) Since discharge home, patient has been weaker than baseline per significant other at bedside, prompting return No leukocytosis or evidence of infection. Magnesium slightly low at 1.6. Sodium, potassium and phosphate WNL. CT head unchanged, CXR wnl, UA wnl, covid and flu PCR negative Discussed case with neuro - will proceed with MRI brain wo con only since patient underwent extensive work up within past month Neuro checks, PT/OT/speech evals Keep NPO until evaluated by speech Continue aspirin, plavix, low dose Crestor (does not tolerate taking more often than 2x/week due to weakness, per patient) Replacing magnesium, IV fluid, adding tick serology Hypomagnesemia Replaced. Repeat lab work in AM CKD stage III Cr of 1.1 (baseline 1.3). Continue to monitor daily DM type II Hold home meds Basal/bolus insulin per protocol Hypertension Hold AM losartan, Imdur for now to allow for permissive HTN in case of stroke - awaiting MRI Paroxysmal atrial tachycardia Continue diltiazem DVT Ppx: SQ heparin Code status: DNR PCP: Chapis Dispo: Observation med tele Patient seen in collaboration with Dr. Garcia. Please see addendum. History of Present Illness Chief Complaint: weakness, dysarthria Primary Care Provider: Hieu Nation MD This is an 81yo M with a PMH of CVA with residual left arm and left leg weakness and dysarthria, DM II, HTN, paroxysmal atrial tachycardia, CKD III presenting to ED with progressive weakness x week as well as more pronounced slurring of speech. Was recently admitted one month ago with similar presentation and underwent work up including brain MRI, CVA of head and neck and echo with bubble study that were all unchanged. Was evaluated by neurology at that time who felt weakness was due to electrolyte abnormalities and dehydration that improved with IV fluids. 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 Neuro recommended one time outpatient evaluation by vascular neurosurgery. Since discharge home, patient has been weaker than baseline per significant other at bedside. He even went to hunting camp but felt too weak to participate earlier this week. Endorses 2 episodes of diarrhea that have since resolved. No changes to appetite. More weak since yesterday and difficulty getting out of bed this morning, which prompted trip to ER. Increased slurring of speech noted this morning similar to previous admission and more significant than baseline deficit dysarthria from former stroke 3-1/2 years ago. Denies fever, chills, headache. Slight increase in cough and SOB. No chest pain or wheezing. No nausea, vomiting or diarrhea. No fall. Has received covid and flu vaccinations. No medication changes. Allergies Allergy/AdvReac Type Severity Reaction Status Date / Time lisinopril Allergy Severe edema/airwa Verified 04/27/21 13:07 y simvastatin Allergy Mild MUSCLE PAIN Verified 04/27/21 13:07 canagliflozin Allergy Unknown vertigo Verified 04/27/21 13:07 adhesive AdvReac Unknown RASH Verified 04/27/21 13:07 mushroom AdvReac Unknown NAUSEATED Verified 04/27/21 13:07 Home Medications Medication Instructions Recorded Confirmed Type aspirin 81 mg tablet,delayed 81 mg PO QAM 12/28/18 04/27/21 History release cholecalciferol (vitamin D3) 25 1,000 unit PO PM 12/28/18 04/27/21 History mcg (1,000 unit) capsule clopidogrel 75 mg tablet 75 mg PO QAM 12/28/18 04/27/21 History coenzyme Q10 100 mg capsule (Co 100 mg PO PM 12/28/18 04/27/21 History Q-10) cyanocobalamin (vitamin B-12) 1,000 mcg PO QAM 12/28/18 04/27/21 History 1,000 mcg tablet (Vitamin B-12) diltiazem HCl 180 mg 180 mg PO PM 12/28/18 04/27/21 History capsule,extended release 24 hr epinephrine 0.3 mg/0.3 mL 0.3 mg IM UD PRN 12/28/18 04/27/21 History injection, auto-injector (EpiPen) losartan 25 mg tablet 25 mg PO QAM 12/28/18 04/27/21 History metformin 500 mg tablet,extended 500 mg PO UD 12/28/18 04/27/21 History release 24 hr omega 6-psp-nwv-fish oil 1,000 mg 1 cap PO PM 12/28/18 04/27/21 History (120 mg-180 mg) capsule (Fish Oil) pantoprazole 40 mg tablet,delayed 40 mg PO QAM 12/28/18 04/27/21 History release solifenacin 5 mg tablet (Vesicare) 5 mg PO QAM 12/28/18 04/27/21 History tamsulosin 0.4 mg capsule 0.4 mg PO PM 12/28/18 04/27/21 History rosuvastatin 5 mg tablet 5 mg PO 2XWK 10/12/20 04/27/21 History semaglutide (Ozempic) 0.25 mg SUBCUT WK 10/12/20 04/27/21 History fluorouracil 5 % topical cream 1 applic TOPICAL UD 04/03/21 04/27/21 History isosorbide mononitrate 30 mg 30 mg PO DAILY 04/03/21 04/27/21 History tablet,extended release 24 hr ketorolac 0.4 % eye drops 1 drp OPL BID 04/03/21 04/27/21 History Past Med/Surg History Medical History GRISELDA inhibitor-aggravated angioedema PAUL (acute kidney injury) CKD (chronic kidney disease), stage III Diverticulosis of colon DM type 2 (diabetes mellitus, type 2) Dyslipidemia GERD (gastroesophageal reflux disease) GI bleed H/O hemorrhoids Hiatal hernia History of basal cell carcinoma History of Helicobacter pylori infection History of right bundle branch block (RBBB) Hypertension Hypothyroid Hypoxia Iliac artery aneurysm Localized osteoarthritis of right knee Paroxysmal atrial fibrillation Pharyngeal edema Pneumonia Pneumonia Surgical History H/O arthroscopic knee surgery H/O colonoscopy "04/2005-diverticulae" H/O nasal polypectomy S/P laparoscopic cholecystectomy S/P tonsillectomy Status post Mohs surgery Family History Other Diabetes Heart disease Hypertension Social History Smoking Status: Never smoker Hx Alcohol Use: Yes Alcohol type: beer and wine Hx Substance Use: No Preferred Language: Sudanese Communication Ability: Effective Polystyrene Bead Molder Required: No Beliefs That Will Affect Care: None Current Living Situation: Significant Other Current Living Situation Comment: Lives with friend Ericka Feels Safe at Home: Yes Assistive Devices: Cane Review of Systems Review of Systems: At least ten systems reviewed and negative except as noted in the HPI. Physical Exam Physical Exam: General Appearance: WD/WN, vitals as above, NAD, sitting up in bed, pleasant, + dysarthric Head: normocephalic, atraumatic Eyes: normal inspection, PERRL, conjunctivae normal, anicteric sclerae ENT: external ear and nose normal, dry mucous membranes of oropharynx Neck: normal visual inspection, trachea midline, no thyromegaly Respiratory: normal respiratory effort, lungs clear to auscultation, no wheeze, rales, rhonchi. No accessory muscle use Cardiovascular: regular rate, rhythm, no murmur, normal peripheral pulses, no BLE edema. Vessels: no JVD Chest: normal inspection of chest Abdomen/GI: normal bowel sounds, soft, nontender, no hepatosplenomegaly Extremities/Musculoskeletal: no cyanosis or clubbing, RUE and RLE 5/5 NITIN, LUE and LLE 4/5 (has baseline L sided weakness) Neurologic: PERRL, EOMI, accommodation nl, no face palsy, + dysarthria, CN's II-XI intact bilaterally and moves all extremities Psychiatric: A+Ox3, euthymic affect Skin: no rashes, normal color, warm/dry Results & Data Results & Data ([facility]) Vital Signs (Past 12 Hours) Vital Signs Temp Pulse Resp BP Pulse Ox 04/27/21 13:30 51 L 18 95 04/27/21 13:00 63 19 97 04/27/21 12:38 94 04/27/21 11:56 36.4 C L 68 20 168/84 H 96 Laboratory Results Short CBC 04/27/21 Range/Units 12:24 WBC 10.19 (4.8-10.8) K/uL Hgb 12.3 L (14.0-18.0) g/dL Hct 37.2 L (42-52) % Plt Count 308 (130-400) K/uL BMP 04/27/21 12:24 Sodium 137 Potassium 3.7 Chloride 107 Carbon Dioxide 25 BUN 17 Creatinine 1.11 Glucose 157 H Calcium 8.8 Cardiac Enzymes 04/27/21 Range/Units 12:24 Troponin I < 0.015 (0-0.045) ng/ml Liver Function 04/27/21 Range/Units 12:24 Total Bilirubin 0.7 (0.2-1) mg/dl AST 7 L (15-37) U/L ALT 16 (12-78) Alkaline Phosphatase 61 (45-117) U/L Albumin 3.3 L (3.4-5.0) gm/dl Urine 04/27/21 Range/Units 14:00 Urine Color Yellow Urine Appearance Clear (Clear) Urine pH 5.0 (4.5-7.5) Ur Specific [place] 1.015 (1.000-1.030) Urine Protein 2+ H (Negative) Urine Glucose (UA) Negative (Negative) Diagnostic Findings Short CBC 04/27/21 Range/Units 12:24 WBC 10.19 (4.8-10.8) K/uL Hgb 12.3 L (14.0-18.0) g/dL Hct 37.2 L (42-52) % Plt Count 308 (130-400) K/uL BMP 04/27/21 12:24 Sodium 137 Potassium 3.7 Chloride 107 Carbon Dioxide 25 BUN 17 Creatinine 1.11 Glucose 157 H Calcium 8.8 Cardiac Enzymes 04/27/21 Range/Units 12:24 Troponin I < 0.015 (0-0.045) ng/ml Liver Function 04/27/21 Range/Units 12:24 Total Bilirubin 0.7 (0.2-1) mg/dl AST 7 L (15-37) U/L ALT 16 (12-78) Alkaline Phosphatase 61 (45-117) U/L Albumin 3.3 L (3.4-5.0) gm/dl Urine 04/27/21 Range/Units 14:00 Urine Color Yellow Urine Appearance Clear (Clear) Urine pH 5.0 (4.5-7.5) Ur Specific [place] 1.015 (1.000-1.030) Urine Protein 2+ H (Negative) Urine Glucose (UA) Negative (Negative) Code Status & VTE Plan VTE Prophylaxis Plan VTE Prophylaxis will be ordered: Yes Supervising Physician Co-Signing Physician Notes Attending addendum: The patient was seen and examined in the emergency room in presence of the He has significant medical history including stroke with left hemiparesis with recent hospital admission to the hospital with left-sided weakness He has been complaining of increasing weakness moderate generalized for the last 2 or 3 days He has not been eating or drinking enough and could not get out of bed today Denies any fever and chills, no nausea no vomiting, no chest pain or palpitation On examination Lying in bed comfortably with dry mouth and dysarthria Hemodynamically stable Chestdecreased breath sounds at the bases with occasional crackles HeartS1-S2, irregular Abdomenbenign Extremitiesno edema CNSalert, awake and oriented x3. Has dysarthria and left-sided weakness from prior stroke His admission labs, EKG and imaging studies reviewed Increasing weakness with history of stroke with left hemiparesis Noted to have electrolyte imbalance during last admission CT scan of the head has been negative for any new changes We will continue with supportive care and rule out any infection and repeat investigation if the condition gets worse Agree with assessment and plan as outlined above by ELENA Yip DR
[2021-04-27] MEDS ORDERED: SODIUM CHLORIDE 0.9% 1000ML 1,000 ML IV SCH (17:30)
[2021-04-27] MEDS ORDERED: POTASSIUM CHLORIDE 20 MEQ in SODIUM CHLORIDE 0.9% 1000ML 1,000 ML IV SCH (17:30)
[2021-04-27] MEDS ORDERED: ASPIRIN 81 MG ECTAB PO STA (17:56)
[2021-04-27] MEDS: SODIUM CHLORIDE 0.9% 1000ML 1,000 ML IV SCH (18:32)
[2021-04-27 18:33] LABS: SARS CoV2 RNA(COVID-19) InHosp NEGATIVE (Negative)
[2021-04-27] MEDS ORDERED: CARBOHYDRATES FOR HYPOGLYCEMIA PO PRN (20:11)
[2021-04-27] MEDS ORDERED: DEXTROSE 50% 50 ML SYRINGE IV PRN (20:11)
[2021-04-27] MEDS ORDERED: ACETAMINOPHEN 325 MG TAB PO PRN (20:11)
[2021-04-27] MEDS ORDERED: GLUCAGON FOR INJ 1 MG VIAL SQ PRN (20:11)
[2021-04-27] MEDS ORDERED: GLUCOSE 10 TABS/TUBE PO PRN (20:11)
[2021-04-27] MEDS ORDERED: PHARMACIST DISCHARGE MED REC CONSULT PRN (20:11)
[2021-04-27] MEDS ORDERED: GLUCOSE 40% GEL 15 GM TUBE PO PRN (20:11)
--- NOTE | 2021-04-27 20:24 | Magnetic Resonance Report ---
MR brain wo con HISTORY: 81 years-old Male dysarthria, weakness acute weakness with strokelike symptoms COMPARISON: Head CT of same day, brain MRI 04/03/2021 TECHNIQUE: Multiplanar multisequence MRI of the brain was obtained without the use of IV contrast. FINDINGS: Motion degraded exam. Susceptibility artifact from dental hardware also limits the study. There is no restricted diffusion to suggest acute or subacute infarct. No acute intracranial hemorrhage, midline shift, abnormal extra-axial collection, hydrocephalus or intracranial mass. Age-related involutional changes. Moderate to extensive T2/FLAIR hyperintensities are present throughout the white matter. Ch ronic lacunar infarcts of the basal ganglia, latrell and cerebellar hemispheres. The cerebral venous sinuses and major arterial flow voids are patent. Mastoid air cells are clear. Mi ld mucosal thickening of the ethmoid air cells. Prior bilateral lens repair. Unremarkable skull and s oft tissues. IMPRESSION: 1. Motion degraded exam. No acute intracranial abnormality, specifically there is no acute or subacut e infarct. 2. Age-related involutional changes with chronic microvascular ischemic disease. 3. Chronic lacunar infarcts of the basal ganglia, brainstem and cerebellum. ACT 112: Negative or not required by law. The above report was generated using voice recognition software. It may contain grammatical, syntax o r spelling errors. Electronically signed by: Chapito Alanis M.D. 04/27/2021 8:23 PM
[2021-04-27] MEDS ORDERED: dilTIAZem HCL 180 MG CAPCR PO SCH (21:00)
[2021-04-27] MEDS ORDERED: INSULIN ASPART 100 UNITS/ML VIAL SC SCH (21:00)
[2021-04-27] MEDS ORDERED: KETOROLAC LS 0.4% OP SOLN 5 ML BTL OPL SCH (21:00)
[2021-04-27] MEDS ORDERED: POTASSIUM CHLORIDE CRTAB 20 MEQ TABCR PO STA (21:46)
--- NOTE | 2021-04-27 21:49 | Communication Note ---
Date of Service: April 27, 2021 Patient had a 2.1 second pause on the monitor as per RN around 8:15 PM. No pain as per RN. Cardiac rate 50 to 60s since admission. AP Asymptomatic sinus pause Borderline bradycardia hx PAF as per records Decrease maintenance Cardizem CD now from 180 mg to 120 mg at bedtime. Will relay to AM provider.
[2021-04-27] MEDS: POTASSIUM CHLORIDE CRTAB 20 MEQ TABCR PO STA ×2 (22:36→22:57)
[2021-04-27] MEDS: HEPARIN SOD 5,000 UNIT/0.5 ML VIAL SQ SCH (22:36)
[2021-04-27] MEDS: TAMSULOSIN HCL 0.4 MG CAP PO SCH ×2 (22:37→22:57)
[2021-04-28] MEDS: HEPARIN SOD 5,000 UNIT/0.5 ML VIAL SQ SCH ×3 (05:49→21:04)
[2021-04-28] MEDS ORDERED: Nursing to Pharmacy Communication SCH (07:15)
[2021-04-28] MEDS: CLOPIDOGREL BISULFATE 75 MG TAB PO SCH (08:09)
[2021-04-28] MEDS: CYANOCOBALAMIN 500 MCG TABLET (VITAMIN B-12) PO SCH (08:09)
[2021-04-28] MEDS: PANTOprazole 40 MG TAB PO SCH (08:09)
[2021-04-28 08:18] LABS: Hematocrit (blood only) 38.3 % (42-52); Hemoglobin 12.7 g/dL (14.0-18.0); Mean Corpuscular Hemoglobin 28.6 pg (25-34); Mean Corpuscular Hgb Conc 33.2 g/dL (32-36); Mean Corpuscular Volume 86.3 fL (80-100); Mean Platelet Volume 9.4 fL (7.4-10.4); Platelet Count 303 K/uL (130-400); RDW Coefficient of Variation 14.7 % (11.5-14.5); RDW Standard Deviation 46.3 fL (36.4-46.3); Red Blood Count 4.44 M/uL (4.7-6.1); White Blood Count 10.14 K/uL (4.8-10.8)
[2021-04-28 08:46] LABS: BUN Creatinine Ratio 12.7 (10-20); Calcium 8.2 mg/dl (8.5-10.1); Creatinine Clr Calc Pharmacy 60.4 ml/min; Est GFR (African American) 86.6 ml/min; Est GFR (Non-African American) 74.7 ml/min; Magnesium 1.7 mg/dl (1.8-2.4); Potassium 3.4 mmol/L (3.5-5.1)
[2021-04-28 08:58] LABS: Phosphorus 2.2 mg/dl (2.5-4.9)
[2021-04-28] MEDS ORDERED: ASPIRIN 81 MG ECTAB PO SCH (09:00)
--- NOTE | 2021-04-28 09:17 | Neurology Consultation ---
Date of Consultation April 28, 2021 Assessment & Plan (1) Dysarthria: 1. MRI with no new stroke 2. worsening symptoms of weakness and dysarthria and dysphasia 3. reported cardiac pause last night and bradycardia - Cardizem was decreased from 180 mg to 120 mg last night 4. swallowing study for dysphasia 5. continue aspirin 81 mg and plavix 75 mg for now 6. cardiology for further recommendations 7. bring down blood pressure slowly 8. would repeat MRI brain with and without - in 1 - 2 days (2) History of CVA (cerebrovascular accident): (3) Weakness: Supervising Physician Co-Signing Physician Notes I have seen and discussed above patient with Dr Kasia Thomas, neurology. pt seen and examined. recent admission no stroke found. Yesterday increased difficulty getting OOB and increased dysarthria. exam on admission did not note a r hemiparesis which is present now. the mri brain done at least 5 hours after admission did not show an acute stroke. indicates since admission increased dysarthria and r hemiparesis. Pt denies headache, vertigo. Awake alert, profoundly dysarthric but not aphasic. no field cut, flattened r NLF. RUE at best 2+/5, rle trace proximally, 3/5 distally. no sensory abnl to lt. Impression: suspect new stroke, likely small vessel given absence of field cut, aphasia. P CT head now, mri brain tomorr if ct nonrevealing. continue gradual reduction in bp, dual antiplt tx. Agree with npo and swallow eval. PT, OT. 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 He was seen by neurology one month ago with similar presentation and underwent work up including brain MRI, CVA of head and neck and echo with bubble study that were all unchanged. It was thought the left weakness was due to electrolyte abnormalities and dehydration that improved with IV fluids. 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 He even went to [employer] camp but felt too weak to participate earlier this week. He had 2 episodes of diarrhea that have since resolved.he had increased weakness with difficulty getting out of bed this morning along with increased slurring of speech noted this morning similar to previous admission and more significant than baseline deficit dysarthria from former stroke 3-1/2 years ago. It is very difficult to understand his words. He is having issues with swallowing, and dysarthric to speech. His significant other is bedside and states he really didn't get his strength back from his last admission but he was able to walk and was eating a normal diet. denies CP, vision changes+SOB, and swallowing issues. Allergies Allergy/AdvReac Type Severity Reaction Status Date / Time lisinopril Allergy Severe edema/airwa Verified 04/27/21 13:07 y simvastatin Allergy Mild MUSCLE PAIN Verified 04/27/21 13:07 canagliflozin Allergy Unknown vertigo Verified 04/27/21 13:07 adhesive AdvReac Unknown RASH Verified 04/27/21 13:07 mushroom AdvReac Unknown NAUSEATED Verified 04/27/21 13:07 Home Medications Medication Instructions Recorded Confirmed Type aspirin 81 mg tablet,delayed 81 mg PO QAM 12/28/18 04/27/21 History release cholecalciferol (vitamin D3) 25 1,000 unit PO PM 12/28/18 04/27/21 History mcg (1,000 unit) capsule clopidogrel 75 mg tablet 75 mg PO QAM 12/28/18 04/27/21 History coenzyme Q10 100 mg capsule (Co 100 mg PO PM 12/28/18 04/27/21 History Q-10) cyanocobalamin (vitamin B-12) 1,000 mcg PO QAM 12/28/18 04/27/21 History 1,000 mcg tablet (Vitamin B-12) diltiazem HCl 180 mg 180 mg PO PM 12/28/18 04/27/21 History capsule,extended release 24 hr epinephrine 0.3 mg/0.3 mL 0.3 mg IM UD PRN 12/28/18 04/27/21 History injection, auto-injector (EpiPen) losartan 25 mg tablet 25 mg PO QAM 12/28/18 04/27/21 History metformin 500 mg tablet,extended 500 mg PO UD 12/28/18 04/27/21 History release 24 hr omega [id number]-[id number]-fish oil 1,000 mg 1 cap PO PM 12/28/18 04/27/21 History (120 mg-180 mg) capsule (Fish Oil) pantoprazole 40 mg tablet,delayed 40 mg PO QAM 12/28/18 04/27/21 History release solifenacin 5 mg tablet (Vesicare) 5 mg PO QAM 12/28/18 04/27/21 History tamsulosin 0.4 mg capsule 0.4 mg PO PM 12/28/18 04/27/21 History rosuvastatin 5 mg tablet 5 mg PO 2XWK 10/12/20 04/27/21 History semaglutide (Ozempic) 0.25 mg SUBCUT WK 10/12/20 04/27/21 History fluorouracil 5 % topical cream 1 applic TOPICAL UD 04/03/21 04/27/21 History isosorbide mononitrate 30 mg 30 mg PO DAILY 04/03/21 04/27/21 History tablet,extended release 24 hr ketorolac 0.4 % eye drops 1 drp OPL BID 04/03/21 04/27/21 History Patient History Medical History GRISELDA inhibitor-aggravated angioedema PAUL (acute kidney injury) CKD (chronic kidney disease), stage III Diverticulosis of colon DM type 2 (diabetes mellitus, type 2) Dyslipidemia GERD (gastroesophageal reflux disease) GI bleed H/O hemorrhoids Hiatal hernia History of basal cell carcinoma History of Helicobacter pylori infection History of right bundle branch block (RBBB) Hypertension Hypothyroid Hypoxia Iliac artery aneurysm Localized osteoarthritis of right knee Paroxysmal atrial fibrillation Pharyngeal edema Pneumonia Pneumonia Surgical History H/O arthroscopic knee surgery H/O colonoscopy "04/2005-diverticulae" H/O nasal polypectomy S/P laparoscopic cholecystectomy S/P tonsillectomy Status post Mohs surgery Family History Other Diabetes Heart disease Hypertension Social History Smoking Status: Never smoker Hx Alcohol Use: Yes Alcohol type: beer and wine Hx Substance Use: No Preferred Language: Maori Communication Ability: Unable Raw Hide Trimmer Required: No Beliefs That Will Affect Care: None marital status: Single Current Living Situation: Significant Other Current Living Situation Comment: Lives with friend Ericka Feels Safe at Home: Yes Assistive Devices: Cane Review of Systems Review of Systems: All systems reviewed & are unremarkable except as noted in HPI & below Physical Exam Physical Exam: Physical Exam: Constitutional: appearance ill appearing weak Ears, Nose, Mouth and Throat: mucous membranes moist, no injection and skin normal, eyes normal Cardiovascular: normal S-1 and S-2 and regular rate and rhythm Respiratory: course breath sounds Musculoskeletal: no peripheral edema and good distal pulses Skin: no stigmata of neurocutaneous disease noted and normal and intact Eyes: extraocular muscles intact (EOMI) and pupils equal and reactive NEUROLOGIC EXAMINATION: Mental status: Alert and interactive Oriented to person Speech dysarthric Cranial Nerves slight flattening nasolabial fold left Sensory: cool and light touch Coordination: unable to raise arms for finger to nose Gait/Stance: Posture lying in bed Motor: raises left arm mid chest unable to lift right arm or maintain against gravity Strength: hand matcher offbearer left 4/5 right 4+/5, hip flex bilaterally 4/5 plantar flex ext 4+/5 Results & Data ([facility]) Vital Signs (Past 12 Hours) Vital Signs Temp Pulse Pulse Resp BP Pulse Ox 04/28/21 08:30 196/89 H 04/28/21 08:10 36.8 C 63 16 95 04/28/21 03:28 36.6 C 61 18 205/82 H 93 04/27/21 23:50 62 04/27/21 23:41 36.8 C 78 20 169/86 H 98 Laboratory Results Abnormal lab results 04/27/21 04/27/21 04/27/21 Range/Units 12:24 12:24 12:44 RBC 4.29 L (4.7-6.1) M/uL Hgb 12.3 L (14.0-18.0) g/dL Hct 37.2 L (42-52) % RDW Std Deviation 47.0 H (36.4-46.3) fL RDW Coeff of Mariya 15.0 H (11.5-14.5) % Neut # (Auto) 6.72 H (1.4-6.5) K/uL Perkins # (Auto) 1.02 H (0.11-0.59) K/uL Immature Gran # (Auto) 0.09 H (0.00-0.02) K/uL Potassium (3.5-5.1) mmol/L Chloride (98-107) mmol/L Glucose 157 H (70-99) mg/dl POC Glucose (70-99) mg/dl Calcium (8.5-10.1) mg/dl Phosphorus (2.5-4.9) mg/dl Magnesium 1.6 L (1.8-2.4) mg/dl AST 7 L (15-37) U/L Ammonia < 10.0 L (11-32) umol/L Albumin 3.3 L (3.4-5.0) gm/dl Albumin/Globulin Ratio 0.8 L (0.9-2) Triglycerides (0-150) mg/dl Urine Protein (Negative) 04/27/21 04/27/21 04/27/21 Range/Units 14:00 18:38 20:04 RBC (4.7-6.1) M/uL Hgb (14.0-18.0) g/dL Hct (42-52) % RDW Std Deviation (36.4-46.3) fL RDW Coeff of Mariya (11.5-14.5) % Neut # (Auto) (1.4-6.5) K/uL Perkins # (Auto) (0.11-0.59) K/uL Immature Gran # (Auto) (0.00-0.02) K/uL Potassium (3.5-5.1) mmol/L Chloride (98-107) mmol/L Glucose (70-99) mg/dl POC Glucose 107 H 124 H (70-99) mg/dl Calcium (8.5-10.1) mg/dl Phosphorus (2.5-4.9) mg/dl Magnesium (1.8-2.4) mg/dl AST (15-37) U/L Ammonia (11-32) umol/L Albumin (3.4-5.0) gm/dl Albumin/Globulin Ratio (0.9-2) Triglycerides (0-150) mg/dl Urine Protein 2+ H (Negative) 04/28/21 04/28/21 04/28/21 Range/Units 00:05 06:17 07:23 RBC 4.44 L (4.7-6.1) M/uL Hgb 12.7 L (14.0-18.0) g/dL Hct 38.3 L (42-52) % RDW Std Deviation (36.4-46.3) fL RDW Coeff of Mariya 14.7 H (11.5-14.5) % Neut # (Auto) (1.4-6.5) K/uL Perkins # (Auto) (0.11-0.59) K/uL Immature Gran # (Auto) (0.00-0.02) K/uL Potassium (3.5-5.1) mmol/L Chloride (98-107) mmol/L Glucose (70-99) mg/dl POC Glucose 123 H 139 H (70-99) mg/dl Calcium (8.5-10.1) mg/dl Phosphorus (2.5-4.9) mg/dl Magnesium (1.8-2.4) mg/dl AST (15-37) U/L Ammonia (11-32) umol/L Albumin (3.4-5.0) gm/dl Albumin/Globulin Ratio (0.9-2) Triglycerides (0-150) mg/dl Urine Protein (Negative) 04/28/21 Range/Units 07:23 RBC (4.7-6.1) M/uL Hgb (14.0-18.0) g/dL Hct (42-52) % RDW Std Deviation (36.4-46.3) fL RDW Coeff of Mariya (11.5-14.5) % Neut # (Auto) (1.4-6.5) K/uL Perkins # (Auto) (0.11-0.59) K/uL Immature Gran # (Auto) (0.00-0.02) K/uL Potassium 3.4 L (3.5-5.1) mmol/L Chloride 108 H (98-107) mmol/L Glucose 135 H (70-99) mg/dl POC Glucose (70-99) mg/dl Calcium 8.2 L (8.5-10.1) mg/dl Phosphorus 2.2 L (2.5-4.9) mg/dl Magnesium 1.7 L (1.8-2.4) mg/dl AST (15-37) U/L Ammonia (11-32) umol/L Albumin (3.4-5.0) gm/dl Albumin/Globulin Ratio (0.9-2) Triglycerides 161 H (0-150) mg/dl Urine Protein (Negative) Diagnostic Findings CT head-No acute intracerebral pathology. There is again mild cerebral cortical atrophy and remote small vessel disease. CXR-No acute cardiopulmonary disease. MRI brain-Motion degraded exam. No acute intracranial abnormality, specifically there is no acute or subacute infarct. Age-related involutional changes with chronic microvascular ischemic disease. Chronic lacunar infarcts of the basal ganglia, brainstem and cerebellum.
[2021-04-28] MEDS: KETOROLAC 0.5% OP SOLN 5 ML BTL OPL SCH ×2 (09:34→21:04)
[2021-04-28 09:49] LABS: Lyme Ab IgG w/WB Rflx Negative (Negative)
[2021-04-28 09:50] LABS: Lyme Ab IgM w/WB Rflx Negative (Negative)
[2021-04-28] MEDS ORDERED: hydrALAZINE HCL 20 MG/ML VIAL IV PRN (09:50)
[2021-04-28] MEDS ORDERED: MAGNESIUM SULFATE / D5W 1 GM/100 ML BAG IV ONE (10:00)
[2021-04-28] MEDS: POTASSIUM CHLORIDE / WTR 10 MEQ/100 ML PLCT IV SCH ×2 (10:10→11:30)
[2021-04-28 12:26] LABS: Estimated Average Glucose 174 mg/dl; Hemoglobin A1C 7.7 % (4.5-5.6)
[2021-04-28] MEDS: SODIUM CHLORIDE 0.9% 1000ML 1,000 ML IV SCH (12:45)
[2021-04-28] MEDS: INSULIN ASPART 100 UNITS/ML VIAL SC SCH ×2 (13:44→18:20)
[2021-04-28] MEDS ORDERED: hydrALAZINE HCL 20 MG/ML VIAL IV SCH (16:45)
--- NOTE | 2021-04-28 16:54 | Hospitalist Progress Note ---
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 Neuro recommended one time outpatient evaluation by vascular neurosurgery (has not yet seen) Weakness has been worsening Since discharge home CT head on admission showed no acute intracranial abnormality MRI no acute intracranial abnormality, specifically there is no acute or subacute infarct. Chronic lacunar infarcts of the basal ganglia, brainstem and cerebellum. Lyme titer negative Peripheral smear no evidence of intracytoplasmic neutrophilic inclusions to suggest Anaplasmosis Will follow Anaplasmosis Phagocytophilum DNA Neuro on board Continue aspirin and plavix for now, but pt was unable to swallow pills Will change aspirin to FL for now until able to swallow Neuro recommended to repeat MRI in 24 to 48 hrs Speech on board - plan to get FEES tomorrow to assess his dysphagia Continue PT/OT eval Electrolytes abnormality Mg 1.7 and K 3.4 Mg and K replaced Continue monitor BMP CKD stage III Creatinine 0.94 (baseline 1.3). Continue monitor for aspiration Will keep NPO Dysphagia Speech on board - Plan for FEES tomorrow Continue aspiration precaution DM type II Most recent HbA1c was 7.7 on 04/28/21 Continue novolog sliding scale Currently NPO Hypertension BP elevated Will decrease BP slowly Has not been getting any oral med Will add hydralazine IV PRN Paroxysmal atrial tachycardia Pt had a brief pause on telemonitor Asymptomatic Cardizem decreased to 120mg, unfortunately pt has been NPO Consider cardiology consult if reoccur DVT Ppx: SQ heparin Code status: DNR Disposition Continue monitor closely Admission and Anticipated Discharge Date Admission Date: April 27, 2021 Subjective Pt was seen and examined for follow up of stroke like symptoms Lying in bed with no acute distress Pt said that he is getting weaker He had difficulty to swallow his pills early Currently NPO and plan for FEES tomorrow to assess his dysphagia Denies any chest pain, palpitation, dizziness and SOB Review of Systems Review of Systems: All systems reviewed & are unremarkable except as noted in Subjective Physical Exam Physical Exam: General- No acute distress Head- atraumatic Eyes- PERRL, EOMI, ENT- oropharynx clear Neck- supple, no JVD Lungs- clear to auscultation Heart- regular rhythm; no murmur Abdomen- normal bowel sounds, soft, nontender Extremities- no calf tenderness Neuro- alert, oriented PERRL, +dysarthria, right side weakness, able to lift right arm and right leg Skin- warm & dry Results & Data Results & Data ([facility]) Vital Signs (Past 12 Hours) Vital Signs Temp Pulse Pulse Resp BP Pulse Ox 04/28/21 15:29 36.5 C 80 14 182/115 H 95 04/28/21 11:30 36.3 C L 65 13 201/89 H 04/28/21 08:30 196/89 H 04/28/21 08:10 36.8 C 63 16 95 04/28/21 08:00 61
[2021-04-28] MEDS: hydrALAZINE HCL 20 MG/ML VIAL IV PRN (17:16)
[2021-04-28] MEDS: ASPIRIN 300 MG SUPP PR SCH (18:02)
--- NOTE | 2021-04-28 18:11 | CT Scan Report ---
CT OF THE HEAD WITHOUT CONTRAST CLINICAL HISTORY: Increased right-sided weakness. COMPARISON STUDY: Head CT and MRI of the brain April 27, 2021. CT DOSE: 614.27 mGy.cm TECHNIQUE: Helical axial images of the head were obtained without IV contrast. Automated exposure con trol was utilized for the study. A dose lowering technique was utilized adhering to the principles o f ALARA. FINDINGS: No acute intracranial hemorrhage, midline shift or mass effect is present. Ventricular syst em is unremarkable. Basal cisterns are patent. There are no extra-axial collections. White matter hyp odensities are unchanged and favor small vessel disease. There are no findings to suggest acute dural sinus thrombosis or acute territorial infarct. There are no significant calvarial abnormalities. IMPRESSION: No acute intracranial findings. No significant change in appearance of the brain. ACT 112: Negative or not required by law. Electronically signed by: Duran Ferraro M.D. 04/28/2021 6:10 PM
[2021-04-28] MEDS: CHOLECALCIFEROL 1,000 UNITS 25 MCG TAB PO SCH (20:27)
[2021-04-28] MEDS: dilTIAZem HCL 120 MG CAPCR PO SCH (20:27)
[2021-04-28] MEDS: TAMSULOSIN HCL 0.4 MG CAP PO SCH (20:27)
[2021-04-29] MEDS: INSULIN ASPART 100 UNITS/ML VIAL SC SCH ×4 (00:30→18:41)
[2021-04-29] MEDS: HEPARIN SOD 5,000 UNIT/0.5 ML VIAL SQ SCH ×3 (06:20→21:58)
[2021-04-29] MEDS: hydrALAZINE HCL 20 MG/ML VIAL IV PRN (07:38)
[2021-04-29] MEDS: ASPIRIN 300 MG SUPP PR SCH (07:38)
[2021-04-29] MEDS: KETOROLAC 0.5% OP SOLN 5 ML BTL OPL SCH ×2 (07:38→21:58)
[2021-04-29] MEDS: CLOPIDOGREL BISULFATE 75 MG TAB PO SCH (08:24)
[2021-04-29] MEDS: PANTOprazole 40 MG TAB PO SCH (08:24)
[2021-04-29] MEDS: CYANOCOBALAMIN 500 MCG TABLET (VITAMIN B-12) PO SCH (08:24)
--- NOTE | 2021-04-29 13:32 | Magnetic Resonance Report ---
MR brain wo con CLINICAL HISTORY: r sided weakness, dysarthria, evaluate for CVA. COMPARISON STUDY: 04/27/2021 TECHNIQUE: Multiplanar multisequence images of the Brain were performed without IV contrast. Diffusi on weighted imaging and ADC mapping was also performed. FINDINGS: Extra-axial space: There is no evidence for a subdural hematoma, There are no extra-axial fluid renetta ections. Ventricles and cisterns: The ventricles are again mildly dilated bilaterally. There is no evidence f or midline shift or mass effect. Parenchyma: Compared to previous examination, there has been interval development of an acute infarct within the brainstem centrally and to the left. Acute diffusion abnormality is now seen . There is n o abnormality seen on ADC mapping corresponding to the acuity of the infarct. Old lacunar infarcts are again seen within the basal ganglia bilaterally. There is mild cerebral pramod ical atrophy present. There is bright signal seen on FLAIR weighted sequences within the centrum semi ovale and periventricular white matter characteristic of remote small vessel disease. The sulci and g yri appear normal without effacement. The midline structures are unremarkable. The posterior fossa st ructures appear normal. There is no evidence for mass lesion. Osseous structures: The paranasal sinuses are well aerated. The mastoid air cells are well aerated. Soft tissues: No focal soft tissue abnormalities are identified. IMPRESSION: 1. Compared to the previous examination, there has been interval development of an acute infarct with in the brainstem centrally and to the left with acute diffusion weighted imaging abnormality now seen . 2. Atrophy, old lacunar infarcts and remote small vessel disease are again seen. ACT 112: Negative or not required by law. Electronically signed by: Carson Bourne M.D. 04/29/2021 1:31 PM
[2021-04-29 16:22] LABS: Hematocrit (blood only) 41.7 % (42-52); Mean Corpuscular Hemoglobin 29.3 pg (25-34); Mean Corpuscular Hgb Conc 33.6 g/dL (32-36); Mean Corpuscular Volume 87.2 fL (80-100); Mean Platelet Volume 9.2 fL (7.4-10.4); Platelet Count 326 K/uL (130-400); RDW Coefficient of Variation 15.2 % (11.5-14.5); RDW Standard Deviation 48.7 fL (36.4-46.3); Red Blood Count 4.78 M/uL (4.7-6.1); White Blood Count 17.64 K/uL (4.8-10.8)
[2021-04-29 16:44] LABS: Basophils # (auto) 0.02 K/uL (0-0.2); Basophils % (auto) 0.1 %; Echinocytes 1+; Immature Granulocytes # (auto) 0.04 K/uL (0.00-0.02); Immature Granulocytes % (auto) 0.2 %; Lymphocytes # (auto) 1.86 K/uL (1.2-3.4); Lymphocytes % (auto) 10.5 %; Monocytes # (auto) 1.07 K/uL (0.11-0.59); Monocytes % (auto) 6.1 %; Neutrophils # (auto) 14.65 K/uL (1.4-6.5); Neutrophils % (auto) 83.1 %
[2021-04-29 16:47] LABS: BUN Creatinine Ratio 17.7 (10-20); Calcium 8.8 mg/dl (8.5-10.1); Creatinine Clr Calc Pharmacy 45.5 ml/min; Est GFR (African American) 61.3 ml/min; Est GFR (Non-African American) 52.9 ml/min; Potassium 3.9 mmol/L (3.5-5.1)
--- NOTE | 2021-04-29 16:57 | Progress Notes ---
DATE OF SERVICE: 04/29/2021 SUBJECTIVE: I am seeing Mr. Mayers in followup of new right hemiparesis, dysarthria and dysphagia. A CT of the head last night did not show any acute intracranial hemorrhage or large vessel stroke, but an MRI performed this morning shows an interval development of an acute infarct within the left central brainstem. This appears to be in the distribution of a branch vessel. The patient has been more sleepy today. OBJECTIVE: VITAL SIGNS: His blood pressure is 168/83, pulse 103, O2 sat 92%, and recent temperature was 99.1. The patient has a rapid respiratory rate, appears to be in mild distress. Sleepy, but arousable, follows simple commands with his left hand. Left eye is greater than right eye, but both are reactive. No fixed gaze preference. No disorder of motility. There is a flattening of the right nasolabial fold. Right upper and right lower are 0/5. Left upper is volitional. Left lower withdraws to pain. Toes are bilaterally downgoing. Cerebellar sensory not tested. IMPRESSION: New left central brainstem infarction, suspect a small branch occlusion. PLAN: The next steps depend on how aggressively the patient and his family wants to treat this. We discussed this at length and the patient's daughter has obtained his living will, which defers to the power of district extension service agent regarding decision making. By report, apparently on admission, he told one of the admitting providers that he did not want to be resuscitated. The patient's family is in the process of making a decision in that regard. In terms of treatment, I recommend gradual reduction of blood pressure over time. Adequate hydration, treat any underlying infection. If n.p.o., use rectal aspirin for stroke prevention. If an NG tube will be placed, consider a loading dose of Brilinta 180 mg followed by 90 mg twice a day and continue aspirin 81 mg and discontinue Plavix. Good control of vascular risk factors over time is necessary. I would repeat a CTA of the head and neck to exclude a vertebral occlusion or basilar occlusion. If one were to be found, you could reach out to vascular intervention regarding whether or not he would be a candidate for any interventional therapy. The time of the onset of this stroke is over 24 hours. Reassuringly, I see good flow voids through the vertebral arteries and the basilar artery on MRI. I doubt we will find a large vessel occlusion or stenosis in the posterior circulation. I did explain to the patient's daughter that his prognosis is poor in the sense that his age, prior right hemispheric stroke and other medical problems superimposed on this left brainstem infarction with significant dysphagia and dysarthria and right hemiplegia. We will follow with you. Job ID: [id number] MTDD
[2021-04-29] MEDS: D5W AND NSS 1,000 ML IV SCH (18:44)
[2021-04-29] MEDS: INSULIN ASPART PER UNIT SC SCH (18:45)
--- NOTE | 2021-04-29 20:13 | Hospitalist Progress Note ---
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 Neuro recommended one time outpatient evaluation by vascular neurosurgery (has not yet seen) Weakness has been worsening Since discharge home CT head on admission showed no acute intracranial abnormality MRI no acute intracranial abnormality, specifically there is no acute or subacute infarct. Chronic lacunar infarcts of the basal ganglia, brainstem and cerebellum. Lyme titer negative Peripheral smear no evidence of intracytoplasmic neutrophilic inclusions to suggest Anaplasmosis Will follow Anaplasmosis Phagocytophilum DNA Neuro on board Continue aspirin and plavix for now, but pt was unable to swallow pills Will change aspirin to [place] for now until able to swallow Neuro recommended to repeat MRI in 24 to 48 hrs Speech on board - plan to get FEES tomorrow to assess his dysphagia Continue PT/OT eval 04/[address] Thomas prognosis poor discussed with family, confirmed DNR status, continue present management re-evaluate tomorrow strict NPO, IV fluids Electrolytes abnormality Mg 1.7 and K 3.4 Mg and K replaced CKD stage III Creatinine 0.94 (baseline 1.3). stable Dysphagia per above DM type II Most recent HbA1c was 7.7 on 04/28/21 Continue novolog sliding scale Currently NPO Hypertension PRN hydralazine Paroxysmal atrial tachycardia Pt had a brief pause on telemonitor Asymptomatic Cardizem decreased to 120mg, unfortunately pt has been NPO Consider cardiology consult if reoccur DVT Ppx: SQ heparin Code status: DNR Disposition Continue monitor closely Admission and Anticipated Discharge Date Admission Date: April 29, 2021 Subjective ff up for R sided weakness, dysarthria, etc seen resting in bed, appears weak non verbal nods/shakes head not in distress denies headache, chest pain, dyspnea still has R sided weakness failed swallowed evaluation per Speech Therapy no other symptoms Review of Systems Review of Systems: all noted and negative except for above Physical Exam Physical Exam: General- not in distress, speaks in sentences with no effort or accessory muscle use Eyes- anicteric Neck- no JVD Lungs- clear breath sounds bilaterally, no rales/wheezes Heart- normal rate, regular rhythm; no murmurs Abdomen- normal bowel sounds, nondistended, soft, nontender Extremities- no pretibial edema, no calf tenderness Neuro- alert, (+) dysarthria, R UE 0/5 motor strength Skin- warm & dry Results & Data Results & Data ([facility]) Vital Signs (Past 12 Hours) Vital Signs Temp Pulse Pulse Resp BP BP Pulse Ox 04/29/21 16:30 95 H 04/29/21 15:54 37.4 C 103 H 24 168/83 H 92 04/29/21 11:02 36.8 C 91 H 18 170/93 H 93 all noted and reviewed including below
[2021-04-29] MEDS: CHOLECALCIFEROL 1,000 UNITS 25 MCG TAB PO SCH (21:44)
[2021-04-29] MEDS: TAMSULOSIN HCL 0.4 MG CAP PO SCH (21:45)
[2021-04-29] MEDS: dilTIAZem HCL 120 MG CAPCR PO SCH (21:45)
[2021-04-29] MEDS ORDERED: MoRPHine SULFATE 2 MG/ML CARP IV STA (22:11)
[2021-04-30] MEDS: INSULIN ASPART PER UNIT SC SCH ×4 (00:20→18:25)
[2021-04-30 06:32] LABS: Basophils # (auto) 0.02 K/uL (0-0.2); Basophils % (auto) 0.1 %; Eosinophils # (auto) 0.01 K/uL (0-0.5); Eosinophils % (auto) 0.1 %; Immature Granulocytes # (auto) 0.03 K/uL (0.00-0.02); Immature Granulocytes % (auto) 0.2 %; Lymphocytes # (auto) 1.39 K/uL (1.2-3.4); Lymphocytes % (auto) 10.1 %; Mean Corpuscular Hemoglobin 29.3 pg (25-34); Mean Corpuscular Hgb Conc 33.3 g/dL (32-36); Mean Corpuscular Volume 87.8 fL (80-100); Mean Platelet Volume 9.5 fL (7.4-10.4); Monocytes # (auto) 2.52 K/uL (0.11-0.59); Monocytes % (auto) 18.2 %; Neutrophils # (auto) 9.86 K/uL (1.4-6.5); Neutrophils % (auto) 71.3 %; Platelet Count 310 K/uL (130-400); RDW Coefficient of Variation 15.4 % (11.5-14.5); RDW Standard Deviation 49.6 fL (36.4-46.3); Red Blood Count 4.44 M/uL (4.7-6.1); White Blood Count 13.83 K/uL (4.8-10.8)
[2021-04-30] MEDS: HEPARIN SOD 5,000 UNIT/0.5 ML VIAL SQ SCH ×3 (06:32→21:20)
[2021-04-30] MEDS: ACETAMINOPHEN 1,000 MG/100 ML VIAL IV PRN ×2 (06:41→19:56)
[2021-04-30 07:31] LABS: BUN Creatinine Ratio 19.9 (10-20); Calcium 8.6 mg/dl (8.5-10.1); Est GFR (Non-African American) 34.5 ml/min; Potassium 3.9 mmol/L (3.5-5.1)
[2021-04-30] MEDS: CYANOCOBALAMIN 500 MCG TABLET (VITAMIN B-12) PO SCH (09:06)
[2021-04-30] MEDS: ASPIRIN 300 MG SUPP PR SCH (09:06)
[2021-04-30] MEDS: CLOPIDOGREL BISULFATE 75 MG TAB PO SCH (09:06)
[2021-04-30] MEDS: PANTOprazole 40 MG TAB PO SCH (09:06)
[2021-04-30] MEDS: KETOROLAC 0.5% OP SOLN 5 ML BTL OPL SCH ×2 (09:07→21:20)
[2021-04-30] MEDS: hydrALAZINE HCL 20 MG/ML VIAL IV PRN ×2 (09:10→19:51)
[2021-04-30] MEDS: D5W AND NSS 1,000 ML IV SCH (09:11)
--- NOTE | 2021-04-30 09:56 | Neurology Progress Note ---
Date of Service April 30, 2021 Assessment & Plan (1) Dysarthria: Plan: 1. MRI repeated 04/29 revealed presence of an acute brainstem stroke. Stroke 2. worsening symptoms of weakness and dysarthria and dysphasia 3. speech therapy eval- recommend peg tube for nutrition and palliative medicine for direct of care. 4. a fib - not on anticoag therapy due to fall risk 5. continue aspirin 81 mg and plavix 75 mg for now 6. currently awaiting placement 7. bring down blood pressure slowly 8. will be available for any questions concerns. (2) History of CVA (cerebrovascular accident): (3) Weakness: Admission and Anticipated Discharge Date Admission Date: April 29, 2021 Supervising Physician Co-Signing Physician Notes I have seen and discussed above patient with Dr Kasia Thomas, neurology patient seen and examined more awake and alert today. Able to communicate some needs with his left hand and follow commands with his left hand. Much less tachypneic today there is normal extraocular motility there is a left ptosis there is a flattened right nasolabial fold profound dysarthria right upper 0 right lower trace left upper full left lower mild 3+ out of 5 Impression history of right hemisphere stroke new left brainstem stroke suspect branch vessel occlusion as on MRI of the brain there is there are good flow voids through the vertebrobasilar system. As patient is n.p.o. recommend rectal aspirin gradual control of blood pressure. Continue supportive check care. At some point the patient it would be reasonable for the patient to have monitor worker to rule out atrial fibrillation as there is a reported history of the same. 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 He was seen by neurology one month ago with similar presentation and underwent work up including brain MRI, CVA of head and neck and echo with bubble study that were all unchanged. It was thought the left weakness was due to electrolyte abnormalities and dehydration that improved with IV fluids. 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 He even went to [employer] [facility] camp but felt too weak to participate earlier this week. He had 2 episodes of diarrhea that have since resolved.he had increased weakness with difficulty getting out of bed this morning along with increased slurring of speech noted this morning similar to previous admission and more significant than baseline deficit dysarthria from former stroke 3-1/2 years ago. He is still very dysarthric and hard to understand. His daughter is in the room and is unsure of the plans. He indicates by raising 2 fingers that he does not want a feeding tube placed. Respiratory has been called to deep suction him because he is not handling his secretions. Review of Systems Review of Systems: Other dysarthric Physical Exam Physical Exam: Physical Exam: Constitutional: appearance ill appearing weak Ears, Nose, Mouth and Throat: mucous membranes moist, no injection and skin normal, eyes normal,unable to handle secretions Cardiovascular: normal S-1 and S-2 and regular rate and rhythm Respiratory: course breath sounds Musculoskeletal: no peripheral edema and good distal pulses Skin: no stigmata of neurocutaneous disease noted and normal and intact Eyes: EOMI NEUROLOGIC EXAMINATION: Mental status: Alert and minimally interactive due to dysarthria Oriented to person Speech dysarthric Cranial Nerves slight flattening nasolabial fold left Sensory: cool and light touch Coordination: unable to raise arms or finger to nose Gait/Stance: Posture sitting up in bed Motor: raises left arm mid chest unable to lift right arm or maintain against gravity and is now painful to lift Strength: hand manager of radiology left 4+/5 right 0/5, hip flex bilaterally 2/5 Results & Data ([facility]) Vital Signs (Past 12 Hours) Vital Signs Temp Pulse Pulse Resp BP Pulse Ox 04/30/21 07:35 37.6 C H 86 28 H 184/91 H 89 L 04/30/21 07:21 96 H 04/30/21 03:12 36.9 C 94 H 18 153/92 H 96 04/29/21 23:03 37 C 108 H 20 164/97 H 94 Laboratory Results Abnormal lab results 04/29/21 04/29/21 04/29/21 Range/Units 11:39 16:04 16:04 WBC 17.64 H (4.8-10.8) K/uL RBC (4.7-6.1) M/uL Hgb (14.0-18.0) g/dL Hct 41.7 L (42-52) % RDW Std Deviation 48.7 H (36.4-46.3) fL RDW Coeff of Mariya 15.2 H (11.5-14.5) % Neut # (Auto) 14.65 H (1.4-6.5) K/uL [place] # (Auto) 1.07 H (0.11-0.59) K/uL Immature Gran # (Auto) 0.04 H (0.00-0.02) K/uL Chloride 110 H (98-107) mmol/L Carbon Dioxide 17 L (21-32) mmol/L Anion Gap 12.0 H (3-11) BUN 22 H D (7-18) mg/dl Creatinine (0.6-1.4) mg/dl Glucose 197 H (70-99) mg/dl POC Glucose 155 H (70-99) mg/dl 04/29/21 04/30/21 04/30/21 Range/Units 18:28 00:03 05:41 WBC 13.83 H (4.8-10.8) K/uL RBC 4.44 L (4.7-6.1) M/uL Hgb 13.0 L (14.0-18.0) g/dL Hct 39.0 L (42-52) % RDW Std Deviation 49.6 H (36.4-46.3) fL RDW Coeff of Mariya 15.4 H (11.5-14.5) % Neut # (Auto) 9.86 H (1.4-6.5) K/uL [place] # (Auto) 2.52 H (0.11-0.59) K/uL Immature Gran # (Auto) 0.03 H (0.00-0.02) K/uL Chloride (98-107) mmol/L Carbon Dioxide (21-32) mmol/L Anion Gap (3-11) BUN (7-18) mg/dl Creatinine (0.6-1.4) mg/dl Glucose (70-99) mg/dl POC Glucose 175 H 197 H (70-99) mg/dl 04/30/21 04/30/21 Range/Units 05:41 06:15 WBC (4.8-10.8) K/uL RBC (4.7-6.1) M/uL Hgb (14.0-18.0) g/dL Hct (42-52) % RDW Std Deviation (36.4-46.3) fL RDW Coeff of Mariya (11.5-14.5) % Neut # (Auto) (1.4-6.5) K/uL [place] # (Auto) (0.11-0.59) K/uL Immature Gran # (Auto) (0.00-0.02) K/uL Chloride 113 H (98-107) mmol/L Carbon Dioxide 19 L (21-32) mmol/L Anion Gap (3-11) BUN 35 H D (7-18) mg/dl Creatinine 1.78 H D (0.6-1.4) mg/dl Glucose 205 H (70-99) mg/dl POC Glucose 189 H (70-99) mg/dl Diagnostic Findings MRI brain-compared to the previous examination, there has been interval development of an acute infarct within the brainstem centrally and to the left with acute diffusion weighted imaging abnormality now seen. 2. Atrophy, old lacunar infarcts and remote small vessel disease are again seen.
[2021-04-30] MEDS: SODIUM CHLORIDE 0.9% 1000ML 1,000 ML IV SCH (11:22)
--- NOTE | 2021-04-30 11:22 | XRay Report ---
XR chest 1V portable CLINICAL HISTORY: r/o CHF, pulmonary edema TECHNIQUE: Single frontal radiograph of the chest was obtained. Comparison: Comparison is made to chest one view 04/27/2021 FINDINGS: No lines and tubes are seen. Cardiomegaly is noted. There is a left retrocardiac opacity. No evidence of pleural effusion or pneumothorax. IMPRESSION: 1. No significant pulmonary edema is seen. Cardiomegaly is noted. 2. Left retrocardiac opacity may represent atelectasis, pneumonia, and/or aspiration. ACT 112: Negative or not required by law. Electronically signed by: Skinny Valdes M.D. 04/30/2021 11:21 AM
[2021-04-30] MEDS: AMPICILLIN/SULBACTAM SOD 3,000 MG in 0.9 % SODIUM CHLORIDE 100 ML IV SCH ×2 (11:53→18:19)
[2021-04-30] MEDS: MoRPHine SULFATE 2 MG/ML CARP IV PRN ×2 (12:52→22:56)
--- NOTE | 2021-04-30 19:24 | Hospitalist Progress Note ---
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 Neuro recommended one time outpatient evaluation by vascular neurosurgery (has not yet seen) Weakness has been worsening Since discharge home CT head on admission showed no acute intracranial abnormality MRI no acute intracranial abnormality, specifically there is no acute or subacute infarct. Chronic lacunar infarcts of the basal ganglia, brainstem and c erebellum. Lyme titer negative Peripheral smear no evidence of intracytoplasmic neutrophilic inclusions to suggest Anaplasmosis Will follow Anaplasmosis Phagocytophilum DNA Neuro on board Continue aspirin and plavix for now, but pt was unable to swallow pills Will change aspirin to [place] for now until able to swallow Neuro recommended to repeat MRI in 24 to 48 hrs Speech on board - plan to get FEES tomorrow to assess his dysphagia Continue PT/OT eval 04/[address] Thomas prognosis poor discussed with family, confirmed DNR status, continue present management re-evaluate tomorrow strict NPO, IV fluids 04/30 Patient clinically about the same Showing signs of aspiration pneumonia We will repeat speech therapy evaluation tomorrow Continue aspirin rectally, judicial BP control monitor closely Possible aspiration pneumonia IV Unasyn ordered Monitor closely Suctioning as needed Electrolytes abnormality Mg 1.7 and K 3.4 Mg and K replaced Acute kidney failure CKD stage III creatinine increased to 1.7 IV fluids ordered Creatinine 0.94 (baseline 1.3). Dysphagia per above DM type II Most recent HbA1c was 7.7 on 04/28/21 Continue novolog sliding scale Currently NPO Hypertension PRN hydralazine Paroxysmal atrial tachycardia Pt had a brief pause on telemonitor Asymptomatic Cardizem decreased to 120mg, unfortunately pt has been NPO Consider cardiology consult if reoccur DVT Ppx: SQ heparin Code status: DNR Disposition Continue monitor closely Admission and Anticipated Discharge Date Admission Date: April 29, 2021 Subjective Follow-up for acute CVA, etc. Initially seen in the morning, patient sleeping but easily awakened to verbal stimuli Appears to be somewhat tachypneic Still has severe dysarthria When asked if he has having pain patient points towards his right arm Denies shortness of breath or any other symptoms Morphine IV as needed ordered Reevaluate in the afternoon with patient's family at the bedside Patient more awake and alert Still having severe dysarthria Points towards a cup of water indicating he would like to have his mouth moistened Does not appear to be tachypneic Review of Systems Review of Systems: all noted and negative except for above Physical Exam Physical Exam: General-awake, weak not in distress, breathing no effort or accessory muscle use Eyes- anicteric Neck- no JVD Lungs-mild crackles on the left base clear on the right no wheezing Heart- normal rate, regular rhythm; no murmurs Abdomen- normal bowel sounds, nondistended, soft, nontender Extremities- no pretibial edema, no calf tenderness Neuro-awake, right side 05 motor strength, positive severe dysarthria, mild facial asymmetry Skin- warm & dry Results & Data Results & Data ([facility]) Vital Signs (Past 12 Hours) Vital Signs Temp Pulse Pulse Resp BP BP Pulse Ox 04/30/21 16:20 92 H 04/30/21 16:10 36.9 C 90 32 H 166/86 H 93 04/30/21 12:05 36.8 C 92 H 28 H 117/78 95 04/30/21 07:35 37.6 C H 86 28 H 184/91 H 89 L all noted and reviewed including below
[2021-04-30] MEDS: TAMSULOSIN HCL 0.4 MG CAP PO SCH (20:27)
[2021-04-30] MEDS: CHOLECALCIFEROL 1,000 UNITS 25 MCG TAB PO SCH (20:27)
[2021-04-30] MEDS: dilTIAZem HCL 120 MG CAPCR PO SCH (20:27)
[2021-05-01] MEDS: SODIUM CHLORIDE 0.9% 1000ML 1,000 ML IV SCH ×2 (00:13→08:54)
[2021-05-01] MEDS: AMPICILLIN/SULBACTAM SOD 3,000 MG in 0.9 % SODIUM CHLORIDE 100 ML IV SCH ×4 (00:15→17:40)
[2021-05-01] MEDS: INSULIN ASPART PER UNIT SC SCH ×4 (00:26→18:26)
[2021-05-01] MEDS: HEPARIN SOD 5,000 UNIT/0.5 ML VIAL SQ SCH ×3 (06:34→20:44)
[2021-05-01] MEDS: MoRPHine SULFATE 2 MG/ML CARP IV PRN ×3 (06:40→17:40)
[2021-05-01 08:10] LABS: Basophils # (auto) 0.02 K/uL (0-0.2); Basophils % (auto) 0.2 %; Eosinophils # (auto) 0.01 K/uL (0-0.5); Eosinophils % (auto) 0.1 %; Hematocrit (blood only) 37.1 % (42-52); Hemoglobin 12.1 g/dL (14.0-18.0); Immature Granulocytes # (auto) 0.02 K/uL (0.00-0.02); Immature Granulocytes % (auto) 0.2 %; Lymphocytes # (auto) 1.09 K/uL (1.2-3.4); Lymphocytes % (auto) 8.3 %; Mean Corpuscular Hgb Conc 32.6 g/dL (32-36); Mean Platelet Volume 9.6 fL (7.4-10.4); Monocytes # (auto) 1.56 K/uL (0.11-0.59); Monocytes % (auto) 11.9 %; Neutrophils # (auto) 10.43 K/uL (1.4-6.5); Neutrophils % (auto) 79.3 %; Platelet Count 270 K/uL (130-400); RDW Coefficient of Variation 15.8 % (11.5-14.5); RDW Standard Deviation 51.3 fL (36.4-46.3); Red Blood Count 4.17 M/uL (4.7-6.1); White Blood Count 13.13 K/uL (4.8-10.8)
[2021-05-01] MEDS: CLOPIDOGREL BISULFATE 75 MG TAB PO SCH (08:12)
[2021-05-01] MEDS: CYANOCOBALAMIN 500 MCG TABLET (VITAMIN B-12) PO SCH (08:12)
[2021-05-01] MEDS: PANTOprazole 40 MG TAB PO SCH (08:13)
[2021-05-01] MEDS: ROSUVASTATIN CALCIUM 5 MG TAB PO SCH (08:13)
[2021-05-01 08:48] LABS: BUN Creatinine Ratio 27.2 (10-20); Calcium 7.9 mg/dl (8.5-10.1); Creatinine Clr Calc Pharmacy 40.9 ml/min; Est GFR (African American) 53.9 ml/min; Est GFR (Non-African American) 46.5 ml/min
[2021-05-01] MEDS: KETOROLAC 0.5% OP SOLN 5 ML BTL OPL SCH ×2 (08:53→20:43)
[2021-05-01] MEDS: ASPIRIN 300 MG SUPP PR SCH (08:53)
[2021-05-01] MEDS: ACETAMINOPHEN 1,000 MG/100 ML VIAL IV PRN ×2 (10:41→23:47)
[2021-05-01] MEDS: hydrALAZINE HCL 20 MG/ML VIAL IV PRN (15:20)
--- NOTE | 2021-05-01 16:34 | Hospitalist Progress Note ---
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 Neuro recommended one time outpatient evaluation by vascular neurosurgery (has not yet seen) Weakness has been worsening Since discharge home CT head on admission showed no acute intracranial abnormality MRI no acute intracranial abnormality, specifically there is no acute or subacute infarct. Chronic lacunar infarcts of the basal ganglia, brainstem and cerebellum. Lyme titer negative Peripheral smear no evidence of intracytoplasmic neutrophilic inclusions to suggest Anaplasmosis Will follow Anaplasmosis Phagocytophilum DNA Neuro on board Continue aspirin and plavix for now, but pt was unable to swallow pills Will change aspirin to [place] for now until able to swallow Neuro recommended to repeat MRI in 24 to 48 hrs Speech on board - plan to get FEES tomorrow to assess his dysphagia Continue PT/OT eval 04/[address] Thomas prognosis poor discussed with family, confirmed DNR status, continue present management re-evaluate tomorrow strict NPO, IV fluids 04/30 Patient clinically about the same Showing signs of aspiration pneumonia We will repeat speech therapy evaluation tomorrow Continue aspirin rectally, judicial BP control monitor closely 05/01 Patient be less responsive today Febrile Repeat speech evaluation: Patient still high aspiration risk, n.p.o. recommended We will discuss with neurology regarding prognosis Continue rectal aspirin As needed hydralazine for systolic BP more than 170 Possible aspiration pneumonia IV Unasyn ordered Monitor closely Suctioning as needed Electrolytes abnormality Mg 1.7 and K 3.4 Mg and K replaced Acute kidney failure CKD stage III creatinine increased to 1.7 IV fluids ordered Creatinine 0.94 (baseline 1.3). Resolved Hyponatremia Sodium 150 D5 water ordered monitor Dysphagia per above DM type II Most recent HbA1c was 7.7 on 04/28/21 Continue novolog sliding scale Currently NPO Hypertension PRN hydralazine Paroxysmal atrial tachycardia Pt had a brief pause on telemonitor Asymptomatic Cardizem decreased to 120mg, unfortunately pt has been NPO Consider cardiology consult if reoccur DVT Ppx: SQ heparin Code status: DNR Disposition Continue monitor closely Admission and Anticipated Discharge Date Admission Date: April 29, 2021 Subjective Follow-up for acute CVA, etc. Seen resting in bed, appears to be more drowsy today Nonverbal Squeezes examiner's hand on the left hand even without command Does not follow any other commands Review of systems difficult to perform as patient drowsy, has severe dysarthria Review of Systems Review of Systems: Unobtainable due to cognitive status Physical Exam Physical Exam: General-drowsy, weak, not in distress, breathing with no effort or accessory muscle use Eyes- anicteric Neck- no JVD Lungs- clear breath sounds bilaterally, no rales/wheezes Heart- normal rate, regular rhythm; no murmurs Abdomen- normal bowel sounds, nondistended, soft, nontender Extremities- no pretibial edema, no calf tenderness Neuro- alert, oriented x 3; no gross focal neurologic deficits Skin- warm & dry Results & Data Results & Data ([facility]) Vital Signs (Past 12 Hours) Vital Signs Temp Pulse Pulse Pulse Resp BP BP 05/01/21 16:14 94 H 05/01/21 16:04 94 H 180/85 H 05/01/21 15:32 38.4 C H 84 22 217/101 H 203/102 H 05/01/21 15:21 87 213/95 H 05/01/21 12:00 88 H 164/78 H 05/01/21 11:33 38.0 C H 87 22 178/87 H 05/01/21 07:56 37.5 C 81 22 159/77 H 05/01/21 07:29 77 Pulse Ox 05/01/21 16:14 05/01/21 16:04 05/01/21 15:32 94 05/01/21 15:21 05/01/21 12:00 05/01/21 11:33 91 05/01/21 07:56 90 05/01/21 07:29 all noted and reviewed including below
[2021-05-01] MEDS: DEXTROSE 5% 1,000 ML IV SCH (17:41)
[2021-05-01] MEDS: dilTIAZem HCL 120 MG CAPCR PO SCH (20:43)
[2021-05-01] MEDS: CHOLECALCIFEROL 1,000 UNITS 25 MCG TAB PO SCH (20:43)
[2021-05-01] MEDS: TAMSULOSIN HCL 0.4 MG CAP PO SCH (20:44)
[2021-05-01] MEDS ORDERED: hydrALAZINE HCL 20 MG/ML VIAL IV ONE (23:42)
[2021-05-02] MEDS: INSULIN ASPART PER UNIT SC SCH ×4 (00:05→18:20)
[2021-05-02] MEDS: AMPICILLIN/SULBACTAM SOD 3,000 MG in 0.9 % SODIUM CHLORIDE 100 ML IV SCH ×3 (00:07→12:16)
[2021-05-02] MEDS: MoRPHine SULFATE 2 MG/ML CARP IV PRN ×6 (00:16→22:16)
[2021-05-02] MEDS ORDERED: SCOPOLAMINE 1 MG TDSY TD ONE (04:20)
[2021-05-02] MEDS: hydrALAZINE HCL 20 MG/ML VIAL IV PRN ×3 (04:59→20:19)
[2021-05-02] MEDS: HEPARIN SOD 5,000 UNIT/0.5 ML VIAL SQ SCH ×3 (06:14→22:18)
[2021-05-02 06:45] LABS: Basophils # (auto) 0.03 K/uL (0-0.2); Basophils % (auto) 0.2 %; Eosinophils # (auto) 0.01 K/uL (0-0.5); Eosinophils % (auto) 0.1 %; Hematocrit (blood only) 38.2 % (42-52); Hemoglobin 12.5 g/dL (14.0-18.0); Immature Granulocytes # (auto) 0.04 K/uL (0.00-0.02); Immature Granulocytes % (auto) 0.3 %; Lymphocytes # (auto) 1.28 K/uL (1.2-3.4); Lymphocytes % (auto) 9.3 %; Mean Corpuscular Hemoglobin 29.1 pg (25-34); Mean Corpuscular Hgb Conc 32.7 g/dL (32-36); Mean Platelet Volume 9.5 fL (7.4-10.4); Monocytes # (auto) 1.72 K/uL (0.11-0.59); Monocytes % (auto) 12.5 %; Neutrophils # (auto) 10.67 K/uL (1.4-6.5); Neutrophils % (auto) 77.6 %; Platelet Count 282 K/uL (130-400); RDW Coefficient of Variation 15.7 % (11.5-14.5); RDW Standard Deviation 51.2 fL (36.4-46.3); Red Blood Count 4.29 M/uL (4.7-6.1); White Blood Count 13.75 K/uL (4.8-10.8)
[2021-05-02 07:04] LABS: BUN Creatinine Ratio 24.4 (10-20); Calcium 8.7 mg/dl (8.5-10.1); Creatinine Clr Calc Pharmacy 45.6 ml/min; Est GFR (African American) 60.2 ml/min; Est GFR (Non-African American) 51.9 ml/min; Potassium 3.7 mmol/L (3.5-5.1)
[2021-05-02] MEDS: ACETAMINOPHEN 1,000 MG/100 ML VIAL IV PRN (10:01)
[2021-05-02] MEDS: PANTOprazole 40 MG TAB PO SCH (10:01)
[2021-05-02] MEDS: CYANOCOBALAMIN 500 MCG TABLET (VITAMIN B-12) PO SCH (10:01)
[2021-05-02] MEDS: CLOPIDOGREL BISULFATE 75 MG TAB PO SCH (10:01)
[2021-05-02] MEDS: KETOROLAC 0.5% OP SOLN 5 ML BTL OPL SCH ×2 (10:02→20:04)
[2021-05-02] MEDS: ASPIRIN 300 MG SUPP PR SCH (10:07)
[2021-05-02] MEDS: DEXTROSE 5% 1,000 ML IV SCH (10:07)
--- NOTE | 2021-05-02 13:55 | XRay Report ---
XR chest 1V portable CLINICAL HISTORY: Follow-up left retrocardiac opacity.. COMPARISON STUDY: 04/30/2021 TECHNIQUE: 1 view of the chest FINDINGS: Single frontal view of the chest demonstrates the heart to again be enlarged. Retrocardiac opacity is again seen most characteristic of left lower lobe pneumonia. This also left pleural effusion. There is decreased inspiration on the current study with right basilar atelectasis now present. There is no evidence for vascular congestion. There is no acute osseous pathology. IMPRESSION: Persistent left lower lobe alveolar opacity characteristic of pneumonia with evidence for left pleural effusion as well. There is decreased inspiration the current study with right basilar a telectasis also present. ACT 112: Negative or not required by law. Electronically signed by: Carson Bourne M.D. 05/02/2021 1:54 PM
--- NOTE | 2021-05-02 16:12 | Hospitalist Progress Note ---
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 Neuro recommended one time outpatient evaluation by vascular neurosurgery (has not yet seen) Weakness has been worsening Since discharge home CT head on admission showed no acute intracranial abnormality MRI no acute intracranial abnormality, specifically there is no acute or subacute infarct. Chronic lacunar infarcts of the basal ganglia, brainstem and cerebellum. 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 Thomas prognosis poor discussed with family, confirmed DNR status, continue present management re-evaluate tomorrow strict NPO, IV fluids 04/30 Patient clinically about the same Showing signs of aspiration pneumonia We will repeat speech therapy evaluation tomorrow Continue aspirin rectally, judicial BP control monitor closely 05/01 Patient be less responsive today Febrile Repeat speech evaluation: Patient still high aspiration risk, n.p.o. recommended We will discuss with neurology regarding prognosis Continue rectal aspirin As needed hydralazine for systolic BP more than 170 05/02 Patient is drowsy Febrile Repeat chest x-ray: Increased infiltrates left base UA: No signs of UTI Blood cultures: Pending Change Unasyn to Zosyn Discussed with patient significant other last night Would like to repeat speech evaluation tomorrow Possible aspiration pneumonia IV Unasyn changed to Zosyn Suctioning as needed Electrolytes abnormality Mg 1.7 and K 3.4 Mg and K replaced Acute kidney failure CKD stage III creatinine increased to 1.7 IV fluids ordered Creatinine 1.2 Resolved Hypernatremia Sodium 149 D5 water ordered monitor Dysphagia per above DM type II Most recent HbA1c was 7.7 on 04/28/21 Continue novolog sliding scale Currently NPO Hypertension PRN hydralazine Paroxysmal atrial tachycardia Pt had a brief pause on telemonitor Asymptomatic Cardizem decreased to 120mg, unfortunately pt has been NPO DVT Ppx: SQ heparin Code status: DNR Disposition Continue monitor closely Admission and Anticipated Discharge Date Admission Date: April 29, 2021 Subjective Follow-up for acute CVA, with dysphagia, possible aspiration pneumonia, etc. Resting in bed, sleeping Appears to be more drowsy and weak today Able to follow simple commands like opening eyes, stick out his tongue Then drifts back right to sleep No signs of acute respiratory distress No other signs noted Review of Systems Review of Systems: Unobtainable due to cognitive status Physical Exam Physical Exam: General-drowsy, mildly tachypneic, speaks in sentences with no effort or accessory muscle use Eyes- anicteric Neck- no JVD Lungs-positive crackles left base, clear on the right Heart- normal rate, regular rhythm; no murmurs Abdomen- normal bowel sounds, nondistended, soft, nontender Extremities- no pretibial edema, no calf tenderness Neuro-drowsy, right side 0/5, left 4/5, mild facial asymmetry, positive dysarthria No other new focal deficits Skin- warm & dry Results & Data Results & Data ([facility]) Vital Signs (Past 12 Hours) Vital Signs Temp Pulse Pulse Resp BP BP Pulse Ox 05/02/21 15:55 37.5 C 99 H 20 169/87 H 92 05/02/21 14:00 37 C 110 H 24 162/74 H 92 05/02/21 12:51 37.7 C H 105 H 187/88 H 05/02/21 11:01 37.8 C H 101 H 20 182/93 H 92 05/02/21 09:25 37.7 C H 30 H 91 05/02/21 07:49 112 H 05/02/21 06:00 36.5 C 112 H 30 H 168/83 H 90 all noted and reviewed including below
[2021-05-02] MEDS ORDERED: PIPERACILL/TAZOBAC CONSULT ACTIVE PRN (16:20)
[2021-05-02] MEDS ORDERED: PIPERACILLIN/TAZOBACTAM 3.375 GM in DEXTROSE 5% 100 ML IV ONE (16:30)
[2021-05-02] MEDS: CHECK SCOPOLAMINE PATCH PLACEMENT SCH (16:31)
[2021-05-02] MEDS: TAMSULOSIN HCL 0.4 MG CAP PO SCH (20:04)
[2021-05-02] MEDS: CHOLECALCIFEROL 1,000 UNITS 25 MCG TAB PO SCH (20:04)
[2021-05-02] MEDS: dilTIAZem HCL 120 MG CAPCR PO SCH (20:04)
[2021-05-02] MEDS: PIPERACILLIN/TAZOBACTAM 3.375 GM in DEXTROSE 5% 100 ML IV SCH (22:37)
[2021-05-03] MEDS: CHECK SCOPOLAMINE PATCH PLACEMENT SCH ×4 (00:02→23:53)
[2021-05-03] MEDS: INSULIN ASPART PER UNIT SC SCH ×4 (00:47→18:17)
[2021-05-03] MEDS: DEXTROSE 5% 1,000 ML IV SCH ×2 (02:59→18:08)
[2021-05-03] MEDS: PIPERACILLIN/TAZOBACTAM 3.375 GM in DEXTROSE 5% 100 ML IV SCH ×3 (06:10→21:33)
[2021-05-03] MEDS: HEPARIN SOD 5,000 UNIT/0.5 ML VIAL SQ SCH ×3 (06:13→21:37)
[2021-05-03] MEDS: ACETAMINOPHEN 1,000 MG/100 ML VIAL IV PRN (07:40)
[2021-05-03] MEDS: PANTOprazole 40 MG TAB PO SCH (07:43)
[2021-05-03] MEDS: CYANOCOBALAMIN 500 MCG TABLET (VITAMIN B-12) PO SCH (07:43)
[2021-05-03] MEDS: CLOPIDOGREL BISULFATE 75 MG TAB PO SCH (07:43)
[2021-05-03 07:46] LABS: Basophils # (auto) 0.02 K/uL (0-0.2); Basophils % (auto) 0.2 %; Eosinophils # (auto) 0.08 K/uL (0-0.5); Eosinophils % (auto) 0.7 %; Hemoglobin 11.6 g/dL (14.0-18.0); Immature Granulocytes # (auto) 0.03 K/uL (0.00-0.02); Immature Granulocytes % (auto) 0.3 %; Lymphocytes % (auto) 10.4 %; Mean Corpuscular Hemoglobin 28.6 pg (25-34); Mean Corpuscular Hgb Conc 32.2 g/dL (32-36); Mean Corpuscular Volume 88.9 fL (80-100); Mean Platelet Volume 9.7 fL (7.4-10.4); Monocytes # (auto) 1.16 K/uL (0.11-0.59); Neutrophils % (auto) 78.4 %; Platelet Count 283 K/uL (130-400); RDW Coefficient of Variation 15.4 % (11.5-14.5); RDW Standard Deviation 50.4 fL (36.4-46.3); Red Blood Count 4.05 M/uL (4.7-6.1); White Blood Count 11.59 K/uL (4.8-10.8)
[2021-05-03 08:07] LABS: BUN Creatinine Ratio 24.1 (10-20); Calcium 8.4 mg/dl (8.5-10.1); Creatinine Clr Calc Pharmacy 40.2 ml/min; Est GFR (African American) 52.1 ml/min; Potassium 3.6 mmol/L (3.5-5.1)
[2021-05-03] MEDS: KETOROLAC 0.5% OP SOLN 5 ML BTL OPL SCH ×2 (08:13→21:36)
[2021-05-03] MEDS: ASPIRIN 300 MG SUPP PR SCH (08:15)
[2021-05-03] MEDS: INSULIN GLARGINE SOLOSTAR 100 UNITS/ML 3 ML PEN SC SCH ×2 (11:58→21:37)
[2021-05-03 12:29] LABS: Appearance Urine Cloudy (Clear); Bacteria Urine Automated Negative (Negative); Bilirubin Urine Negative (Negative); Blood Urine 1+ (Negative); Color Urine Yellow; Epithelial Cell Urine Auto >30 /lpf (0-5); Glucose Urine UA 2+ (Negative); Ketones Urine Trace (Negative); Leukocyte Esterase Urine Negative (Negative); Nitrite Urine Negative (Negative); Protein Urine 3+ (Negative); RBC Urine Automated 0-4 /hpf (0-4); Specific Gravity Urine 1.035 (1.000-1.030); Urobilinogen Urine Negative (Negative)
--- NOTE | 2021-05-03 13:40 | Hospitalist Progress Note ---
Date of Service May 03, 2021 Assessment & Plan (1) Weakness: (2) Dysarthria: (3) History of CVA (cerebrovascular accident): (4) Hypomagnesemia: (5) DM type 2 (diabetes mellitus, type 2): (6) Paroxysmal atrial fibrillation: (7) CKD (chronic kidney disease), stage III: Plan: per admitting service notes with addendum This is an 81yo M with a PMH of CVA with residual left arm and left leg weakness and dysarthria, DM II, HTN, paroxysmal atrial tachycardia, CKD III presenting to ED with progressive weakness x week as well as more pronounced slurring of speech. 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 Neuro recommended one time outpatient evaluation by vascular neurosurgery (has not yet seen) Weakness has been worsening Since discharge home CT head on admission showed no acute intracranial abnormality MRI no acute intracranial abnormality, specifically there is no acute or subacute infarct. Chronic lacunar infarcts of the basal ganglia, brainstem and cerebellum. Lyme titer negative Peripheral smear no evidence of intracytoplasmic neutrophilic inclusions to suggest Anaplasmosis Will follow Anaplasmosis Phagocytophilum DNA Neuro on board Continue aspirin and plavix for now, but pt was unable to swallow pills Will change aspirin to [place] for now until able to swallow Neuro recommended to repeat MRI in 24 to 48 hrs Speech on board - plan to get FEES tomorrow to assess his dysphagia Continue PT/OT eval 04/[address] Thomas prognosis poor discussed with family, confirmed DNR status, continue present management re-evaluate tomorrow strict NPO, IV fluids 04/30 Patient clinically about the same Showing signs of aspiration pneumonia We will repeat speech therapy evaluation tomorrow Continue aspirin rectally, judicial BP control monitor closely 05/01 Patient be less responsive today Febrile Repeat speech evaluation: Patient still high aspiration risk, n.p.o. recommended We will discuss with neurology regarding prognosis Continue rectal aspirin As needed hydralazine for systolic BP more than 170 05/02 Patient is drowsy Febrile Repeat chest x-ray: Increased infiltrates left base Blood cultures: Pending Change Unasyn to Zosyn Discussed with patient significant other last night Would like to repeat speech evaluation tomorrow 05/03 Patient appears weak, drowsy today But still follow simple commands Slurred speech evaluation: Still having severe dysphagia Still recommending n.p.o. strict per speech therapist Will discuss goals of care with family Still having fever Nasal MRSA: Negative Blood cultures: Pending UA: No signs of UTI Continue Zosyn Possible aspiration pneumonia IV Unasyn changed to Zosyn Suctioning as needed Electrolytes abnormality Mg 1.7 and K 3.4 Mg and K replaced Acute kidney failure CKD stage III creatinine increased to 1.7 IV fluids ordered Creatinine 1.2 Resolved Hypernatremia Sodium 149 D5 water ordered monitor Dysphagia per above DM type II Most recent HbA1c was 7.7 on 04/28/21 Continue novolog sliding scale Currently NPO Hypertension PRN hydralazine Paroxysmal atrial tachycardia Pt had a brief pause on telemonitor Asymptomatic Cardizem decreased to 120mg, unfortunately pt has been NPO DVT Ppx: SQ heparin Code status: DNR Disposition Continue monitor closely Admission and Anticipated Discharge Date Admission Date: April 29, 2021 Subjective Follow-up for acute CVA, right-sided weakness, dysarthria, dysphagia, etc. Seen resting in bed, sleeping but easily awakened Appears drowsy, weak Able to follow simple commands like raising his left arm, closing his eyes No pain, shortness of breath No other symptoms and signs noted Review of Systems Review of Systems: Unobtainable due to cognitive status Physical Exam Physical Exam: General-not in distress no effort accessory muscle use with breathing Eyes- anicteric Neck- no JVD Lungs-positive crackles left base, clear on the right Heart- normal rate, regular rhythm; no murmurs Abdomen- normal bowel sounds, nondistended, soft, nontender Extremities- no pretibial edema, no calf tenderness Neuro-follows simple commands, positive dysarthria, right-sided 0/5, left side 4/5 Positive facial asymmetry Skin- warm & dry Results & Data Results & Data ([facility]) Vital Signs (Past 12 Hours) Vital Signs Temp Pulse Pulse Resp BP Pulse Ox 05/03/21 11:10 36.7 C 77 20 163/90 H 93 05/03/21 07:47 96 H 05/03/21 07:36 38.9 C H 93 H 18 165/84 H 94 05/03/21 04:50 86 05/03/21 02:35 37.7 C H 90 24 154/79 H 92 all noted and reviewed including below
[2021-05-03] MEDS: dilTIAZem HCL 120 MG CAPCR PO SCH (20:18)
[2021-05-03] MEDS: CHOLECALCIFEROL 1,000 UNITS 25 MCG TAB PO SCH (20:18)
[2021-05-03] MEDS: TAMSULOSIN HCL 0.4 MG CAP PO SCH (20:18)
[2021-05-03 21:30] LABS: Creatinine Clr Calc Pharmacy 40.8 ml/min; Est GFR (Non-African American) 45.7 ml/min
[2021-05-03 22:00] LABS: Potassium 3.5 mmol/L (3.5-5.1)
[2021-05-04] MEDS: INSULIN ASPART PER UNIT SC SCH ×4 (00:32→18:19)
[2021-05-04] MEDS: hydrALAZINE HCL 20 MG/ML VIAL IV PRN (00:55)
[2021-05-04] MEDS: PIPERACILLIN/TAZOBACTAM 3.375 GM in DEXTROSE 5% 100 ML IV SCH ×3 (05:33→22:03)
[2021-05-04] MEDS: HEPARIN SOD 5,000 UNIT/0.5 ML VIAL SQ SCH ×3 (05:34→21:58)
[2021-05-04] MEDS ORDERED: GLYCOPYRROLATE 0.2 MG/ML VIAL IV STA (05:51)
[2021-05-04 06:26] LABS: Basophils # (auto) 0.03 K/uL (0-0.2); Basophils % (auto) 0.3 %; Eosinophils # (auto) 0.13 K/uL (0-0.5); Eosinophils % (auto) 1.1 %; Hematocrit (blood only) 36.3 % (42-52); Hemoglobin 11.5 g/dL (14.0-18.0); Immature Granulocytes # (auto) 0.07 K/uL (0.00-0.02); Immature Granulocytes % (auto) 0.6 %; Lymphocytes % (auto) 12.6 %; Mean Corpuscular Hemoglobin 28.3 pg (25-34); Mean Corpuscular Hgb Conc 31.7 g/dL (32-36); Mean Corpuscular Volume 89.2 fL (80-100); Mean Platelet Volume 10.1 fL (7.4-10.4); Monocytes # (auto) 1.32 K/uL (0.11-0.59); Monocytes % (auto) 11.1 %; Neutrophils # (auto) 8.86 K/uL (1.4-6.5); Neutrophils % (auto) 74.3 %; Platelet Count 292 K/uL (130-400); RDW Coefficient of Variation 15.3 % (11.5-14.5); RDW Standard Deviation 50.3 fL (36.4-46.3); Red Blood Count 4.07 M/uL (4.7-6.1); White Blood Count 11.91 K/uL (4.8-10.8)
[2021-05-04 06:47] LABS: BUN Creatinine Ratio 25.9 (10-20); Calcium 8.5 mg/dl (8.5-10.1); Creatinine Clr Calc Pharmacy 45.7 ml/min; Est GFR (African American) 60.2 ml/min; Est GFR (Non-African American) 51.9 ml/min; Potassium 3.4 mmol/L (3.5-5.1)
[2021-05-04] MEDS: CLOPIDOGREL BISULFATE 75 MG TAB PO SCH (07:51)
[2021-05-04] MEDS: CYANOCOBALAMIN 500 MCG TABLET (VITAMIN B-12) PO SCH (07:51)
[2021-05-04] MEDS: PANTOprazole 40 MG TAB PO SCH (07:52)
[2021-05-04] MEDS: ROSUVASTATIN CALCIUM 5 MG TAB PO SCH (07:52)
[2021-05-04] MEDS: CHECK SCOPOLAMINE PATCH PLACEMENT SCH ×2 (09:37→16:19)
[2021-05-04] MEDS: KETOROLAC 0.5% OP SOLN 5 ML BTL OPL SCH ×2 (09:37→21:58)
[2021-05-04] MEDS: ASPIRIN 300 MG SUPP PR SCH (09:37)
[2021-05-04] MEDS: INSULIN GLARGINE SOLOSTAR 100 UNITS/ML 3 ML PEN SC SCH ×2 (09:38→21:57)
[2021-05-04] MEDS: MoRPHine SULFATE 2 MG/ML CARP IV PRN ×2 (09:52→18:21)
[2021-05-04] MEDS: POTASSIUM CHLORIDE / WTR 10 MEQ/100 ML PLCT IV SCH ×2 (10:29→11:54)
[2021-05-04] MEDS: DEXTROSE 5% 1,000 ML IV SCH ×2 (11:07→13:19)
--- NOTE | 2021-05-04 13:28 | Hospitalist Progress Note ---
Date of Service May 04, 2021 Assessment & Plan (1) Weakness: (2) Dysarthria: (3) History of CVA (cerebrovascular accident): (4) Hypomagnesemia: (5) DM type 2 (diabetes mellitus, type 2): (6) Paroxysmal atrial fibrillation: (7) CKD (chronic kidney disease), stage III: Plan: per admitting service notes with addendum This is an 81yo M with a PMH of CVA with residual left arm and left leg weakness and dysarthria, DM II, HTN, paroxysmal atrial tachycardia, CKD III presenting to ED with progressive weakness x week as well as more pronounced slurring of speech. 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 Neuro recommended one time outpatient evaluation by vascular neurosurgery (has not yet seen) Weakness has been worsening Since discharge home CT head on admission showed no acute intracranial abnormality MRI no acute intracranial abnormality, specifically there is no acute or subacute infarct. Chronic lacunar infarcts of the basal ganglia, brainstem and cerebellum. Lyme titer negative Peripheral smear no evidence of intracytoplasmic neutrophilic inclusions to suggest Anaplasmosis Will follow Anaplasmosis Phagocytophilum DNA Neuro on board Continue aspirin and plavix for now, but pt was unable to swallow pills Will change aspirin to [place] for now until able to swallow Neuro recommended to repeat MRI in 24 to 48 hrs Speech on board - plan to get FEES tomorrow to assess his dysphagia Continue PT/OT eval 04/[address] Thomas prognosis poor discussed with family, confirmed DNR status, continue present management re-evaluate tomorrow strict NPO, IV fluids 04/30 Patient clinically about the same Showing signs of aspiration pneumonia We will repeat speech therapy evaluation tomorrow Continue aspirin rectally, judicial BP control monitor closely 05/01 Patient be less responsive today Febrile Repeat speech evaluation: Patient still high aspiration risk, n.p.o. recommended We will discuss with neurology regarding prognosis Continue rectal aspirin As needed hydralazine for systolic BP more than 170 05/02 Patient is drowsy Febrile Repeat chest x-ray: Increased infiltrates left base Blood cultures: Pending Change Unasyn to Zosyn Discussed with patient significant other last night Would like to repeat speech evaluation tomorrow 05/03 Patient appears weak, drowsy today But still follow simple commands Slurred speech evaluation: Still having severe dysphagia Still recommending n.p.o. strict per speech therapist Will discuss goals of care with family Still having fever Nasal MRSA: Negative Blood cultures: Pending UA: No signs of UTI Continue Zosyn 05/04 Still appears weak and drowsy Does not seem to be following commands now Afebrile Blood cultures negative so far On Zosyn Had lengthy discussion with patient's daughter who is the POA yesterday She will discuss with her siblings regarding family discussion of goals of care Possible aspiration pneumonia IV Unasyn changed to Zosyn Suctioning as needed Electrolytes abnormality Mg 1.7 and K 3.4 Mg and K replaced Acute kidney failure CKD stage III creatinine increased to 1.7 IV fluids ordered Creatinine 1.2 Resolved Hypernatremia [id number] D5 water ordered monitor Dysphagia per above DM type II Most recent HbA1c was 7.7 on 04/28/21 Continue novolog sliding scale and Lantus Currently NPO Hypertension PRN hydralazine Paroxysmal atrial tachycardia Pt had a brief pause on telemonitor Asymptomatic Cardizem decreased to 120mg, unfortunately pt has been NPO DVT Ppx: SQ heparin Code status: DNR Disposition Continue monitor closely Admission and Anticipated Discharge Date Admission Date: April 29, 2021 Subjective Follow-up for acute CVA, dysarthria, dysphagia, fever, etc. Seen resting in bed, sleeping but easily awakened Seems to be more drowsy, weak today Does not seem to follow commands today No signs of pain, shortness of breath No other symptoms Review of Systems Review of Systems: all noted and negative except for above Physical Exam Physical Exam: General-drowsy, not in distress,breathing with no effort or accessory muscle use Eyes- anicteric Neck- no JVD Lungs- (+) crackles on the left base Heart- normal rate, regular rhythm; no murmurs Abdomen- normal bowel sounds, nondistended, soft, nontender Extremities- no pretibial edema, no calf tenderness Neuro- no new neurologic deficits noted Skin- warm & dry Results & Data Results & Data ([facility]) Vital Signs (Past 12 Hours) Vital Signs Temp Pulse Pulse Resp BP BP Pulse Ox 05/04/21 12:22 37.6 C H 90 22 168/87 H 90 05/04/21 07:50 37.1 C 100 H 22 160/92 H 94 05/04/21 07:15 123 H 05/04/21 04:43 37.4 C 94 H 28 H 179/90 H 91 05/04/21 01:26 156/83 H all noted and reviewed including below
[2021-05-04] MEDS: CHOLECALCIFEROL 1,000 UNITS 25 MCG TAB PO SCH (21:54)
[2021-05-04] MEDS: TAMSULOSIN HCL 0.4 MG CAP PO SCH (21:54)
[2021-05-04] MEDS: dilTIAZem HCL 120 MG CAPCR PO SCH (21:54)
[2021-05-04] MEDS: ACETAMINOPHEN 1,000 MG/100 ML VIAL IV PRN (22:04)
[2021-05-05] MEDS: MoRPHine SULFATE 2 MG/ML CARP IV PRN ×4 (00:06→19:43)
[2021-05-05] MEDS: CHECK SCOPOLAMINE PATCH PLACEMENT SCH (00:06)
[2021-05-05] MEDS: INSULIN ASPART PER UNIT SC SCH ×4 (00:20→18:02)
[2021-05-05] MEDS: DEXTROSE 5% 1,000 ML IV SCH ×2 (02:30→15:24)
[2021-05-05] MEDS: ATROPINE SULFATE 1% OP SOLN 5 ML BTL OP PRN ×3 (04:20→19:43)
[2021-05-05] MEDS: HEPARIN SOD 5,000 UNIT/0.5 ML VIAL SQ SCH ×3 (05:34→21:39)
[2021-05-05] MEDS: PIPERACILLIN/TAZOBACTAM 3.375 GM in DEXTROSE 5% 100 ML IV SCH ×3 (05:35→21:41)
[2021-05-05 06:31] LABS: BUN Creatinine Ratio 25.7 (10-20); Calcium 8.4 mg/dl (8.5-10.1); Creatinine Clr Calc Pharmacy 41.7 ml/min; Est GFR (African American) 53.9 ml/min; Est GFR (Non-African American) 46.5 ml/min; Potassium 3.7 mmol/L (3.5-5.1)
[2021-05-05] MEDS: PANTOprazole 40 MG TAB PO SCH (08:57)
[2021-05-05] MEDS: CLOPIDOGREL BISULFATE 75 MG TAB PO SCH (08:57)
[2021-05-05] MEDS: CYANOCOBALAMIN 500 MCG TABLET (VITAMIN B-12) PO SCH (08:57)
[2021-05-05] MEDS: KETOROLAC 0.5% OP SOLN 5 ML BTL OPL SCH ×2 (08:58→21:39)
[2021-05-05] MEDS: ASPIRIN 300 MG SUPP PR SCH (08:58)
[2021-05-05] MEDS: INSULIN GLARGINE SOLOSTAR 100 UNITS/ML 3 ML PEN SC SCH ×2 (08:58→21:36)
[2021-05-05] MEDS: ACETAMINOPHEN 1,000 MG/100 ML VIAL IV PRN (11:19)
--- NOTE | 2021-05-05 14:32 | Hospitalist Progress Note ---
Date of Service May 05, 2021 Assessment & Plan (1) Weakness: (2) Dysarthria: (3) History of CVA (cerebrovascular accident): (4) Hypomagnesemia: (5) DM type 2 (diabetes mellitus, type 2): (6) Paroxysmal atrial fibrillation: (7) CKD (chronic kidney disease), stage III: Plan: per admitting service notes with addendum This is an 81yo M with a PMH of CVA with residual left arm and left leg weakness and dysarthria, DM II, HTN, paroxysmal atrial tachycardia, CKD III presenting to ED with progressive weakness x week as well as more pronounced slurring of speech. 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 Neuro recommended one time outpatient evaluation by vascular neurosurgery (has not yet seen) Weakness has been worsening Since discharge home CT head on admission showed no acute intracranial abnormality MRI no acute intracranial abnormality, specifically there is no acute or subacute infarct. Chronic lacunar infarcts of the basal ganglia, brainstem and cerebellum. Lyme titer negative Peripheral smear no evidence of intracytoplasmic neutrophilic inclusions to suggest Anaplasmosis 05/05/2021 Patient has not shown any signs of improvement with symptoms since last Tuesday Still has dense right-sided weakness, severe dysarthria-nonverbal, has failed 3 speech evaluations Has been n.p.o. since last Tuesday Yesterday, atropine drops started for secretions Patient appears frail, weak although still follows simple commands like raising left arm and squeeze examiner's fingers Awaiting family decision regarding goals of care Fever Likely secondary to aspiration pneumonia Blood cultures negative Currently afebrile x2 to 3 days Possible aspiration pneumonia IV Unasyn changed to Zosyn Suctioning as needed Electrolytes abnormality Mg 1.7 and K 3.4 Mg and K replaced Acute kidney failure CKD stage III creatinine increased to 1.7 IV fluids ordered Creatinine 1.2 Resolved Hypernatremia [id number] D5 water ordered monitor Dysphagia per above DM type II Most recent HbA1c was 7.7 on 04/28/21 Continue novolog sliding scale and Lantus Currently NPO Hypertension PRN hydralazine Paroxysmal atrial tachycardia Pt had a brief pause on telemonitor Asymptomatic Cardizem decreased to 120mg, unfortunately pt has been NPO DVT Ppx: SQ heparin Code status: DNR Disposition Awaiting family decision regarding goals of care, possible comfort measures status Admission and Anticipated Discharge Date Admission Date: April 29, 2021 Subjective Follow-up for acute CVA, dysarthria, dysphagia, etc. Seen in bed, not in distress, sleeping, easily awakened Patient appears very weak, follows commands to raise right arm, squeeze examiner's fingers Otherwise patient does not follow any other commands Indicates positive pain but cannot locate No other symptoms or signs noted Review of Systems Review of Systems: all noted and negative except for above Physical Exam Physical Exam: General-appears drowsy, weak, breathing with no effort or accessory muscle use Eyes- anicteric Neck- no JVD Lungs-positive crackles left base, clear on the right No wheezing Heart- normal rate, regular rhythm; no murmurs Abdomen- normal bowel sounds, nondistended, soft, nontender Extremities- no pretibial edema, no calf tenderness Neuro-right side 0/5, left-sided 4/5, positive severe dysarthria, right facial asymmetry Skin- warm & dry Results & Data Results & Data ([facility]) Vital Signs (Past 12 Hours) Vital Signs Temp Pulse Pulse Resp BP BP Pulse Ox 05/05/21 11:22 80 22 158/91 H 94 05/05/21 08:04 73 05/05/21 07:32 36.9 C 80 20 168/81 H 91 05/05/21 04:35 37.2 C 76 18 146/81 H 93 all noted and reviewed including below
[2021-05-05] MEDS: hydrALAZINE HCL 20 MG/ML VIAL IV PRN (16:07)
[2021-05-05] MEDS ORDERED: ACETAMINOPHEN 1,000 MG/100 ML VIAL IV PRN (18:34)
[2021-05-05] MEDS: TAMSULOSIN HCL 0.4 MG CAP PO SCH (19:58)
[2021-05-05] MEDS: dilTIAZem HCL 120 MG CAPCR PO SCH (19:58)
[2021-05-05] MEDS: CHOLECALCIFEROL 1,000 UNITS 25 MCG TAB PO SCH (19:58)
[2021-05-06] MEDS: ATROPINE SULFATE 1% OP SOLN 5 ML BTL OP PRN ×4 (00:38→21:29)
[2021-05-06] MEDS: INSULIN ASPART PER UNIT SC SCH ×4 (00:38→18:22)
[2021-05-06] MEDS: MoRPHine SULFATE 2 MG/ML CARP IV PRN ×4 (00:39→21:29)
[2021-05-06] MEDS: DEXTROSE 5% 1,000 ML IV SCH ×2 (03:43→16:12)
[2021-05-06] MEDS: HEPARIN SOD 5,000 UNIT/0.5 ML VIAL SQ SCH ×3 (06:01→21:32)
[2021-05-06] MEDS: PIPERACILLIN/TAZOBACTAM 3.375 GM in DEXTROSE 5% 100 ML IV SCH ×3 (06:02→21:38)
[2021-05-06] MEDS: INSULIN GLARGINE SOLOSTAR 100 UNITS/ML 3 ML PEN SC SCH ×2 (08:31→21:31)
[2021-05-06] MEDS: CLOPIDOGREL BISULFATE 75 MG TAB PO SCH (08:32)
[2021-05-06] MEDS: KETOROLAC 0.5% OP SOLN 5 ML BTL OPL SCH ×2 (08:32→21:32)
[2021-05-06] MEDS: PANTOprazole 40 MG TAB PO SCH (08:33)
[2021-05-06] MEDS: ASPIRIN 300 MG SUPP PR SCH (08:37)
[2021-05-06] MEDS: CYANOCOBALAMIN 500 MCG TABLET (VITAMIN B-12) PO SCH (10:33)
[2021-05-06] MEDS: CHOLECALCIFEROL 1,000 UNITS 25 MCG TAB PO SCH (20:43)
[2021-05-06] MEDS: dilTIAZem HCL 120 MG CAPCR PO SCH (20:43)
[2021-05-06] MEDS: TAMSULOSIN HCL 0.4 MG CAP PO SCH (20:43)
--- NOTE | 2021-05-06 21:56 | Hospitalist Progress Note ---
Date of Service May 06, 2021 Assessment & Plan (1) Weakness: (2) Dysarthria: (3) History of CVA (cerebrovascular accident): (4) Hypomagnesemia: (5) DM type 2 (diabetes mellitus, type 2): (6) Paroxysmal atrial fibrillation: (7) CKD (chronic kidney disease), stage III: Plan: per admitting service notes with addendum This is an 81yo M with a PMH of CVA with residual left arm and left leg weakness and dysarthria, DM II, HTN, paroxysmal atrial tachycardia, CKD III presenting to ED with progressive weakness x week as well as more pronounced slurring of speech. 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 Neuro recommended one time outpatient evaluation by vascular neurosurgery (has not yet seen) CT head on admission showed no acute intracranial abnormality MRI no acute intracranial abnormality, specifically there is no acute or subacute infarct. Chronic lacunar infarcts of the basal ganglia, brainstem and cerebellum. Lyme titer negative Peripheral smear no evidence of intracytoplasmic neutrophilic inclusions to suggest Anaplasmosis Repeat Brain MRI showed interval development of an acute infarct within the brainstem centrally and to the left with acute diffusion weighted imaging abnormality 05/06/2021 Patient has not shown any signs of improvement with symptoms since last Tuesday Still has dense right-sided weakness, severe dysarthria-nonverbal, has failed 3 speech evaluations Has been n.p.o. since last Tuesday Yesterday, atropine drops started for secretions Patient appears frail, weak although still follows simple commands like raising left arm and squeeze examiner's fingers Family is not ready to transition to comfort care They would like to try some form of nutrition to see if patient can get stronger since patient is n.p.o. due dysphagia with high risk of aspiration Daughter said if no improvement in the next few days then that will help them for possible to transition to hospice Agreed about no PEG tube placement Will consult pharmacy about PPN trial Will consult palliative care for goals of care Fever Likely secondary to aspiration pneumonia Blood cultures negative Currently afebrile Patient has been on antibiotic for 7 days Consider to discontinue antibiotic Possible aspiration pneumonia IV Unasyn changed to Zosyn, will consider to d/c Suctioning as needed We will do chest PT Electrolytes abnormality Mg 1.7 and K 3.4 Mg and K replaced Acute kidney failure CKD stage III creatinine increased to 1.7 IV fluids ordered Creatinine 1.2 Resolved Hypernatremia [id number] D5 water ordered monitor Dysphagia per above We will consult pharmacy/Nutrition for PPN DM type II Most recent HbA1c was 7.7 on 04/28/21 Continue novolog sliding scale and Lantus Currently NPO Hypertension PRN hydralazine Paroxysmal atrial tachycardia Pt had a brief pause on telemonitor Asymptomatic Cardizem decreased to 120mg, unfortunately pt has been NPO DVT Ppx: SQ heparin Code status: DNR Disposition We will consult palliative care for goals of care Admission and Anticipated Discharge Date Admission Date: April 29, 2021 Subjective Patient was seen and examined for follow-up of acute follow-up for acute CVA, dysarthria, dysphagia Lying in bed with no acute distress with and daughter at bedside Patient continued to be very weak Daughter, and I were not able to understand him when patient tried to express himself He was able to shake his head no when I asked him if he was in pain Spoke to and daughter in detail at bedside and answered all all questions and daughter are not ready to give up yet They would like to try some form of nutrition to see if patient can get stronger since patient is n.p.o. due dysphagia with high risk of aspiration Daughter said if no improvement in the next few days then that will help them for possible to transition to hospice Agreed about no no PEG tube placement They would like a less invasive form to help with the nutrition like TPN or PPN trial Family understand the risks of infection and volume overload with TPN/PPN Review of Systems Review of Systems: All systems reviewed & are unremarkable except as noted in Subjective Physical Exam Physical Exam: General- No acute distress Head- atraumatic Eyes- PERRL, EOMI, ENT- oropharynx clear Neck- supple, no JVD Lungs-+crackle Heart- regular rhythm; no murmur Abdomen- normal bowel sounds, soft, nontender Extremities- no calf tenderness Neuro- Right side 0/5, left-sided 4/5, positive severe dysarthria, right facial asymmetry Skin- warm & dry Results & Data Results & Data ([facility]) Vital Signs (Past 12 Hours) Vital Signs Temp Pulse Resp BP Pulse Ox 05/06/21 19:00 36.6 C 89 24 144/73 H 99 05/06/21 16:26 36.9 C 67 22 157/79 H 97 05/06/21 12:13 36.5 C 77 19 176/86 H 94
[2021-05-07] MEDS: INSULIN ASPART PER UNIT SC SCH ×5 (00:32→23:48)
[2021-05-07] MEDS ORDERED: TPN/PPN CONSULT PHARMACY PRN (03:30)
[2021-05-07] MEDS: DEXTROSE 5% 1,000 ML IV SCH (04:30)
[2021-05-07] MEDS: PIPERACILLIN/TAZOBACTAM 3.375 GM in DEXTROSE 5% 100 ML IV SCH ×3 (06:22→21:44)
[2021-05-07] MEDS: HEPARIN SOD 5,000 UNIT/0.5 ML VIAL SQ SCH ×3 (06:23→20:49)
[2021-05-07 08:48] LABS: BUN Creatinine Ratio 21.6 (10-20); Calcium 8.4 mg/dl (8.5-10.1); Creatinine Clr Calc Pharmacy 51.5 ml/min; Est GFR (African American) 69.3 ml/min; Est GFR (Non-African American) 59.8 ml/min; Magnesium 2.2 mg/dl (1.8-2.4); Potassium 3.4 mmol/L (3.5-5.1)
[2021-05-07] MEDS: CLOPIDOGREL BISULFATE 75 MG TAB PO SCH (09:04)
[2021-05-07] MEDS: CYANOCOBALAMIN 500 MCG TABLET (VITAMIN B-12) PO SCH (09:04)
[2021-05-07] MEDS: ASPIRIN 300 MG SUPP PR SCH (09:04)
[2021-05-07] MEDS: PANTOprazole 40 MG TAB PO SCH (09:05)
[2021-05-07] MEDS: INSULIN GLARGINE SOLOSTAR 100 UNITS/ML 3 ML PEN SC SCH ×2 (09:06→20:48)
[2021-05-07] MEDS: KETOROLAC 0.5% OP SOLN 5 ML BTL OPL SCH ×2 (09:06→20:49)
--- NOTE | 2021-05-07 10:21 | Pharmacy Report ---
Pharmacy PN Initial Consult - Date of Service May 07, 2021 - Scope Pharmacy has been consulted to manage parenteral nutrition orders and order appropriate labs. As part of the Nutrition Support Team guidelines, pharmacy will work in conjunction with dietary when determining the patients caloric needs. - Subjective The patient is a 81 year old M admitted on 04/29/21 08:25 for CAN'T WALK/TALK. Patient is to receive parenteral nutrition for prolonged strict NPO, not a candidate for PEG tube placement or NGT. - Objective Height: 5 ft 7 in Weight: 84.6 kg Diet: NPO Intake & Output (Last 24Hrs): Intake & Output 05/05/21 05/06/21 05/07/21 05/08/21 06:59 06:59 06:59 06:59 Intake Total 1897.000 / 2607.897 3111.333 / 2430.333 2475.667 / 2475.667 Balance 1897.000 / 7832.393 6365.333 / 2430.333 2475.667 / 2475.667 Weight 84.2 kg 84.1 kg 84.6 kg Laboratory Data (Last 24 Hrs):: 05/07/21 05/07/21 07:24 07:24 Sodium 143 Potassium 3.4 L Chloride 111 H Carbon Dioxide 25 BUN 24 H Creatinine 1.13 Glucose 207 H Calcium 8.4 L Phosphorus 2.2 L Magnesium 2.2 Nutrition Assessment:: Please refer to the Notes section of the EMR for the most recent yard specialist note. - Assessment * PPN via clinimix 4.25%/5% will be ordered for peripheral access nutrition * Discussed patient case with hospitalist- would like a max volume of 1,000ml clinimix + lipids. Minimum fluid secondary to crackles and pulm pleural effusion. * Max Kcal with 1,000 ml of above clinimix will NOT achieve goal kcal/macros unless we can increase to 2,000-2400ml/day * High refeeding risk for prolonged NPO. * Will adjust electrolytes accordingly - Plan For day 1 of PN administration, the following will be ordered: Macronutrients Amino acids 43 grams/day Dextrose 50 grams/day Lipids 50 grams/day Micronutrients Potassium phosphate 30 mMol Potassium acetate 20 mEq Calcium gluconate 4.65 mEq Multivitamins 10 mL Trace Elements 10 mL Additional additives: Regular insulin 10 units, folic acid 40mg, thiamine 100mg Total volume 1046.3 mL clinimix + 250ml clinolipid to be infused over 24 hrs will provide 840 kcal/day Final osmolarity 760.58 mOsm/L (maximum for PPN is 900 mOsm/L) Labs to be ordered per PN order protocol Pharmacy will follow and adjust parenteral nutrition orders on a daily basis. Thank you.
--- NOTE | 2021-05-07 12:31 | Palliative Care Consultation ---
Date of Consultation May 07, 2021 Assessment & Plan (1) Palliative care encounter: Higinio is an 81 year old male who presented to the [facility] with progressive weakness for over a week and worsening sluring speech. He has a PMH that includes: DM II, HTN, PAT, CKD III . He was admitted to the hospital one month prior with similar presentation and underwent a brain MRI which was unremarkable with no acute abnorms. Repeat MRI showed acute brainstem infarct. Palliative medicine was consulted to discuss overall goals of care. I met with Higinio in his room. He had an oxymask on and his eyes were closed. He was able to open his eyes to verbal stimulation; however, was unable to have me aningful interaction and was not able to answer simple commands. From review of his chart, this patient has had ongoing weakness and decline. He has failed three speech therapy evaluations, continues to be non verbal at baseline and is overall not showing great signs of improvement. 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 I reached out to Maria Teresa who is one of Higinio's daughters and an established POA at [phone] and left a VM. Ultimately, this patient would certainly meet criteria for Hospice with CVA as a diagnosis. Need to determine placement vs return home with hospice and discuss overall goals of care.Palliative will follow tomorrow. (2) Weakness: (3) Lower extremity weakness: History of Present Illness Reason for Consultation: Goals of care Requesting Physician: Dr. Mckoy Attending Physician: Errol Mckoy MD History of Present Illness Higinio is an 81 year old male who presented to the [facility] with progressive weakness for over a week and worsening sluring speech. He has a PMH that includes: DM II, HTN, PAT, CKD III . He was admitted to the hospital one month prior with similar presentation and underwent a brain MRI which was unremarkable with no acute abnorms. Repeat MRI showed acute brainstem infarct. Palliative medicine was consulted to discuss overall goals of care. Please see A/P for further details. Thanks for involving palliative medicine with this patient. Allergies Allergy/AdvReac Type Severity Reaction Status Date / Time lisinopril Allergy Severe edema/airwa Verified 04/27/21 13:07 y simvastatin Allergy Mild MUSCLE PAIN Verified 04/27/21 13:07 canagliflozin Allergy Unknown vertigo Verified 04/27/21 13:07 adhesive AdvReac Unknown RASH Verified 04/27/21 13:07 mushroom AdvReac Unknown NAUSEATED Verified 04/27/21 13:07 Home Medications Medication Instructions Recorded Confirmed Type aspirin 81 mg tablet,delayed 81 mg PO QAM 12/28/18 04/27/21 History release cholecalciferol (vitamin D3) 25 1,000 unit PO PM 12/28/18 04/27/21 History mcg (1,000 unit) capsule clopidogrel 75 mg tablet 75 mg PO QAM 12/28/18 04/27/21 History coenzyme Q10 100 mg capsule (Co 100 mg PO PM 12/28/18 04/27/21 History Q-10) cyanocobalamin (vitamin B-12) 1,000 mcg PO QAM 12/28/18 04/27/21 History 1,000 mcg tablet (Vitamin B-12) diltiazem HCl 180 mg 180 mg PO PM 12/28/18 04/27/21 History capsule,extended release 24 hr epinephrine 0.3 mg/0.3 mL 0.3 mg IM UD PRN 12/28/18 04/27/21 History injection, auto-injector (EpiPen) losartan 25 mg tablet 25 mg PO QAM 12/28/18 04/27/21 History metformin 500 mg tablet,extended 500 mg PO UD 12/28/18 04/27/21 History release 24 hr omega [id number]-erl-[id number]-fish oil 1,000 mg 1 cap PO PM 12/28/18 04/27/21 History (120 mg-180 mg) capsule (Fish Oil) pantoprazole 40 mg tablet,delayed 40 mg PO QAM 12/28/18 04/27/21 History release solifenacin 5 mg tablet (Vesicare) 5 mg PO QAM 12/28/18 04/27/21 History tamsulosin 0.4 mg capsule 0.4 mg PO PM 12/28/18 04/27/21 History rosuvastatin 5 mg tablet 5 mg PO 2XWK 10/12/20 04/27/21 History semaglutide (Ozempic) 0.25 mg SUBCUT WK 10/12/20 04/27/21 History fluorouracil 5 % topical cream 1 applic TOPICAL UD 04/03/21 04/27/21 History isosorbide mononitrate 30 mg 30 mg PO DAILY 04/03/21 04/27/21 History tablet,extended release 24 hr ketorolac 0.4 % eye drops 1 drp OPL BID 04/03/21 04/27/21 History Patient History Medical History (Updated 05/07/21 @ 23:49 by NIDA Paulino) GRISELDA inhibitor-aggravated angioedema PAUL (acute kidney injury) CKD (chronic kidney disease), stage III Diverticulosis of colon DM type 2 (diabetes mellitus, type 2) Dyslipidemia GERD (gastroesophageal reflux disease) GI bleed H/O hemorrhoids Hiatal hernia History of basal cell carcinoma History of CVA (cerebrovascular accident) History of Helicobacter pylori infection History of right bundle branch block (RBBB) Hypertension Hypothyroid Hypoxia Iliac artery aneurysm Localized osteoarthritis of right knee Palliative care encounter Paroxysmal atrial fibrillation Pharyngeal edema Pneumonia Pneumonia Surgical History H/O arthroscopic knee surgery H/O colonoscopy "04/2005-diverticulae" H/O nasal polypectomy S/P laparoscopic cholecystectomy S/P tonsillectomy Status post Mohs surgery Family History Other Diabetes Heart disease Hypertension Social History Smoking Status: Never smoker Hx Alcohol Use: Yes Alcohol type: beer and wine Hx Substance Use: No Preferred Language: Georgian Communication Ability: 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 Beliefs That Will Affect Care: None marital status: Single Current Living Situation: Significant Other Current Living Situation Comment: Lives with friend Ericka Feels Safe at Home: Yes Assistive Devices: Oxygen - Continuous Review of Systems Review of Systems: Unobtainable due to cognitive status Physical Exam Constitutional: + frail appearing ENMT: Mouth: + dry oral mucous membranes Respiratory: normal respiratory effort Auscultation: + diminished lung silvino nds and + rhonchi Cardiovascular: Rate/Rhythm: regular rate and regular rhythm Heart Sounds: normal S1 and normal S2 Extremities: normal capillary refill and + edema Gastrointestinal (Abdomen): Inspection/Auscultation: abdomen normal to i nspection Skin: + pallor Psychiatric: Orientation: alert and oriented to person Results & Data ([facility]) Vital Signs (Past 12 Hours) Vital Signs Temp Pulse Pulse Resp BP BP Pulse Ox 05/07/21 11:19 37.2 C 62 16 163/76 H 98 05/07/21 07:35 36.8 C 75 16 164/72 H 97 05/07/21 04:00 36.8 C 77 19 167/89 H 96 05/07/21 00:46 86 PG Care Time/CCT Total # of Minutes Spent Total Time Spent with Patient: Total time spent is greater than 50% in coordination of care (as documented) at patient's floor/unit and/or counseling patient: 70 minutes Coding Level of Care Code 19430 Initial Inpt Care Lvl 3 Diagnoses Palliative care encounter Z51.5 Weakness R53.1 Lower extremity weakness R29.898 Time Spent (min) 70
[2021-05-07] MEDS ORDERED: CLINOLIPID 20% IV FAT EMULSION 250 ML IV SCH (16:00)
[2021-05-07] MEDS ORDERED: AMINO ACIDS 4.25% IV SCH (16:00)
[2021-05-07] MEDS ORDERED: D5W IV SCH (16:00)
[2021-05-07] MEDS ORDERED: PERIPHERAL TPN IV SCH (16:00)
[2021-05-07] MEDS ORDERED: DEXTROSE 10% 1,000 ML IV PRN (16:00)
--- NOTE | 2021-05-07 21:02 | Hospitalist Progress Note ---
Date of Service May 07, 2021 Assessment & Plan (1) Weakness: (2) Dysarthria: (3) History of CVA (cerebrovascular accident): (4) Hypomagnesemia: (5) DM type 2 (diabetes mellitus, type 2): (6) Paroxysmal atrial fibrillation: (7) CKD (chronic kidney disease), stage III: Plan: per admitting service notes with addendum This is an 81yo M with a PMH of CVA with residual left arm and left leg weakness and dysarthria, DM II, HTN, paroxysmal atrial tachycardia, CKD III presenting to ED with progressive weakness x week as well as more pronounced slurring of speech. 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 Neuro recommended one time outpatient evaluation by vascular neurosurgery (has not yet seen) CT head on admission showed no acute intracranial abnormality MRI no acute intracranial abnormality, specifically there is no acute or subacute infarct. Chronic lacunar infarcts of the basal ganglia, brainstem and cerebellum. Lyme titer negative Peripheral smear no evidence of intracytoplasmic neutrophilic inclusions to suggest Anaplasmosis Repeat Brain MRI showed interval development of an acute infarct within the brainstem centrally and to the left with acute diffusion weighted imaging abnormality 05/07/2021 Patient has not shown any signs of improvement with symptoms since last Tuesday Still has dense right-sided weakness, severe dysarthria-nonverbal, has failed 3 speech evaluations Has been n.p.o. since last Tuesday Family is not ready to transition to comfort care Case discussed with pharmacy team that placed order for PPN Palliative care consulted for goals of care Fever Likely secondary to aspiration pneumonia Blood cultures negative Currently afebrile Patient has been on antibiotic for 7 days Consider to discontinue antibiotic Possible aspiration pneumonia IV Unasyn changed to Zosyn, will consider to d/c Suctioning as needed We will do chest PT Electrolytes abnormality Potassium 3.4 and phos 2.2 Electrolyte replaced Acute kidney failure CKD stage III creatinine increased to 1.7 IV fluids ordered Creatinine 1.2 Resolved Hypernatremia [id number] today D5 water discontinue since patient started on PPN monitor Dysphagia Failed speech x 3 Pharmacy/Nutrition on board for PPN DM type II Most recent HbA1c was 7.7 on 04/28/21 Continue novolog sliding scale and Lantus Currently NPO Hypertension PRN hydralazine Paroxysmal atrial tachycardia Pt had a brief pause on telemonitor Asymptomatic Cardizem decreased to 120mg, unfortunately pt has been NPO DVT Ppx: SQ heparin Code status: DNR Disposition palliative care consulted for goals of care Admission and Anticipated Discharge Date Admission Date: April 29, 2021 Subjective Patient was seen and examined for follow-up of acute follow-up for acute CVA, dysarthria, dysphagia Lying in bed with no acute distress Patient continued to fell very weak He has been n.p.o. since last week Spoke to pharmacy and plan to start on PPN supplemental Review of Systems Review of Systems: All systems reviewed & are unremarkable except as noted in Subjective Physical Exam Physical Exam: General- No acute distress Head- atraumatic Eyes- PERRL, EOMI, ENT- oropharynx clear Neck- supple, no JVD Lungs-+crackle Heart- regular rhythm; no murmur Abdomen- normal bowel sounds, soft, nontender Extremities- no calf tenderness Neuro- Right side 0/5, left-sided 4/5, positive severe dysarthria, right facial asymmetry Skin- warm & dry Results & Data Results & Data ([facility]) Vital Signs (Past 12 Hours) Vital Signs Temp Pulse Resp BP BP Pulse Ox 05/07/21 19:00 36.3 C L 78 19 217/99 H 96 05/07/21 15:10 37.2 C 63 24 196/90 H 97 05/07/21 11:19 37.2 C 62 16 163/76 H 98
[2021-05-07] MEDS: ATROPINE SULFATE 1% OP SOLN 5 ML BTL OP PRN (21:42)
[2021-05-07] MEDS ORDERED: STOP CLINOLIPID ONE (22:00)
[2021-05-07] MEDS: hydrALAZINE HCL 20 MG/ML VIAL IV PRN (23:35)
[2021-05-08] MEDS: HEPARIN SOD 5,000 UNIT/0.5 ML VIAL SQ SCH ×3 (05:41→20:57)
[2021-05-08] MEDS: PIPERACILLIN/TAZOBACTAM 3.375 GM in DEXTROSE 5% 100 ML IV SCH ×3 (05:41→20:59)
[2021-05-08] MEDS: INSULIN ASPART PER UNIT SC SCH ×3 (05:50→18:49)
[2021-05-08 06:51] LABS: BUN Creatinine Ratio 21.8 (10-20); Calcium 8.6 mg/dl (8.5-10.1); Creatinine Clr Calc Pharmacy 61.9 ml/min; Est GFR (African American) 86.6 ml/min; Est GFR (Non-African American) 74.7 ml/min; Phosphorus 2.6 mg/dl (2.5-4.9); Potassium 3.7 mmol/L (3.5-5.1)
[2021-05-08 06:54] LABS: Bilirubin,Total 0.4 mg/dl (0.2-1)
[2021-05-08] MEDS: INSULIN GLARGINE SOLOSTAR 100 UNITS/ML 3 ML PEN SC SCH ×2 (08:53→20:58)
[2021-05-08] MEDS: KETOROLAC 0.5% OP SOLN 5 ML BTL OPL SCH ×2 (09:00→20:57)
[2021-05-08] MEDS: ATROPINE SULFATE 1% OP SOLN 5 ML BTL SL PRN (11:43)
[2021-05-08] MEDS: MoRPHine SULFATE 2 MG/ML CARP IV PRN (12:21)
[2021-05-08] MEDS: hydrALAZINE HCL 20 MG/ML VIAL IV PRN (12:21)
[2021-05-08] MEDS: ASPIRIN 300 MG SUPP PR SCH ×2 (13:00→15:37)
[2021-05-08] MEDS ORDERED: AMINO ACIDS 4.25% IV SCH ×2 (16:00)
[2021-05-08] MEDS ORDERED: CLINOLIPID 20% IV FAT EMULSION 250 ML IV SCH (16:00)
[2021-05-08] MEDS ORDERED: D5W IV SCH ×2 (16:00)
[2021-05-08] MEDS ORDERED: PERIPHERAL TPN IV SCH ×2 (16:00)
[2021-05-08] MEDS ORDERED: STOP CLINOLIPID ONE (22:00)
--- NOTE | 2021-05-08 22:35 | Hospitalist Progress Note ---
Date of Service May 08, 2021 Assessment & Plan (1) Weakness: (2) Dysarthria: (3) History of CVA (cerebrovascular accident): (4) Hypomagnesemia: (5) DM type 2 (diabetes mellitus, type 2): (6) Paroxysmal atrial fibrillation: (7) CKD (chronic kidney disease), stage III: Plan: per admitting service notes with addendum This is an 81yo M with a PMH of CVA with residual left arm and left leg weakness and dysarthria, DM II, HTN, paroxysmal atrial tachycardia, CKD III presenting to ED with progressive weakness x week as well as more pronounced slurring of speech. 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 Neuro recommended one time outpatient evaluation by vascular neurosurgery (has not yet seen) CT head on admission showed no acute intracranial abnormality MRI no acute intracranial abnormality, specifically there is no acute or subacute infarct. Chronic lacunar infarcts of the basal ganglia, brainstem and cerebellum. Lyme titer negative Peripheral smear no evidence of intracytoplasmic neutrophilic inclusions to suggest Anaplasmosis Repeat Brain MRI showed interval development of an acute infarct within the brainstem centrally and to the left with acute diffusion weighted imaging abnormality 05/08/2021 Patient has not shown any signs of improvement with symptoms since last Tuesday Still has dense right-sided weakness, severe dysarthria-nonverbal, has failed 3 speech evaluations Has been n.p.o. since last Tuesday Family is considering possible to transition to comfort care Case discussed with pharmacy team that placed order for PPN Palliative care consulted for goals of care Case discussed with Dr. Painter that granted permission for the sons to come visti to help transition to comfort care Fever Likely secondary to aspiration pneumonia Blood cultures negative Currently afebrile Patient has been on antibiotic for 7 days Consider to discontinue antibiotic Possible aspiration pneumonia IV Unasyn changed to Zosyn, will consider to d/c Suctioning as needed We will do chest PT Electrolytes abnormality Continue monitor electrolyets Electrolyte replaced Acute kidney failure CKD stage III creatinine increased to 1.7 IV fluids ordered Creatinine 1.2 Resolved Hypernatremia [id number] today D5 water discontinue since patient started on PPN monitor Dysphagia Failed speech x 3 Pharmacy/Nutrition on board for PPN DM type II Most recent HbA1c was 7.7 on 04/28/21 Continue novolog sliding scale and Lantus Currently NPO Hypertension PRN hydralazine Paroxysmal atrial tachycardia Pt had a brief pause on telemonitor Asymptomatic Cardizem decreased to 120mg, unfortunately pt has been NPO DVT Ppx: SQ heparin Code status: DNR Disposition palliative care consulted for goals of care Admission and Anticipated Discharge Date Admission Date: April 29, 2021 Subjective Patient was seen and examined for follow-up of acute follow-up for acute CVA, dysarthria, dysphagia Lying in bed with respiratory distress, feeling weak He has been n.p.o. since last week Early today when I asked pt to shake his head yes or no if he understood When I asked if he is in pain, he shook his head no When I asked if he wants to be comfortable, he shook his head yes When I asked if he wants to stop all the treatment, he shook his head yes I called his daughter Luisa to discuss goal of care with her Again later daughter Luisa came to the hospital, she called her sister Sri on the cell and I updated both about patient condition For now they want to continue everything and asked for the 2 sons to come to visit before considering to transition to comfort care Case discussed with Dr Painter that granted permission for the 2 sons to come to the hospital to visit to help family makes the transition to comfort care Review of Systems Review of Systems: All systems reviewed & are unremarkable except as noted in Subjective Physical Exam Physical Exam: General- acute respiratory failure Head- atraumatic Eyes- PERRL, EOMI, ENT- oropharynx clear Neck- supple, no JVD Lungs-+crackle Heart- regular rhythm; no murmur Abdomen- normal bowel sounds, soft, nontender Extremities- no calf tenderness Neuro- Right side 0/5, left-sided 4/5, positive severe dysarthria, right facial asymmetry Skin- warm & dry Results & Data Results & Data ([facility]) Vital Signs (Past 12 Hours) Vital Signs Temp Pulse Resp BP BP Pulse Ox 05/08/21 19:44 37.5 C 88 20 161/71 H 91 05/08/21 15:22 36.9 C 90 20 171/85 H 95 05/08/21 11:12 37.0 C 99 H 34 H 227/101 H 242/99 H 92
[2021-05-09] MEDS: INSULIN ASPART PER UNIT SC SCH ×3 (00:07→15:32)
[2021-05-09] MEDS ORDERED: MoRPHine SULFATE 2 MG/ML CARP IV PRN (03:28)
[2021-05-09] MEDS ORDERED: ACETAMINOPHEN 1,000 MG/100 ML VIAL IV PRN (03:48)
[2021-05-09] MEDS: HEPARIN SOD 5,000 UNIT/0.5 ML VIAL SQ SCH ×2 (05:39→17:38)
[2021-05-09] MEDS: PIPERACILLIN/TAZOBACTAM 3.375 GM in DEXTROSE 5% 100 ML IV SCH ×2 (05:44→19:02)
--- NOTE | 2021-05-09 07:44 | XRay Report ---
SINGLE VIEW CHEST CLINICAL HISTORY: Worsening hypoxia FINDINGS: An AP, portable, upright chest radiograph is compared to study dated 05/02/2021 and correla darek with chest CT dated 08/23/2016. The examination is degraded by portable technique and patient rotat ion. The heart is enlarged noting atherosclerotic calcification of the thoracic aorta. The pulmonar y vasculature is noncongested. There is a layering left pleural effusion with left basilar consolidat ion. Right lung appears clear noting basilar atelectasis. No pneumothorax is seen. The skeletal struc tures are osteopenic. The bony thorax is grossly intact. Degenerative change is noted in the shoulder s and thoracic spine. Cholecystectomy clips are seen in the right upper quadrant. IMPRESSION: 1. Layering left pleural effusion with left basilar consolidation. This is similar to the 05/02/2021 examination. 2. The right lung appears clear. 3. Cardiomegaly. ACT 112: Negative or not required by law. Electronically signed by: Shane Trevizo M.D. 05/09/2021 7:43 AM
[2021-05-09 09:06] LABS: BUN Creatinine Ratio 22.8 (10-20); Calcium 8.6 mg/dl (8.5-10.1); Creatinine Clr Calc Pharmacy 50.6 ml/min; Est GFR (African American) 68.5 ml/min; Est GFR (Non-African American) 59.1 ml/min; Magnesium 2.2 mg/dl (1.8-2.4); Potassium 3.8 mmol/L (3.5-5.1)
[2021-05-09 09:15] LABS: Phosphorus 3.5 mg/dl (2.5-4.9)
[2021-05-09] MEDS: ATROPINE SULFATE 1% OP SOLN 5 ML BTL SL PRN (11:22)
[2021-05-09] MEDS: INSULIN GLARGINE SOLOSTAR 100 UNITS/ML 3 ML PEN SC SCH (11:23)
[2021-05-09] MEDS: ASPIRIN 300 MG SUPP PR SCH (11:24)
[2021-05-09] MEDS: KETOROLAC 0.5% OP SOLN 5 ML BTL OPL SCH (11:25)
[2021-05-09] MEDS ORDERED: AMINO ACIDS 4.25% IV SCH (16:00)
[2021-05-09] MEDS ORDERED: D5W IV SCH (16:00)
[2021-05-09] MEDS ORDERED: PERIPHERAL TPN IV SCH (16:00)
[2021-05-09] MEDS ORDERED: CLINOLIPID 20% IV FAT EMULSION 250 ML IV SCH (16:30)
[2021-05-09] MEDS ORDERED: ONDANSETRON 4 MG OD TAB SL PRN (17:23)
[2021-05-09] MEDS ORDERED: LORazepam 0.5 MG TAB PO PRN (17:23)
[2021-05-09] MEDS ORDERED: ATROPINE SULFATE 1% OP SOLN 5 ML BTL SL PRN (17:23)
[2021-05-09] MEDS ORDERED: ONDANSETRON INJ 2 MG/ML 2 ML VIAL IV PRN (17:23)
[2021-05-09] MEDS: MoRPHine SULFATE 2 MG/ML CARP IV PRN (21:29)
[2021-05-09] MEDS ORDERED: STOP CLINOLIPID ONE (22:30)
--- NOTE | 2021-05-09 23:56 | Hospitalist Progress Note ---
Date of Service May 09, 2021 Assessment & Plan (1) Weakness: (2) Dysarthria: (3) History of CVA (cerebrovascular accident): (4) Hypomagnesemia: (5) DM type 2 (diabetes mellitus, type 2): (6) Paroxysmal atrial fibrillation: (7) CKD (chronic kidney disease), stage III: Plan: per admitting service notes with addendum This is an 81yo M with a PMH of CVA with residual left arm and left leg weakness and dysarthria, DM II, HTN, paroxysmal atrial tachycardia, CKD III presenting to ED with progressive weakness x week as well as more pronounced slurring of speech. 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 Neuro recommended one time outpatient evaluation by vascular neurosurgery (has not yet seen) CT head on admission showed no acute intracranial abnormality MRI no acute intracranial abnormality, specifically there is no acute or subacute infarct. Chronic lacunar infarcts of the basal ganglia, brainstem and cerebellum. Lyme titer negative Peripheral smear no evidence of intracytoplasmic neutrophilic inclusions to suggest Anaplasmosis Repeat Brain MRI showed interval development of an acute infarct within the brainstem centrally and to the left with acute diffusion weighted imaging abnormality 05/09/2021 Patient has not shown any signs of improvement with symptoms since last Tuesday Still has dense right-sided weakness, severe dysarthria-nonverbal, has failed 3 speech evaluations Palliative care consulted for goals of care Spoke to Luisa on the phone that discussed with family and made decision to transition to comfort care Daughter understood that we will withdrawn care, lab testing and the goal was to keep the patient comfortable She agreed to discontinue PPN supplement Fever Likely secondary to aspiration pneumonia Blood cultures negative Currently afebrile Patient has been on antibiotic for 7 days Completed the course of antibiotic Possible aspiration pneumonia IV Unasyn changed to Zosyn, will consider to d/c Suctioning as needed Continue chest PT and intermittent suctioning Electrolytes abnormality Potassium 3.4 and phos 2.2 Electrolyte replaced Acute kidney failure CKD stage III creatinine increased to 1.7 IV fluids ordered Creatinine 1.2 Resolved Hypernatremia [id number] today D5 water discontinue since patient started on PPN monitor Dysphagia Failed speech x 3 Pharmacy/Nutrition on board for PPN DM type II Most recent HbA1c was 7.7 on 04/28/21 Continue novolog sliding scale and Lantus Currently NPO Hypertension PRN hydralazine Paroxysmal atrial tachycardia Pt had a brief pause on telemonitor Asymptomatic Cardizem decreased to 120mg, unfortunately pt has been NPO DVT Ppx: SQ heparin Code status: DNR Disposition palliative care consulted for goals of care Comfort care only Admission and Anticipated Discharge Date Admission Date: April 29, 2021 Subjective Patient was seen and examined for follow-up of acute follow-up for acute CVA, dysarthria, dysphagia Lying in bed with respiratory distress, feeling weak He continues to require intermittent suctioning due to increase secretion Spoke to son today that said family was considering to transition to comfort care Spoke to Luisa on the phone that discussed with family and made decision to transition to comfort care Daughter understood that we will withdrawn care, lab testing and the goal was to keep the patient comfortable She agreed to discontinue PPN supplement Review of Systems Review of Systems: All systems reviewed & are unremarkable except as noted in Subjective Physical Exam Physical Exam: General- acute respiratory failure Head- atraumatic Eyes- PERRL, EOMI, ENT- +increase oral secretion Neck- supple, no JVD Lungs-+crackle Heart- regular rhythm; no murmur Abdomen- normal bowel sounds, soft, nontender Extremities- no calf tenderness Neuro- Right side 0/5, left-sided 4/5, positive severe dysarthria, right facial asymmetry Skin- warm & dry Results & Data Results & Data ([facility]) Vital Signs (Past 12 Hours) Vital Signs Temp Pulse Resp BP Pulse Ox 05/09/21 15:25 36.7 C 90 20 176/88 H 92
[2021-05-10] MEDS: MoRPHine SULFATE 2 MG/ML CARP IV PRN ×4 (05:28→21:34)
[2021-05-10] MEDS: LORazepam 0.5 MG/1 ML VIAL IV PRN ×2 (07:38→15:10)
[2021-05-10] MEDS: ATROPINE SULFATE 1% OP SOLN 5 ML BTL SL PRN ×2 (15:57→21:34)
--- NOTE | 2021-05-10 23:50 | Hospitalist Progress Note ---
Date of Service May 10, 2021 Assessment & Plan (1) Weakness: (2) Dysarthria: (3) History of CVA (cerebrovascular accident): (4) Hypomagnesemia: (5) DM type 2 (diabetes mellitus, type 2): (6) Paroxysmal atrial fibrillation: (7) CKD (chronic kidney disease), stage III: Plan: per admitting service notes with addendum This is an 81yo M with a PMH of CVA with residual left arm and left leg weakness and dysarthria, DM II, HTN, paroxysmal atrial tachycardia, CKD III presenting to ED with progressive weakness x week as well as more pronounced slurring of speech. 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 Neuro recommended one time outpatient evaluation by vascular neurosurgery (has not yet seen) CT head on admission showed no acute intracranial abnormality MRI no acute intracranial abnormality, specifically there is no acute or subacute infarct. Chronic lacunar infarcts of the basal ganglia, brainstem and cerebellum. Lyme titer negative Peripheral smear no evidence of intracytoplasmic neutrophilic inclusions to suggest Anaplasmosis Repeat Brain MRI showed interval development of an acute infarct within the brainstem centrally and to the left with acute diffusion weighted imaging abnormality 05/10/2021 Patient has not shown any signs of improvement with symptoms since last Tuesday Still has dense right-sided weakness, severe dysarthria-nonverbal, has failed 3 speech evaluations Palliative care consulted for goals of care Spoke to Luisa on the phone that discussed with family and made decision to transition to comfort care Daughter understood that we will withdrawn care, lab testing and the goal was to keep the patient comfortable She agreed to discontinue PPN supplement Pt was transition to comfort care yesterday Fever Likely secondary to aspiration pneumonia Blood cultures negative Currently afebrile Patient has been on antibiotic for 7 days Completed the course of antibiotic Possible aspiration pneumonia IV Unasyn changed to Zosyn, will consider to d/c Suctioning as needed Continue chest PT and intermittent suctioning Electrolytes abnormality Potassium 3.4 and phos 2.2 Electrolyte replaced Acute kidney failure CKD stage III creatinine increased to 1.7 IV fluids ordered Creatinine 1.2 Resolved Hypernatremia [id number] today D5 water discontinue since patient started on PPN monitor Dysphagia Failed speech x 3 Pharmacy/Nutrition on board for PPN DM type II Most recent HbA1c was 7.7 on 04/28/21 Continue novolog sliding scale and Lantus Currently NPO Hypertension PRN hydralazine Paroxysmal atrial tachycardia Pt had a brief pause on telemonitor Asymptomatic Cardizem decreased to 120mg, unfortunately pt has been NPO DVT Ppx: SQ heparin Code status: DNR Disposition palliative care consulted for goals of care Comfort care only Admission and Anticipated Discharge Date Admission Date: April 29, 2021 Subjective Pt was seen and examined for follow up of comfort care Lying in bed and seems to be resting comfortable Significant other at bedside Review of Systems Review of Systems: All systems reviewed & are unremarkable except as noted in Subjective Physical Exam Physical Exam: General- acute respiratory failure Head- atraumatic Eyes- PERRL, EOMI, ENT- +increase oral secretion Neck- supple, no JVD Lungs-+crackle Heart- regular rhythm; no murmur Abdomen- normal bowel sounds, soft, nontender Extremities- no calf tenderness Neuro- Right side 0/5, left-sided 4/5, positive severe dysarthria, right facial asymmetry Skin- warm & dry
[2021-05-11] MEDS: ATROPINE SULFATE 1% OP SOLN 5 ML BTL SL PRN (06:37)
[2021-05-11] MEDS: MoRPHine SULFATE 2 MG/ML CARP IV PRN ×2 (06:37→08:54)
[2021-05-11] MEDS: LORazepam 0.5 MG/1 ML VIAL IV PRN (07:45)
--- NOTE | 2021-05-11 11:26 | Palliative Care Progress Note ---
Date of Service May 11, 2021 Assessment & Plan (1) Palliative care encounter: Plan: I met with Higinio in his room. He had his eyes closed and was not responsive. He has received two doses of Morphine over the past 24 hours. is family has been intermittently in and out visiting. Expected life expectancy a few days. (2) Weakness: (3) Lower extremity weakness: Admission and Anticipated Discharge Date Admission Date: April 29, 2021 Subjective Pt remains on comfort measures Not responsive to tactile or verbal stimuli Patient making small amounts of urine Review of Systems Review of Systems: Unobtainable due to reduced consciousness Physical Exam Constitutional: + frail appearing ENMT: Mouth: + dry oral mucous membranes Respiratory: normal respiratory effort Auscultation: + diminished lung sounds and + rhonchi Cardiovascular: Rate/Rhythm: regular rate and regular rhythm Heart Sounds: normal S1 and normal S2 Extremities: normal capillary refill and + edema Gastrointestinal (Abdomen): Inspection/Auscultation: abdomen normal to inspection Skin: + pallor PG Care Time/CCT Total # of Minutes Spent Total Time Spent with Patient: Total time spent is greater than 50% in coordination of care (as documented) at patient's floor/unit and/or counseling patient: 35 minutes Coding Level of Care Code 80386 Subseq Hosp Care Lvl 3 Diagnoses Palliative care encounter Z51.5 Weakness R53.1 Lower extremity weakness R29.898 Time Spent (min) 35
--- NOTE | 2021-05-11 21:23 | Hospitalist Progress Note ---
Date of Service May 11, 2021 Assessment & Plan (1) Weakness: (2) Dysarthria: (3) History of CVA (cerebrovascular accident): (4) Hypomagnesemia: (5) DM type 2 (diabetes mellitus, type 2): (6) Paroxysmal atrial fibrillation: (7) CKD (chronic kidney disease), stage III: Plan: per admitting service notes with addendum This is an 81yo M with a PMH of CVA with residual left arm and left leg weakness and dysarthria, DM II, HTN, paroxysmal atrial tachycardia, CKD III presenting to ED with progressive weakness x week as well as more pronounced slurring of speech. 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 Neuro recommended one time outpatient evaluation by vascular neurosurgery (has not yet seen) CT head on admission showed no acute intracranial abnormality MRI no acute intracranial abnormality, specifically there is no acute or subacute infarct. Chronic lacunar infarcts of the basal ganglia, brainstem and cerebellum. Lyme titer negative Peripheral smear no evidence of intracytoplasmic neutrophilic inclusions to suggest Anaplasmosis Repeat Brain MRI showed interval development of an acute infarct within the brainstem centrally and to the left with acute diffusion weighted imaging abnormality 05/11/2021 Patient has not shown any signs of improvement with symptoms since last Tuesday Still has dense right-sided weakness, severe dysarthria-nonverbal, has failed 3 speech evaluations Palliative care consulted for goals of care Spoke to Luisa on the phone that discussed with family and made decision to transition to comfort care Daughter understood that we will withdrawn care, lab testing and the goal was to keep the patient comfortable She agreed to discontinue PPN supplement Pt was transition to comfort care yesterday Fever Likely secondary to aspiration pneumonia Blood cultures negative Currently afebrile Patient has been on antibiotic for 7 days Completed the course of antibiotic Possible aspiration pneumonia IV Unasyn changed to Zosyn, will consider to d/c Suctioning as needed Continue chest PT and intermittent suctioning Electrolytes abnormality Potassium 3.4 and phos 2.2 Electrolyte replaced Acute kidney failure CKD stage III creatinine increased to 1.7 IV fluids ordered Creatinine 1.2 Resolved Hypernatremia [id number] today D5 water discontinue since patient started on PPN monitor Dysphagia Failed speech x 3 Pharmacy/Nutrition on board for PPN DM type II Most recent HbA1c was 7.7 on 04/28/21 Continue novolog sliding scale and Lantus Currently NPO Hypertension PRN hydralazine Paroxysmal atrial tachycardia Pt had a brief pause on telemonitor Asymptomatic Cardizem decreased to 120mg, unfortunately pt has been NPO DVT Ppx: SQ heparin Code status: DNR Disposition palliative care consulted for goals of care Comfort care only Admission and Anticipated Discharge Date Admission Date: April 29, 2021 Subjective Pt was seen and examined for follow up of comfort care Lying in bed and seems to be resting comfortable Significant other, daughter and hide grader at bedside Updates provided to the family and answered all their questions Review of Systems Review of Systems: All systems reviewed & are unremarkable except as noted in Subjective Physical Exam Physical Exam: General- acute respiratory failure Head- atraumatic Eyes- PERRL, EOMI, ENT- +increase oral secretion Neck- supple, no JVD Lungs-+crackle Heart- regular rhythm; no murmur Abdomen- normal bowel sounds, soft, nontender Extremities- no calf tenderness Neuro- Right side 0/5, left-sided 4/5, positive severe dysarthria, right facial asymmetry Skin- warm & dry
[2021-05-12] MEDS: MoRPHine SULFATE 2 MG/ML CARP IV PRN ×3 (04:21→11:42)
--- NOTE | 2021-05-12 09:46 | Palliative Care Progress Note ---
Date of Service May 12, 2021 Assessment & Plan (1) Palliative care encounter: Plan: I met with Higinio in his room. He had his eyes closed and was not responsive. He has received ONE dose of Morphine over the past 24 hours. Encouraged nursing to administer Morphine for tachypnea as he appears uncomfortable. Family hesitant for scheduled dosing, will stick with PRN for now, low threshold for administering. Some mottling noted around knees and bottom of feet. Pt is on 4LNC, titrate down to 2LNC. Expected life expectancy a few days. (2) Weakness: (3) Lower extremity weakness: Admission and Anticipated Discharge Date Admission Date: April 29, 2021 Subjective Pt remains on comfort measures Not responsive to tactile or verbal stimuli Patient tachypnic during my encounter. Patients grandson, En, at the bedside. Patient making small amounts of urine Some mottling on bottom of both of his heels and around his knees. on 4LNC, titrate down to 2LNC. See A/P for further details. Review of Systems Review of Systems: Unobtainable due to reduced consciousness Physical Exam Constitutional: + frail appearing ENMT: Mouth: + dry oral mucous membranes Respiratory: normal respiratory effort Auscultation: + diminished lung sounds and + rhonchi Cardiovascular: Rate/Rhythm: regular rate and regular rhythm Heart Sounds: normal S1 and normal S2 Extremities: normal capillary refill and + edema Gastrointestinal (Abdomen): Inspection/Auscultation: abdomen normal to inspection Skin: + pallor Psychiatric: Orientation: alert and oriented to person PG Care Time/CCT Total # of Minutes Spent Total Time Spent with Patient: Total time spent is greater than 50% in coordination of care (as documented) at patient's floor/unit and/or counseling patient: 35 minutes Coding Level of Care Code 42076 Subseq Hosp Care Lvl 3 Diagnoses Palliative care encounter Z51.5 Weakness R53.1 Lower extremity weakness R29.898 Time Spent (min) 35
[2021-05-12] MEDS: LORazepam 0.5 MG/1 ML VIAL IV PRN ×2 (10:54→15:44)
[2021-05-12] MEDS ORDERED: ATROPINE SULFATE 1% OP SOLN 5 ML BTL SL SCH (14:00)
[2021-05-12] MEDS: MoRPHine SULFATE 5 MG/0.25 ML UDP PO SCH ×2 (14:27→16:32)
[2021-05-12] MEDS ORDERED: MoRPHine SULFATE 5 MG/0.25 ML UDP PO SCH (16:00)
[2021-05-12] MEDS ORDERED: MoRPHine SULFATE 2 MG/ML CARP IV SCH (17:30)
--- NOTE | 2021-05-12 20:17 | Communication Note ---
Date of Service: May 12, 2021 note Called from Nurse that pt ceased to breath. Pt was unresponsive with eyes closed No heart sound, no lung sound noted on auscultation No pulse and no tactile stimuli Pupils no reactive to light Time of :18:25 Family at bedside. Answered all questions. certificate completed and signed MD Leelee
--- NOTE | 2021-05-14 03:35 | Discharge Summary ---
Date of Service May 12, 2021 Admission HPI Per Admitting Provider This is an 81yo M with a PMH of CVA with residual left arm and left leg weakness and dysarthria, DM II, HTN, paroxysmal atrial tachycardia, CKD III presenting to ED with progressive weakness x week as well as more pronounced slurring of speech. Was recently admitted one month ago with similar presentation and underwent work up including brain MRI, CVA of head and neck and echo with bubble study that were all unchanged. Was evaluated by neurology at that time who felt weakness was due to electrolyte abnormalities and dehydration that improved with IV fluids. Was noted to have a 2.5mm saccular aneurysm that was unchanged from prior. Neuro recommended one time outpatient evaluation by vascular neurosurgery. Since discharge home, patient has been weaker than baseline per significant other at bedside. He even went to hunting camp but felt too weak to participate earlier this week. Endorses 2 episodes of diarrhea that have since resolved. No changes to appetite. More weak since yesterday and difficulty getting out of bed this morning, which prompted trip to ER. Increased slurring of speech noted this morning similar to previous admission and more significant than baseline deficit dysarthria from former stroke 3-1/2 years ago. Denies fever, chills, headache. Slight increase in cough and SOB. No chest pain or wheezing. No nausea, vomiting or diarrhea. No fall. Has received covid and flu vaccinations. No medication changes. Admission Exam Per Admitting Provider General Appearance:WD/WN, vitals as above, NAD, sitting up in bed, pleasant, + dysarthric Head: normocephalic, atraumatic Eyes:normal inspection, PERRL, conjunctivae normal, anicteric sclerae ENT: external ear and nose normal, dry mucous membranes of oropharynx Neck: normal visual inspection, trachea midline, no thyromegaly Respiratory:normal respiratory effort, lungs clear to auscultation, no wheeze, rales, rhonchi. No accessory muscle use Cardiovascular: regular rate, rhythm, no murmur, normal peripheral pulses, no BLE edema. Vessels: no JVD Chest: normal inspection of chest Abdomen/GI: normal bowel sounds, soft, nontender, no hepatosplenomegaly Extremities/Musculoskeletal: no cyanosis or clubbing, RUE and RLE 5/5 NITIN, LUE and LLE 4/5 (has baseline L sided weakness) Neurologic: PERRL, EOMI, accommodation nl, no face palsy, + dysarthria, CN's II-XI intact bilaterally and moves all extremities Psychiatric:A+Ox3, euthymic affect Skin: no rashes, normal color, warm/dry Principal Diagnosis 35 minutes Discharge Exam Pt was unresponsive with eyes closed No heart sound, no lung sound noted on auscultation No pulse and no tactile stimuli Pupils no reactive to light Discharge Data Allergies Allergy/AdvReac Type Severity Reaction Status Date / Time lisinopril Allergy Severe edema/airwa Verified 04/27/21 13:07 y simvastatin Allergy Mild MUSCLE PAIN Verified 04/27/21 13:07 canagliflozin Allergy Unknown vertigo Verified 04/27/21 13:07 adhesive AdvReac Unknown RASH Verified 04/27/21 13:07 mushroom AdvReac Unknown NAUSEATED Verified 04/27/21 13:07 Consultations 04/27/21 15:37 ED Decision to Admit Stat 04/27/21 16:13 Consult Neurology Routine 05/07/21 03:16 Consult Palliative Care Routine Ordered Studies 04/27/21 12:05 CT head/brain wo con Stat 04/27/21 17:19 MR brain wo con Routine 04/28/21 17:17 CT head/brain wo con Stat 04/29/21 08:26 MR brain wo con Routine CT head/brain wo con CLINICAL HISTORY: weakness COMPARISON STUDY: 04/03/2021 CT DOSE: 1400.53 mGy.cm TECHNIQUE: Standard CT of the Brain was performed without IV contrast. A dose lowering technique was utilized adhering to the principles of ALARA. FINDINGS: Extraaxial space: There is no evidence for subdural hematoma. There are no extra-axial fluid collections. Ventricles and cisterns: The ventricles are again mildly dilated bilaterally. There is no evidence for midline shift or mass effect. Parenchyma: There is no subarachnoid or intraparenchymal hemorrhage. There is no evidence for an acute infarct or cerebral edema. There is mild cerebral cortical atrophy and decreased attenuation in the periventricular white matter representing remote small vessel disease. There are no gross mass lesions. Osseous structures: There is no evidence for an acute fracture. The visualized paranasal sinuses are clear. The mastoid air cells are clear bilaterally. Soft tissues: There is no evidence for focal soft tissue swelling. IMPRESSION: No acute intracerebral pathology. There is again mild cerebral cortical atrophy and remote small vessel disease. ACT 112: Negative or not required by law. Electronically signed by: Carson Bourne M.D. 04/27/2021 12:56 PM Dictated:04/27/21 1254 Transcribed: 04/27/21 1254 XR chest 1V portable CLINICAL HISTORY: weakness. Evaluate cardiopulmonary status COMPARISON STUDY: 04/03/2021 TECHNIQUE: 1 view of the chest FINDINGS: Single frontal view of the chest demonstrates the cardiomediastinal silhouette to be within normal limits. The lungs are clear of alveolar opacities. There is no evidence for pleural effusion. There is no evidence for vascular congestion. There is no acute osseous pathology. IMPRESSION: No acute cardiopulmonary disease. ACT 112: Negative or not required by law. Electronically signed by: Carson Bourne M.D. 04/27/2021 12:46 PM Dictated:04/27/21 1246 Transcribed: 04/27/21 1246 MR brain wo con CLINICAL HISTORY: r sided weakness, dysarthria, evaluate for CVA. COMPARISON STUDY: 04/27/2021 TECHNIQUE: Multiplanar multisequence images of the Brain were performed without IV contrast. Diffusion weighted imaging and ADC mapping was also performed. FINDINGS: Extra-axial space: There is no evidence for a subdural hematoma, There are no extra-axial fluid collections. Ventricles and cisterns: The ventricles are again mildly dilated bilaterally. There is no evidence for midline shift or mass effect. Parenchyma: Compared to previous examination, there has been interval development of an acute infarct within the brainstem centrally and to the left. Acute diffusion abnormality is now seen . There is no abnormality seen on ADC mapping corresponding to the acuity of the infarct. Old lacunar infarcts are again seen within the basal ganglia bilaterally. There is mild cerebral cortical atrophy present. There is bright signal seen on FLAIR weighted sequences within the centrum semiovale and periventricular white matter characteristic of remote small vessel disease. The sulci and gyri appear normal without effacement. The midline structures are unremarkable. The posterior fossa structures appear normal. There is no evidence for mass lesion. Osseous structures: The paranasal sinuses are well aerated. The mastoid air cells are well aerated. Soft tissues: No focal soft tissue abnormalities are identified. IMPRESSION: 1. Compared to the previous examination, there has been interval development of an acute infarct within the brainstem centrally and to the left with acute diffusion weighted imaging abnormality now seen. 2. Atrophy, old lacunar infarcts and remote small vessel disease are again seen. ACT 112: Negative or not required by law. Electronically signed by: Carson Bourne M.D. 04/29/2021 1:31 PM Dictated:04/29/21 1325 Transcribed: 04/29/21 1325 Hospital Course (1) Weakness: (2) Dysarthria: (3) History of CVA (cerebrovascular accident): (4) Hypomagnesemia: (5) DM type 2 (diabetes mellitus, type 2): (6) Paroxysmal atrial fibrillation: (7) CKD (chronic kidney disease), stage III: per admitting service notes with addendum This is an 81yo M with a PMH of CVA with residual left arm and left leg weakness and dysarthria, DM II, HTN, paroxysmal atrial tachycardia, CKD III presenting to ED with progressive weakness x week as well as more pronounced slurring of speech. 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 Neuro recommended one time outpatient evaluation by vascular neurosurgery (has not yet seen) CT head on admission showed no acute intracranial abnormality MRI no acute intracranial abnormality, specifically there is no acute or subacute infarct. Chronic lacunar infarcts of the basal ganglia, brainstem and cerebellum. Lyme titer negative Peripheral smear no evidence of intracytoplasmic neutrophilic inclusions to suggest Anaplasmosis Repeat Brain MRI showed interval development of an acute infarct within the brainstem centrally and to the left with acute diffusion weighted imaging abnormality 05/12/2021 Patient has not shown any signs of improvement with symptoms since last Tuesday Still has dense right-sided weakness, severe dysarthria-nonverbal, has failed 3 speech evaluations Palliative care consulted for goals of care Spoke to Luisa on the phone that discussed with family and made decision to transition to comfort care Daughter understood that we will withdrawn care, lab testing and the goal was to keep the patient comfortable She agreed to discontinue PPN supplement Pt was transition to comfort care yesterday note Called from Nurse that pt ceased to breath. Pt was unresponsive with eyes closed No heart sound, no lung sound noted on auscultation No pulse and no tactile stimuli Pupils no reactive to light Time of :18:25 Family at bedside. Answered all questions. certificate completed and signed Total Time Total Time Spent Total Time Spent (In Minutes): 35 Discharge Plan Discharge Items Patient Disposition: Other Date/Time: 05/12/21 18:25
== END 2021-05-12 21:00 | disposition expired | DRG 64 ==
LOC: EDINP 11:52 → ED 11:52 → SUATTDRO 16:03 → EDINP 19:02 → 2N 19:53 → SUATTDRO 04-29 08:25 → 3E 05-09 21:13